=== PATIENT | female | born 1935 | race Caucasian/White ===

== ENCOUNTER → 2017-06-02 11:15 | Outpatient (CLI) | payer MEDICARE, OTHER, SELFPAY ==
[2016-08-18 10:52] VITALS: BMI 33.5
[2017-06-02 14:07] LABS: Absolute Lymphocyte Count 1.61 X10^3/ul (0.83-4.51); Absolute Neutrophil Count 5.2 X10^3/uL (2.0-7.7); Basophil# 0.05 X10^3/uL; Basophil% 0.6 % (0-1); Eosinophil# 0.45 X10^3/uL; Eosinophils% 5.5 % (0-5); Hematocrit 35.5 % (37-47); Hemoglobin 11.5 g/dl (12.0-15.0); Lymphocyte # 1.61 X10^3/ul (4.0); Lymphocyte % 19.6 % (19-41); Mean Corp Hgb Conc 32.4 g/gl (32-36); Mean Corpuscular Hgb 29.6 pg (27.0-32.0); Mean Corpuscular Volume 91.5 fL (81-99); Monocyte# 0.94 X10^3/uL; Monocyte% 11.4 % (0-10); Neutrophil # 5.15 X10^3/uL (2.7-7.7); Neutrophil % 62.7 % (47-70); Platelet Count 399 K/mm3 (150-450); RBC Distribution Width CV 13.2 % (11.6-14.6); RBC Distribution Width SD 43.9 fl (35.1-43.9); Red Blood Count 3.88 M/mm3 (4.2-5.4); White Blood Count 8.2 K/mm3 (4.4-11.0)
[2017-06-02 14:28] LABS: POSITIVE COUNT NO; POSITIVE DIFFERENTIAL NO; POSITIVE MORPHOLOGY NO
== END ==
PROVIDERS: Family Provider Family Medicine; PCP Family Medicine; Visit Provider Internal Medicine Cardiovascular Disease
DX: R07.9 Chest pain, unspecified (principal)
CPT/HCPCS: 36415; 85025

== ENCOUNTER → 2017-06-08 13:06 | Outpatient (CLI) | payer MEDICARE, OTHER, SELFPAY ==
[2016-08-18 10:52] VITALS: BMI 33.5
[2017-06-02 10:05] VITALS: BP 100/50
--- NOTE | 2017-06-08 13:09 | RAD_ITS ---
STUDY: X-RAY CHEST REASON FOR EXAM: Female, 82 years old. Chest pain/pressure. TECHNIQUE: PA and lateral COMPARISON: August 16, 2016 FINDINGS: There are stable prominent interstitial markings. No new focal consolidation is seen. Sternal cerclage wires and vascular clips are present from a prior sternotomy and coronary artery bypass graft procedure (CABG). The cardiomediastinal silhouette is stable. There are diffuse degenerative changes of the visualized thoracic spine. Normal visualized ribs, clavicles, and shoulders. There is no demonstrated abnormality of the visualized soft tissue structures of the upper abdomen. RAD/Chest PA and Lateral IMPRESSION: Stable examination demonstrating no acute cardiopulmonary process. Electronically Signed: Toshia Viveros MD at 22:46 EST Tel , Service support ,
[2017-06-08 15:05] LABS: Hematocrit 34.7 % (37-47); Hemoglobin 11.4 g/dl (12.0-15.0); Mean Corp Hgb Conc 32.9 g/gl (32-36); Mean Corpuscular Hgb 29.7 pg (27.0-32.0); Mean Corpuscular Volume 90.4 fL (81-99); Mean Platelet Vol. 10.1 fl (6.2-12.0); Platelet Count 363 K/mm3 (150-450); RBC Distribution Width CV 13.3 % (11.6-14.6); RBC Distribution Width SD 43.4 fl (35.1-43.9); Red Blood Count 3.84 M/mm3 (4.2-5.4); White Blood Count 7.9 K/mm3 (4.4-11.0)
[2017-06-08 15:10] LABS: Scan Indicated on CBC? Y/N NO
[2017-06-08 15:14] LABS: International Normalized Ratio 1.1; Prothrombin Time (Protime)PT. 13.4 SECONDS (11.7-14.9)
[2017-06-08 15:27] LABS: Anion Gap 10 (5-15); BUN 24 mg/dL (7-18); BUN/Creat Ratio 24.5 RATIO (10-20); Calcium,Total 8.9 mg/dL (8.5-10.1); Chloride 94 mmol/L (98-107); Creatinine, Serum 0.98 mg/dL (0.55-1.02); EST Glomerular Filtration Rate 58 mL/min (>60); Est Glom Filt Rate - Afr Amer 70 mL/min (>60); Glucose 81 mg/dL (74-106); Potassium 4.1 mmol/L (3.5-5.1); Sodium Level 132 mmol/L (136-145)
== END ==
PROVIDERS: Family Provider Family Medicine; PCP Family Medicine; Visit Provider Internal Medicine Cardiovascular Disease
DX: I25.810 Atherosclerosis of coronary artery bypass graft(s) without angina pectoris (principal); I25.118 Atherosclerotic heart disease of native coronary artery with other forms of angina pectoris; R07.9 Chest pain, unspecified; Z95.5 Presence of coronary angioplasty implant and graft; Z95.1 Presence of aortocoronary bypass graft
CPT/HCPCS: 36415; 71046; 80048; 85027; 85610

== ENCOUNTER 2017-06-16 12:42 | Inpatient (IN) | payer MEDICARE, OTHER, SELFPAY ==
[2016-08-18 10:52] VITALS: BMI 33.5
[2017-06-12 15:44] VITALS: BMI 34.9
[2017-06-15] VITALS (18 sets, daily range): BP systolic 104–147; BP diastolic 33–65; PULSE 68–86; RESP 13–25; TEMP 36.5–37.2; O2SAT 94–100; BMI 35.5
--- NOTE | 2017-06-15 10:29 | CL.D_ITS ---
Patient Name: SCARLET DELACRUZ Study Date: 06/15/2017 Performing: Freddie Hudson MD Ht: 61.81 inches 157 cm : 1935 Wt: 191.8 lbs 87 kg Age: 82 Gender: female BSA: 1.87 PROCEDURE(S) PERFORMED WI33-KEU/COR/LV/CABG CLINICAL PROFILE AND INDICATIONS INDICATIONS: 82-year-old lady with a history of unstable angina. Stress/Imaging Stress/Image Study Performed: No Angina Classification Anginal Classification w/in 2 Weeks: CCS III CAD Presentations: Unstable angina. CONCLUSIONS Severe disease involving the [place] coronary arteries as well as both saphenous vein grafts to the ri ght coronary artery as well as the circumflex artery and diagonal. Small left internal mammary arter y to the left anterior descending artery RECOMMENDATIONS PCI versus redo bypass surgery DESCRIPTION OF PROCEDURE The patient arrived to the procedure lab. The risks and benefits of the procedure as well as a full d escription of our services here and current unavailability of surgical backup were fully explained to the patient and/or their significant other prior to the catheterization. The Timeout was completed, verifying the correct patient and procedure. The patient's procedural site was prepped and draped in the usual fashion. Local anesthetic was given subcutaneously to left radial region with Lidocaine 2%. Using a modified Seldinger technique, arterial access was obtained via the left radial artery, a 6Fr sheath was inserted. Left internal mammary artery graft to the LAD selective angiography was perfor med in multiple views using a 5 Fr. IM catheter. Left Coronary Artery selective angiography was perfo rmed in multiple views using a 5 Fr. JL3.5 catheter. Saphenous Vein graft to the RCA selective angiog charley was performed in multiple views using a 5 Fr. AR MOD catheter. Saphenous Vein graft to the OM 1 selective angiography was performed in multiple views using a 5 Fr. LCB catheter. Right Coronary Art patsy selective angiography was then performed in multiple views using a 5 Fr. 3DRC (Vargas) catheter . Left Ventriculography was performed in FORBES projection using a 5 Fr. Pigtail catheter. LV to AO pull back pressures were then recorded. Left internal mammary artery graft to the LAD selective angiograph y was performed in multiple views using a 4 Fr. IM catheter. CORONARY ANGIOGRAPHY DOMINANCE: Right Dominant LEFT HEART ASSESSMENT Left Ventricular Ejection Fraction: by LV Gram 53 % LEFT MAIN: 30 % Stenosis LEFT ANTERIOR DECENDING ARTERY: PROX LAD: Mild luminal irregularities less than 30% MID LAD: occluded with competetive flow CIRCUMFLEX ARTERY: PROX CIRC: Mild luminal irregularities, 80 % Stenosis MID CIRC: is occluded RIGHT CORONARY ARTERY: Severe prox disease the occluded GRAFTS: REID graft to the Mid LAD is patent REID graft to the LAD is a very small vessel Saphenous Vein graft to the RCA has a proximal lesion of 95 % Saphenous Vein graft to the RCA previously placed stent has an instent restenosis of 30 % Sequential graft to the diagonal and OM is occluded Saphenous Vein graft to the 1st Diagonal previously placed stent has an instent restenosis of 95 in s tent % COMPLICATIONS PROCEDURE MEDICATIONS Versed 1 mg IV Fentanyl 50 mcg IV Oxygen: 2 L/min via nasal cannula Heparin diluted in 23cc Heparinized saline. Patient given 10cc IA of this solution. 06/15/2017 09:18: 26 Heparin 7000 unit(s) IV 06/15/2017 10:15:20 Nitro Tab 0.4 mg PO 06/15/2017 09:57:05 Nitro Tab 0.4 mg PO 06/15/2017 09:57:05 Verapamil 2.5mg, Ntg 100mcgs, 2000 units of Heparin diluted in 23cc Heparinized saline. Patient give n 10cc IA of this solution. 06/15/2017 09:18:26 SUMMARY OF HEMODYNAMIC DATA Time AIR REST ECG 08:10:25 AO 111/53 (76) SA 09:23:48 LV 141/10, 25 09:59:14 LV 141/9, 26 09:59:21 LV 128/7, 25 10:00:41 LVp 134/8, 29 10:00:49 AOp 135/63 (94) 10:00:54 Signed By Freddie Hudson MD On 06/15/2017 10:28:25 Freddie Hudson MD
--- NOTE | 2017-06-15 11:07 | CL.I_ITS ---
Patient Name: SCARLET DELACRUZ Study Date: 06/15/2017 Performing: Anisha Wahl MD Ht: 61.81 inches 157 cm : 1935 Wt: 191.8 lbs 87 kg Age: 82 Gender: female BSA: 1.87 PROCEDURE(S) PERFORMED [id number] AND/OR PTCA, SINGLE GRAFT CLINICAL PROFILE AND CO-MORBIDITIES INDICATIONS: 82-year-old lady with a history of unstable angina. Stress/Imaging Stress/Image Study Performed: No Angina Classification Anginal Classification w/in 2 Weeks: CCS III CAD Presentations: Unstable angina. CONCLUSIONS Succesful Aspiration Thrombectomy and PTCA stent thrombosis/ISR Prox SVG to OM using 3.5 mm NC balloo n RECOMMENDATIONS ASA Indefinitley Brilinta for at least 12 months INTERVENTION INFORMATION LESION SITE: Vein > to Circumflex (Proximal) Segment Number: 18-Proximal circumflex artery segment - pCIRC , Lesion Location: Body Lesion Complexity: High/C, chronic total occlusion: No, thrombus present: Yes, In-stent restenosis: Y es Pre Stenosis: 100 % Pre intervention FRANCIE flow: 0 PROCEDURE: Thrombectomy, Balloon Angioplasty Post Stenosis: 0 % Post intervention FRANCIE flow: 3 Lesion Devices: Medtronic 6 Fr AL1.0 100cm Guide Catheter Medtronic 6 Fr. [place] AP Aspiration Catheter Terumo .014 Runthrough Extra Floppy 180cm straight Fish Sci Large Vessel 3.5-5.5 Filter Wire 190cm Fish Sci NC EMERGE MR 3.50x15 BALLOON COMPLICATIONS No Complications PROCEDURE MEDICATIONS Versed 1 mg IV Fentanyl 50 mcg IV Fentanyl 25 mcg IV Oxygen: 2 L/min via nasal cannula Brilinta 180 mg PO @ 06/15/2017 10:38:00 Heparin diluted in 23cc Heparinized saline. Patient given 10cc IA of this solution. 06/15/2017 09:18: 26 Heparin 7000 unit(s) IV 06/15/2017 10:15:20 Heparin 1000 unit(s) IV 06/15/2017 10:37:55 Nitro Tab 0.4 mg PO 06/15/2017 09:57:05 Nitro Tab 0.4 mg PO 06/15/2017 09:57:05 Verapamil 2.5mg, Ntg 100mcgs, 2000 units of Heparin diluted in 23cc Heparinized saline. Patient give n 10cc IA of this solution. 06/15/2017 09:18:26 SUMMARY OF HEMODYNAMIC DATA Time AIR REST ECG 08:10:25 AO 111/53 (76) SA 09:23:48 LV 141/10, 25 09:59:14 LV 141/9, 09:59:21 LV 128/7, 25 10:00:41 LVp 134/8, 29 10:00:49 AOp 135/63 (94) 10:00:54 Signed By Anisha Wahl MD On 06/15/2017 11:06:12 Anisha Wahl MD
--- NOTE | 2017-06-15 11:15 | EKG12_ITS ---
Test Reason : Blood Pressure : / mmHG Vent. Rate : 069 BPM Atrial Rate : 069 BPM P-R Int : 196 ms QRS Dur : 088 ms QT Int : 418 ms P-R-T Axes : 054 -01 035 degrees QTc Int : 447 ms Normal sinus rhythm with sinus arrhythmia Normal ECG When compared with ECG of 19-AUG-2016 03:59, No significant change was found Confirmed by CRISTO EPPS, CRYSTAL ([id number]), senior editor MASHA CARO ([id number]) on 06/16/2017 2:00:01 PM Referred By: Crystal Hudson Confirmed By:CRYSTAL HUDSON MD
[2017-06-15 11:21] LABS: ACT Activated Clotting Time 241 sec (74-137)
[2017-06-15] MEDS: 0.9% Normal Saline 1,000 ML 100 ML IV (11:49)
[2017-06-15 15:46] LABS: M R Staph aureus DNA By PCR Negative (Negative); Probe Check PASS; Specimen Processing Control PASS
[2017-06-15] MEDS: DiphenhydrAMINE 12.5 MG/5 ML UDC PO (22:07)
[2017-06-15] MEDS: TICAGRELOR 90 MG TABLET PO (22:07)
[2017-06-16] VITALS (27 sets, daily range): BP systolic 82–131; BP diastolic 33–58; PULSE 65–91; RESP 14–23; TEMP 36.6–37.2; O2SAT 95–99
[2017-06-16 05:06] LABS: Hematocrit 31.9 % (37-47); Mean Corp Hgb Conc 34.5 g/gl (32-36); Mean Corpuscular Hgb 30.9 pg (27.0-32.0); Mean Corpuscular Volume 89.6 fL (81-99); Mean Platelet Vol. 9.5 fl (6.2-12.0); Platelet Count 318 K/mm3 (150-450); RBC Distribution Width CV 13.1 % (11.6-14.6); RBC Distribution Width SD 41.7 fl (35.1-43.9); Red Blood Count 3.56 M/mm3 (4.2-5.4); White Blood Count 7.3 K/mm3 (4.4-11.0)
[2017-06-16 05:07] LABS: Scan Indicated on CBC? Y/N NO
[2017-06-16 05:15] LABS: Anion Gap 8 (5-15); BUN 17 mg/dL (7-18); BUN/Creat Ratio 18.7 RATIO (10-20); Calcium,Total 8.6 mg/dL (8.5-10.1); Chloride 101 mmol/L (98-107); Creatinine, Serum 0.91 mg/dL (0.55-1.02); EST Glomerular Filtration Rate 63 mL/min (>60); Est Glom Filt Rate - Afr Amer 76 mL/min (>60); Estimated Creatinine Clearance 38.35 ml/min; Glucose 86 mg/dL (74-106); Potassium 3.6 mmol/L (3.5-5.1); Sodium Level 136 mmol/L (136-145)
--- NOTE | 2017-06-16 05:55 | EKG12_ITS ---
Test Reason : AM Blood Pressure : / mmHG Vent. Rate : 068 BPM Atrial Rate : 068 BPM P-R Int : 186 ms QRS Dur : 090 ms QT Int : 414 ms P-R-T Axes : 051 014 051 degrees QTc Int : 440 ms Normal sinus rhythm Normal ECG Confirmed by JZAMYN EPPS, ROCHELLE ([id number]), legal editor MASHA CARO ([id number]) on 06/17/2017 1:34:55 PM Referred By: Freddie Hudson Confirmed By:ROCHELLE ELDRIDGE MD
--- NOTE | 2017-06-16 07:47 | PCM.PN.CARD ---
Subjectve: Patient seen and evaluated Objective: Vital Signs Temp Pulse Resp BP Pulse Ox 98.1 F 66 23 H 130/45 H 97 06/16/17 04:00 06/16/17 07:05 06/16/17 07:00 06/16/17 07:00 06/16/17 07:00 Oxygen Delivery Method Room Air Weight: 192 lb 14.472 oz Body Mass Index (BMI) 35.5 Intake and Output for Last 24 Hours 06/14/17 06/15/17 06/16/17 23:59 23:59 23:59 Intake Total 1001 / 1001 565 / 565 Balance 1001 / 1001 565 / 565 General: Awake, Alert, Oriented x 3 HEENT: PERRL, EOMI, Sclera Non Icteric Neck: Supple, Good ROM, No Lymph Node Enlargement Lungs: Clear to auscultation Cardiovascular: Regular Rhythm, Normal S1, Normal S2, No Murmurs, No Rubs, No Gallops Vascular: No Carotid Bruits, Normal Femoral Pulses, Normal Radial Pulses, Normal Dorsalis Pedal Pulse, Normal Posterior Tibial Pulses Abdomen: Bowel Sounds Present, Soft, Non Tender, No HSM, No Organomegaly Extremities: No Cyanosis, No Clubbing, No edema Neurological: No Focal Motor or Sensory Deficit 06/16/17 04:55: WBC 7.3, RBC 3.56 L, Hgb 11.0 L, Hct 31.9 L, MCV 89.6, MCH 30.9, MCHC 34.5, RDW 13.1, RDW Differential 41.7, Plt Count 318, MPV 9.5 06/16/17 04:55: Sodium 136, Potassium 3.6, Chloride 101, Carbon Dioxide 27.0, Anion Gap 8, BUN 17, Creatinine 0.91, Est GFR (MDRD) Af Amer 76, Est GFR (MDRD) Non-Af 63, BUN/Creatinine Ratio 18.7, Glucose 86, Calcium 8.6 Rhythm: EKG: Sinus rhythm with no acute changes. Assessment/Plan 1. Coronary artery disease with unstable angina. Patient presented with chest discomfort and underwent a cardiac catheterization which demonstrated a subtotally occluded saphenous vein graft to the diagonal vessel and obtuse marginal branch, a high-grade stenosis noted in the saphenous vein graft to the right coronary artery, severe [place] vessel coronary artery disease and a nearly atretic left internal mammary artery to the left anterior descending artery. She underwent angioplasty and stenting of the saphenous vein graft to the diagonal vessel and obtuse marginal vessel with excellent results. She was treated with Integrilin overnight which she tolerated quite well. No evidence of bleeding is noted. Hemoglobin is noted to be stable with no significant drop and creatinine is also noted to be stable. EKG changes unremarkable. The plan will be to ambulate the patient and if she is chest pain-free then will discharge patient to have an interval intervention of the saphenous vein graft to the right coronary artery. In the meantime the patient will remain on the beta-darryl SHILOH inhibitor aspirin as well as Brilinta. The above has been discussed with the patient.
--- NOTE | 2017-06-16 07:51 | PN.CARD_ITS ---
Subjectve: Patient seen and evaluated Objective: Vital Signs Temp Pulse Resp BP Pulse Ox 98.1 F 66 23 H 130/45 H 97 06/16/17 04:00 06/16/17 07:05 06/16/17 07:00 06/16/17 07:00 06/16/17 07:00 Oxygen Delivery Method Room Air Weight: 192 lb 14.472 oz Body Mass Index (BMI) 35.5 Intake and Output for Last 24 Hours 06/14/17 06/15/17 06/16/17 23:59 23:59 23:59 Intake Total 1001 / 1001 565 / 565 Balance 1001 / 1001 565 / 565 General: Awake, Alert, Oriented x 3 HEENT: PERRL, EOMI, Sclera Non Icteric Neck: Supple, Good ROM, No Lymph Node Enlargement Lungs: Clear to auscultation Cardiovascular: Regular Rhythm, Normal S1, Normal S2, No Murmurs, No Rubs, No Gallops Vascular: No Carotid Bruits, Normal Femoral Pulses, Normal Radial Pulses, Normal Dorsalis Pedal Pulse, Normal Posterior Tibial Pulses Abdomen: Bowel Sounds Present, Soft, Non Tender, No HSM, No Organomegaly Extremities: No Cyanosis, No Clubbing, No edema Neurological: No Focal Motor or Sensory Deficit 06/16/17 04:55: WBC 7.3, RBC 3.56 L, Hgb 11.0 L, Hct 31.9 L, MCV 89.6, MCH 30.9 , MCHC 34.5, RDW 13.1, RDW Differential 41.7, Plt Count 318, MPV 9.5 06/16/17 04:55: Sodium 136, Potassium 3.6, Chloride 101, Carbon Dioxide 27.0, Anion Gap 8, BUN 17, Creatinine 0.91, Est GFR (MDRD) Af Amer 76, Est GFR (MDRD) Non-Af 63, BUN/Creatinine Ratio 18.7, Glucose 86, Calcium 8.6 Rhythm: EKG: Sinus rhythm with no acute changes. Assessment/Plan 1. Coronary artery disease with unstable angina. Patient presented with chest discomfort and underwent a cardiac catheterization which demonstrated a subtotally occluded saphenous vein graft to the diagonal vessel and obtuse marginal branch, a high-grade stenosis noted in the saphenous vein graft to the right coronary artery, severe [place] vessel coronary artery disease and a nearly atretic left internal mammary artery to the left anterior descending artery. She underwent angioplasty and stenting of the saphenous vein graft to the diagonal vessel and obtuse marginal vessel with excellent results. She was treated with Integrilin overnight which she tolerated quite well. No evidence of bleeding is noted. Hemoglobin is noted to be stable with no significant drop and creatinine is also noted to be stable. EKG changes unremarkable. The plan will be to ambulate the patient and if she is chest pain-free then will discharge patient to have an interval intervention of the saphenous vein graft to the right coronary artery. In the meantime the patient will remain on the beta-darryl SHILOH inhibitor aspirin as well as Brilinta. The above has been discussed with the patient.
[2017-06-16] MEDS: Aspirin 81 MG TAB.CHEW PO (08:35)
[2017-06-16] MEDS: Lisinopril 10 MG Tablet PO (08:36)
[2017-06-16] MEDS: Levothyroxine 75 MCG Tablet PO (08:36)
[2017-06-16] MEDS: Metoprolol Tartrate 25 MG Tablet PO ×2 (08:36→22:20)
[2017-06-16] MEDS: TICAGRELOR 90 MG TABLET PO ×2 (08:37→22:20)
[2017-06-16] MEDS: Isosorbide Mononitrate 60 MG Tablet PO (08:37)
--- NOTE | 2017-06-16 10:30 | CASEMGMT ---
Addendum entered by David June 06/16/17 12:45: Pt will not dc today. Status changed to Inpt. Discussed with pt. Kylee VENTURA Original Note: Intro role of CM to patient in room. she is independent, no ambulatory needs. Lives alone, daughter is available if needed. Pt had been on Brillinta. Cost was ~$140/month and she changed to Plavix last year. Cardiology recommendation is that she returns to taking Brillinta. [facility], call to pharmacist to request copay amount and if card can be used. -RN CLARK called to [employer] assistance program. Income cut off is $35,000 and pt states her income is less. Application for [employer] completed by pt, signed and faxed (pt will be evaluated for assistance). Dr. Hudson's office # and fax given on cover sheet for f/u. Copy of form given to pt with instructions that they will send application for her to fill out. this could have been done via phone, but pt declined. -If Brillinta assistance cannot be use twice in one year, pt will be paying copay amount for this 30 day supply. Kylee VENTURA
--- NOTE | 2017-06-16 10:31 | CRPHASE1 ---
Patient Data/Charges Phase II Referral:: [facility] - FOLLOWING OFFICE VISIT WITH RISK CONSULTING TREASURY DIRECTOR Risk Factors/Lifestyle Smoking Status: Never smoker Hx Hypertension: Yes Hx Metabolic Disorders: Yes Hx Dyslipidemia: Yes Hx Obesity: Yes Height: 5 ft 2 in - WT #191 Post-Menopausal: Yes Stress: Home/Family Risk Factor for Sedentary Lifestyle: Highest Risk Family History: Family History (Last Updated 06/02/17 @ 11:40 by Susie Zeng) Father Myocardial infarction CAD (coronary artery disease) Mother CAD (coronary artery disease) Brother CAD (coronary artery disease) S/P CABG x 4 Hypertension Myocardial infarction Hx of heart valve replacement with mechanical valve Brother Hypertension Diabetes CAD (coronary artery disease) Hyperlipidemia History of coronary artery bypass graft Past Cardiac Illness: Coronary Artery Disease, Myocardial Infarction, Previous PCI w/Stent, Coronary Artery Bypass Graft Phase I Education Given On:: [place], Nutrition, Antiplatelet medication Issues Affecting Care:: None Knowledge of Condition:: Yes Learning Preferences: Verbal, Written - ALETHA IS A PAST CR PATIENT. SHE DOESN'T THINK SHE WANTS TO DO CR AGAIN. Hospital Course Presenting Symptoms:: UNSTABLE ANGINA Medical/Surgical History [place]:: Yes - IN PAST Angina:: Yes - UNSTABLE ANGINA CAD:: Yes Cardiomyopathy:: No Hypertension:: Yes Dyslipidemia:: Yes Thyroid:: Yes - HYPOTHYROIDISM CABG: Yes PTCA:: Yes Discharge/Home/Social Eval Discharge Disposition: Home Marital Status:
--- NOTE | 2017-06-16 10:37 | CRPHASE1_ITS ---
Patient Data/Charges Phase II Referral:: [facility] - FOLLOWING OFFICE VISIT WITH RANCH HAND Risk Factors/Lifestyle Smoking Status: Never smoker Hx Hypertension: Yes Hx Metabolic Disorders: Yes Hx Dyslipidemia: Yes Hx Obesity: Yes Height: 5 ft 2 in - WT #191 Post-Menopausal: Yes Stress: Home/Family Risk Factor for Sedentary Lifestyle: Highest Risk Family History: Family History (Last Updated 06/02/17 @ 11:40 by Susie Zeng) Father Myocardial infarction CAD (coronary artery disease) Mother CAD (coronary artery disease) Brother CAD (coronary artery disease) S/P CABG x 4 Hypertension Myocardial infarction Hx of heart valve replacement with mechanical valve Brother Hypertension Diabetes CAD (coronary artery disease) Hyperlipidemia History of coronary artery bypass graft Past Cardiac Illness: Coronary Artery Disease, Myocardial Infarction, Previous PCI w/Stent, Coronary Artery Bypass Graft Phase I Education Given On:: [place], Nutrition, Antiplatelet medication Issues Affecting Care:: None Knowledge of Condition:: Yes Learning Preferences: Verbal, Written - ALETHA IS A PAST CR PATIENT. SHE DOESN'T THINK SHE WANTS TO DO CR AGAIN. Hospital Course Presenting Symptoms:: UNSTABLE ANGINA Medical/Surgical History CT:: Yes - IN PAST Angina:: Yes - UNSTABLE ANGINA CAD:: Yes Cardiomyopathy:: No Hypertension:: Yes Dyslipidemia:: Yes Thyroid:: Yes - HYPOTHYROIDISM CABG: Yes PTCA:: Yes Discharge/Home/Social Eval Discharge Disposition: Home Marital Status:
--- NOTE | 2017-06-16 10:39 | CRPH1.INST_ITS ---
General Education CAD and cardiac anatomy and function:: Patient communicates acknowledgment Explanation of diagnoses and procedures:: Patient communicates acknowledgment Sign/Symptoms of VT:: Patient communicates acknowledgment Antiplatelet therapy: Patient communicates acknowledgment Proper use of NTG-SL: Patient communicates acknowledgment Emergency procedures and activation of EMS: Patient communicates acknowledgment Compliance of all prescribed medications: Patient communicates acknowledgment Smoking Patient Nicotine/Smoking Risk Factors Are:: Never smoked Dyslipidemia Patient Dyslipidemia Risk Factors Are:: Total Cholesterol, Triglycerides, HDL, LDL Recommendations Include:: Lipid profile provided Dyslipidemia Response Code:: Patient communicates acknowledgment Overweight/Obesity Patient Overweight/Obesity Risk Factors Are:: Obesity - > or = 30 Recommendations Include:: Weight loss of 5-10%, Reduced calorie diet, Exercise 5 -7 times/week Overweight/Obesity:: Patient communicates acknowledgment Hypertension Recommendations Include:: Maintain BP <130/85, DASH dietary guidelines, Decrease /maintain normal body weight, Moderation of ETOH Hypertension:: Patient communicates acknowledgment Heart Disease Patient Heart Disease Risk Factors Are:: Family history of heart disease < 65 years old, Previous cardiac event Heart Disease Response Code:: Patient communicates acknowledgment Diabetes Patient Diabetes Risk Factors Are:: No documented hx of diabetes Metabolic Syndrome Patient Metabolic Syndrome Risk Factors Are [3 of 5]:: Waist circumference > 35 [female] or 40 [male], Hypertension Recommendations Include:: Reinforce compliance to risk factor modifications, Encouraged follow-up with Primary Care Physician Metabolic Syndrome Response Code:: Patient communicates acknowledgment Sedentary Patient Sedentary Risk Factors Are:: Lack of regular exercise Recommendations Include:: Aerobic exercise 5-7 times/week for 20-30 minutes continuously, Benefits of regular exercise, Discussed home walking program, Monitored Outpatient Cardiac Rehab Sedentary Response Code:: Patient communicates acknowledgment Stress Recommendations Include:: Identification of stressors, and assessment of coping skills, Stress management techniques Stress Response Code:: Patient communicates acknowledgment
--- NOTE | 2017-06-16 11:15 | EKG12_ITS ---
Test Reason : POST CATH Blood Pressure : / mmHG Vent. Rate : 084 BPM Atrial Rate : 084 BPM P-R Int : 178 ms QRS Dur : 080 ms QT Int : 388 ms P-R-T Axes : 063 008 076 degrees QTc Int : 458 ms Normal sinus rhythm Low voltage QRS (precordial leads) Confirmed by JAZMYN EPPS, ROCHELLE ([id number]), science editor MASHA CARO ([id number]) on 06/17/2017 1:33:31 PM Referred By: Freddie Hudson Confirmed By:ROCHELLE ELDRIDGE MD
--- NOTE | 2017-06-16 17:02 | PCM.PN.BLA ---
Progress Note Patient did develop mild chest discomfort on ambulating. We will therefore keep patient overnight and perform an angioplasty in a.m. She will remain on the aspirin Brilinta and beta-darryl. The above has been discussed with the patient and her family and they understand and agree to proceed.
[2017-06-17] VITALS (34 sets, daily range): BP systolic 95–164; BP diastolic 45–98; PULSE 64–94; RESP 12–20; TEMP 36.4–37.5; O2SAT 93–100
[2017-06-17 05:02] LABS: Hematocrit 32.7 % (37-47); Hemoglobin 11.3 g/dl (12.0-15.0); Mean Corp Hgb Conc 34.6 g/gl (32-36); Mean Corpuscular Volume 89.8 fL (81-99); Mean Platelet Vol. 9.4 fl (6.2-12.0); Platelet Count 334 K/mm3 (150-450); RBC Distribution Width CV 13.4 % (11.6-14.6); Red Blood Count 3.64 M/mm3 (4.2-5.4); Scan Indicated on CBC? Y/N NO; White Blood Count 6.7 K/mm3 (4.4-11.0)
[2017-06-17 05:10] LABS: Prothrombin Time (Protime)PT. 13.2 SECONDS (11.7-14.9)
[2017-06-17 05:11] LABS: Partial Thromboplast Time 31.5 Seconds (24.1-36.2)
[2017-06-17 05:14] LABS: Anion Gap 8 (5-15); BUN 18 mg/dL (7-18); BUN/Creat Ratio 19.6 RATIO (10-20); Calcium,Total 8.8 mg/dL (8.5-10.1); Chloride 102 mmol/L (98-107); Creatinine, Serum 0.92 mg/dL (0.55-1.02); EST Glomerular Filtration Rate 63 mL/min (>60); Est Glom Filt Rate - Afr Amer 76 mL/min (>60); Estimated Creatinine Clearance 37.93 ml/min; Glucose 87 mg/dL (74-106); Potassium 3.9 mmol/L (3.5-5.1); Sodium Level 136 mmol/L (136-145)
[2017-06-17] MEDS: 0.9% Normal Saline 1,000 ML 15 ML IV (05:44)
[2017-06-17] MEDS: CHLORHEXIDINE GLUC 2% CLOTH 1 EACH TOWELETTE TOPICAL (05:47)
[2017-06-17] MEDS: Levothyroxine 75 MCG Tablet PO (05:47)
[2017-06-17] MEDS: TICAGRELOR 90 MG TABLET PO ×2 (05:51→21:54)
[2017-06-17] MEDS: Aspirin 81 MG TAB.CHEW PO (05:51)
[2017-06-17] MEDS: Metoprolol Tartrate 25 MG Tablet PO ×2 (05:51→21:54)
[2017-06-17] MEDS: Lisinopril 10 MG Tablet PO (05:52)
[2017-06-17] MEDS: Isosorbide Mononitrate 60 MG Tablet PO (05:52)
--- NOTE | 2017-06-17 05:55 | EKG12_ITS ---
Test Reason : AM EKG Blood Pressure : / mmHG Vent. Rate : 067 BPM Atrial Rate : 067 BPM P-R Int : 174 ms QRS Dur : 092 ms QT Int : 406 ms P-R-T Axes : 056 -04 074 degrees QTc Int : 429 ms Normal sinus rhythm Normal ECG When compared with ECG of 16-JUN-2017 13:47, MANUAL COMPARISON REQUIRED, DATA IS UNCONFIRMED Confirmed by CRISTO EPPS, CRYSTAL ([id number]), newspaper photo editor MASHA CARO ([id number]) on 06/18/2017 1:09:36 PM Referred By: Crystal Hudson Confirmed By:CRYSTAL HUDSON MD
--- NOTE | 2017-06-17 07:38 | PN.CARD_ITS ---
Subjectve: The patient was seen and evaluated and appears to be doing well has not had any further chest pain. Objective: Vital Signs Temp Pulse Resp BP Pulse Ox 98.4 F 67 16 164/66 H 96 06/17/17 06:00 06/17/17 06:00 06/17/17 06:00 06/17/17 06:00 06/17/17 06:00 Oxygen Delivery Method Room Air Weight: 192 lb 0.362 oz Body Mass Index (BMI) 35.5 Intake and Output for Last 24 Hours 06/15/17 06/16/17 06/17/17 23:59 23:59 23:59 Intake Total 1001 / 1001 1285 / 1285 340 / 340 Balance 1001 / 1001 1285 / 1285 340 / 340 General: Awake, Alert, Oriented x 3 HEENT: PERRL, EOMI, Sclera Non Icteric Neck: Supple, Good ROM, No Lymph Node Enlargement Lungs: Clear to auscultation Cardiovascular: Regular Rhythm, Normal S1, Normal S2, No Murmurs, No Rubs, No Gallops Vascular: No Carotid Bruits, Normal Femoral Pulses, Normal Radial Pulses, Normal Dorsalis Pedal Pulse, Normal Posterior Tibial Pulses Abdomen: Bowel Sounds Present, Soft, Non Tender, No HSM, No Organomegaly Extremities: No Cyanosis, No Clubbing, No edema Neurological: No Focal Motor or Sensory Deficit 06/17/17 04:45: WBC 6.7, RBC 3.64 L, Hgb 11.3 L, Hct 32.7 L, MCV 89.8, MCH 31.0 , MCHC 34.6, RDW 13.4, RDW Differential 43.0, Plt Count 334, MPV 9.4 06/17/17 04:45: Sodium 136, Potassium 3.9, Chloride 102, Carbon Dioxide 26.0, Anion Gap 8, BUN 18, Creatinine 0.92, Est GFR (MDRD) Af Amer 76, Est GFR (MDRD) Non-Af 63, BUN/Creatinine Ratio 19.6, Glucose 87, Calcium 8.8 06/17/17 04:45: PT 13.2, INR 1.0, APTT 31.5 Assessment/Plan 1. Coronary artery disease with unstable angina. Patient presented with chest discomfort and underwent a cardiac catheterization which demonstrated a subtotally occluded saphenous vein graft to the diagonal vessel and obtuse marginal branch, a high-grade stenosis noted in the saphenous vein graft to the right coronary artery, severe [place] vessel coronary artery disease and a nearly atretic left internal mammary artery to the left anterior descending artery. She underwent angioplasty and stenting of the saphenous vein graft to the diagonal vessel and obtuse marginal vessel with excellent results. She was treated with Integrilin overnight which she tolerated quite well. No evidence of bleeding is noted. Hemoglobin is noted to be stable with no significant drop and creatinine is also noted to be stable. EKG changes unremarkable. Due to the residual chest discomfort as well as the coronary artery disease the plan will be for her to undergo repeat catheterization and angioplasty of the saphenous vein graft to the right coronary artery today. Patient will remain on her current medical therapy. 2. Hypertension Blood pressure appears to be under decent control. We will continue her current medical therapy. 3.. Hyper Lipidemia She will continue with her high intensity statin. Risk factor modification.
--- NOTE | 2017-06-17 08:40 | NURSING ---
cork slabs sawyer RN at bedside to transport patient to cath lb for procedure.
--- NOTE | 2017-06-17 10:30 | EKG12_ITS ---
Test Reason : POST PCI Blood Pressure : / mmHG Vent. Rate : 082 BPM Atrial Rate : 082 BPM P-R Int : 204 ms QRS Dur : 086 ms QT Int : 400 ms P-R-T Axes : 053 -12 090 degrees QTc Int : 467 ms Normal sinus rhythm Normal ECG When compared with ECG of 17-JUN-2017 04:57, MANUAL COMPARISON REQUIRED, DATA IS UNCONFIRMED Confirmed by JAZMYN EPPS, ROCHELLE ([id number]), editor managing newspaper MASHA CARO ([id number]) on 06/19/2017 10:38:39 AM Referred By: Freddie Hudson Confirmed By:ROCHELLE ELDRIDGE MD
--- NOTE | 2017-06-17 10:44 | CL.I_ITS ---
Patient Name: SCARLET DELACRUZ Study Date: 06/17/2017 Performing: Anisha Wahl MD Ht: 62 inches 157 cm : 1935 Wt: 192.1 lbs 87 kg Age: 82 Gender: female BSA: 1.87 PROCEDURE(S) PERFORMED [id number] AND/OR PTCA, SINGLE GRAFT CLINICAL PROFILE AND CO-MORBIDITIES CAD Presentations: Unstable angina. CONCLUSIONS Successful PTCA/SHERRY of the Prox SVG to RPLV using Synergy 3.5x28 mm Successful SHERRY Mid SVG to RPLV using Synergy 3.5x32 mm No reflow treated with aspiration catheter, intra-coronary Adenosine and Nipride RECOMMENDATIONS ASA Carlaefyury Rico for at least 12 months Follow up with Dr. Hudson DESCRIPTION OF PROCEDURE The patient arrived to the procedure lab. The risks and benefits of the procedure as well as a full d escription of our services here and current unavailability of surgical backup were fully explained to the patient and/or their significant other prior to the catheterization. The Timeout was completed, verifying the correct patient and procedure. The patient's procedural site was prepped and draped in the usual fashion. Local anesthetic was given subcutaneously to right radial region with Lidocaine 2% . Using a modified Seldinger technique, arterial access was obtained via the right radial artery, a 6 Fr sheath was inserted.. MP1 Guide catheter was inserted and engaged into the SVG to the RCA. Angiogram performed pre balloon dilatation. Filter wire Guide wire was advanced to the SVG RCA. Guide catheter was exchanged for a AL 0.75 Filterwire Guide wire was advanced to the SVG RCA. 2.75x12 Emerge Balloon catheter was advance d across lesion in the SVG right coronary, proximal. PTCA balloon inflated at 8 atms for 15 secs 3.5x 32 Synergy Drug Eluting stent was advanced across the lesion in the graft to the RCA. Angiogram perfo rmed post balloon dilatation. 3.5x28 Synergy Drug Eluting stent was advanced across the lesion in the graft to the RCA. Drug Eluting stent was advanced across the lesion in the graft to the RCA. Runthru wire Guide wire was advanced to the SVG RCA. [place] AP inserted Pass # 1 [place] AP Removed Angiogram performed post stent deployment. [place] AP inserted Pass # 2 [place] AP Removed Angiogram performed p ost. 4.0x8 NC Emerge Balloon catheter was inserted post stent. Angiogram performed.. . The arterial sheath was pulled and a TR Band was applied for hemostasis. 18cc air. INTERVENTION INFORMATION LESION SITE: Saphaenous Vein Graft to the RPLV lesion location in the proximal graft segment Lesion Complexity: High/C, culprit lesion: Yes Pre Stenosis: 95 % Pre intervention FRANCIE flow: 3 PROCEDURE: Drug Eluting Stent with pre dilatation. Post Stenosis: 0 % Post intervention FRANCIE flow: 3 Lesion Devices: Fish Sci Large Vessel 3.5-5.5 Filter Wire 190cm Fish Sci EMERGE MR 2.75x12 BALLOON Medtronic 6 Fr AL.75 100cm Guide Catheter Fish Sci Synergy MR SHERRY 3.50x28 Medtronic 6 Fr. [place] AP Aspiration Catheter Terumo .014 Runthrough Extra Floppy 180cm straight Fish Sci NC EMERGE MR 4.00x08 BALLOON LESION SITE: Saphaenous Vein Graft to the RPLV lesion location in the mid graft segment Lesion Complexity: High/C, Lesion Complexity: High/C, In-stent restenosis: Yes, culprit lesion: No Pre Stenosis: 80 % Pre intervention FRANCIE flow: 3 PROCEDURE: Drug Eluting Stent Post Stenosis: 0 % Post intervention FRANCIE flow: 3 Lesion Devices: Fish Sci Synergy MR SHERRY 3.50x32 Fish Sci NC EMERGE MR 4.00x08 BALLOON COMPLICATIONS No Complications PROCEDURE MEDICATIONS Fentanyl 25 mcg IV Versed 1 mg IV Fentanyl 25 mcg IV Fentanyl 75 mcg IV Fentanyl 25 mcg IV Fentanyl 25 mcg IV Oxygen: 2 L/min via nasal cannula Adenosine 24 mcg IC 06/17/2017 09:34:55 Adenosine 36 mg IV 06/17/2017 09:41:38 Atropine 1mg/10ml 0.5 amp 06/17/2017 09:46:02 Atropine 1mg/10ml 0.5 amp 06/17/2017 09:46:20 Adenosine 24 mg IV 06/17/2017 09:52:42 Adenosine 48 mg IV 06/17/2017 09:55:47 Adenosine 48 mg IV 06/17/2017 09:58:53 Adenosine 25 mg IV @ 06/17/2017 10:05:25 Heparin 4000 unit(s) IV 06/17/2017 09:10:06 Heparin given IA 06/17/2017 09:10:33 Heparin 1000 unit(s) IV 06/17/2017 09:25:04 Heparin 1000 unit(s) IV 06/17/2017 09:37:50 Nipride 50 mcg IV 06/17/2017 09:57:49 Verapamil 2.5mg, Ntg 100mcgs, 2000 units of Heparin given IA 06/17/2017 09:10:33 Zofran 4 mg IV 06/17/2017 09:52:42 IV Bolus: .9 NaCl 200 ml total 06/17/2017 09:26:49 IV Fluids: .9 NaCl increased to open ml/hr 06/17/2017 09:19:40 IV Fluids: .9 NaCl decreased to 70 ml/hr 06/17/2017 09:27:09 IV Fluids: .9 NaCl decreased to KVO ml/hr 06/17/2017 10:05:48 SUMMARY OF HEMODYNAMIC DATA Time AIR REST ECG 09:13:08 AO 108/47 (73) SA 09:19:13 Signed By Anisha Wahl MD On 06/17/2017 10:43:47 AM Anisha Wahl MD
[2017-06-17 10:45] LABS: ACT Activated Clotting Time 202 sec (74-137)
[2017-06-17 10:45] LABS: ACT Activated Clotting Time 263 sec (74-137)
[2017-06-17] MEDS: 0.9% Normal Saline 1,000 ML 100 ML IV (10:59)
[2017-06-17] MEDS: fentaNYL 100 MCG/2 ML Ampul IV (11:40)
--- NOTE | 2017-06-17 15:43 | CASEMGMT ---
Call received from [employer] prescription assistance program. They are not able to assist patient. Recommendation was for pt to complete Application for free [employer] [facility] Medicines. This program only covers medications once 3% of income has been spent (it is not immediate benefit). Application will be given to pt to complete on discharge. Brillinta savings card in [facility]. When it is prescribed, pharmacist will see if savings card can be used for first month free. Kylee HERNANDEZN RN ACM
[2017-06-18] VITALS (18 sets, daily range): BP systolic 92–167; BP diastolic 31–79; PULSE 67–92; RESP 15–25; TEMP 36.8–37.1; O2SAT 93–98
[2017-06-18 03:56] LABS: Hematocrit 28.5 % (37-47); Hemoglobin 9.6 g/dl (12.0-15.0); Mean Corp Hgb Conc 33.7 g/gl (32-36); Mean Corpuscular Hgb 30.8 pg (27.0-32.0); Mean Corpuscular Volume 91.3 fL (81-99); Mean Platelet Vol. 9.5 fl (6.2-12.0); Platelet Count 308 K/mm3 (150-450); RBC Distribution Width CV 13.5 % (11.6-14.6); Red Blood Count 3.12 M/mm3 (4.2-5.4); Scan Indicated on CBC? Y/N NO; White Blood Count 8.1 K/mm3 (4.4-11.0)
[2017-06-18 04:14] LABS: Anion Gap 6 (5-15); BUN 16 mg/dL (7-18); BUN/Creat Ratio 18.8 RATIO (10-20); Calcium,Total 8.2 mg/dL (8.5-10.1); Chloride 104 mmol/L (98-107); Creatinine, Serum 0.85 mg/dL (0.55-1.02); EST Glomerular Filtration Rate 68 mL/min (>60); Est Glom Filt Rate - Afr Amer 83 mL/min (>60); Estimated Creatinine Clearance 41.05 ml/min; Glucose 87 mg/dL (74-106); Potassium 3.7 mmol/L (3.5-5.1); Sodium Level 136 mmol/L (136-145)
[2017-06-18] MEDS: Levothyroxine 75 MCG Tablet PO (05:09)
[2017-06-18] MEDS: 0.9% NaCl Peripheral Flush Adult/Peds IV ×2 (05:09→14:06)
--- NOTE | 2017-06-18 05:55 | EKG12_ITS ---
Test Reason : AM EKG Blood Pressure : / mmHG Vent. Rate : 067 BPM Atrial Rate : 067 BPM P-R Int : 184 ms QRS Dur : 082 ms QT Int : 386 ms P-R-T Axes : 047 -14 092 degrees QTc Int : 407 ms Normal sinus rhythm Normal ECG When compared with ECG of 17-JUN-2017 10:45, MANUAL COMPARISON REQUIRED, DATA IS UNCONFIRMED Confirmed by SCOTTIE LORA ([id number]), image editor MASHA CARO ([id number]) on 06/25/2017 3:03:13 PM Referred By: Freddie Hudson Confirmed By:SCOTTIE LORA
--- NOTE | 2017-06-18 07:26 | PCM.PN.CARD ---
Subjectve: Patient seen and evaluated and doing better this morning with no cardiac complaints Objective: Vital Signs Temp Pulse Resp BP Pulse Ox 98.7 F 68 16 125/79 H 97 06/18/17 04:00 06/18/17 06:00 06/18/17 06:00 06/18/17 06:00 06/18/17 06:00 Oxygen Delivery Method Room Air Weight: 193 lb 9.054 oz Body Mass Index (BMI) 35.5 Intake and Output for Last 24 Hours 06/16/17 06/17/17 06/18/17 23:59 23:59 23:59 Intake Total 1285 / 1285 782 / 782 724.5 / 724.5 Balance 1285 / 1285 782 / 782 724.5 / 724.5 General: Awake, Alert, Oriented x 3 HEENT: PERRL, EOMI, Sclera Non Icteric Neck: Supple, Good ROM, No Lymph Node Enlargement Lungs: Clear to auscultation Cardiovascular: Regular Rhythm, Normal S1, Normal S2, No Murmurs, No Rubs, No Gallops Vascular: No Carotid Bruits, Normal Femoral Pulses, Normal Radial Pulses, Normal Dorsalis Pedal Pulse, Normal Posterior Tibial Pulses Abdomen: Bowel Sounds Present, Soft, Non Tender, No HSM, No Organomegaly Extremities: No Cyanosis, No Clubbing, No edema Neurological: No Focal Motor or Sensory Deficit 06/18/17 03:45: Sodium 136, Potassium 3.7, Chloride 104, Carbon Dioxide 26.0, Anion Gap 6, BUN 16, Creatinine 0.85, Est GFR (MDRD) Af Amer 83, Est GFR (MDRD) Non-Af 68, BUN/Creatinine Ratio 18.8, Glucose 87, Calcium 8.2 L 06/18/17 03:45: WBC 8.1, RBC 3.12 L, Hgb 9.6 L, Hct 28.5 L, MCV 91.3, MCH 30.8, MCHC 33.7, RDW 13.5, RDW Differential 44.0 H, Plt Count 308, MPV 9.5 06/18/17 03:45: Troponin I 4.84 H* Rhythm: EKG: Sinus rhythm with no acute changes. Assessment/Plan 1. Coronary artery disease with unstable angina. Patient presented with chest discomfort and underwent a cardiac catheterization which demonstrated a subtotally occluded saphenous vein graft to the diagonal vessel and obtuse marginal branch, a high-grade stenosis noted in the saphenous vein graft to the right coronary artery, severe [place] vessel coronary artery disease and a nearly atretic left internal mammary artery to the left anterior descending artery. She underwent angioplasty and stenting of the saphenous vein graft to the diagonal vessel and obtuse marginal vessel with excellent results. She was treated with Integrilin overnight which she tolerated quite well. No evidence of bleeding is noted. Yesterday she underwent repeat catheterization and angioplasty of the saphenous vein graft to the right coronary artery . Patient will remain on her current medical therapy. Likely had a type IV small myocardial infarction. Hemoglobin has remained stable with no drop more than 3 g and her creatinine has also remained stable with no increase which was significant. Her EKG remains unremarkable. The plan will be to discharge her with her current outpatient medications and see her as an outpatient. 2. Hypertension Blood pressure appears to be under decent control. We will continue her current medical therapy. 3.. Hyper Lipidemia She will continue with her high intensity statin. Risk factor modification.
--- NOTE | 2017-06-18 07:32 | PCM.DC.CCA ---
Discharge Diet: Low fat/ Low Cholesterol Discharge Activity: Return to Normal Activity Call your doctor if your incision/area has: Increased Pain/ Swelling, Increased Redness, Foul Smelling Discharge, Swelling at the incision site Call your doctor if you observe: Fever of 101 or Higher Change Dressing in (Days):: 1 Remove Dressing in (days):: 1 Additional Dressing/Incision Instructions:: Keep the dressing (bandage) on until the next morning. You may then shower, but do not take a tub bath for 5 days after your test. It is normal to have some tenderness and discomfort at the puncture site. Sometimes bruising also occurs. However, if pain, numbness, or coldness occurs below the puncture site (in your leg, toes, arms or fingers) call your doctor at once. You may have a small, marble sized knot at the puncture site. This is normal. Do not rub it. It will go away in 4-6 weeks. Bleeding can occur from the area where the puncture was done. Blood may spurt or drip from the site. If blood spurts, apply pressure right away to stop bleeding and call 911. Although rare, bleeding into the tissue (hematoma) can also occur. If this happens, a large, firm area goose egg under the skin will appear. If any of these occur, lie down as flat as you can and have someone apply firm pressure to the cath site with a gauze pad or a clean washcloth for 10-15 minutes. Call 911 or go to the Emergency Department. Allergies/Adverse Reactions: Allergies codeine Allergy (Mild, Verified 06/15/17 07:56) Rash ibuprofen Allergy (Mild, Verified 06/15/17 07:56) Rash rosuvastatin calcium [From Crestor] Allergy (Verified 06/15/17 07:56) Unknown meperidine HCl [From Demerol] Adverse Reaction (Mild, Verified 06/15/17 07:56) Other propoxyphene HCl [From Darvon] Adverse Reaction (Mild, Verified 06/15/17 07:56) Other Medications to take at Discharge Aspirin [Aspirin, Baby] 81 mg PO DAILY@0800 12/30/13 Docusate Sodium [Colace] 100 mg PO TID 12/30/13 Flaxseed Oil/[place] 3,6,9 [Sv Flaxseed Oil 1,300 mg Sftgl] 1 ea PO TIDCM 12/30/13 Levothyroxine [Synthroid] 75 mcg PO DAILY 12/30/13 Lisinopril 10 mg PO DAILY 12/30/13 Nitroglycerin [Nitrostat] 0.4 mg SUBLINGUAL Q5M PRN 12/30/13 [place]-3 Fatty Acids/Fish Oil [[place] 3 Fish Oil Softgel] 100 mg PO TIDCM 12/30/13 Triamterene 37.5MG/Hctz 25MG [Dyazide (G)] 25 mg PO DAILY 12/30/13 Cholecalciferol (Vitamin D3) [Vitamin D] 1,000 unit PO DAILY 01/11/14 Cyanocobalamin [Vitamin B12] 250 mcg PO DAILY@0800 01/11/14 Magnesium 500 mg PO DAILY 01/11/14 Calcium Carbonate [Tums] 1,000 mg PO QHS PRN 09/11/15 Lecithin 1,200 mg PO DAILY 09/11/15 Cinnamon Bark [Cinnamon] 500 mg PO DAILY 08/16/16 coenzyme Q10 100 mg capsule 100 mg PO QDAY 06/02/17 metoprolol tartrate 25 mg tablet 25 mg PO BID 06/02/17 red yeast rice 600 mg capsule 600 mg PO TID cap 06/02/17 isosorbide mononitrate ER 60 mg tablet,extended release 24 hr 60 mg PO QAM #90 tab 06/04/17 Ticagrelor [Brilinta] 90 mg PO BID #60 tablet 06/18/17 The following prescriptions were given: Ticagrelor [Brilinta] 90 mg PO BID #60 tablet Primary Care Physician: Mumtaz Butler MD [Primary Care Provider] - When: my office will call Cardiac Rehabilitation Info Cardiac Rehabilitation Program Information: Cardiac Rehabilitation is important for patients like you who are recovering from a heart problem. Cardiac rehabilitation programs are recognized as integral to the continued care of the patient with coronary heart disease. The cardiac rehabilitation program is designed to optimize a patient's physical, psychological, and social functioning. Health associate director career services work in cardiac rehabilitation programs and assist you with getting the treatments you need to get stronger and healthier - like exercise, healthy eating habits, and medications. Cardiac rehabilitation has been show to help people with heart problems live longer and have better life enjoyment than people who do not go to cardiac rehabilitation. Please contact the Cardiac Rehabilitation Program at [facility] at in two weeks if you have not heard from them.
--- NOTE | 2017-06-18 07:36 | DCINST_ITS ---
Discharge Diet: Low fat/ Low Cholesterol Discharge Activity: Return to Normal Activity Call your doctor if your incision/area has: Increased Pain/ Swelling, Increased Redness, Foul Smelling Discharge, Swelling at the incision site Call your doctor if you observe: Fever of 101 or Higher Change Dressing in (Days):: 1 Remove Dressing in (days):: 1 Additional Dressing/Incision Instructions:: Keep the dressing (bandage) on until the next morning. You may then shower, but do not take a tub bath for 5 days after your test. It is normal to have some tenderness and discomfort at the puncture site. Sometimes bruising also occurs. However, if pain, numbness, or coldness occurs below the puncture site (in your leg, toes, arms or fingers) call your doctor at once. You may have a small, marble sized knot at the puncture site. This is normal. Do not rub it. It will go away in 4-6 weeks. Bleeding can occur from the area where the puncture was done. Blood may spurt or drip from the site. If blood spurts, apply pressure right away to stop bleeding and call 911. Although rare, bleeding into the tissue (hematoma) can also occur. If this happens, a large, firm area goose egg under the skin will appear. If any of these occur, lie down as flat as you can and have someone apply firm pressure to the cath site with a gauze pad or a clean washcloth for 10-15 minutes. Call 911 or go to the Emergency Department. Allergies/Adverse Reactions: Allergies codeine Allergy (Mild, Verified 06/15/17 07:56) Rash ibuprofen Allergy (Mild, Verified 06/15/17 07:56) Rash rosuvastatin calcium [From Crestor] Allergy (Verified 06/15/17 07:56) Unknown meperidine HCl [From Demerol] Adverse Reaction (Mild, Verified 06/15/17 07:56) Other propoxyphene HCl [From Darvon] Adverse Reaction (Mild, Verified 06/15/17 07:56) Other Medications to take at Discharge Aspirin [Aspirin, Baby] 81 mg PO DAILY@0800 12/30/13 Docusate Sodium [Colace] 100 mg PO TID 12/30/13 Flaxseed Oil/[place] 3,6,9 [Sv Flaxseed Oil 1,300 mg Sftgl] 1 ea PO TIDCM Levothyroxine [Synthroid] 75 mcg PO DAILY 12/30/13 Lisinopril 10 mg PO DAILY 12/30/13 Nitroglycerin [Nitrostat] 0.4 mg SUBLINGUAL Q5M PRN 12/30/13 [place]-3 Fatty Acids/Fish Oil [[place] 3 Fish Oil Softgel] 100 mg PO TIDCM Triamterene 37.5MG/Hctz 25MG [Dyazide (G)] 25 mg PO DAILY 12/30/13 Cholecalciferol (Vitamin D3) [Vitamin D] 1,000 unit PO DAILY 01/11/14 Cyanocobalamin [Vitamin B12] 250 mcg PO DAILY@0800 01/11/14 Magnesium 500 mg PO DAILY 01/11/14 Calcium Carbonate [Tums] 1,000 mg PO QHS PRN 09/11/15 Lecithin 1,200 mg PO DAILY 09/11/15 Cinnamon Bark [Cinnamon] 500 mg PO DAILY 08/16/16 coenzyme Q10 100 mg capsule 100 mg PO QDAY 06/02/17 metoprolol tartrate 25 mg tablet 25 mg PO BID 06/02/17 red yeast rice 600 mg capsule 600 mg PO TID cap 06/02/17 isosorbide mononitrate ER 60 mg tablet,extended release 24 hr 60 mg PO QAM #90 tab 06/04/17 Ticagrelor [Brilinta] 90 mg PO BID #60 tablet 06/18/17 The following prescriptions were given: Ticagrelor [Brilinta] 90 mg PO BID #60 tablet Primary Care Physician: Mumtaz Butler MD [Primary Care Provider] - When: my office will call Cardiac Rehabilitation Info Cardiac Rehabilitation Program Information: Cardiac Rehabilitation is important for patients like you who are recovering from a heart problem. Cardiac rehabilitation programs are recognized as integral to the continued care of the patient with coronary heart disease. The cardiac rehabilitation program is designed to optimize a patient's physical, psychological, and social functioning. Health critical care nurse practitioner work in cardiac rehabilitation programs and assist you with getting the treatments you need to get stronger and healthier - like exercise, healthy eating habits, and medications. Cardiac rehabilitation has been show to help people with heart problems live longer and have better life enjoyment than people who do not go to cardiac rehabilitation. Please contact the Cardiac Rehabilitation Program at [facility] at in two weeks if you have not heard from them.
--- NOTE | 2017-06-18 09:15 | NURSING ---
Pt up and walked in hallways w/DIAZO TECHNICIAN.
--- NOTE | 2017-06-18 09:37 | CASEMGMT ---
Discussed prescriptions especially Brillinta with pt. Explained financial assistance form for [employer], which will pay for medication once pt has paid 3% of income for prescriptions. Encouraged to keep receipts. Pt will take form to Dr. Hudson's office (pt part filled out with pt, physician script will be completed @ office). Pt states her copay now will be $107.00 for 3 month supply and she can afford this. -F/U transportation will be by family. No further concerns re: dc. Kylee HERNANDEZN RN ACM
[2017-06-18] MEDS: TICAGRELOR 90 MG TABLET PO (10:37)
[2017-06-18] MEDS: Aspirin 81 MG TAB.CHEW PO (10:37)
[2017-06-18] MEDS: Isosorbide Mononitrate 60 MG Tablet PO (10:37)
[2017-06-18] MEDS: Metoprolol Tartrate 25 MG Tablet PO (10:37)
[2017-06-18] MEDS: Lisinopril 10 MG Tablet PO (10:40)
[2017-06-18] MEDS: Furosemide 20 MG/2 ML VIAL IV (14:06)
== END 2017-06-18 14:30 | disposition home or self-care (01) | DRG 246 ==
LOC: ICU 14:02 → CLSP 14:02
PROVIDERS: Internal Medicine Cardiovascular Disease; Admitting Provider Internal Medicine Cardiovascular Disease; Family Provider Family Medicine; PCP Family Medicine; Visit Provider Internal Medicine Cardiovascular Disease
DX: I25.110 Atherosclerotic heart disease of native coronary artery with unstable angina pectoris (principal); I21.A9 Other myocardial infarction type; T82.855A Stenosis of coronary artery stent, initial encounter; I97.190 Other postprocedural cardiac functional disturbances following cardiac surgery; E78.5 Hyperlipidemia, unspecified; I10 Essential (primary) hypertension; I25.710 Atherosclerosis of autologous vein coronary artery bypass graft(s) with unstable angina pectoris
CPT/HCPCS: 80048; 84484; 85027; 85347; 85610; 85730; 87641; 92937; 93005; 93459; 99152; 99153; J7030; J7040; J7050; Q9967; A4216; C1725; C1757; C1769; C1874; C1884; C1887; C1894; C9604; J0153; J1327; J1940; J2405

== ENCOUNTER → 2017-06-29 10:16 | Outpatient (CLI) | payer MEDICARE, OTHER, SELFPAY ==
[2016-08-18 10:52] VITALS: BMI 33.5
[2017-06-29 12:41] LABS: Absolute Lymphocyte Count 1.11 X10^3/ul (0.83-4.51); Absolute Neutrophil Count 6.4 X10^3/uL (2.0-7.7); Basophil# 0.06 X10^3/uL; Basophil% 0.7 % (0-1); Eosinophil# 0.24 X10^3/uL; Eosinophils% 2.7 % (0-5); Hematocrit 34.8 % (37-47); Hemoglobin 11.6 g/dl (12.0-15.0); Lymphocyte # 1.11 X10^3/ul (4.0); Lymphocyte % 12.4 % (19-41); Mean Corp Hgb Conc 33.3 g/gl (32-36); Mean Corpuscular Hgb 29.7 pg (27.0-32.0); Mean Corpuscular Volume 89.2 fL (81-99); Mean Platelet Vol. 9.5 fl (6.2-12.0); Monocyte# 1.06 X10^3/uL; Monocyte% 11.9 % (0-10); Neutrophil # 6.43 X10^3/uL (2.7-7.7); Neutrophil % 72.1 % (47-70); Platelet Count 494 K/mm3 (150-450); RBC Distribution Width SD 41.9 fl (35.1-43.9); White Blood Count 8.9 K/mm3 (4.4-11.0)
[2017-06-29 12:42] LABS: POSITIVE COUNT NO; POSITIVE DIFFERENTIAL NO; POSITIVE MORPHOLOGY NO
[2017-06-29 12:58] LABS: Anion Gap 7 (5-15); BUN 36 mg/dL (7-18); BUN/Creat Ratio 28.8 RATIO (10-20); Calcium,Total 9.1 mg/dL (8.5-10.1); Chloride 91 mmol/L (98-107); Creatinine, Serum 1.25 mg/dL (0.55-1.02); EST Glomerular Filtration Rate 44 mL/min (>60); Est Glom Filt Rate - Afr Amer 53 mL/min (>60); Glucose 85 mg/dL (74-106); Potassium 3.8 mmol/L (3.5-5.1); Sodium Level 129 mmol/L (136-145)
== END ==
PROVIDERS: Family Provider Family Medicine; PCP Family Medicine; Visit Provider Internal Medicine Cardiovascular Disease
DX: I25.810 Atherosclerosis of coronary artery bypass graft(s) without angina pectoris (principal); I25.118 Atherosclerotic heart disease of native coronary artery with other forms of angina pectoris; R07.9 Chest pain, unspecified; Z95.1 Presence of aortocoronary bypass graft; Z95.5 Presence of coronary angioplasty implant and graft
CPT/HCPCS: 36415; 80048; 85025

== ENCOUNTER → 2017-07-06 10:07 | Outpatient (CLI) | payer MEDICARE, OTHER, SELFPAY ==
[2016-08-18 10:52] VITALS: BMI 33.5
[2017-07-06 12:17] LABS: Anion Gap 7 (5-15); BUN 36 mg/dL (7-18); BUN/Creat Ratio 30.8 RATIO (10-20); Calcium,Total 9.2 mg/dL (8.5-10.1); Chloride 92 mmol/L (98-107); Creatinine, Serum 1.17 mg/dL (0.55-1.02); EST Glomerular Filtration Rate 47 mL/min (>60); Est Glom Filt Rate - Afr Amer 57 mL/min (>60); Glucose 90 mg/dL (74-106); Potassium 3.6 mmol/L (3.5-5.1); Sodium Level 129 mmol/L (136-145); T4 Total, Thyroxin 12.2 ug/dL (4.8-13.9); Thyroid Stim Hormone (TSH) 0.14 uIU/mL (0.358-3.74)
== END ==
PROVIDERS: Family Provider Family Medicine; PCP Family Medicine; Visit Provider Physician Assistant Medical
DX: I25.10 Atherosclerotic heart disease of native coronary artery without angina pectoris (principal); I10 Essential (primary) hypertension; R53.83 Other fatigue
CPT/HCPCS: 36415; 80048; 84436; 84443

== ENCOUNTER → 2017-08-18 13:31 | Outpatient (CLI) | payer MEDICARE, OTHER, SELFPAY ==
[2016-08-18 10:52] VITALS: BMI 33.5
[2017-08-18 14:59] LABS: Anion Gap 10 (5-15); BUN 23 mg/dL (7-18); BUN/Creat Ratio 22.3 RATIO (10-20); Calcium,Total 8.9 mg/dL (8.5-10.1); Chloride 99 mmol/L (98-107); Creatinine, Serum 1.03 mg/dL (0.55-1.02); EST Glomerular Filtration Rate 55 mL/min (>60); Est Glom Filt Rate - Afr Amer 66 mL/min (>60); Glucose 82 mg/dL (74-106); Sodium Level 137 mmol/L (136-145)
== END ==
PROVIDERS: Family Provider Family Medicine; PCP Family Medicine; Visit Provider Physician Assistant Medical
DX: E03.9 Hypothyroidism, unspecified (principal)
CPT/HCPCS: 36415; 80048

== ENCOUNTER → 2017-08-27 11:39 | Outpatient (CLI) | payer MEDICARE, OTHER, SELFPAY ==
[2016-08-18 10:52] VITALS: BMI 33.5
[2017-08-27 14:44] LABS: Thyroid Stim Hormone (TSH) 0.41 uIU/mL (0.358-3.74)
== END ==
PROVIDERS: Family Provider Family Medicine; PCP Family Medicine; Visit Provider Family Medicine
DX: E03.9 Hypothyroidism, unspecified (principal)
CPT/HCPCS: 36415; 84443

== ENCOUNTER → 2017-12-03 09:49 | Outpatient (CLI) | payer MEDICARE, OTHER, SELFPAY ==
[2016-08-18 10:52] VITALS: BMI 33.5
[2017-12-03 12:57] LABS: Anion Gap 11 (5-15); BUN 18 mg/dL (7-18); BUN/Creat Ratio 18.1 RATIO (10-20); Calcium,Total 9.1 mg/dL (8.5-10.1); Chloride 97 mmol/L (98-107); Cholesterol 213 mg/dL (200); Creatinine, Serum 0.99 mg/dL (0.55-1.02); EST Glomerular Filtration Rate 57 mL/min (>60); Est Glom Filt Rate - Afr Amer 69 mL/min (>60); Glucose 92 mg/dL (74-106); High Density Lipoprotein 61 mg/dL; Sodium Level 135 mmol/L (136-145); Thyroid Stim Hormone (TSH) 0.84 uIU/mL (0.358-3.74); Triglycerides 148 mg/dL; Very Low Density Lipoprotein 30 mg/dL (5-40)
== END ==
PROVIDERS: Family Provider Family Medicine; PCP Family Medicine; Visit Provider Family Medicine
DX: I10 Essential (primary) hypertension (principal); E03.9 Hypothyroidism, unspecified; E78.00 Pure hypercholesterolemia, unspecified
CPT/HCPCS: 36415; 80048; 80061; 84443

== ENCOUNTER → 2018-04-19 09:03 | Outpatient (CLI) | payer MEDICARE, OTHER, SELFPAY ==
[2016-08-18 10:52] VITALS: BMI 33.5
--- NOTE | 2018-04-19 09:08 | RAD_ITS ---
STUDY: X-RAY CHEST REASON FOR EXAM: Female, 83 years old. 4 month history of cough. TECHNIQUE: PA and lateral views of the chest. COMPARISON: Comparison is made with prior study dated June 08, 2017. 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 This is worse on the left side and is unchanged. There is no demonstrated pleural abnormality. Sternal cerclage wires and vascular clips are present from a prior sternotomy and coronary artery bypass graft procedure (CABG). Coronary artery calcification. Normal mediastinum and nataliya. Normal visualized pulmonary arteries. There is atherosclerotic calcification of the aortic arch with tortuosity. There is demineralization of the osseous structures. Increased kyphosis. Normal visualized ribs, clavicles, and shoulders. There is no demonstrated abnormality of the visualized soft tissue structures of the upper abdomen. RAD/Chest PA and Lateral IMPRESSION: Stable increased interstitial markings at the lung bases suggestive of scarring. Electronically Signed: Amari Medina MD at 14:28 EST Tel [phone], Service support ,
--- OUTSIDE RECORDS SUMMARY | 2018-07-21 20:33 | XMS RPT_ITS ---
:1935 Author Organization OHIP Support Name Relationship Address Phone KATERINEAKUA LEIJAIP Unavailable UNKNOWN + [place] [address] R Unavailable Unavailable Unavailable SHEDRON, BEBA Unavailable UNKNOWN + [place] [address] KATERINE, ELIZABETH Unavailable UNKNOWN + [place] [address] R Unavailable Unavailable Unavailable SHEDRON, BEBA Unavailable UNKNOWN + [place] [address] KATERINE, ELIZABETH Unavailable Unavailable + [place] [address] R Unavailable Unavailable Unavailable SHEDRON, BEBA Unavailable Unavailable + [place] [address] KATERINE, ELIZABETH Unavailable Unavailable + [place] [address] R Unavailable Unavailable Unavailable SHEDRON, BEBA Unavailable Unavailable + [place] [address] KATERINE, ELIZABETH Unavailable . + [place] [address] R Unavailable Unavailable Unavailable SHEDRON, BEBA Unavailable . + [place] [address] KATERINE, ELIZABETH Unavailable . + [place] [address] R Unavailable Unavailable Unavailable SHEDRON, BEBA Unavailable . + [place] [address] KATERINE, ELIZABETH Unavailable . + [place] [address] R Unavailable Unavailable Unavailable SHEDRON, BEBA Unavailable . + [place] [address] KATERINE, ELIZABETH Unavailable Unavailable + [place] [address] R Unavailable Unavailable Unavailable SHEDRON, BEBA Unavailable Unavailable + [place] [address] KATERINE, ELIZABETH Unavailable Unavailable + [place] [address] R Unavailable Unavailable Unavailable SHEDRON, BEBA Unavailable Unavailable + [place] [address] KATERINE, ELIZABETH Unavailable . + [place] [address] R Unavailable Unavailable Unavailable SHEDRON, BEBA Unavailable . + [place] [address] KATERINE, ELIZABETH Unavailable . + [place] [address] R Unavailable Unavailable Unavailable SHEDRON, BEBA Unavailable . + [place] [address] KATERINE, ELIZABETH Unavailable . + [place] [address] R Unavailable Unavailable Unavailable SHEDRON, BEBA Unavailable . + [place] [address] KATERINE, ELIZABETH Unavailable . + [place] [address] R Unavailable Unavailable Unavailable SHEDRON, BEBA Unavailable . + [place] [address] KATERINE, ELIZABETH Unavailable Unavailable + [place] [address] R Unavailable Unavailable Unavailable SHEDRON, BEBA Unavailable Unavailable + [place] [address] KATERINE, ELIZABETH Unavailable Unavailable + [place] [address] R Unavailable Unavailable Unavailable SHEDRON, BEBA Unavailable Unavailable + [place] [address] KATERINE, ELIZABETH Unavailable Unavailable + [place] [address] R Unavailable Unavailable Unavailable SHEDRON, BEBA Unavailable Unavailable + [place] [address] KATERINE, ELIZABETH Unavailable Unavailable + [place] [address] R Unavailable Unavailable Unavailable SHEDRON, BEBA Unavailable Unavailable + [place] [address] KATERINE, ELIZABETH Unavailable . + [place] [address] R Unavailable Unavailable Unavailable SHEDRON, BEBA Unavailable . + [place] [address] KATERINE, ELIZABETH Unavailable . + [place] [address] R Unavailable Unavailable Unavailable SHEDRON, BEBA Unavailable . + [place] [address] KATERINE, ELIZABETH Unavailable NA + [place], [place] R Unavailable Unavailable Unavailable SHEDRON, BEBA Unavailable NA + [place], [place] KATERINE, ELIZABETH Unavailable NA + [place], [place] R Unavailable Unavailable Unavailable SHEDRON, BEBA Unavailable NA + [place], [place] KATERINE, ELIZABETH Unavailable NA + [place], [place] R Unavailable Unavailable Unavailable SHEDRON, BEBA Unavailable NA + [place], [place] KATERINE, ELIZABETH Unavailable NA + [place], [place] R Unavailable Unavailable Unavailable SHEDRON, BEBA Unavailable NA + [place], [place] Care Team Providers Name Role Phone Mumtaz Caro Attending Unavailable Caro, Mumtaz Referring Unavailable Caro, Mumtaz Primary Care Unavailable Caro, Mumtaz Attending Unavailable Caro, Mumtaz Primary Care Unavailable Becca, Freddie Attending Unavailable Caro, Mumtaz Referring Unavailable Caro, Mumtaz Primary Care Unavailable Becca, Nellis Attending Unavailable Caro, Mumtaz Primary Care Unavailable Stephani Varma Attending Unavailable Caro, Mumtaz Referring Unavailable Stephani Varma Attending Unavailable Caro, Mumtaz Primary Care Unavailable Becca, Freddie Attending Unavailable Caro, Mumtaz Primary Care Unavailable Nurse, Standard Attending Unavailable Caro, Mumtaz Referring Unavailable Caro, Mumtaz Primary Care Unavailable Becca, Freddie Attending Unavailable Becca, Nellis Referring Unavailable Caro, Mumtaz Primary Care Unavailable Becca, Nellis Admitting Unavailable Becca, Nellis Admitting Unavailable Becca, Freddie Attending Unavailable Becca, Nellis Referring Unavailable Caro, Mumtaz Primary Care Unavailable Becca, Nellis Consulting Unavailable Becca, Nellis Admitting Unavailable Becca, Nellis Attending Unavailable Becca, Freddie Referring Unavailable Caro, Mumtaz Primary Care Unavailable Becca, Freddie Consulting Unavailable Becca, Nellis Attending Unavailable Caro, Mumtaz Primary Care Unavailable Stephani Varma Attending Unavailable Caro, Mumtaz Referring Unavailable Caro, Mumtaz Primary Care Unavailable Stephani Varma Attending Unavailable Stephani Varma Referring Unavailable Caro, Mumtaz Primary Care Unavailable Becca, Nellis Attending Unavailable Becca, Freddie Referring Unavailable Becca, Freddie Attending Unavailable Becca, Nellis Attending Unavailable Caro, Mumtaz Referring Unavailable Stephani Varma M Attending Unavailable Caro, Mumtaz Referring Unavailable Caro, Mumtaz Primary Care Unavailable DeFinis, Harumi Attending Unavailable Varma, Stephani M Attending Unavailable Varma, Stephani M Referring Unavailable Caro, Mumtaz Primary Care Unavailable Caro, Mumtaz Attending Unavailable Caro, Mumtaz Primary Care Unavailable Becca, Freddie Attending Unavailable Caro, Mumtaz Referring Unavailable Caro, Mumtaz Primary Care Unavailable Caro, Mumtaz Attending Unavailable Caro, Mumtaz Primary Care Unavailable PROBLEMS PROBLEMS DATE TYPE CONDITION / CODE ATTENDING STATUS SOURCE 05/18/2018 Unknown R06.09 - Other forms Kojo Active [place] of dyspnea / Stephani [facility] R06.09(ICD-10) Hospital Repository 05/03/2018 Unknown R63.4 - Abnormal Mumtaz Caro Active [facility] weight loss / Community R63.4(ICD-10) Hospital Repository 05/03/2018 Unknown R73.09 - Other Mumtaz Caro Active [facility] abnormal glucose / Community R73.09(ICD-10) Hospital Repository 05/03/2018 Unknown E03.9 - Mumtaz Caro Active [facility] Hypothyroidism, Community unspecified / Hospital E03.9(ICD-10) Repository 11/12/2017 Unknown Z95.1 - Presence of Becca, Nellis Active [place] aortocoronary bypass Community graft / Z95.1(ICD-10) Hospital Repository 11/12/2017 Unknown I10 - Essential Becca, Nellis Active [facility] (primary) Community hypertension / Hospital I10(ICD-10) Repository 11/12/2017 Unknown E78.00 - Pure Becca, Nellis Active [place] hypercholesterolemia, Community unspecified / Hospital E78.00(ICD-10) Repository 07/06/2017 Unknown I25.10 - Varma, Active [place] Atherosclerotic heart Stephani [facility] disease [facility] coronary artery Repository without angina pectoris / I25.10(ICD-10) 07/06/2017 Unknown R53.83 - Other Varma, Active [facility] fatigue / Stephani [facility] R53.83(ICD-10) Hospital Repository 07/06/2017 Unknown R07.9 - Chest pain, Varma, Active [place] unspecified / Stephani [facility] R07.9(ICD-10) Hospital Repository 07/06/2017 Unknown I25.810 - Kojo Active [place] Atherosclerosis of [facility] coronary artery Hospital bypass graft(s) Repository without angina pectoris / I25.810(ICD-10) 07/06/2017 Unknown I25.118 - Kojo Active [place] Atherosclerotic heart Stephani [facility] disease of [place] [facility] coronary artery with Repository other forms of angina pectoris / I25.118(ICD-10) 07/06/2017 Unknown Z95.5 - Presence of Horacio Varma coronary angioplasty [facility] implant and graft / Hospital Z95.5(ICD-10) Repository PROCEDURES PROCEDURES No Procedure Records FoundRESULTS RESULTS CARDIOLOGY VISIT Observed: 05/20/2018 Status: F Source: [facility] REPORT 9:50 AM [facility] REPOSITORY [facility] [address] [place] [address] OFFICE VISIT Date of Service: 05/18/18 MR#: [id number] Acct: [id number] Name: SCARLET DELACRUZ Rep #: [id number] : 1935 Provider: Stephani Varma Age/Sex: 83/F Location: [facility] Status: Signed HPI [facility] Chief Complaint: Follow up visit Details: SCARLET DELACRUZ, is a 83 F who presents to the office today for a cardiovascular follow up. She has a history of coronary artery disease with bypass surgery with an REID to the LAD, SVG to the RCA, sequential SVG to the obtuse marginal. She had angioplasty and stenting to her sequential SVG to the diagonal and circumflex and SVG to the RCA in 2013. In June 2017 she continued to complain of chest discomfort. She underwent a heart catheterization where she was noted to have a subtotally occluded SVG to the diagonal and obtuse marginal, high-grade stenosis of the SVG to the RCA, severe [place] vessel coronary artery disease nearly icteric REID to the LAD. There is discussion at that time whether or not to pursue redo bypass surgery versus PCI. The following day with her continued chest discomfort she underwent stenting to her SVG to the diagonal and obtuse marginal. At the time of that heart catheterization she was noted to have a myocardial infarction with a troponin release 4. She also has a history of hypertension and hyperlipidemia. Pt has been having increase in SOB for continued congestion. She notes that this is worse with exertion. She also notes that her HR is faster with exertion. She has been working with her PCP for this. She has been on antibiotics and prednisone. She has not needed to use any NTG. She has not had any lightheadedness or dizziness. She has not had any lower extremity edema. Intake Vital Signs05/18/18 Height 5 ft 2 in 05/18/18 Weight: 185 lb 2 oz 05/18/18 Body Mass Index (BMI) 33.8 05/18/18 Blood Pressure 122/64 H Intake Visit Reasons: 6 M FU Accompanied by: Self Is patient in pain?: No Allergies codeine Allergy (Mild, Verified 05/18/18 13:05) Rash ibuprofen Allergy (Mild, Verified 05/18/18 13:05) Rash rosuvastatin calcium [From Crestor] Allergy (Verified 05/18/18 13:05) Unknown acetaminophen [From Darvocet-N] Adverse Reaction (Severe, Verified 05/18/18 13:05) Unknown propoxyphene [From Darvocet-N] Adverse Reaction (Severe, Verified 05/18/18 13:05) Unknown meperidine HCl [From Demerol] Adverse Reaction (Mild, Verified 05/18/18 13:05) Other propoxyphene HCl [From Darvon] Adverse Reaction (Mild, Verified 05/18/18 13:05) Other Medications Aspirin [Aspirin, Baby] 81 mg PO DAILY@0800 12/30/13 [History Confirmed 05/18/18] Docusate Sodium [Colace] 100 mg PO TID 12/30/13 [History Confirmed 05/18/18] Nitroglycerin [Nitrostat] 0.4 mg SUBLINGUAL Q5M PRN 12/30/13 [History Confirmed 05/18/18] Drummond-3 Fatty Acids/Fish Oil [D[place]mond 3 Fish Oil Softgel] 100 mg PO TIDCM 12/30/13 [History Confirmed 05/18/18] Cholecalciferol (Vitamin D3) [Vitamin D] 1,000 unit PO DAILY 01/11/14 [History Confirmed 05/18/18] Cyanocobalamin [Vitamin B12] 250 mcg PO DAILY@0800 01/11/14 [History Confirmed 05/18/18] Magnesium 500 mg PO DAILY 01/11/14 [History Confirmed 05/18/18] Lecithin 1,200 mg PO DAILY 09/11/15 [History Confirmed 05/18/18] Cinnamon Bark [Cinnamon] 500 mg PO DAILY 08/16/16 [History Confirmed 05/18/18] coenzyme Q10 100 mg capsule 100 mg PO QDAY 06/02/17 [History Confirmed 05/18/18] red yeast rice 600 mg capsule 600 mg PO TID cap 06/02/17 [History Confirmed 05/18/18] metoprolol tartrate 25 mg tablet 25 mg PO BID #180 tab 11/10/17 [Rx Confirmed 05/18/18] lisinopril 5 mg tablet 5 mg PO QDAY #30 tab 11/12/17 [Rx Confirmed 05/18/18] triamterene 37.5 mg-hydrochlorothiazide 25 mg capsule 1 cap PO QDAY 11/12/17 [History Confirmed 05/18/18] isosorbide mononitrate ER 30 mg tablet,extended release 24 hr 30 mg PO QAM #90 tab 02/15/18 [Rx Confirmed 05/18/18] ticagrelor 90 mg tablet 90 mg PO BID #180 tab 03/18/18 [Rx Confirmed 05/18/18] levothyroxine 50 mcg tablet PO .Daily 90 Days #90 tab 05/18/18 [History Confirmed 05/18/18] Ejection fraction %: 65 to 70 PFSH Medical History Hyperlipidemia (Chronic) Essential hypertension (Chronic) Atherosclerotic heart disease of [place] coronary artery without angina pectoris (Chronic) Carotid bruit (Chronic) Bilateral carotid artery stenosis (Chronic) Atherosclerotic heart disease of artery bypass graft (Chronic) Atherosclerotic heart disease of [place] coronary artery with other forms of angina pectoris (Chronic) Chest pain (Resolved) Encounter for long-term current use of high risk medication (Acute) Surgical History Stented coronary artery (Chronic) S/P CABG x 5 (Chronic) History of percutaneous transluminal coronary angioplasty (Chronic) Postsurgical aortocoronary bypass status (Chronic) Family History Father , age 72 of IN Myocardial infarction total of 3 IN's CAD (coronary artery disease) Mother , age 69 of embolus CAD (coronary artery disease) Brother CAD (coronary artery disease) S/P CABG x 4 Hypertension Myocardial infarction Hx of heart valve replacement with mechanical valve Brother Hypertension Diabetes CAD (coronary artery disease) Hyperlipidemia History of coronary artery bypass graft Cancer Other Family history of coronary artery disease Family history of hyperlipidemia Family history of hypertension Social History Smoking Status: Never smoker alcohol intake: never substance use type: does not use caffeine: Yes Type: carbonated beverages Number of servings: 1 eating out: 1-3 times/week what type of physical activity do you participate in: none seatbelt use: always do you feel safe at home: Yes ROS Const Const: Positive for weakness and fatigue; negative for fever(s) or headache(s) Eyes Eyes: Negative for blind spots, loss of peripheral vision or transient loss of vision ENT ENT: Positive for balance problems; negative for headache(s), dizziness, tinnitus or Nosebleed/epistaxis Cardio Chest Pain: No Palpitations: No Edema: None Muscle aches with walking: None Resp Respiratory: Positive for SOB with activity, Cough and chest congestion; negative for SOB at rest or SOB orthopnea\SOB lying down GI GI: Negative nausea, vomiting, heartburn or vomiting blood/hematemesis : Negative for hematuria Musc Musc: Positive for muscle weakness and balance problems; negative for muscle aches/ myalgia Neuro Neuro: Positive for weakness; negative for headache(s), dizziness, near syncope, syncope, lightheadedness or orthostatic symptoms Dilip Hematologic/Lymphatic: Negative for easy bleeding Endo Endo: Positive for fatigue Cardiology Exam Const Appearance: cooperative, no acute distress, well developed, other (ambulates with walker) and frail appearing Orientation: alert, awake and oriented x3 Head Head: normocephalic and atraumatic Mouth: moist mucous membranes Eyes General: appearance normal, both eyes and all related structures Conjunctivae: conjunctivae normal Pupils: PERRL EOM: EOM intact bilaterally Neck Neck: normal visual inspection, no lymphadenopathy and no JVD Carotids: Negative bruit Neck Mass: Negative Neck mass Chest Chest inspection: normal inspection of the chest and symmetric chest movement Auscultation: Bilateral: Diminished Lung Sounds (with crackles t/o) Cardio Palpation: normal PMI Rate: regular rate Rhythm: regular rhythm Heart sounds: S1 normal and S2 normal; negative rub, gallop or murmur GI GI: normal to inspection, soft, no hepatosplenomegaly and bowel sounds present; negative tender Neuro General: alert, awake, oriented x3, CN's II-XI intact bilaterally and moves all extremities Extremities Pulses: Normal: Right Posterior Tibial Pulse, Left Posterior Tibial Pulse, Right Radial Pulse, Left Radial Pulse Lower Extremity Edema: None: Bilateral Psych Psychological: normal affect Assessment AND Plan 1. Atherosclerosis of [place] coronary artery of [place] heart without angina pectoris I25.10 06/03/2004 [facility] per Dr. Bauer: Sequential substrate grafts to the RCA x 2 and sequential grafting to the diagonal and cx. REID to LAD. 01/26/14 PTCA and SHERRY to SVG of RCA per Dr. oLra, [facility], PTCA AND SHERRY 08/18/16 @ [facility], SVG to Diag and Obtuse 06/2017 Plan - GIO Romano Patient has not had any angina. Patient does have significant residual coronary artery disease. She will continue with current aggressive medical management. We will continue with aspirin, beta-darryl, SHILOH inhibitor, long-acting nitrate, Brilinta and lipid-lowering medication 2. Essential hypertension I10 Plan - GIO Romano Blood pressure is well controlled on current medications, we do not recommend any changes at this time. 3. Pure hypercholesterolemia E78.00 Plan - GIO Romano Recent lipid profile demonstrates total cholesterol 213, HDL 61, LDL 122. Patient will continue with moderate intensity statin 4. Dyspnea on exertion R06.09 Plan - GIO Romano Patient has had ongoing shortness of breath since January or February. She is working with her primary care doctor. She is not anemic. BMP is within acceptable limits. She is noted to have crackles upon exam today. Chest x-ray that was recently done did not demonstrate any significant process. Will obtain a BNP to further evaluate. Orders Orders: Plan Detail Additional Comments - GIO Romano Follow-up will be based upon labs. The above patient was discussed with Dr. Hudson, he agrees with plan of care. Thank you for allowing us to participate in patient's plan of care, if you have any questions please do not hesitate to call. This note was generated using a voice recognition system and there may be incorrect words, spelling or punctuation errors that were not noted when reviewing the office note prior to saving. Follow Up 05/18/18 (based on labs) Coding Level of Care Code Off vis,est,level 4 Diagnoses Atherosclerosis of [place] coronary artery of [place] heart without angina pectoris I25.10 [place] vs. transplanted heart: [place] heart Essential hypertension I10 Pure hypercholesterolemia E78.00 Hyperlipidemia type: pure hypercholesterolemia Dyspnea on exertion R06.09 Coding Level of Care Code Off vis,est,level 4 Diagnoses Atherosclerosis of [place] coronary artery of [place] heart without angina pectoris I25.10 [place] vs. transplanted heart: [place] heart Essential hypertension I10 Pure hypercholesterolemia E78.00 Hyperlipidemia type: pure hypercholesterolemia Dyspnea on exertion R06.09 Supplemental Info Supplemental Information Labs LDL Cholesterol 122 mg/dL (0-130) 12/03/17 HDL Cholesterol 61 mg/dL (40-) 12/03/17 Triglycerides 148 mg/dL (-199) 12/03/17 VLDL Cholesterol 30 mg/dL (5-40) 12/03/17 Diagnostics Electrocardiogram 07/06/17 Cardiac Catheterization 06/15/17 Chest X-Ray 04/19/18 Stress Test Nuclear Medicine 08/20/15 Abdomen Ultrasound 01/05/14 05/18/18 1346 <Electronically signed by Stephani POWERS> Date Stephani POWERS 05/20/18 0950<Electronically signed by Freddie Hudson MD> Cosigner Signature: Date (if applicable) Freddie Hudson MD CC: Mumtaz Caro MD; Stephani Varma BNP,B-TYPE NATRIURETIC Collected: 05/18/2018 Status: F Source: [place] PEPTIDE 2:[address] [facility] REPOSITORY TYPE CODE TESTS RESULT OUT OF RANGE REFERENCE UNITS LAB L503.6620 0-100 pg/mL High B-TYPE 146.2 JYOTSNA PEP Performed By: #### L503.6620 #### [facility] [address] [place], [address] CBC W/DIFF, AUTOMATED Collected: 05/03/2018 Status: F Source: [place] 9:[address] [facility] REPOSITORY TYPE CODE TESTS RESULT OUT OF RANGE REFERENCE UNITS LAB L100.1000 4.4-11.0 K/mm3 Normal WBC 10.2 LAB L100.1200 4.2-5.4 M/mm3 Normal RBC 4.30 LAB L100.1300 12.0-15.0 g/dl Normal HGB 12.5 LAB L100.1400 37-47 % Normal HCT 38.0 LAB L100.1500 81-99 fL Normal MCV 88.4 LAB L100.1600 27.0-32.0 pg Normal MCH 29.1 LAB L100.1700 32-36 g/gl Normal MCHC 32.9 LAB L100.1810 11.6-14.6 % Normal RDW CV 14.2 LAB L100.1820 35.1-43.9 fl High RDW SD 45.5 LAB L100.1900 150-450 K/mm3 Normal PLT 443 LAB L100.2000 6.2-12.0 fl Normal MPV 9.1 LAB L100.2100 47-70 % Normal NEUT% 64.6 LAB L100.2200 19-41 % Low LY% 12.3 LAB L100.2300 0-10 % Normal MONO% 9.2 LAB L100.2400 0-5 % High EO% 13.0 LAB L100.2500 0-1 % Normal BASO% 0.6 LAB L100.2550 0.0-0.9 % Normal IM GRAN % 0.300 Result Comment: IG% - Immature Granulocytes (promyelocytes, myelocytes and metamyelocytes) > 1% indicates that a LEFT SHIFT is Present. LAB L100.2620 2.0-7.7 X10 3/uL Normal Absolute Neut 6.6 LAB L100.2720 0.83-4.51 X10 3/ul Normal Absolute Lymph 1.26 Performed By: #### L100.0100 #### [facility] [address] [place], [place], [address] HEMOGLOBIN A1C Collected: 05/03/2018 Status: F Source: [place] 9:[address] [facility] REPOSITORY TYPE CODE TESTS RESULT OUT OF RANGE REFERENCE UNITS LAB L501.9985 4.2-6.3 % Normal HGB A1C 6.1 Performed By: #### L501.9985, L500.4050, L501.9520 #### [facility] [address] [place], [place], [address] COMPREHENSIVE METABOLIC Collected: 05/03/2018 Status: F Source: [place] 9:[address] [facility] REPOSITORY TYPE CODE TESTS RESULT OUT OF RANGE REFERENCE UNITS LAB L501.0100 74-106 mg/dL Normal GLU 83 Result Comment: Please note revised GLUCOSE reference range effective 2017. LAB L501.1000 7-18 mg/dL High BUN 21 LAB L501.1100 0.55-1.02 mg/dL Normal CREAT,SERUM 0.94 Result Comment: The validity of the calculated GFR AND GFRAA in patients over 70 years has not been determined. Clinical correlation is essential. LAB L501.1110 >60 mL/min Normal EST GFR 61 Result Comment: Non- GFR Calc LAB L501.1115 >60 mL/min Normal EST GFR - AA 74 Result Comment: GFR Calc LAB L501.1300 10-20 RATIO High BUN/CRE 22.5 LAB L501.1500 6.4-8.2 g/dL T Normal PROT 6.6 LAB L501.1800 3.2-5.0 g/dL Normal ALB 3.2 LAB L501.1950 2.2-4.2 g/dL Normal GLOB 3.4 LAB L501.2000 0.9-2.4 RATIO Normal A/G 0.9 LAB L501.2200 8.5-10.1 mg/dL CA Normal 8.8 LAB L501.4100 15-37 U/L Normal AST 21 LAB L501.4305 45-117 U/L Normal ALK P 95 LAB L501.4405 13-56 U/L Normal ALT 20 LAB L501.4600 0.20-1.00 mg/dL T Normal BILI 0.70 LAB L501.5300 136-145 mmol/L NA Normal 136 LAB L501.5600 3.5-5.1 mmol/L K Normal 3.6 LAB L501.5900 98-107 mmol/L CL Normal 99 LAB L501.6100 21.0-32.0 mmol/L Normal CO2 26.0 LAB L501.6200 5-15 Normal GAP 11 Performed By: #### L501.9985, L500.4050, L501.9520 #### [facility] [address] [place], [address] THYROID STIM HORMONE Collected: 05/03/2018 Status: F Source: [place] (TSH) 9:[address] [facility] REPOSITORY TYPE CODE TESTS RESULT OUT OF RANGE REFERENCE UNITS LAB L501.9520 0.358-3.74 uIU/mL Low TSH 0.24 Performed By: #### L501.9985, L500.4050, L501.9520 #### [facility] [address] [place], [address] CHEST PA AND LATERAL Observed: 04/19/2018 Status: F Source: [place] 9:[address] [facility] REPOSITORY [facility] Imaging Services [address] [place] [address] Chest PA and Lateral MR#: [id number] Acct: [id number] Name: SCARLET DELACRUZ Rep #: [id number] : 1935 F 83 From: Amari Medina MD PCP: Mumtaz Caro MD Status: REG CLI Study: Chest PA and Lateral Date of Exam: 04/19/18 Exam# [id number] Ordering Dr: Mumtaz Caro MD STUDY: X-RAY CHEST REASON FOR EXAM: Female, 83 years old. 4 month history of cough. TECHNIQUE: PA and lateral views of the chest. COMPARISON: Comparison is made with prior study dated June 08, 2017. 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 This is worse on the left side and is unchanged. There is no demonstrated pleural abnormality. Sternal cerclage wires and vascular clips are present from a prior sternotomy and coronary artery bypass graft procedure (CABG). Coronary artery calcification. Normal mediastinum and nataliya. Normal visualized pulmonary arteries. There is atherosclerotic calcification of the aortic arch with tortuosity. There is demineralization of the osseous structures. Increased kyphosis. Normal visualized ribs, clavicles, and shoulders. There is no demonstrated abnormality of the visualized soft tissue structures of the upper abdomen. RAD/Chest PA and Lateral IMPRESSION: Stable increased interstitial markings at the lung bases suggestive of scarring. Electronically Signed: Amari Medina MD at 14:28 EST Tel [phone], Service support , CC: Mumtaz Caro MD Parking Technician: Signed BASIC METABOLIC Collected: 12/03/2017 Status: F Source: [place] PROFILE (BMP) 9:[address] [facility] REPOSITORY Order Comment: Order Date: 12/03/17 Order Info: [id number] - BMP Order Info: [id number] - LIPID Order Date: 09/01/17 Order Info: 3016-3 - TSH TYPE CODE TESTS RESULT OUT OF RANGE REFERENCE UNITS LAB L501.0100 74-106 mg/dL Normal GLU 92 Result Comment: Please note revised GLUCOSE reference range effective 2017. LAB L501.1000 7-18 mg/dL Normal BUN 18 LAB L501.1100 0.55-1.02 mg/dL Normal CREAT,SERUM 0.99 Result Comment: The validity of the calculated GFR AND GFRAA in patients over 70 years has not been determined. Clinical correlation is essential. LAB L501.1110 >60 mL/min Low EST GFR 57 Result Comment: Non- GFR Calc LAB L501.1115 >60 mL/min Normal EST GFR - AA 69 Result Comment: GFR Calc LAB L501.1300 10-20 RATIO Normal BUN/CRE 18.1 LAB L501.2200 8.5-10.1 mg/dL CA Normal 9.1 LAB L501.5300 136-145 mmol/L Low NA 135 LAB L501.5600 3.5-5.1 mmol/L K Normal 4.0 LAB L501.5900 98-107 mmol/L Low CL 97 LAB L501.6100 21.0-32.0 mmol/L Normal CO2 27.0 LAB L501.6200 5-15 Normal GAP 11 Performed By: #### L500.2500, L500.4100 #### [facility] [address] [place], [address] LIPID PROFILE Collected: 12/03/2017 Status: F Source: [place] 9:[address] [facility] REPOSITORY Order Comment: Order Date: 12/03/17 Order Info: [id number] - BMP Order Info: [id number] - LIPID Order Date: 09/01/17 Order Info: 3016-3 - TSH TYPE CODE TESTS RESULT OUT OF RANGE REFERENCE UNITS LAB L501.4900 200 mg/dL High CHOL 213 Result Comment: <200 mg/dL Desirable 200-240 mg/dL Borderline >240 mg/dL High Risk LAB L501.5000 mg/dL Normal TRIG 148 Result Comment: The drugs N-Acetylcysteine and Metamizole may falsely depress this assay. Serum Triglycerides Reference Interval Normal <150 mg/dL Borderline high 150 - 199 mg/dL High 200 - 499 mg/dL Very High > or = 500 mg/dL LAB L501.6400 mg/dL Normal HDL 61 Result Comment: The drugs N-Acetylcysteine and Metamizole may falsely depress this assay. Reference Range HDL <40 mg/dL Low HDL Cholesterol HDL >or= 60 mg/dL High HDL Cholesterol LAB L501.6500 0-130 mg/dL Normal LDL 122 LAB L501.6600 5-40 mg/dL Normal VLDL 30 Performed By: #### L500.2500, L500.4100 #### [facility] [address] [place], [address] THYROID STIM HORMONE Collected: 12/03/2017 Status: F Source: [place] (TSH) 9:[address] [facility] REPOSITORY Order Comment: Order Date: 12/03/17 Order Info: [id number] - BMP Order Info: [id number] - LIPID Order Date: 09/01/17 Order Info: 3016-3 - TSH TYPE CODE TESTS RESULT OUT OF RANGE REFERENCE UNITS LAB L501.9520 0.358-3.74 uIU/mL Normal TSH 0.84 Performed By: #### L501.9520 #### [facility] [address] [place], [address] CARDIOLOGY VISIT Observed: 11/12/2017 Status: F Source: [place] REPORT 11:[address] [facility] REPOSITORY [facility] [address] [place] [address] OFFICE VISIT Date of Service: 11/12/17 MR#: [id number] Acct: [id number] Name: SCARLET DELACRUZ Rep #: [id number] : 1935 Provider: Freddie Hudson MD Age/Sex: 82/F Location: [facility] Status: Signed HPI HPI Chief Complaint: Follow up visit Details: SCARLET DELACRUZ, is a 82 F who presents to the office today for a follow-up visit.She has a history of coronary artery disease with bypass surgery with an REID to the LAD, SVG to the RCA, sequential SVG to the obtuse marginal. She had angioplasty and stenting to her sequential SVG to the diagonal and circumflex and SVG to the RCA in 2013. In June 2017 she continued to complain of chest discomfort. She underwent a heart catheterization where she was noted to have a subtotally occluded SVG to the diagonal and obtuse marginal, high-grade stenosis of the SVG to the RCA, severe [place] vessel coronary artery disease nearly icteric REID to the LAD. There is discussion at that time whether or not to pursue redo bypass surgery versus PCI. The following day with her continued chest discomfort she underwent stenting to her SVG to the diagonal and obtuse marginal. At the time of that heart catheterization she was noted to have a myocardial infarction with a troponin release 4. She also has a history of hypertension and hyperlipidemia. I had seen her 3 month ago, she continued to complain of severe fatigue and not being able to do anything. We did adjust some of her medications. She states that she is doing much better. She has not had any chest discomfort or heaviness. She was able to walk from the car to our office without any difficulty. Prior to that she would not have been able to do this. She does not have any palpitations. She does not have any lightheadedness or dizziness. She does not have any lower extremity edema. Her physical exam demonstrates clear lung ordoñez regular rate and rhythm and no pedal edema. Intake Vital Signs11/12/17 Height 5 ft 2 in 11/12/17 Weight: 189 lb 11/12/17 Body Mass Index (BMI) 34.5 11/12/17 Blood Pressure 132/78 11/12/17 Blood Pressure Location Lt brachial Intake Visit Reasons: 3 M FU Sizing Sponger Required: No Accompanied by: none Is patient in pain?: No Allergies codeine Allergy (Mild, Verified 11/12/17 11:09) Rash ibuprofen Allergy (Mild, Verified 11/12/17 11:09) Rash rosuvastatin calcium [From Crestor] Allergy (Verified 11/12/17 11:09) Unknown acetaminophen [From Darvocet-N] Adverse Reaction (Severe, Verified 11/12/17 11:09) Unknown propoxyphene [From Darvocet-N] Adverse Reaction (Severe, Verified 11/12/17 11:09) Unknown meperidine HCl [From Demerol] Adverse Reaction (Mild, Verified 11/12/17 11:09) Other propoxyphene HCl [From Darvon] Adverse Reaction (Mild, Verified 11/12/17 11:09) Other Medications Aspirin [Aspirin, Baby] 81 mg PO DAILY@0800 12/30/13 [History Confirmed 11/12/17] Docusate Sodium [Colace] 100 mg PO TID 12/30/13 [History Confirmed 11/12/17] Levothyroxine [Synthroid] 75 mcg PO DAILY 12/30/13 [History Confirmed 11/12/17] Nitroglycerin [Nitrostat] 0.4 mg SUBLINGUAL Q5M PRN 12/30/13 [History Confirmed 11/12/17] Drummond-3 Fatty Acids/Fish Oil [Drummond 3 Fish Oil Softgel] 100 mg PO TIDCM 12/30/13 [History Confirmed 11/12/17] Cholecalciferol (Vitamin D3) [Vitamin D] 1,000 unit PO DAILY 01/11/14 [History Confirmed 11/12/17] Cyanocobalamin [Vitamin B12] 250 mcg PO DAILY@0800 01/11/14 [History Confirmed 11/12/17] Magnesium 500 mg PO DAILY 01/11/14 [History Confirmed 11/12/17] Lecithin 1,200 mg PO DAILY 09/11/15 [History Confirmed 11/12/17] Cinnamon Bark [Cinnamon] 500 mg PO DAILY 08/16/16 [History Confirmed 11/12/17] coenzyme Q10 100 mg capsule 100 mg PO QDAY 06/02/17 [History Confirmed 08/05/17] red yeast rice 600 mg capsule 600 mg PO TID cap 06/02/17 [History Confirmed 11/12/17] isosorbide mononitrate ER 30 mg tablet,extended release 24 hr 30 mg PO QAM #90 tab 07/06/17 [Rx Confirmed 11/12/17] ticagrelor 90 mg tablet 90 mg PO BID #90 tab 07/09/17 [Rx Confirmed 11/12/17] metoprolol tartrate 25 mg tablet 25 mg PO BID #180 tab 11/10/17 [Rx Confirmed 11/12/17] lisinopril 5 mg tablet 5 mg PO QDAY #30 tab 11/12/17 [Rx Confirmed 11/12/17] triamterene 37.5 mg-hydrochlorothiazide 25 mg capsule 1 cap PO QDAY 11/12/17 [History Confirmed 11/12/17] Ejection fraction %: 65 to 70 PFSH Medical History Hyperlipidemia (Chronic) Essential hypertension (Chronic) Atherosclerotic heart disease of [place] coronary artery without angina pectoris (Chronic) Carotid bruit (Chronic) Bilateral carotid artery stenosis (Chronic) Atherosclerotic heart disease of artery bypass graft (Chronic) Atherosclerotic heart disease of [place] coronary artery with other forms of angina pectoris (Chronic) Chest pain (Resolved) Encounter for long-term current use of high risk medication (Acute) Surgical History Stented coronary artery (Chronic) S/P CABG x 5 (Chronic) History of percutaneous transluminal coronary angioplasty (Chronic) Postsurgical aortocoronary bypass status (Chronic) Family History Father , age 72 of [place] Myocardial infarction total of 3 IN's CAD (coronary artery disease) Mother , age 69 of embolus CAD (coronary artery disease) Brother CAD (coronary artery disease) S/P CABG x 4 Hypertension Myocardial infarction Hx of heart valve replacement with mechanical valve Brother Hypertension Diabetes CAD (coronary artery disease) Hyperlipidemia History of coronary artery bypass graft Other Family history of coronary artery disease Family history of hyperlipidemia Family history of hypertension Social History Smoking Status: Never smoker alcohol intake: never substance use type: does not use caffeine: Yes Type: carbonated beverages Number of servings: 1 eating out: 1-3 times/week what type of physical activity do you participate in: none seatbelt use: always do you feel safe at home: Yes ROS Const Const: Negative for fatigue, weakness, night sweats, excessive sweating, frequent falls, headache(s) or daytime sleepiness Eyes Eyes: Negative for loss of peripheral vision, transient loss of vision, blind spots, double vision or blurry vision ENT ENT: Negative for headache(s), dizziness, balance problems, Nosebleed/epistaxis, tongue swelling or lip swelling Cardio Chest Pain: No Palpitations: No Edema: None Muscle aches with walking: None Resp Respiratory: Positive for SOB with activity; negative for SOB at rest, SOB orthopnea\SOB lying down, Cough or paroxysmal nocturnal dyspnea GI GI: Negative nausea, vomiting, heartburn, black,tarry stools or bright, red blood in stools : Negative for hematuria Musc Musc: Negative for balance problems, muscle aches/ myalgia, muscle weakness or joint pain Skin Skin: Negative non-healing lesions, unusual bruising or rash Neuro Neuro: Negative for weakness, frequent falls, headache(s), double vision, dizziness, lightheadedness, orthostatic symptoms, blurry vision or lack of coordination Dilip Hematologic/Lymphatic: Negative for easy bruising or easy bleeding Endo Endo: Negative for fatigue, excessive sweating, cold intolerance, heat intolerance, increased thirst/drinking or hair loss Psych Psych: Negative for anxiety or depression Allergy Allergy/Immunology: Negative for throat swelling, Negative for tongue swelling, Negative for hives, Negative for rash, Negative for lip swelling Cardiology Exam Const Appearance: cooperative, healthy appearing, well developed, well groomed and no acute distress Nutritional Appearance: well nourished and average body habitus Orientation: alert, awake and oriented x3 Head Head: normal to inspection, normocephalic and atraumatic Ears: hearing grossly normal bilaterally and external ears normal Nose: external nose normal, nasal mucous membranes and turbinates normal, nares normal, septum normal, no nasal discharge Face and Sinus: face symmetric Mouth: oral mucosae normal, tongue normal, oropharynx normal and moist mucous membranes Teeth and gingiva: dentition normal Throat: posterior oropharynx normal, tonsils normal and uvula midline Eyes General: appearance normal, both eyes and all related structures Eyelids: eyelids normal Conjunctivae: conjunctivae normal Pupils: PERRL, normal by confrontation and accommodation normal EOM: EOM intact bilaterally Neck Neck: normal visual inspection, trachea midline and no JVD JVD: +5 Carotids: normal carotid upstroke and bounding pulses Chest Chest inspection: normal inspection of the chest, symmetric chest movement and normal respiratory effort Auscultation: Bilateral: Clear to Auscultation Cardio Palpation: normal PMI Rate: regular rate Rhythm: regular rhythm Heart sounds: S1 normal, S2 normal and normal, physiologic split S2; negative rub, gallop or murmur GI GI: normal to inspection, soft, no hepatosplenomegaly and bowel sounds present Neuro General: alert, awake, oriented x3, no focal sensory deficit, gait normal and moves all extremities Skin Skin: no rashes or lesions noted Extremities Pulses: Normal: Right Femoral Pulse, Left Femoral Pulse, Right Dorsalis Pedis Pulse, Left Dorsalis Pedis Pulse, Right Posterior Tibial Pulse, Left Posterior Tibial Pulse, Right Radial Pulse, Left Radial Pulse Lower Extremity Edema: None: Bilateral Musculoskel Musculoskeletal: No joint tenderness Psych Psychological: normal affect Assessment AND Plan 1. S/P CABG x 5 Z95.1 06/03/2004 [facility] per Dr. Bauer: Sequential substrate grafts to the RCA x 2 and sequential grafting to the diagonal and cx. REID to LAD Plan She appears to be doing well and is fairly stable she is able to participate in most activities of daily living without having any chest pain. My recommendation is for her to continue with her activities including his swimming. We will continue with risk factor modification. 2. Essential hypertension I10 Plan Her blood pressure appears to be under good control on her current medical therapy. She tells me that her son has been worried that some of her diastolic blood pressures have been low but I did suggest to her that we do not need to be terribly concerned about this. Overall she appears to be doing well. 3. Pure hypercholesterolemia E78.00 Plan She does have a history of hyperlipidemia and as you know has been intolerant of statins. She will continue with risk factor modification. Thank you for allowing me to participate in the care of your patient. Please don't hesitate to call if any issues arise Plan Detail Other Medications New: Discontinued: Follow Up 6 Months (mmm) Coding Level of Care Code Off vis,est,level 3 Diagnoses S/P CABG x 5 Z95.1 Essential hypertension I10 Pure hypercholesterolemia E78.00 Hyperlipidemia type: pure hypercholesterolemia Coding Level of Care Code Off vis,est,level 3 Diagnoses S/P CABG x 5 Z95.1 Essential hypertension I10 Pure hypercholesterolemia E78.00 Hyperlipidemia type: pure hypercholesterolemia 11/12/17 1130 <Electronically signed by Freddie Hudson MD> Date Freddie Hudson MD Cosigner Signature: Date (if applicable) CC: Mumtaz Caro MD THYROID STIM HORMONE Collected: 08/27/2017 Status: F Source: [place] (TSH) 11:[address] [facility] REPOSITORY Order Comment: Order Date: 07/13/17 Order Info: 3016-3 - TSH TYPE CODE TESTS RESULT OUT OF RANGE REFERENCE UNITS LAB L501.9520 0.358-3.74 uIU/mL Normal TSH 0.41 Performed By: #### L501.9520 #### [facility] [address] [place], [address] BASIC METABOLIC Collected: 08/18/2017 Status: F Source: [place] PROFILE (BMP) 1:[address] [facility] REPOSITORY TYPE CODE TESTS RESULT OUT OF RANGE REFERENCE UNITS LAB L501.0100 74-106 mg/dL Normal GLU 82 Result Comment: Please note revised GLUCOSE reference range effective 2017. LAB L501.1000 7-18 mg/dL High BUN 23 LAB L501.1100 0.55-1.02 mg/dL High CREAT,SERUM 1.03 Result Comment: The validity of the calculated GFR AND GFRAA in patients over 70 years has not been determined. Clinical correlation is essential. LAB L501.1110 >60 mL/min Low EST GFR 55 Result Comment: Non- GFR Calc LAB L501.1115 >60 mL/min Normal EST GFR - AA 66 Result Comment: GFR Calc LAB L501.1300 10-20 RATIO High BUN/CRE 22.3 LAB L501.2200 8.5-10.1 mg/dL CA Normal 8.9 LAB L501.5300 136-145 mmol/L NA Normal 137 LAB L501.5600 3.5-5.1 mmol/L K Normal 4.0 LAB L501.5900 98-107 mmol/L CL Normal 99 LAB L501.6100 21.0-32.0 mmol/L Normal CO2 28.0 LAB L501.6200 5-15 Normal GAP 10 Performed By: #### L500.2500 #### [facility] [address] [place], [address] CARDIOLOGY VISIT Observed: 08/05/2017 Status: F Source: [place] REPORT 5:[address] [facility] REPOSITORY [facility] [address] [place] [address] OFFICE VISIT Date of Service: 08/05/17 MR#: [id number] Acct: [id number] Name: SCARLET DELACRUZ Rep #: [id number] : 1935 Provider: Stephani Varma Age/Sex: 82/F Location: [facility] Status: Signed HPI HPI Details: SCARLET DELACRUZ, is a 82 F who presents to the office today for a cardiovascular follow-up. She has a history of coronary artery disease with bypass surgery with an REID to the LAD, SVG to the RCA, sequential SVG to the obtuse marginal. She had angioplasty and stenting to her sequential SVG to the diagonal and circumflex and SVG to the RCA in 2013. In June 2017 she continued to complain of chest discomfort. She underwent a heart catheterization where she was noted to have a subtotally occluded SVG to the diagonal and obtuse marginal, high-grade stenosis of the SVG to the RCA, severe [place] vessel coronary artery disease nearly icteric REID to the LAD. There is discussion at that time whether or not to pursue redo bypass surgery versus PCI. The following day with her continued chest discomfort she underwent stenting to her SVG to the diagonal and obtuse marginal. At the time of that heart catheterization she was noted to have a myocardial infarction with a troponin release 4. She also has a history of hypertension and hyperlipidemia. I had seen her a month ago, she continued to complain of severe fatigue and not being able to do anything. We did adjust some of her medications. She states that she is doing much better. She has much more energy than when she did a month ago and is asking if she can returned to swimming. She has not had any chest discomfort or heaviness. She was able to walk from the car to our office without any difficulty. Prior to that she would not have been able to do this. She does not have any palpitations. She does not have any lightheadedness or dizziness. She does not have any lower extremity edema. Patient has noted that she has had some low blood pressure readings at home the last several days she has not taken her evening dose of metoprolol. Intake Vital Signs08/05/17 Height 5 ft 2 in 08/05/17 Weight: 187 lb 08/05/17 Body Mass Index (BMI) 34.2 08/05/17 Blood Pressure 128/78 08/05/17 Blood Pressure Location Lt brachial Intake Visit Reasons: 1 M Sizing Sponger Required: No Accompanied by: none Is patient in pain?: No Allergies codeine Allergy (Mild, Verified 08/05/17 12:06) Rash ibuprofen Allergy (Mild, Verified 08/05/17 12:06) Rash rosuvastatin calcium [From Crestor] Allergy (Verified 08/05/17 12:06) Unknown acetaminophen [From Darvocet-N] Adverse Reaction (Severe, Verified 08/05/17 12:06) Unknown propoxyphene [From Darvocet-N] Adverse Reaction (Severe, Verified 08/05/17 12:06) Unknown meperidine HCl [From Demerol] Adverse Reaction (Mild, Verified 08/05/17 12:06) Other propoxyphene HCl [From Darvon] Adverse Reaction (Mild, Verified 08/05/17 12:06) Other Medications Aspirin [Aspirin, Baby] 81 mg PO DAILY@0800 12/30/13 [History Confirmed 08/05/17] Docusate Sodium [Colace] 100 mg PO TID 12/30/13 [History Confirmed 08/05/17] Levothyroxine [Synthroid] 75 mcg PO DAILY 12/30/13 [History Confirmed 08/05/17] Lisinopril 10 mg PO DAILY 12/30/13 [History Confirmed 08/05/17] Nitroglycerin [Nitrostat] 0.4 mg SUBLINGUAL Q5M PRN 12/30/13 [History Confirmed 08/05/17] Drummond-3 Fatty Acids/Fish Oil [Drummond 3 Fish Oil Softgel] 100 mg PO TIDCM 12/30/13 [History Confirmed 08/05/17] Cholecalciferol (Vitamin D3) [Vitamin D] 1,000 unit PO DAILY 01/11/14 [History Confirmed 08/05/17] Cyanocobalamin [Vitamin B12] 250 mcg PO DAILY@0800 01/11/14 [History Confirmed 08/05/17] Magnesium 500 mg PO DAILY 01/11/14 [History Confirmed 08/05/17] Lecithin 1,200 mg PO DAILY 09/11/15 [History Confirmed 08/05/17] Cinnamon Bark [Cinnamon] 500 mg PO DAILY 08/16/16 [History Confirmed 08/05/17] coenzyme Q10 100 mg capsule 100 mg PO QDAY 06/02/17 [History Confirmed 08/05/17] metoprolol tartrate 25 mg tablet 25 mg PO BID 06/02/17 [History Confirmed 08/05/17] red yeast rice 600 mg capsule 600 mg PO TID cap 06/02/17 [History Confirmed 08/05/17] furosemide 40 mg tablet 40 mg PO QDAY #30 tab 06/19/17 [Rx Confirmed 08/05/17] isosorbide mononitrate ER 30 mg tablet,extended release 24 hr 30 mg PO QAM #90 tab 07/06/17 [Rx Confirmed 08/05/17] ticagrelor 90 mg tablet 90 mg PO BID #90 tab 07/09/17 [Rx Confirmed 08/05/17] Ejection fraction %: 65 to 70 PFSH Medical History Hyperlipidemia (Chronic) Essential hypertension (Chronic) Atherosclerotic heart disease of [place] coronary artery without angina pectoris (Chronic) Carotid bruit (Chronic) Bilateral carotid artery stenosis (Chronic) Atherosclerotic heart disease of artery bypass graft (Chronic) Atherosclerotic heart disease of [place] coronary artery with other forms of angina pectoris (Chronic) Chest pain (Resolved) Encounter for long-term current use of high risk medication (Acute) Surgical History Stented coronary artery (Chronic) S/P CABG x 5 (Chronic) History of percutaneous transluminal coronary angioplasty (Chronic) Postsurgical aortocoronary bypass status (Chronic) Family History Father , age 72 of [place] Myocardial infarction total of 3 IN's CAD (coronary artery disease) Mother , age 69 of embolus CAD (coronary artery disease) Brother CAD (coronary artery disease) S/P CABG x 4 Hypertension Myocardial infarction Hx of heart valve replacement with mechanical valve Brother Hypertension Diabetes CAD (coronary artery disease) Hyperlipidemia History of coronary artery bypass graft Other Family history of coronary artery disease Family history of hyperlipidemia Family history of hypertension Social History Smoking Status: Never smoker alcohol intake: never substance use type: does not use caffeine: Yes Type: carbonated beverages Number of servings: 1 eating out: 1-3 times/week what type of physical activity do you participate in: none seatbelt use: always do you feel safe at home: Yes ROS Const Const: Negative for weakness, fever(s), headache(s) or fatigue Eyes Eyes: Negative for blind spots, loss of peripheral vision or transient loss of vision ENT ENT: Negative for headache(s) Cardio Chest Pain: No Palpitations: No Edema: None Muscle aches with walking: None Resp Respiratory: Positive for SOB with activity; negative for SOB at rest, SOB orthopnea\SOB lying down or Cough GI GI: Negative nausea, vomiting, heartburn or vomiting blood/hematemesis : Negative for hematuria Musc Musc: Negative for muscle aches/ myalgia Neuro Neuro: Negative for weakness or headache(s) Dilip Hematologic/Lymphatic: Negative for easy bleeding Endo Endo: Negative for fatigue Cardiology Exam Const Appearance: cooperative, no acute distress and well developed Orientation: alert, awake and oriented x3 Head Head: normocephalic and atraumatic Mouth: moist mucous membranes Eyes General: appearance normal, both eyes and all related structures Conjunctivae: conjunctivae normal Pupils: PERRL EOM: EOM intact bilaterally Neck Neck: normal visual inspection, no lymphadenopathy and no JVD Carotids: Negative bruit Neck Mass: Negative Neck mass Chest Chest inspection: normal inspection of the chest and symmetric chest movement Auscultation: Bilateral: Clear to Auscultation Cardio Palpation: normal PMI Rate: regular rate Rhythm: regular rhythm Heart sounds: S1 normal and S2 normal; negative rub, gallop or murmur GI GI: normal to inspection, soft, no hepatosplenomegaly and bowel sounds present; negative tender Neuro General: alert, awake, oriented x3, CN's II-XI intact bilaterally and moves all extremities Extremities Pulses: Normal: Right Posterior Tibial Pulse, Left Posterior Tibial Pulse, Right Radial Pulse, Left Radial Pulse Lower Extremity Edema: None: Bilateral Psych Psychological: normal affect Assessment AND Plan 1. Atherosclerosis of [place] coronary artery of [place] heart without angina pectoris I25.10 06/03/2004 [facility] per Dr. Bauer: Sequential substrate grafts to the RCA x 2 and sequential grafting to the diagonal and cx. REID to LAD. 01/26/14 PTCA and SHERRY to SVG of RCA per Dr. Lora, [facility], PTCA AND SHERRY 08/18/16 @ [facility], SVG to Diag and Obtuse 06/2017 Plan - GIO Romano Patient has not had any angina. However with the severity of her coronary disease will not discontinue her isosorbide with her concerns over low blood pressure readings. Encouraged her to participate in cardiac rehab prior to returning to [facility]. She will continue with risk factor modification per 2. Essential hypertension I10 Plan - GIO Romano Will have patient decrease her lisinopril to 5 mg daily. She will call us if she is having low blood pressure or high blood pressure readings. Patient Instructions - GIO Romano Decrease your lisinopril to 5 mg daily, call us if you are having low readings or high readings with your blood pressure 3. Pure hypercholesterolemia E78.00; E78.0 Plan - GIO Romano Patient has been intolerant to statins. She will continue to be monitored through dietary modifications. Plan Detail Additional Comments - GIO Romano The above patient was discussed with Dr. Hudson, he agrees with plan of care. Thank you for allowing us to participate in patient's plan of care, if you have any questions please do not hesitate to call. This note was generated using a voice recognition system and there may be incorrect words, spelling or punctuation errors that were not noted when reviewing the office note prior to saving. 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 transplanted heart: [place] heart Essential hypertension I10 Pure hypercholesterolemia E78.00; E78.0 Hyperlipidemia type: pure hypercholesterolemia Coding Level of Care Code Off vis,est,level 4 Diagnoses Atherosclerosis of [place] coronary artery of [place] heart without angina pectoris I25.10 [place] vs. transplanted heart: [place] heart Essential hypertension I10 Pure hypercholesterolemia E78.00; E78.0 Hyperlipidemia type: pure hypercholesterolemia 08/05/17 1710 <Electronically signed by Stephani Varma PA> Date Stephani POWERS 08/05/17 1732<Electronically signed by Freddie Hudson MD> Cosigner Signature: Date (if applicable) Freddie Hudson MD CC: Mumtaz Caro MD CARDIOLOGY VISIT Observed: 07/07/2017 Status: F Source: [place] REPORT 11:[address] [facility] REPOSITORY [facility] [address] [place] [address]. [address] [place] [address] OFFICE VISIT Date of Service: 07/06/17 MR#: [id number] Acct: [id number] Name: SCARLET DELACRUZ Rep #: [id number] : 1935 Provider: Stephani Varma Age/Sex: 82/F Location: [facility] Status: Signed [facility] Details: SCARLET DELACRUZ, is a 82 F who presents to the office today for a hospital follow-up. She presented to her office at the end of May with concerns over chest discomfort. She does have a history of coronary artery disease with bypass surgery with an REID to the LAD, SVG to the RCA, sequential SVG to the obtuse marginal. In January 2014 she had angioplasty and stenting to her sequential SVG sequential to the diagonal and circumflex and SVG to the RCA. Because of her continued chest discomfort she underwent a heart catheterization in June 15 2017 and was noted to have a subtotally occluded SVG to the diagonal and obtuse marginal, high-grade stenosis of the SVG to the RCA, severe [place] vessel coronary artery disease nearly icteric REID to the LAD. At time of diagnostic heart catheterization there is a discussion whether or not to pursue redo bypass surgery versus PCI. In June 16 at time of discharge she was noted to have continued chest discomfort with exertion, she underwent stenting to the SVG to the diagonal and obtuse marginal. At time of heart catheterization she was noted to have a myocardial infarction with a troponin release of 4. She also has a history of hypertension and hyperlipidemia. Since pt has been home she has been fatigued. She feels that she does not have any energy to do anything. She feels that her SOB is better than what it was when she went home. She does get SOb with exertion but it goes away when she sits down, this takes a few minutes to subside then it goes away. She sts now she stops her activity more d/t fatigue. She has not had any chest pain/heaviness/tightness. She does not have any orthopnea. She does not have any palpitations. She does not have any edema. Intake Vital Signs07/06/17 Height 5 ft 2 in 07/06/17 Weight: 186 lb 07/06/17 Body Mass Index (BMI) 34.0 07/06/17 Blood Pressure 110/60 07/06/17 Blood Pressure Location Lt brachial Intake Visit Reasons: s/p PCI Sizing Sponger Required: No Accompanied by: None Is patient in pain?: No Allergies codeine Allergy (Mild, Verified 07/06/17 09:07) Rash ibuprofen Allergy (Mild, Verified 07/06/17 09:07) Rash rosuvastatin calcium [From Crestor] Allergy (Verified 07/06/17 09:07) Unknown meperidine HCl [From Demerol] Adverse Reaction (Mild, Verified 07/06/17 09:07) Other propoxyphene HCl [From Darvon] Adverse Reaction (Mild, Verified 07/06/17 09:07) Other Medications Aspirin [Aspirin, Baby] 81 mg PO DAILY@0800 12/30/13 [History Confirmed 07/01/17] Docusate Sodium [Colace] 100 mg PO TID 12/30/13 [History Confirmed 07/01/17] Levothyroxine [Synthroid] 75 mcg PO DAILY 12/30/13 [History Confirmed 07/01/17] Lisinopril 10 mg PO DAILY 12/30/13 [History Confirmed 07/01/17] Nitroglycerin [Nitrostat] 0.4 mg SUBLINGUAL Q5M PRN 12/30/13 [History Confirmed 07/01/17] Drummond-3 Fatty Acids/Fish Oil [Drummond 3 Fish Oil Softgel] 100 mg PO TIDCM 12/30/13 [History Confirmed 07/01/17] Cholecalciferol (Vitamin D3) [Vitamin D] 1,000 unit PO DAILY 01/11/14 [History Confirmed 07/01/17] Cyanocobalamin [Vitamin B12] 250 mcg PO DAILY@0800 01/11/14 [History Confirmed 07/01/17] Magnesium 500 mg PO DAILY 01/11/14 [History Confirmed 07/01/17] Lecithin 1,200 mg PO DAILY 09/11/15 [History Confirmed 07/01/17] Cinnamon Bark [Cinnamon] 500 mg PO DAILY 08/16/16 [History Confirmed 07/01/17] coenzyme Q10 100 mg capsule 100 mg PO QDAY 06/02/17 [History Confirmed 07/01/17] metoprolol tartrate 25 mg tablet 25 mg PO BID 06/02/17 [History Confirmed 07/01/17] red yeast rice 600 mg capsule 600 mg PO TID cap 06/02/17 [History Confirmed 07/01/17] Ticagrelor [Brilinta] 90 mg PO BID #60 tab 06/18/17 [Rx Confirmed 07/06/17] furosemide 40 mg tablet 40 mg PO QDAY #30 tab 06/19/17 [Rx Confirmed 07/06/17] isosorbide mononitrate ER 30 mg tablet,extended release 24 hr 30 mg PO QAM #90 tab 07/06/17 [Rx Confirmed 07/06/17] PFSH Medical History Hyperlipidemia (Chronic) Essential hypertension (Chronic) Atherosclerotic heart disease of [place] coronary artery without angina pectoris (Chronic) Carotid bruit (Chronic) Bilateral carotid artery stenosis (Chronic) Atherosclerotic heart disease of artery bypass graft (Chronic) Atherosclerotic heart disease of [place] coronary artery with other forms of angina pectoris (Chronic) Chest pain (Resolved) Encounter for long-term current use of high risk medication (Acute) Surgical History Stented coronary artery (Chronic) S/P CABG x 5 (Chronic) History of percutaneous transluminal coronary angioplasty (Chronic) Postsurgical aortocoronary bypass status (Chronic) Family History Father , age 72 of IN Myocardial infarction total of 3 IN's CAD (coronary artery disease) Mother , age 69 of embolus CAD (coronary artery disease) Brother CAD (coronary artery disease) S/P CABG x 4 Hypertension Myocardial infarction Hx of heart valve replacement with mechanical valve Brother Hypertension Diabetes CAD (coronary artery disease) Hyperlipidemia History of coronary artery bypass graft Other Family history of coronary artery disease Family history of hyperlipidemia Family history of hypertension Social History Smoking Status: Never smoker alcohol intake: never substance use type: does not use caffeine: Yes Type: carbonated beverages what type of physical activity do you participate in: none seatbelt use: always do you feel safe at home: Yes ROS Const Const: Positive for weakness and fatigue; negative for fever(s) or headache(s) Eyes Eyes: Negative for blind spots, loss of peripheral vision or transient loss of vision ENT ENT: Negative for headache(s), dizziness, tinnitus or Nosebleed/epistaxis Cardio Chest Pain: No Palpitations: No Edema: None Muscle aches with walking: None Resp Respiratory: Positive for SOB with activity; negative for SOB at rest, SOB orthopnea\SOB lying down or Cough GI GI: Negative nausea, vomiting, heartburn or vomiting blood/hematemesis : Negative for hematuria Musc Musc: Negative for muscle aches/ myalgia Neuro Neuro: Positive for weakness; negative for headache(s), dizziness, near syncope, syncope, lightheadedness or orthostatic symptoms Dilip Hematologic/Lymphatic: Negative for easy bleeding Endo Endo: Positive for fatigue Cardiology Exam Const Appearance: cooperative, no acute distress and well developed Orientation: alert, awake and oriented x3 Head Head: normocephalic and atraumatic Mouth: moist mucous membranes Eyes General: appearance normal, both eyes and all related structures Conjunctivae: conjunctivae normal Pupils: PERRL EOM: EOM intact bilaterally Neck Neck: normal visual inspection, no lymphadenopathy and no JVD Carotids: Negative bruit Neck Mass: Negative Neck mass Chest Chest inspection: normal inspection of the chest and symmetric chest movement Auscultation: Bilateral: Clear to Auscultation Cardio Palpation: normal PMI Rate: regular rate Rhythm: regular rhythm Heart sounds: S1 normal and S2 normal; negative rub, gallop or murmur GI GI: normal to inspection, soft, no hepatosplenomegaly and bowel sounds present; negative tender Neuro General: alert, awake, oriented x3, CN's II-XI intact bilaterally and moves all extremities Extremities Pulses: Normal: Right Posterior Tibial Pulse, Left Posterior Tibial Pulse, Right Radial Pulse, Left Radial Pulse Lower Extremity Edema: None: Bilateral Psych Psychological: normal affect Supplemental Info Heart cath 2017 demonstrated: LEFT MAIN: 30 % Stenosis LEFT ANTERIOR DECENDING ARTERY: PROX LAD: Mild luminal irregularities less than 30% MID LAD: occluded with competetive flow CIRCUMFLEX ARTERY: PROX CIRC: Mild luminal irregularities, 80 % Stenosis MID CIRC: is occluded RIGHT CORONARY ARTERY: Severe prox disease the occluded GRAFTS: REID graft to the Mid LAD is patent REID graft to the LAD is a very small vessel Saphenous Vein graft to the RCA has a proximal lesion of 95 % Saphenous Vein graft to the RCA previously placed stent has an instent restenosis of 30 % Sequential graft to the diagonal and OM is occluded Saphenous Vein graft to the 1st Diagonal previously placed stent has an instent restenosis of 95 in stent % Assessment AND Plan 1. Atherosclerosis of [place] coronary artery of [place] heart without angina pectoris I25.10 06/03/2004 [facility] per Dr. Bauer: Sequential substrate grafts to the RCA x 2 and sequential grafting to the diagonal and cx. REID to LAD. 01/26/14 PTCA and SHERRY to SVG of RCA per Dr. Lora, [facility], PTCA AND SHERRY 08/18/16 @ [facility], SVG to Diag and Obtuse 06/2017 Plan - GIO Romano Patient has not had any angina however she does note significant fatigue. Will obtain a BMP, he has H and T4. Hemoglobin has improved since her time of discharge. She is tolerating her Brilinta. With her fatigue patient would not like to start cardiac rehab at this time. Will rediscuss in 1 month. Orders Orders: 2. Essential hypertension I10 Plan - GIO Romano Blood pressure is well controlled on current medications, we do not recommend any changes at this time. Orders Orders: 3. Pure hypercholesterolemia E78.00; E78.0 Plan - GIO Romano Unfortunately patient has been intolerant to many statins. She does try to use dietary modifications to monitor her cholesterol. 4. Fatigue, unspecified type R53.83 Plan - GIO Romano Will adjust medications and obtain labs. Patient advised that if symptoms do not improve that she should call our office prior to her next appointment. Patient Instructions - GIO Romano decrease your Isosorbide to 30 mg daily Orders Orders: Plan Detail Other Orders Orders: Other Medications Changed: From: isosorbide mononitrate ER swallow whole with glass of water; do no60 mg PO QAM t crush/chew /dissolve /cut/break Additional Comments - GIO Romano The above patient was discussed with Dr. Hudson, he agrees with plan of care. Thank you for allowing us to participate in patient's plan of care, if you have any questions please do not hesitate to call. This note was generated using a voice recognition system and there may be incorrect words, spelling or punctuation errors that were not noted when reviewing the office note prior to saving. Follow Up 1 Month (MMM) Coding Level of Care Code Off vis,est,level 4 Diagnoses Atherosclerosis of [place] coronary artery of [place] heart without angina pectoris I25.10 [place] vs. transplanted heart: [place] heart Essential hypertension I10 Hypertension type: essential hypertension Pure hypercholesterolemia E78.00; E78.0 Hyperlipidemia type: pure hypercholesterolemia Fatigue, unspecified type R53.83 Fatigue type: unspecified Coding Level of Care Code Off vis,est,level 4 Diagnoses Atherosclerosis of [place] coronary artery of [place] heart without angina pectoris I25.10 [place] vs. transplanted heart: [place] heart Essential hypertension I10 Hypertension type: essential hypertension Pure hypercholesterolemia E78.00; E78.0 Hyperlipidemia type: pure hypercholesterolemia Fatigue, unspecified type R53.83 Fatigue type: unspecified 07/06/17 1017 <Electronically signed by Stephani POWERS> Date Stephani POWERS 07/07/17 1105<Electronically signed by Freddie Hudson MD> Cosigner Signature: Date (if applicable) Freddie Hudson MD CC: Mumtaz Caro MD BASIC METABOLIC Collected: 07/06/2017 Status: F Source: [place] PROFILE (BMP) 10:[address] [facility] REPOSITORY TYPE CODE TESTS RESULT OUT OF RANGE REFERENCE UNITS LAB L501.0100 74-106 mg/dL Normal GLU 90 Result Comment: Please note revised GLUCOSE reference range effective 2017. LAB L501.1000 7-18 mg/dL High BUN 36 LAB L501.1100 0.55-1.02 mg/dL High CREAT,SERUM 1.17 Result Comment: The validity of the calculated GFR AND GFRAA in patients over 70 years has not been determined. Clinical correlation is essential. LAB L501.1110 >60 mL/min Low EST GFR 47 Result Comment: Non- GFR Calc LAB L501.1115 >60 mL/min Low EST GFR - AA 57 Result Comment: GFR Calc LAB L501.1300 10-20 RATIO High BUN/CRE 30.8 LAB L501.2200 8.5-10.1 mg/dL CA Normal 9.2 LAB L501.5300 136-145 mmol/L Low NA 129 LAB L501.5600 3.5-5.1 mmol/L K Normal 3.6 LAB L501.5900 98-107 mmol/L Low CL 92 LAB L501.6100 21.0-32.0 mmol/L Normal CO2 30.0 LAB L501.6200 5-15 Normal GAP 7 Performed By: #### L500.2500, L501.9310, L501.9520 #### [facility] [address] [place], [address] T4 TOTAL, THYROXIN Collected: 07/06/2017 Status: F Source: [place] 10:[address] [facility] REPOSITORY TYPE CODE TESTS RESULT OUT OF RANGE REFERENCE UNITS LAB L501.9310 4.8-13.9 ug/dL T4 Normal THYROXIN 12.2 Performed By: #### L500.2500, L501.9310, L501.9520 #### [facility] [address] [place], [place], [address] THYROID STIM HORMONE Collected: 07/06/2017 Status: F Source: [place] (TSH) 10:[address] [facility] REPOSITORY TYPE CODE TESTS RESULT OUT OF RANGE REFERENCE UNITS LAB L501.9520 0.358-3.74 uIU/mL Low TSH 0.14 Performed By: #### L500.2500, L501.9310, L501.9520 #### [facility] [address] [place], [address] 12 LEAD EKG PERFORMED Observed: 07/06/2017 Status: F Source: [place] BY [facility] 9:[address] [facility] REPOSITORY [facility] [address] [place] [address] 12 Lead EKG performed by [facility] 07/06/17916 MR#: [id number] Acct: [id number] Name: SCARLET DELACRUZ Rep #: [id number] : 1935 82 From: Stephani POWERS Attending Dr: Stephani Varma Status: DEP AMB Ordering Dr: Stephani Varma Date: 07/06/17 Location: [facility] Sex: F C Admitted: BMS/12 Lead EKG performed by [facility] ECG Report Interpretation 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 ABNORMAL Electronically signed on 07/23/2017 at 13:42 by Freddie Hudson 07/23/17 1345 Date Stephani POWERS CC: Mumtaz Caro MD Date Dictated: 07/06/17916 Date Transcribed: 07/06/17916 Parking Technician: BHARAT Signed CBC W/DIFF, AUTOMATED Collected: 06/29/2017 Status: F Source: [place] 11:[address] [facility] REPOSITORY Order Comment: Comments: PATIENT IS HOMEBOUND TYPE CODE TESTS RESULT OUT OF RANGE REFERENCE UNITS LAB L100.1000 4.4-11.0 K/mm3 Normal WBC 8.9 LAB L100.1200 4.2-5.4 M/mm3 Low RBC 3.90 LAB L100.1300 12.0-15.0 g/dl Low HGB 11.6 LAB L100.1400 37-47 % Low HCT 34.8 LAB L100.1500 81-99 fL Normal MCV 89.2 LAB L100.1600 27.0-32.0 pg Normal MCH 29.7 LAB L100.1700 32-36 g/gl Normal MCHC 33.3 LAB L100.1810 11.6-14.6 % Normal RDW CV 13.0 LAB L100.1820 35.1-43.9 fl Normal RDW SD 41.9 LAB L100.1900 150-450 K/mm3 High PLT 494 LAB L100.2000 6.2-12.0 fl Normal MPV 9.5 LAB L100.2100 47-70 % High NEUT% 72.1 LAB L100.2200 19-41 % Low LY% 12.4 LAB L100.2300 0-10 % High MONO% 11.9 LAB L100.2400 0-5 % Normal EO% 2.7 LAB L100.2500 0-1 % Normal BASO% 0.7 LAB L100.2550 0.0-0.9 % Normal IM GRAN % 0.200 Result Comment: IG% - Immature Granulocytes (promyelocytes, myelocytes and metamyelocytes) > 1% indicates that a LEFT SHIFT is Present. LAB L100.2620 2.0-7.7 X10 3/uL Normal Absolute Neut 6.4 LAB L100.2720 0.83-4.51 X10 3/ul Normal Absolute Lymph 1.11 Performed By: #### L100.0100, L500.2500 #### [facility] [address] [place], [place], [id number] BASIC METABOLIC Collected: 06/29/2017 Status: F Source: [place] PROFILE (BMP) 11:[address] [facility] REPOSITORY Order Comment: Comments: PATIENT IS HOMEBOUND TYPE CODE TESTS RESULT OUT OF RANGE REFERENCE UNITS LAB L501.0100 74-106 mg/dL Normal GLU 85 Result Comment: Please note revised GLUCOSE reference range effective 2017. LAB L501.1000 7-18 mg/dL High BUN 36 LAB L501.1100 0.55-1.02 mg/dL High CREAT,SERUM 1.25 Result Comment: The validity of the calculated GFR AND GFRAA in patients over 70 years has not been determined. Clinical correlation is essential. LAB L501.1110 >60 mL/min Low EST GFR 44 Result Comment: Non- GFR Calc LAB L501.1115 >60 mL/min Low EST GFR - AA 53 Result Comment: GFR Calc LAB L501.1300 10-20 RATIO High BUN/CRE 28.8 LAB L501.2200 8.5-10.1 mg/dL CA Normal 9.1 LAB L501.5300 136-145 mmol/L Low NA 129 LAB L501.5600 3.5-5.1 mmol/L K Normal 3.8 LAB L501.5900 98-107 mmol/L Low CL 91 LAB L501.6100 21.0-32.0 mmol/L Normal CO2 31.0 LAB L501.6200 5-15 Normal GAP 7 Performed By: #### L100.0100, L500.2500 #### [facility] [address] [place], [address] 12 LEAD ELECTROCARDIOGRAM Observed: 06/25/2017 Status: F Source: [place] 3:[address] [facility] REPOSITORY [facility] Cardiovascular Services [address] [place] [address] 12 Lead EKG 06/18/17 0406 MR#: [id number] Acct: [id number] Name: SCARLET DELACRUZ Rep #: [id number] : 1935 82 From: Librado Lora MD Attending Dr: Becca EPPS,Nellis Status: DIS IN Ordering Dr: Anisha Wahl MD Date: 06/18/17 Location: ICU Sex: F C Admitted: 06/16/17 Test Reason : AM EKG Blood Pressure : / mmHG Vent. Rate : 067 BPM Atrial Rate : 067 BPM P-R Int : 184 ms QRS Dur : 082 ms QT Int : 386 ms P-R-T Axes : 047 -14 092 degrees QTc Int : 407 ms Normal sinus rhythm Normal ECG When compared with ECG of 17-JUN-2017 10:45, MANUAL COMPARISON REQUIRED, DATA IS UNCONFIRMED Confirmed by LIBRADO LORA ([id number]), photograph editor MASHA CARO ([id number]) on 06/25/2017 3:03:13 PM Referred By: Freddie Hudson Confirmed By:LIBRADO LORA 06/25/17 1503 Date Librado Lora MD CC: Anisha Wahl MD; Mumtaz Caro MD Signed 12 LEAD ELECTROCARDIOGRAM Observed: 06/19/2017 Status: F Source: [place] 10:[address] [facility] REPOSITORY [facility] Cardiovascular Services [address] [place] [id number] 12 Lead EKG 06/17/17 1045 MR#: [id number] Acct: [id number] Name: SCARLET DELACRUZ Rep #: [id number] : 1935 82 From: Deuce Eldridge MD Attending Dr: Freddie Hudson MD Status: DIS IN Ordering Dr: Anisha Wahl MD Date: 06/17/17 Location: ICU Sex: F C Admitted: 06/16/17 Test Reason : POST PCI Blood Pressure : / mmHG Vent. Rate : 082 BPM Atrial Rate : 082 BPM P-R Int : 204 ms QRS Dur : 086 ms QT Int : 400 ms P-R-T Axes : 053 -12 090 degrees QTc Int : 467 ms Normal sinus rhythm Normal ECG When compared with ECG of 17-JUN-2017 04:57, MANUAL COMPARISON REQUIRED, DATA IS UNCONFIRMED Confirmed by JAZMYN EPPS, DEUCE ([id number]), photograph editor MASHA CARO ([id number]) on 06/19/2017 10:38:39 AM Referred By: Freddie Hudson Confirmed By:DEUCE ELDRIDGE MD 06/19/17 1038 Date Deuce Eldridge MD CC: Anisha Wahl MD; Mumtaz Caro MD Signed 12 LEAD ELECTROCARDIOGRAM Observed: 06/18/2017 Status: F Source: [place] 1:10 PM [facility] REPOSITORY [facility] Cardiovascular Services [address] [place] [address] 12 Lead EKG 06/17/17 0457 MR#: [id number] Acct: [id number] Name: SCARLET DELACRUZ Rep #: [id number] : 1935 82 From: Freddie Hudson MD Attending Dr: Freddie Hudson MD Status: ADM IN Ordering Dr: Freddie Hudson MD Date: 06/17/17 Location: ICU Sex: F C Admitted: 06/16/17 Test Reason : AM EKG Blood Pressure : / mmHG Vent. Rate : 067 BPM Atrial Rate : 067 BPM P-R Int : 174 ms QRS Dur : 092 ms QT Int : 406 ms P-R-T Axes : 056 -04 074 degrees QTc Int : 429 ms Normal sinus rhythm Normal ECG When compared with ECG of 16-JUN-2017 13:47, MANUAL COMPARISON REQUIRED, DATA IS UNCONFIRMED Confirmed by BECCA EPPS, FREDDIE ([id number]), photograph editor MASHA CARO ([id number]) on 06/18/2017 1:09:36 PM Referred By: Freddie Hudson Confirmed By:FREDDIE HUDSON MD 06/18/17 1309 Date Freddie Hudson MD CC: Freddie Hudson MD; Mumtaz Caro MD Signed DISCHARGE INSTRUCTION Observed: 06/18/2017 Status: F Source: [place] 7:[address] [facility] REPOSITORY [facility] Medical Records Department [address] [place] [address] Instructions for Home/Discharge Instructions 06/18/17 0732 MR#: [id number] Acct: [id number] Name: SCARLET DELACRUZ Rep #: [id number] : 1935 82 From: Freddie Hudson MD PCP: Mumtaz Caro MD Status: ADM IN Discharge Diet: Low fat/ Low Cholesterol Discharge Activity: Return to Normal Activity Call your doctor if your incision/area has: Increased Pain/ Swelling, Increased Redness, Foul Smelling Discharge, Swelling at the incision site Call your doctor if you observe: Fever of 101 or Higher Change Dressing in (Days):: 1 Remove Dressing in (days):: 1 Additional Dressing/Incision Instructions:: Keep the dressing (bandage) on until the next morning. You may then shower, but do not take a tub bath for 5 days after your test. It is normal to have some tenderness and discomfort at the puncture site. Sometimes bruising also occurs. However, if pain, numbness, or coldness occurs below the puncture site (in your leg, toes, arms or fingers) call your doctor at once. You may have a small, marble sized knot at the puncture site. This is normal. Do not rub it. It will go away in 4-6 weeks. Bleeding can occur from the area where the puncture was done. Blood may spurt or drip from the site. If blood spurts, apply pressure right away to stop bleeding and call 911. Although rare, bleeding into the tissue (hematoma) can also occur. If this happens, a large, firm area goose egg under the skin will appear. If any of these occur, lie down as flat as you can and have someone apply firm pressure to the cath site with a gauze pad or a clean washcloth for 10-15 minutes. Call 911 or go to the Emergency Department. Allergies/Adverse Reactions: Allergies codeine Allergy (Mild, Verified 06/15/17 07:56) Rash ibuprofen Allergy (Mild, Verified 06/15/17 07:56) Rash rosuvastatin calcium [From Crestor] Allergy (Verified 06/15/17 07:56) Unknown meperidine HCl [From Demerol] Adverse Reaction (Mild, Verified 06/15/17 07:56) Other propoxyphene HCl [From Darvon] Adverse Reaction (Mild, Verified 06/15/17 07:56) Other Medications to take at Discharge Aspirin [Aspirin, Baby] 81 mg PO DAILY@0800 12/30/13 Docusate Sodium [Colace] 100 mg PO TID 12/30/13 Flaxseed Oil/Drummond 3,6,9 [Sv Flaxseed Oil 1,300 mg Sftgl] 1 ea PO TIDCM 12/30/13 Levothyroxine [Synthroid] 75 mcg PO DAILY 12/30/13 Lisinopril 10 mg PO DAILY 12/30/13 Nitroglycerin [Nitrostat] 0.4 mg SUBLINGUAL Q5M PRN 12/30/13 Drummond-3 Fatty Acids/Fish Oil [Drummond 3 Fish Oil Softgel] 100 mg PO TIDCM 12/30/13 Triamterene 37.5MG/Hctz 25MG [Dyazide (G)] 25 mg PO DAILY 12/30/13 Cholecalciferol (Vitamin D3) [Vitamin D] 1,000 unit PO DAILY 01/11/14 Cyanocobalamin [Vitamin B12] 250 mcg PO DAILY@0801/11/14 Magnesium 500 mg PO DAILY 01/11/14 Calcium Carbonate [Tums] 1,000 mg PO QHS PRN 09/11/15 Lecithin 1,200 mg PO DAILY 09/11/15 Cinnamon Bark [Cinnamon] 500 mg PO DAILY 08/16/16 coenzyme Q10 100 mg capsule 100 mg PO QDAY 06/02/17 metoprolol tartrate 25 mg tablet 25 mg PO BID 06/02/17 red yeast rice 600 mg capsule 600 mg PO TID cap 06/02/17 isosorbide mononitrate ER 60 mg tablet,extended release 24 hr 60 mg PO QAM #90 tab 06/04/17 Ticagrelor [Brilinta] 90 mg PO BID #60 tablet 06/18/17 The following prescriptions were given: Ticagrelor [Brilinta] 90 mg PO BID #60 tablet Primary Care Physician: Mumtaz Caro MD [Primary Care Provider] - When: my office will call Cardiac Rehabilitation Info Cardiac Rehabilitation Program Information: Cardiac Rehabilitation is important for patients like you who are recovering from a heart problem. Cardiac rehabilitation programs are recognized as integral to the continued care of the patient with coronary heart disease. The cardiac rehabilitation program is designed to optimize a patient's physical, psychological, and social functioning. Health manager progressive care work in cardiac rehabilitation programs and assist you with getting the treatments you need to get stronger and healthier - like exercise, healthy eating habits, and medications. Cardiac rehabilitation has been show to help people with heart problems live longer and have better life enjoyment than people who do not go to cardiac rehabilitation. Please contact the Cardiac Rehabilitation Program at [facility] at in two weeks if you have not heard from them. 06/18/17 0736 <Electronically signed by Freddie Hudson MD> Date Freddie Hudson MD CC: Mumtaz Caro MD CBC-COMPLETE BLOOD CNT Collected: 06/18/2017 Status: F Source: [place] NO DIFF 3:[address] [facility] REPOSITORY TYPE CODE TESTS RESULT OUT OF RANGE REFERENCE UNITS LAB L100.1000 4.4-11.0 K/mm3 Normal WBC 8.1 LAB L100.1200 4.2-5.4 M/mm3 Low RBC 3.12 LAB L100.1300 12.0-15.0 g/dl Low HGB 9.6 LAB L100.1400 37-47 % Low HCT 28.5 LAB L100.1500 81-99 fL Normal MCV 91.3 LAB L100.1600 27.0-32.0 pg Normal MCH 30.8 LAB L100.1700 32-36 g/gl Normal MCHC 33.7 LAB L100.1810 11.6-14.6 % Normal RDW CV 13.5 LAB L100.1820 35.1-43.9 fl High RDW SD 44.0 LAB L100.1900 150-450 K/mm3 Normal PLT 308 LAB L100.2000 6.2-12.0 fl Normal MPV 9.5 Performed By: #### L100.0500 #### [facility] [address] [place], [address] BASIC METABOLIC Collected: 06/18/2017 Status: F Source: [place] PROFILE (BMP) 3:[address] [facility] REPOSITORY TYPE CODE TESTS RESULT OUT OF RANGE REFERENCE UNITS LAB L501.0100 74-106 mg/dL Normal GLU 87 Result Comment: Please note revised GLUCOSE reference range effective 2017. LAB L501.1000 7-18 mg/dL Normal BUN 16 LAB L501.1100 0.55-1.02 mg/dL Normal CREAT,SERUM 0.85 Result Comment: The validity of the calculated GFR AND GFRAA in patients over 70 years has not been determined. Clinical correlation is essential. LAB L501.1110 >60 mL/min Normal EST GFR 68 Result Comment: Non- GFR Calc LAB L501.1115 >60 mL/min Normal EST GFR - AA 83 Result Comment: GFR Calc LAB L501.1255 ml/min Normal Estimated CRCL 41.05 LAB L501.1300 10-20 RATIO Normal BUN/CRE 18.8 LAB L501.2200 8.5-10 mg/dL Low .1 CA 8.2 LAB L501.5300 136-14 mmol/L Normal 5 NA 136 LAB L501.5600 3.5-5. mmol/L Normal 1 K 3.7 LAB L501.5900 98-107 mmol/L Normal CL 104 LAB L501.6100 21.0-3 mmol/L Normal 2.0 CO2 26.0 LAB L501.6200 5-15 Normal GAP 6 Performed By: #### L500.2500 #### [facility] [address] [place], [place], [address] TROPONIN-I Collected: 06/18/2017 Status: F Source: [place] 3:[address] [facility] REPOSITORY Order Comment: PER SHAYY FOR 06/18/17 AM 'TROP' Serial specimen #1, #2, #3, or #4: 1 TYPE CODE TESTS RESULT OUT OF RANGE REFERENCE UNITS LAB L501.4010 <0.06 ng/mL High alert 4.84 TROPONIN-I Result Comment: Critical Result(s) Called at: 04:41:16 06/18/2017 by: LUIS ROGERS RN ICU TROPONIN-I EXPECTED VALUES <0.05 NEGATIVE 0.06 - 0.59 AT RISK OF IN > OR = 0.60 SUGGEST IN Performed By: #### L501.4010 #### [facility] [address] [place], [address] 12 LEAD ELECTROCARDIOGRAM Observed: 06/17/2017 Status: F Source: [place] 1:35 PM [facility] REPOSITORY [facility] Cardiovascular Services [address] [place] [address] 12 Lead EKG 06/16/17 0526 MR#: [id number] Acct: [id number] Name: SCARLET DELACRUZ Rep #: [id number] : 1935 82 From: Deuce Eldridge MD Attending Dr: Freddie Hudson MD Status: ADM IN Ordering Dr: Freddie Hudson MD Date: 06/16/17 Location: ICU Sex: F C Admitted: 06/16/17 Test Reason : AM Blood Pressure : / mmHG Vent. Rate : 068 BPM Atrial Rate : 068 BPM P-R Int : 186 ms QRS Dur : 090 ms QT Int : 414 ms P-R-T Axes : 051 014 051 degrees QTc Int : 440 ms Normal sinus rhythm Normal ECG Confirmed by JAZMYN EPPS, DEUCE ([id number]), photograph editor MASHA CARO ([id number]) on 06/17/2017 1:34:55 PM Referred By: Freddie Hudson Confirmed By:DEUCE ELDRIDGE MD 06/17/17 1335 Date Deuce Eldridge MD CC: Freddie Hudson MD; Mumtaz Caro MD Signed 12 LEAD ELECTROCARDIOGRAM Observed: 06/17/2017 Status: F Source: [place] 1:33 PM [facility] Cardiovascular Services [address] [place] [address] 12 Lead EKG 06/16/17 1347 MR#: [id number] Acct: [id number] Name: SCARLET DELACRUZ Rep #: [id number] : 1935 82 From: Deuce Eldridge MD Attending Dr: Freddie Hudson MD Status: ADM IN Ordering Dr: Freddie Hudson MD Date: 06/16/17 Location: ICU Sex: F C Admitted: 06/16/17 Test Reason : POST CATH Blood Pressure : / mmHG Vent. Rate : 084 BPM Atrial Rate : 084 BPM P-R Int : 178 ms QRS Dur : 080 ms QT Int : 388 ms P-R-T Axes : 063 008 076 degrees QTc Int : 458 ms Normal sinus rhythm Low voltage QRS (precordial leads) Confirmed by JAZMYN EPPS, DEUCE ([id number]), photograph editor MASHA CARO ([id number]) on 06/17/2017 1:33:31 PM Referred By: Freddie Hudson Confirmed By:DEUCE ELDRIDGE MD 06/17/17 1333 Date Deuce Eldridge MD CC: Freddie Hudson MD; Mumtaz Caro MD Signed ACT ACTIVATED CLOTTING Collected: 06/17/2017 Status: F Source: [place] TIME 10:[address] [facility] REPOSITORY TYPE CODE TESTS RESULT OUT OF RANGE REFERENCE UNITS LAB L9100.0100 74-137 sec High ACTk CLOT 202 TIME Performed By: #### L9100.0100 #### [facility] Point of Care [address] [place] [address] ACT ACTIVATED CLOTTING Collected: 06/17/2017 Status: F Source: [place] TIME 9:[address] [facility] REPOSITORY TYPE CODE TESTS RESULT OUT OF RANGE REFERENCE UNITS LAB L9100.0100 74-137 sec High ACTk CLOT 263 TIME Performed By: #### L9100.0100 #### [facility] Point of Care [address] [place] [address] CBC-COMPLETE BLOOD CNT Collected: 06/17/2017 Status: F Source: [place] NO DIFF 4:[address] [facility] REPOSITORY TYPE CODE TESTS RESULT OUT OF RANGE REFERENCE UNITS LAB L100.1000 4.4-11.0 K/mm3 Normal WBC 6.7 LAB L100.1200 4.2-5.4 M/mm3 Low RBC 3.64 LAB L100.1300 12.0-15.0 g/dl Low HGB 11.3 LAB L100.1400 37-47 % Low HCT 32.7 LAB L100.1500 81-99 fL Normal MCV 89.8 LAB L100.1600 27.0-32.0 pg Normal MCH 31.0 LAB L100.1700 32-36 g/gl Normal MCHC 34.6 LAB L100.1810 11.6-14.6 % Normal RDW CV 13.4 LAB L100.1820 35.1-43.9 fl Normal RDW SD 43.0 LAB L100.1900 150-450 K/mm3 Normal PLT 334 LAB L100.2000 6.2-12.0 fl Normal MPV 9.4 Performed By: #### L100.0500 #### [facility] [address] [place], [place], [address] BASIC METABOLIC Collected: 06/17/2017 Status: F Source: [place] PROFILE (BMP) 4:[address] [facility] REPOSITORY TYPE CODE TESTS RESULT OUT OF RANGE REFERENCE UNITS LAB L501.0100 74-106 mg/dL Normal GLU 87 Result Comment: Please note revised GLUCOSE reference range effective 2017. LAB L501.1000 7-18 mg/dL Normal BUN 18 LAB L501.1100 0.55-1.02 mg/dL Normal CREAT,SERUM 0.92 Result Comment: The validity of the calculated GFR AND GFRAA in patients over 70 years has not been determined. Clinical correlation is essential. LAB L501.1110 >60 mL/min Normal EST GFR 63 Result Comment: Non- GFR Calc LAB L501.1115 >60 mL/min Normal EST GFR - AA 76 Result Comment: GFR Calc LAB L501.1255 ml/min Normal Estimated CRCL 37.93 LAB L501.1300 10-20 RATIO Normal BUN/CRE 19.6 LAB L501.2200 8.5-10 mg/dL Normal .1 CA 8.8 LAB L501.5300 136-14 mmol/L Normal 5 NA 136 LAB L501.5600 3.5-5. mmol/L Normal 1 K 3.9 LAB L501.5900 98-107 mmol/L Normal CL 102 LAB L501.6100 21.0-3 mmol/L Normal 2.0 CO2 26.0 LAB L501.6200 5-15 Normal GAP 8 Performed By: #### L500.2500 #### [facility] [address] [place], [address] PROTHROMBIN TIME W/INR Collected: 06/17/2017 Status: F Source: [place] 4:[address] [facility] REPOSITORY TYPE CODE TESTS RESULT OUT OF RANGE REFERENCE UNITS LAB L300.4150 11.7-14.9 SECONDS Normal PROTIME 13.2 LAB L300.4200 Normal INR 1.0 Performed By: #### L300.3900, L300.4310 #### [facility] [address] [place], [address] PARTIAL THROMBOPLAST Collected: 06/17/2017 Status: F Source: [place] TIME 4:[address] [facility] REPOSITORY TYPE CODE TESTS RESULT OUT OF RANGE REFERENCE UNITS LAB L300.4310 24.1-36.2 Seconds Normal PTT 31.5 Performed By: #### L300.3900, L300.4310 #### [facility] [address] [place], [address] 12 LEAD ELECTROCARDIOGRAM Observed: 06/16/2017 Status: F Source: [place] 2:[address] [facility] REPOSITORY [facility] Cardiovascular Services [address] [place] [address] 12 Lead EKG 06/15/17 1138 MR#: [id number] Acct: [id number] Name: SCARLET DELACRUZ Rep #: [id number] : 1935 82 From: Freddie Hudson MD Attending Dr: Freddie Hudson MD Status: [facility] Ordering Dr: Freddie Hudson MD Date: 06/15/17 Location: ICU Sex: F C Admitted: Test Reason : Blood Pressure : / mmHG Vent. Rate : 069 BPM Atrial Rate : 069 BPM P-R Int : 196 ms QRS Dur : 088 ms QT Int : 418 ms P-R-T Axes : 054 -01 035 degrees QTc Int : 447 ms Normal sinus rhythm with sinus arrhythmia Normal ECG When compared with ECG of 19-AUG-2016 03:59, No significant change was found Confirmed by FREDDIE HUDSON MD ([id number]), photograph editor MASHA CARO ([id number]) on 06/16/2017 2:00:01 PM Referred By: Freddei Hudson Confirmed By:FREDDIE HUDSON MD 06/16/17 1400 Date Freddie Hudson MD CC: Freddie Hudson MD; Mumtaz Caro MD Signed CBC-COMPLETE BLOOD CNT Collected: 06/16/2017 Status: F Source: [place] NO DIFF 4:[address] [facility] REPOSITORY TYPE CODE TESTS RESULT OUT OF RANGE REFERENCE UNITS LAB L100.1000 4.4-11.0 K/mm3 Normal WBC 7.3 LAB L100.1200 4.2-5.4 M/mm3 Low RBC 3.56 LAB L100.1300 12.0-15.0 g/dl Low HGB 11.0 LAB L100.1400 37-47 % Low HCT 31.9 LAB L100.1500 81-99 fL Normal MCV 89.6 LAB L100.1600 27.0-32.0 pg Normal MCH 30.9 LAB L100.1700 32-36 g/gl Normal MCHC 34.5 LAB L100.1810 11.6-14.6 % Normal RDW CV 13.1 LAB L100.1820 35.1-43.9 fl Normal RDW SD 41.7 LAB L100.1900 150-450 K/mm3 Normal PLT 318 LAB L100.2000 6.2-12.0 fl Normal MPV 9.5 Performed By: #### L100.0500 #### [facility] [address] [address] [place], [address] BASIC METABOLIC Collected: 06/16/2017 Status: F Source: [place] PROFILE (BMP) 4:[address] [facility] REPOSITORY TYPE CODE TESTS RESULT OUT OF RANGE REFERENCE UNITS LAB L501.0100 74-106 mg/dL Normal GLU 86 Result Comment: Please note revised GLUCOSE reference range effective 2017. LAB L501.1000 7-18 mg/dL Normal BUN 17 LAB L501.1100 0.55-1.02 mg/dL Normal CREAT,SERUM 0.91 Result Comment: The validity of the calculated GFR AND GFRAA in patients over 70 years has not been determined. Clinical correlation is essential. LAB L501.1110 >60 mL/min Normal EST GFR 63 Result Comment: Non- GFR Calc LAB L501.1115 >60 mL/min Normal EST GFR - AA 76 Result Comment: GFR Calc LAB L501.1255 ml/min Normal Estimated CRCL 38.35 LAB L501.1300 10-20 RATIO Normal BUN/CRE 18.7 LAB L501.2200 8.5-10 mg/dL Normal .1 CA 8.6 LAB L501.5300 136-14 mmol/L Normal 5 NA 136 LAB L501.5600 3.5-5. mmol/L Normal 1 K 3.6 LAB L501.5900 98-107 mmol/L Normal CL 101 LAB L501.6100 21.0-3 mmol/L Normal 2.0 CO2 27.0 LAB L501.6200 5-15 Normal GAP 8 Performed By: #### L500.2500 #### [facility] [address] [place], [address] M R STAPH AUREUS Collected: 06/15/2017 Status: F Source: [place] DNA BY PCR 11:40 AM [facility] TYPE CODE TESTS RESULT OUT OF RANGE REFERENCE UNITS LAB L8200.1100 Negative Normal MRSA Negative RESULT Performed By: #### L8200.1000 #### [facility] [address] [place], [address] ACT ACTIVATED CLOTTING Collected: 06/15/2017 Status: F Source: [place] TIME 10:[address] [facility] REPOSITORY TYPE CODE TESTS RESULT OUT OF RANGE REFERENCE UNITS LAB L9100.0100 74-137 sec High ACTk CLOT 241 TIME Performed By: #### L9100.0100 #### [facility] Point of Care [address] [place] [address] OFFICE VISIT REPORT Observed: 06/09/2017 Status: F Source: [place] 10:[address] [facility] REPOSITORY [place] [address] [place] [address] OFFICE VISIT Date of Service: 06/08/17 MR#: [id number] Acct: [id number] Patient: SCARLET DELACRUZ Rep #: [id number] : 1935 Provider: Madeleine Kruger RN Age/Sex: 82/F Location: [facility] [place] Status: Signed Intake Intake Visit Reasons: Cath teaching Allergies codeine Allergy (Mild, Verified 06/02/17 10:08) Rash ibuprofen Allergy (Mild, Verified 06/02/17 10:08) Rash rosuvastatin calcium [From Crestor] Allergy (Verified 06/02/17 10:08) Unknown meperidine HCl [From Demerol] Adverse Reaction (Mild, Verified 06/02/17 10:08) Other propoxyphene HCl [From Darvon] Adverse Reaction (Mild, Verified 06/02/17 10:08) Other Medications Aspirin [Aspirin, Baby] 81 mg PO DAILY@0800 12/30/13 [History Confirmed 06/02/17] Docusate Sodium [Colace] 100 mg PO TID 12/30/13 [History Confirmed 06/02/17] Flaxseed Oil/Drummond 3,6,9 [Sv Flaxseed Oil 1,300 mg Sftgl] 1 ea PO TIDCM 12/30/13 [History Confirmed 06/02/17] Levothyroxine [Synthroid] 75 mcg PO DAILY 12/30/13 [History Confirmed 06/02/17] Lisinopril 10 mg PO DAILY 12/30/13 [History Confirmed 06/02/17] Nitroglycerin [Nitrostat] 0.4 mg SUBLINGUAL Q5M PRN 12/30/13 [History Confirmed 06/02/17] Drummond-3 Fatty Acids/Fish Oil [Drummond 3 Fish Oil Softgel] 100 mg PO TIDCM 12/30/13 [History Confirmed 06/02/17] Triamterene 37.5MG/Hctz 25MG [Dyazide (G)] 25 mg PO DAILY 12/30/13 [History Confirmed 06/02/17] Cholecalciferol (Vitamin D3) [Vitamin D] 1,000 unit PO DAILY 01/11/14 [History Confirmed 06/02/17] Cyanocobalamin [Vitamin B12] 250 mcg PO DAILY@0800 01/11/14 [History Confirmed 06/02/17] Magnesium 500 mg PO DAILY 01/11/14 [History Confirmed 06/02/17] Calcium Carbonate [Tums] 1,000 mg PO QHS PRN 09/11/15 [History Confirmed 06/02/17] Lecithin 1,200 mg PO DAILY 09/11/15 [History Confirmed 06/02/17] Cinnamon Bark [Cinnamon] 500 mg PO DAILY 08/16/16 [History Confirmed 06/02/17] clopidogrel 75 mg tablet 75 mg PO DAILY #90 tab 04/20/17 [Rx Confirmed 06/02/17] coenzyme Q10 100 mg capsule 100 mg PO QDAY 06/02/17 [History Confirmed 06/02/17] metoprolol tartrate 25 mg tablet 25 mg PO BID 06/02/17 [History Confirmed 06/02/17] red yeast rice 600 mg capsule 600 mg PO TID cap 06/02/17 [History Confirmed 06/02/17] isosorbide mononitrate ER 60 mg tablet,extended release 24 hr 60 mg PO QAM #90 tab 06/04/17 [Rx] Nurse's Note: Patient here for cath teaching. Had CXR and labs before coming up to office. Cath scheduled for [facility] 06/15/17 @ 9:30 am, pt to arrive at 8am. 06/09/17 1011 <Electronically signed by Freddie Hudson MD> Date Freddie Hudson MD Cosigner Signature: Date (if applicable) CC: Susie Zeng CBC-COMPLETE BLOOD CNT Collected: 06/08/2017 Status: F Source: [place] NO DIFF 1:[address] [facility] REPOSITORY TYPE CODE TESTS RESULT OUT OF RANGE REFERENCE UNITS LAB L100.1000 4.4-11.0 K/mm3 Normal WBC 7.9 LAB L100.1200 4.2-5.4 M/mm3 Low RBC 3.84 LAB L100.1300 12.0-15.0 g/dl Low HGB 11.4 LAB L100.1400 37-47 % Low HCT 34.7 LAB L100.1500 81-99 fL Normal MCV 90.4 LAB L100.1600 27.0-32.0 pg Normal MCH 29.7 LAB L100.1700 32-36 g/gl Normal MCHC 32.9 LAB L100.1810 11.6-14.6 % Normal RDW CV 13.3 LAB L100.1820 35.1-43.9 fl Normal RDW SD 43.4 LAB L100.1900 150-450 K/mm3 Normal PLT 363 LAB L100.2000 6.2-12.0 fl Normal MPV 10.1 Performed By: #### L100.0500, L300.3900, L500.2500 #### [facility] [address] [place], [place], [address] PROTHROMBIN TIME W/INR Collected: 06/08/2017 Status: F Source: [place] 1:[address] [facility] REPOSITORY TYPE CODE TESTS RESULT OUT OF RANGE REFERENCE UNITS LAB L300.4150 11.7-14.9 SECONDS Normal PROTIME 13.4 LAB L300.4200 Normal INR 1.1 Performed By: #### L100.0500, L300.3900, L500.2500 #### [facility] [address] [place], [place], [address] BASIC METABOLIC Collected: 06/08/2017 Status: F Source: [place] PROFILE ([facility]) 1:[address] [facility] REPOSITORY TYPE CODE TESTS RESULT OUT OF RANGE REFERENCE UNITS LAB L501.0100 74-106 mg/dL Normal GLU 81 LAB L501.1000 7-18 mg/dL High BUN 24 LAB L501.1100 0.55-1.02 mg/dL Normal 0.98 CREAT,SERUM Result Comment: The validity of the calculated GFR AND GFRAA in patients over 70 years has not been determined. Clinical correlation is essential. LAB L501.1110 >60 mL/min Low EST GFR 58 Result Comment: Non- GFR Calc LAB L501.1115 >60 mL/min Normal EST GFR - AA 70 Result Comment: GFR Calc LAB L501.1300 10-20 RATIO High BUN/CRE 24.5 LAB L501.2200 8.5-10.1 mg/dL CA Normal 8.9 LAB L501.5300 136-145 mmol/L Low NA 132 LAB L501.5600 3.5-5.1 mmol/L K Normal 4.1 LAB L501.5900 98-107 mmol/L Low CL 94 LAB L501.6100 21.0-32.0 mmol/L Normal CO2 28.0 LAB L501.6200 5-15 Normal GAP 10 Performed By: #### L100.0500, L300.3900, L500.2500 #### [facility] [address] [place], [address] CHEST PA AND LATERAL Observed: 06/08/2017 Status: F Source: [place] 1:[address] [facility] REPOSITORY [facility] Imaging Services [address] [place] [address] Chest PA and Lateral MR#: [id number] Acct: [id number] Name: OFELIASTACIJAMALSCARLET J Rep #: [id number] : 1935 F 82 From: Toshia Viveros MD PCP: Mumtaz Caro MD Status: REG CLI Study: Chest PA and Lateral Date of Exam: 06/08/17 Exam# [id number] Ordering Dr: Freddie Hudson MD STUDY: X-RAY CHEST REASON FOR EXAM: Female, 82 years old. Chest pain/pressure. TECHNIQUE: PA and lateral COMPARISON: August 16, 2016 FINDINGS: There are stable prominent interstitial markings. No new focal consolidation is seen. Sternal cerclage wires and vascular clips are present from a prior sternotomy and coronary artery bypass graft procedure (CABG). The cardiomediastinal silhouette is stable. There are diffuse degenerative changes of the visualized thoracic spine. Normal visualized ribs, clavicles, and shoulders. There is no demonstrated abnormality of the visualized soft tissue structures of the upper abdomen. RAD/Chest PA and Lateral IMPRESSION: Stable examination demonstrating no acute cardiopulmonary process. Electronically Signed: Toshia Viveros MD at 22:46 EST Tel , Service support , CC: Freddie Hudson MD; Mumtaz Caro MD Parking Technician: Signed CARDIOLOGY VISIT Observed: 06/05/2017 Status: F Source: [place] REPORT 3:[address] [facility] REPOSITORY [facility] [address] [place], [place] [address]. [address] [place] [address] OFFICE VISIT Date of Service: 06/02/17 MR#: [id number] Acct: [id number] Name: SCARLET DELACRUZ Rep #: [id number] : 1935 Provider: Freddie Hudson MD Age/Sex: 82/F Location: [facility] [place] Status: Signed HPI chest pain: Chief Complaint: Chest discomfort. Details: SCARLET DELACRUZ, is a 82 F who presents to the office today for a follow-up visit. She is a lady with a history of coronary artery disease status post previous coronary bypass surgery with a left internal mammary artery to the left anterior descending artery saphenous vein graft to right coronary artery and sequential some saphenous vein graft to the obtuse marginal vessels. And diagonal. She returns for routine for the physical exam today and she has complained of recent chest discomfort for which she has had to take a sublingual nitroglycerin especially when she has been hurrying up. You do remember then in January 2014 she underwent a cardiac catheterization and underwent angioplasty and stenting of the saphenous vein graft sequential to the diagonal vessel and circumflex artery and also the saphenous vein graft to the right coronary artery. In August 2015 she underwent stress testing which did not demonstrate any evidence of ischemia and her last echocardiogram performed last year also demonstrated preserved ejection fraction of 60% with mild mitral tricuspid and pulmonic regurgitation. She has been compliant with all her medications. She has had no dizziness or diaphoresis no near syncope or syncope. Her physical exam today demonstrates clear lung ordoñez regular rate and rhythm no pedal edema and her blood pressure is normal. Intake Vital Signs06/02/17 Height 5 ft 2 in 06/02/17 Weight: 86.636 kg 06/02/17 Body Mass Index (BMI) 34.9 06/02/17 Blood Pressure 100/50 Intake Visit Reasons: chest pain Is patient in pain?: No Allergies codeine Allergy (Mild, Verified 06/02/17 10:08) Rash ibuprofen Allergy (Mild, Verified 06/02/17 10:08) Rash rosuvastatin calcium [From Crestor] Allergy (Verified 06/02/17 10:08) Unknown meperidine HCl [From Demerol] Adverse Reaction (Mild, Verified 06/02/17 10:08) Other propoxyphene HCl [From Darvon] Adverse Reaction (Mild, Verified 06/02/17 10:08) Other Medications Aspirin [Aspirin, Baby] 81 mg PO DAILY@0800 12/30/13 [History Confirmed 06/02/17] Docusate Sodium [Colace] 100 mg PO TID 12/30/13 [History Confirmed 06/02/17] Flaxseed Oil/Drummond 3,6,9 [Sv Flaxseed Oil 1,300 mg Sftgl] 1 ea PO TIDCM 12/30/13 [History Confirmed 06/02/17] Levothyroxine [Synthroid] 75 mcg PO DAILY 12/30/13 [History Confirmed 06/02/17] Lisinopril 10 mg PO DAILY 12/30/13 [History Confirmed 06/02/17] Nitroglycerin [Nitrostat] 0.4 mg SUBLINGUAL Q5M PRN 12/30/13 [History Confirmed 06/02/17] Drummond-3 Fatty Acids/Fish Oil [Drummond 3 Fish Oil Softgel] 100 mg PO TIDCM 12/30/13 [History Confirmed 06/02/17] Triamterene 37.5MG/Hctz 25MG [Dyazide (G)] 25 mg PO DAILY 12/30/13 [History Confirmed 06/02/17] Cholecalciferol (Vitamin D3) [Vitamin D] 1,000 unit PO DAILY 01/11/14 [History Confirmed 06/02/17] Cyanocobalamin [Vitamin B12] 250 mcg PO DAILY@0800 01/11/14 [History Confirmed 06/02/17] Magnesium 500 mg PO DAILY 01/11/14 [History Confirmed 06/02/17] Calcium Carbonate [Tums] 1,000 mg PO QHS PRN 09/11/15 [History Confirmed 06/02/17] Lecithin 1,200 mg PO DAILY 09/11/15 [History Confirmed 06/02/17] Cinnamon Bark [Cinnamon] 500 mg PO DAILY 08/16/16 [History Confirmed 06/02/17] clopidogrel 75 mg tablet 75 mg PO DAILY #90 tab 04/20/17 [Rx Confirmed 06/02/17] coenzyme Q10 100 mg capsule 100 mg PO QDAY 06/02/17 [History Confirmed 06/02/17] isosorbide mononitrate ER 60 mg tablet,extended release 24 hr 60 mg PO QAM #90 tab 06/02/17 [Rx Confirmed 06/02/17] metoprolol tartrate 25 mg tablet 25 mg PO BID 06/02/17 [History Confirmed 06/02/17] red yeast rice 600 mg capsule 600 mg PO TID cap 06/02/17 [History Confirmed 06/02/17] Ejection fraction %: 65 to 70 (67 % per echo 11/19/12) PFSH Family History Father , age 72 of IN Myocardial infarction total of 3 IN's CAD (coronary artery disease) Mother , age 69 of embolus CAD (coronary artery disease) Brother CAD (coronary artery disease) S/P CABG x 4 Hypertension Myocardial infarction Hx of heart valve replacement with mechanical valve Brother Hypertension Diabetes CAD (coronary artery disease) Hyperlipidemia History of coronary artery bypass graft Social History Smoking Status: Never smoker ROS Const Const: Positive for fatigue; negative for body ache, fever(s), chills, night sweats, daytime sleepiness, difficulty sleeping, weight gain, weight loss, increased appetite, poor appetite, anorexia or other ENT ENT: Negative for balance problems Cardio Chest Pain: Yes (with activity, has been taking Imdur and nitro with relief) Palpitations: Negative for Yes or No Edema: None Muscle aches with walking: None Resp Respiratory: Positive for SOB with activity; negative for SOB at rest, SOB orthopnea\SOB lying down, Coughing up blood/hemoptysis, chest congestion, pain on inspiration, snoring, stridor, wheezing, crackles, paroxysmal nocturnal dyspnea or other GI GI: Negative nausea, vomiting, heartburn, constipation, belching, bloating, cramping, vomiting blood/hematemesis, bright, red blood in stools, black,tarry stools, loose stools, Difficulty Swallowing or other Musc Musc: Negative for muscle aches/ myalgia, muscle weakness, joint pain or balance problems Endo Endo: Positive for fatigue Cardiology Exam Const Appearance: cooperative, healthy appearing, well developed, well groomed and no acute distress Nutritional Appearance: well nourished and average body habitus Orientation: alert, awake and oriented x3 Head Head: normal to inspection, normocephalic and atraumatic Ears: hearing grossly normal bilaterally and external ears normal Nose: external nose normal, nasal mucous membranes and turbinates normal, nares normal, septum normal, no nasal discharge Face and Sinus: face symmetric Mouth: oral mucosae normal, tongue normal, oropharynx normal and moist mucous membranes Teeth and gingiva: dentition normal Throat: posterior oropharynx normal, tonsils normal and uvula midline Eyes General: appearance normal, both eyes and all related structures Eyelids: eyelids normal Conjunctivae: conjunctivae normal Pupils: PERRL, normal by confrontation and accommodation normal EOM: EOM intact bilaterally Neck Neck: normal visual inspection, trachea midline and no JVD JVD: +5 Carotids: normal carotid upstroke and bounding pulses Chest Chest inspection: normal inspection of the chest, symmetric chest movement and normal respiratory effort Auscultation: Bilateral: Clear to Auscultation Cardio Palpation: normal PMI Rate: regular rate Rhythm: regular rhythm Heart sounds: S1 normal, S2 normal and normal, physiologic split S2; negative rub, gallop or murmur GI GI: normal to inspection, soft, no hepatosplenomegaly and bowel sounds present Neuro General: alert, awake, oriented x3, no focal sensory deficit, gait normal and moves all extremities Skin Skin: no rashes or lesions noted Extremities Pulses: Normal: Right Femoral Pulse, Left Femoral Pulse, Right Dorsalis Pedis Pulse, Left Dorsalis Pedis Pulse, Right Posterior Tibial Pulse, Left Posterior Tibial Pulse, Right Radial Pulse, Left Radial Pulse Lower Extremity Edema: None: Bilateral Musculoskel Musculoskeletal: No joint tenderness Psych Psychological: normal affect Assessment AND Plan 1. CORONARY ARTERY DISEASE status post CABG in [address] Hudson Plan She does have a history of coronary artery disease status post carotid bypass surgery and also angioplasty of the saphenous vein grafts. She has developed some angina but at this time I would like us to manage this with aggressive medical therapy by increasing her isosorbide to 60 mg once a day. She will continue with her beta-darryl as well as her lisinopril. She will get back to us in a few months to let us know how she is doing. At that time further recommendations can be made. Her Katty plasty and stenting was to the 95% stenosis of the saphenous vein graft to the right coronary artery and medical therapy was suggested for the proximal portion of the saphenous vein graft to right coronary artery 2. hypertension Plan Her blood pressure is under good control on the current medical therapy and I would not suggest that we make any major adjustments 3. hyperlipidemia Plan She remains on her current dose of natural statins. Her most recent lipid profile demonstrated total cholesterol 238 LDL of 148 and HDL of 66. No changes will be made. Plan Detail Other Orders Orders: Other Medications New: isosorbide mononitrate ER swallow whole with glass of wate60 mg PO RAFFAELE Hudson MD r; do not crush/chew /dissolve /cut/break Discontinued: isosorbide mononitrate ER Discontinued Reason: Order Chan30 mg PO RAFFAELE Hudson MD ged Follow Up 3 Months ([facility]) Coding Level of Care Code Off vis,est,level 4 Diagnoses CORONARY ARTERY DISEASE hypertension hyperlipidemia 06/05/17 1531 <Electronically signed by Freddie Hudson MD> Date Freddie Hudson MD Cosigner Signature: Date (if applicable) CC: CBC W/DIFF, AUTOMATED Collected: 06/02/2017 Status: F Source: [place] 11:[address] [facility] REPOSITORY TYPE CODE TESTS RESULT OUT OF RANGE REFERENCE UNITS LAB L100.1000 4.4-11.0 K/mm3 Normal WBC 8.2 LAB L100.1200 4.2-5.4 M/mm3 Low RBC 3.88 LAB L100.1300 12.0-15.0 g/dl Low HGB 11.5 LAB L100.1400 37-47 % Low HCT 35.5 LAB L100.1500 81-99 fL Normal MCV 91.5 LAB L100.1600 27.0-32.0 pg Normal MCH 29.6 LAB L100.1700 32-36 g/gl Normal MCHC 32.4 LAB L100.1810 11.6-14.6 % Normal RDW CV 13.2 LAB L100.1820 35.1-43.9 fl Normal RDW SD 43.9 LAB L100.1900 150-450 K/mm3 Normal PLT 399 LAB L100.2000 6.2-12.0 fl Normal MPV 10.0 LAB L100.2100 47-70 % Normal NEUT% 62.7 LAB L100.2200 19-41 % Normal LY% 19.6 LAB L100.2300 0-10 % High MONO% 11.4 LAB L100.2400 0-5 % High EO% 5.5 LAB L100.2500 0-1 % Normal BASO% 0.6 LAB L100.2550 0.0-0.9 % Normal IM GRAN % 0.200 Result Comment: IG% - Immature Granulocytes (promyelocytes, myelocytes and metamyelocytes) > 1% indicates that a LEFT SHIFT is Present. LAB L100.2620 2.0-7.7 X10 3/uL Normal Absolute Neut 5.2 LAB L100.2720 0.83-4.51 X10 3/ul Normal Absolute Lymph 1.61 Performed By: #### L100.0100 #### [facility] [address] [place], [address] 12 LEAD EKG PERFORMED Observed: 06/02/2017 Status: F Source: [place] BY [facility] 9:[address] [facility] REPOSITORY [facility] [address] [place] [address] 12 Lead EKG performed by [facility] 06/02/17 0846 MR#: [id number] Acct: [id number] Name: SCARLET DELACRUZ Rep #: [id number] : 1935 82 From: Freddie Hudson MD Attending Dr: Freddie Hudson MD Status: DEP AMB Ordering Dr: Freddie Hudson MD Date: 06/02/17 [facility] Sex: F C Admitted: BMS/12 Lead EKG performed by [facility] ECG Report Interpretation Sinus Rhythm -RSR(V1) -nondiagnostic. PROBABLY NORMALElectronically signed on 06/09/2017 at 16:59 by Freddie Hudson 06/09/17 1702 Date Freddie Hudson MD CC: Mumtaz Caro MD Date Dictated: 06/02/17845 Date Transcribed: 06/02/17845 Parking Technician: CO Signed ALLERGIES ALLERGIES DATE TYPE / CODE NAME / CODE REACTION SEVERITY SOURCE 05/18/2018 Drug meperidine Other [place] Allergy/416 HCl/[id number](RXNO [facility] [id number] [place] [address]) Repository 05/18/2018 Drug propoxyphene Other IN [place] Allergy/416 HCl/[id number](RXNO [address]) Repository 05/18/2018 Drug rosuvastatin Unknown Unknown [place] Allergy/416 calcium/[id number]( [address]) Repository 05/18/2018 Drug codeine/[id number]( Rash IN [place] Allergy/416 RXNORM) [facility] 360385([facility] ED CT) Repository 05/18/2018 Drug propoxyphene/D78498 Unknown [place] Allergy/416 1574(RXNORM) [facility] 330321([facility] ED CT) Repository 05/18/2018 Drug acetaminophen/F0060 Unknown [place] Allergy/416 [address](RXNORM) [place] 840762([facility] ED CT) Repository 05/18/2018 Drug ibuprofen/[id number] Rash IN [place] Allergy/416 7(RXNORM) [place] 840762([facility] ED CT) Repository ENCOUNTERS ENCOUNTERS ADMIT/DISCHARGE ACCOUNT ADMITTING ENCOUNTER LOCATION SOURCE NUMBER CLASS 05/18/2018 [id number] Ambulatory [place] 7 [place] ing:MFPLAB Repository 05/18/2018/ [id number] Ambulatory BMSBuilding:B [place] 9 5 [facility] Repository 05/03/2018 [id number] Amb[place] 2 [facility] ing:MFPLAB Repository 04/19/2018 [id number] Ambulatory [place] 3 [place] ing:MTRAD Repository 12/03/2017 [id number] Ambulatory [place] 5 [place] ing:MFPLAB Repository 11/12/2017/ [id number] Ambulatory BMSBuilding:B [place] 8 3 [facility] Repository 08/27/2017 [id number] Ambulatory BMSBuilding:B [place] 1 [facility] Repository 08/27/2017 [id number] Ambulatory [place] 2 [place] ing:MFPLAB Repository 08/18/2017 [id number] Ambulatory [place] 5 [place] ing:LAB Repository 08/05/2017/ [id number] Ambulatory BMSBuilding:B [place] 8 0 [facility] Repository 08/05/2017 [id number] Ambulatory BMSBuilding:B [place] 2 [facility] Repository 07/06/2017 [id number] Ambulatory [place] 2 [place] ing:LAB Repository 07/06/2017/ [id number] Ambulatory BMSBuilding:B [place] 8 4 [facility] Repository 06/29/2017 [id number] Ambulatory [place] 5 [facility] ing:LABSPEC Repository 06/16/2017/ [id number] Becca, Freddie Inpatient [place] 8 5 [facility] ing:ICURoom: Repository [id number]: 1 06/16/2017 [id number] Becca, Nellis Ambulatory BMSBuilding:B [place] 5 MS.[facility] Repository 06/16/2017 [id number] Becca, Nellis Ambulatory BMSBuilding:B [place] 6 [facility] Repository 06/16/2017/ [id number] Ambulatory BMSBuilding:W [place] 8 6 [facility] Repository 06/15/2017/ [id number] Ambulatory BMSBuilding:W [place] 8 5 [facility] Repository 06/08/2017/ [id number] Ambulatory BMSBuilding:B [place] 8 9 [facility] Repository 06/08/2017 [id number] Ambulatory [place] 6 [place] ing:LAB Repository 06/02/2017 [id number] Ambulatory [place] 0 [place] ing:MTLAB Repository 06/02/2017/ [id number] Ambulatory BMSBuilding:B [place] 8 9 [facility] Repository PAYERS PAYERS ENCOUNTER GUARANTOR PAYER SUBSCRIBER SOURCE 05/18/2018 SCARLET Bourgeois Primary SCARLET J [place] [id number] Insurance:MEDICARE GINDLESBERGERDOB Community 6 [place] PART A BPolicy Number: : [id number] [facility] [id number] Repository [place] [address]Rwm: Date:2018-05-18 () 05/18/2018 Secondary SCARLET J [place] Insurance:[facility]MRussell [facility] Hospitaly : [id number] Hospital Number: Repository [id number] Date:[id number] [address]MK: 05/18/2018 Tertiary NOT GIVENUNK [place] Insurance:SELF PAY [facility] Number: Effective Repository Date:2018-05-18 05/18/2018 SCARLET J Primary SCARLET J [place] [id number] Insurance:MEDICARE GINDLESBERGERDOB Community 6 [place] PART A BPolicy Number: : [id number] [facility]ide [facility] [id number] [place]ository [place] [address]Nsn: Date:2017-11-12 () 05/18/2018 Secondary SCARLET J [place] [facility] COMMERCIALPolicy : [id number] Hospital Number: Repository [id number] Date:6152-31-17QE [address] [address]TG: 05/18/2018 Tertiary NOT GIVENUNK [place] Insurance:SELF PAY [facility] Number: Effective Repository Date:2018-05-17 05/03/2018 SCARLET J Primary SCARLET J [place] [id number] Insurance:MEDICARE [place] [address] HER[place] PART A BPolicy Number: : [id number] Medical [facility] LNDALTEUGENIO, [id number] [place]ository [place] [address]Qdu: Date:2018-05-03 () 05/03/2018 Secondary SCARLET J [place] Insurance:[facility] COMMERCIALSummit Healthcare Regional Medical Centericy : [id number] Hospital Number: Repository [id number] Date:7446-79-73PQ [address] [address]HW: 05/03/2018 Tertiary NOT GIVENUNK [place] Insurance:SELF PAY [facility] Number: Effective Repository Date:2018-05-03 04/19/2018 SCARLET J Primary SCARLET J [place] [id number] Insurance:MEDICARE [place] [address] HER[place] PART A BPolicy Number: : [id number] Medical Center-[facility] Rancho LNDALTEUGENIO, [id number] [place]ository [place] [address]Tnd: Date:2018-04-19 () 04/19/2018 Secondary SCARLET J [place] Insurance:[facility] COMMERCIALSummit Healthcare Regional Medical Centericy : [id number] Hospital Number: Repository [id number] Date:[id number] [address]DM: 04/19/2018 Tertiary NOT GIVENUNK [place] Insurance:SELF PAY [facility] Number: Effective Repository Date:2018-04-19 12/03/2017 SCARLET J Primary SCARLET J [place] [id number] Insurance:MEDICARE GINDLESBERGERDOB Community 6 [place] PART A BPolicy Number: : [id number]. [facility], [id number] Repository [place] [address]Eta: Date:2017-12-03 () 12/03/2017 Secondary SCARLET J [place] Insurance:[facility] COMMERCIALSummit Healthcare Regional Medical Centericy : [id number] Hospital Number: Repository [id number] Date:9013-53-38MK [address] [place] [address]TO: 12/03/2017 Tertiary NOT GIVENUNK [place] Insurance:SELF PAY [facility] Number: Effective Repository Date:2017-12-03 11/12/2017 SCARLET J Primary SCARLET J [place] [id number] Insurance:MEDICARE GINDLESBERGERDOB Community 6 [place] PART A BPolicy Number: : [id number]. Anthony Hospital, [id number] Repository [place] [address]Hsg: Date:2017-08-05 () 11/12/2017 Secondary SCARLET J [place] [facility] : [id number] Hospital Number: Repository [id number] Date:0629-55-26MR [address] [place] [address]ZD: 11/12/2017 Tertiary NOT GIVENUNK [place] Insurance:SELF PAY [facility] Number: Effective Repository Date:2017-11-12 08/27/2017 SCARLET J Primary Insurance:SELF NOT GIVENUNK [place] [id number] [place] [address] HERITAGE Number: Effective [facility], Date:2017-06-02 [place]ository [place] [address]Oja: () 08/27/2017 SCARLET J Primary SCARLET J [place] [id number] Insurance:MEDICARE GINDLESBERGERDOB Community 6 [place] PART A BPolicy Number: : [id number] Hospital and Health ServicesJESSEEUGENIO, [id number] Repository [place] [address]Imb: Date:2017-08-27 () 08/27/2017 Secondary SCARLET J [place] Insurance:HUMANA OFELIANDLESBERGERB [facility] COMMERCIALPolicy : [id number] Hospital Number: Repository [id number] Date:8561-61-96XB [address] [address]XP: 08/27/2017 Tertiary NOT GIVENUNK [place] Insurance:SELF PAY [facility] INSURANCEPoly Hospital Number: Effective Repository Date:2017-08-27 08/18/2017 SCARLET J Primary SCARLET J [place] [id number] Insurance[place] [address] [place] PART A BPolicy Number: : [id number]. Anthony Hospital, [id number] Repository [place] [address]Hrw: Date:2017-08-18 () 08/18/2017 Secondary SCARLET J [place] Insurance:HUMANA OFELIANDHOAThree [facility] COMMERCIALPolicy : [id number] Hospital Number: Repository [id number] Date:5920-21-56NL[address] [address]IN: 08/18/2017 Tertiary NOT GIVENUNK [place] Insurance:SELF PAY [facility]EN[facility] Number: Effective Repository Date:2017-08-18 08/05/2017 SCARLET J Primary SCARLET J [place] [id number] Insurance:MEDICARE [place] [address] [place] PART A BPolicy Number: : [id number]. Anthony Hospital, [id number] [place]ository [place] [address]Rhy: Date:2017-07-06 () 08/05/2017 Secondary SCARLET J [place] Insurance:HUMANA NDLESThree [facility] Medical Center COMMERCIALPolicy : [id number] Hospital Number: Repository [id number] Date:6740-41-46SU [address] [place] [address]JE: 08/05/2017 Tertiary NOT GIVENUNK [place] Insurance:SELF PAY [facility] Number: Effective Repository Date:2017-08-05 08/05/2017 SCARLET J Primary SCARLET J [place] [id number] Insurance:MEDICARE GINDLESBERGERCaroMont [facility] Medical Center 6 [place]IT[place] PART A BPolicy Number: : [id number]. Anthony Hospital, [id number] Repository [place] [address]Frg: Date:2017-08-05 () 08/05/2017 Secondary SCARLET J [place] Insurance:HUMANA OFELIANDHOABERGERB [facility] COMMERCIALSummit Healthcare Regional Medical Centericy : [id number] Hospital Number: Repository [id number] Date:3403-30-63UQ [address] [address]VA: 08/05/2017 Tertiary NOT GIVENUNK [place] Insurance:SELF PAY [facility] Number: Effective Repository Date:2017-08-05 07/06/2017 SCARLET J Primary SCARLET J [place] [id number] Insurance:MEDICARE GINDLESBERGERCaroMont Regional Medical Center 6 HERIT[place] PART A BPolicy Number: : [id number]. Anthony Hospital, [id number] Repository [place] [address]Evy: Date:2017-07-06 () 07/06/2017 Secondary SCARLET J [place] Insurance:HUMANA OFELIANDLESBERGERB [facility] COMMERCIALSummit Healthcare Regional Medical Centericy : [id number] Hospital Number: Repository [id number] Date:3672-08-09RA [address] [address]EH: 07/06/2017 Tertiary NOT GIVENUNK [place] Insurance:SELF PAY [facility]EN[facility] Number: Effective Repository Date:2017-07-06 07/06/2017 SCARLET J Primary SCARLET J [place] [id number] Insurance:MEDICARE NDLESThree Rivers Medical Center 6 [place] PART A BPolicy Number: : [id number]. Anthony Hospital, [id number] Repository [place] [address]Rrm: Date:2017-06-23 () 07/06/2017 Secondary SCARLET J [place] Insurance:[facility]CHSTACIN[facility] COMMERCIALSummit Healthcare Regional Medical Centericy : [id number] Hospital Number: Repository [id number] Date:7812-86-68NV[address] [address]RR: 07/06/2017 Tertiary NOT GIVENUNK [place] Insurance:SELF PAY [facility]EN[facility] Number: Effective Repository Date:2017-06-23 06/29/2017 SCARLET J Primary SCARLET J [place] [id number] Insurance:MEDICARE [place] [address] [place] PART A BPolicy Number: : [id number]. Anthony Hospital, [id number] Repository [place] [address]Qve: Date:2017-06-29 () 06/29/2017 Secondary SCARLET J [place] Insurance:[facility] BRANCHJENNAMurray-Calloway County Hospitalicy : [id number] Hospital Number: Repository [id number] Date:[id number] [address]UX: 06/29/2017 Tertiary NOT GIVENUNK [place] Insurance:SELF PAY [facility] Number: Effective Repository Date:2017-06-29 06/16/2017 SCARLET J Primary SCARLET J [place] [id number] Insurance:MEDICARE [place] [address] [place] PART A BPolicy Number: : [id number]. Anthony Hospital, [id number] [place]ository [place] [address]Taw: Date:2017-06-08 () 06/16/2017 Secondary SCARLET J [place] Insurance:[facility] BRANCHJENNAThree [facility] COMMERCIALSummit Healthcare Regional Medical Centericy : [id number] Hospital Number: Repository [id number] Date:[id number] [address]FP: 06/16/2017 Tertiary NOT GIVENUNK [place] Insurance:SELF PAY [facility]EN[facility] Number: Effective Repository Date:2017-06-08 06/16/2017 SCARLET J Primary SCARLET J [place] [id number] Insurance:MEDICARE GINDLESBERGERDOCarolinas Continuecare Hospital [facility] 6 [place] PART A BPolicy Number: : [id number] Hospital and Health ServicesHEMANT, [id number] Repository [place] [address]Wlv: Date:2017-06-08 () 06/16/2017 Secondary SCARLET J [place] Insurance:HUMANA NDNorton [facility] COMMERCIALPolicy : [id number] Hospital Number: Repository [id number] Date:7263-56-39MP[address] [address]NZ: 06/16/2017 Tertiary NOT GIVENUNK [place] Insurance:SELF PAY [facility]EN[facility] Hospital Number: Effective Repository Date:2017-06-16 06/16/2017 SCARLET J Primary SCARLET J [place] [id number] Insurance:MEDICARE NDLESBERGERCaroMont Regional Medical Center 6 HERIT[place] PART A BPolicy Number: : [id number] Hospital and Health ServicesJESSEINSPIR[facility], [id number] Repository [place] [address]Vls: Date:2017-06-08 () 06/16/2017 Secondary SCARLET J [place] Insurance:HUMANA NUBIACaroMont Regional Medical Center COMMERCIALPolicy : [id number] Hospital Number: Repository [id number] Date:9262-18-48FY[address] [address]RT: 06/16/2017 Tertiary NOT GIVENUNK [place] Insurance:SELF PAY [facility]EN[facility] Number: Effective Repository Date:2017-06-16 06/16/2017 SCARLET J Primary SCARLET J [place] [id number] Insurance:MEDICARE NDLESThree [facility] Medical Center 6 HERIT[place] PART A BPolicy Number: : [id number] Hospital and Health ServicesJESSEEUGENIO, [id number] Repository [place] [address]Uab: Date:2017-06-08 () 06/16/2017 Secondary SCARLET J [place] Insurance:HUMANA MARGIE [facility] COMMERCIALSummit Healthcare Regional Medical Centericy : [id number] Hospital Number: Repository [id number] Date:8729-06-57QG[address] [address]FC: 06/16/2017 Tertiary NOT GIVENUNK [place] Insurance:SELF PAY [facility]EN[facility] Hospital Number: Effective Repository Date:2017-06-16 06/15/2017 SCARLET J Primary SCARLET J [place] [id number] Insurance:[place] [address] [place] PART A BPolicy Number: : [id number] [facility] [id number] Repository [place] [address]Lsp: Date:2017-06-08 () 06/15/2017 Secondary SCARLET J [place] Insurance:HUMANA MARGIE [facility] COMMERCIALSummit Healthcare Regional Medical Centericy : [id number] Hospital Number: Repository [id number] Date:8563-65-60YJ[address] [address]GH: 06/15/2017 Tertiary NOT GIVENUNK [place] Insurance:SELF PAY [facility] INSURANCENew [facility] Number: Effective Repository Date:2017-06-15 06/08/2017 SCARLET J Primary SCARLET J [place] [id number] [place] [address] [place] PART A BPolicy Number: : [id number] [facility] [id number] Repository [place] [address]Kfq: Date:2017-06-08 () 06/08/2017 Secondary SCARLET J [place] Insurance:HUMANA [facility] COMMERCIALOss Healthy : [id number] Hospital Number: Repository [id number] Date:[id number] [address]QN: 06/08/2017 Tertiary NOT GIVENUNK [place] Insurance:SELF PAY [facility] INSURANCENew [facility] Number: Effective Repository Date:2017-06-08 06/08/2017 SCARLET J Primary SCARLET J [place] [id number] Insurance:MEDICARE [place] [address] [address] PART A BPolicy Number: : [id number] Hospital and Health ServicesHEMANT [id number] Repository [place] [address]Pvd: Date:2017-06-08 () 06/08/2017 Secondary SCARLET J [place] Insurance:[facility] COMMERCIALPolicy : [id number] Hospital Number: Repository [id number] Date:[id number] [address]OA: 06/08/2017 Tertiary NOT GIVENUNK [place] Insurance:SELF PAY [facility] INSURANCENew [facility] Number: Effective Repository Date:2017-06-08 06/02/2017 SCARLET J Primary SCARLET J [place] [id number] Insurance:MEDICARE [place] [address] [place] PART A BPolicy Number: : [id number] [id number] Repository [place] Date:2017-06-02 [id number]: () 06/02/2017 Secondary SCARLET J [place] Insurance:[facility]MALATHINovant Health/NHRMCPolicy : [id number] Hospital Number: Repository [id number] Date:[id number] [address]JM: 06/02/2017 Tertiary NOT GIVENUNK [place] Insurance:SELF PAY [facility] INSURANCENew [facility] Number: Effective Repository Date:2017-06-02 06/02/2017 SCARLET J Primary SCARLET J [place] [id number] Insurance:MEDICARE [place] [address] [place] PART A BPolicy Number: : [id number] [facility] [id number] Repository [place] Date:2017-06-01 [id number]: () 06/02/2017 Secondary SCARLET [place] Insurance:AMOS HANSON [facility] COMMERCIALPolicy : [id number] Hospital Number: Repository [id number] Date:[id number] [place] [id number]: 06/02/2017 Tertiary NOT GIVENUNK [place] Insurance:SELF PAY [facility] INSURANCENew [facility] Number: Effective Repository Date:2017-06-02
== END ==
PROVIDERS: Family Provider Family Medicine; PCP Family Medicine; Referring Provider Family Medicine; Visit Provider Family Medicine
DX: J20.9 Acute bronchitis, unspecified (principal)
CPT/HCPCS: 71046

== ENCOUNTER → 2018-05-03 09:16 | Outpatient (CLI) | payer MEDICARE, OTHER, SELFPAY ==
[2016-08-18 10:52] VITALS: BMI 33.5
[2018-05-03 10:28] LABS: Absolute Lymphocyte Count 1.26 X10^3/ul (0.83-4.51); Absolute Neutrophil Count 6.6 X10^3/uL (2.0-7.7); Basophil# 0.06 X10^3/uL; Basophil% 0.6 % (0-1); Eosinophil# 1.33 X10^3/uL; Hemoglobin 12.5 g/dl (12.0-15.0); Lymphocyte # 1.26 X10^3/ul (4.0); Lymphocyte % 12.3 % (19-41); Mean Corp Hgb Conc 32.9 g/gl (32-36); Mean Corpuscular Hgb 29.1 pg (27.0-32.0); Mean Corpuscular Volume 88.4 fL (81-99); Mean Platelet Vol. 9.1 fl (6.2-12.0); Monocyte# 0.94 X10^3/uL; Monocyte% 9.2 % (0-10); Neutrophil # 6.61 X10^3/uL (2.7-7.7); Neutrophil % 64.6 % (47-70); Platelet Count 443 K/mm3 (150-450); RBC Distribution Width CV 14.2 % (11.6-14.6); RBC Distribution Width SD 45.5 fl (35.1-43.9); White Blood Count 10.2 K/mm3 (4.4-11.0)
[2018-05-03 10:31] LABS: POSITIVE COUNT NO; POSITIVE DIFFERENTIAL NO; POSITIVE MORPHOLOGY NO
[2018-05-03 10:51] LABS: Hemoglobin A1c 6.1 % (4.2-6.3)
[2018-05-03 11:18] LABS: ALB/GLOB Ratio 0.9 RATIO (0.9-2.4); AST(SGOT) 21 U/L (15-37); Alanine Aminotransfer ALT/SGPT 20 U/L (13-56); Albumin, Serum 3.2 g/dL (3.2-5.0); Alkaline Phosphatase 95 U/L (45-117); Anion Gap 11 (5-15); BUN 21 mg/dL (7-18); BUN/Creat Ratio 22.5 RATIO (10-20); Calcium,Total 8.8 mg/dL (8.5-10.1); Chloride 99 mmol/L (98-107); Creatinine, Serum 0.94 mg/dL (0.55-1.02); EST Glomerular Filtration Rate 61 mL/min (>60); Est Glom Filt Rate - Afr Amer 74 mL/min (>60); Globulin 3.4 g/dL (2.2-4.2); Glucose 83 mg/dL (74-106); Potassium 3.6 mmol/L (3.5-5.1); Protein, Total 6.6 g/dL (6.4-8.2); Sodium Level 136 mmol/L (136-145); Thyroid Stim Hormone (TSH) 0.24 uIU/mL (0.358-3.74)
== END ==
PROVIDERS: Family Provider Family Medicine; PCP Family Medicine; Visit Provider Family Medicine
DX: E03.9 Hypothyroidism, unspecified (principal); R63.4 Abnormal weight loss; R73.09 Other abnormal glucose
CPT/HCPCS: 36415; 80053; 83036; 84443; 85025

== ENCOUNTER → 2018-05-18 14:16 | Outpatient (CLI) | payer MEDICARE, OTHER, SELFPAY ==
[2016-08-18 10:52] VITALS: BMI 33.5
[2018-05-18 12:53] VITALS: BMI 33.8
[2018-05-18 16:55] LABS: BNP,B-Type NATRIURETIC PEPTIDE 146.2 pg/mL (0-100)
== END ==
PROVIDERS: Family Provider Family Medicine; PCP Family Medicine; Visit Provider Physician Assistant Medical
DX: R06.09 Other forms of dyspnea (principal)
CPT/HCPCS: 36415; 83880

== ENCOUNTER → 2018-06-17 13:18 | Outpatient (CLI) | payer MEDICARE, OTHER, SELFPAY ==
[2016-08-18 10:52] VITALS: BMI 33.5
[2018-06-15 13:39] VITALS: BMI 33.3
--- NOTE | 2018-06-18 14:06 | PFT ---
INTRODUCTION: The patient is an 83-year-old female that presents for pulmonary function studies secondary to a diagnosis of dyspnea. Respiratory therapy reports good patient effort. Bronchodilators were used during testing. INTERPRETATION: Forced expiration spirometry demonstrates no evidence of a large airways obstructive ventilatory defect. There was no significant response to aerosolized bronchodilators. Spirograms are of good quality and plateau normally. Body plethysmography was performed and reveals lung volumes to be within normal limits. Diffusing capacity by single breath CO is severely reduced at 25% of predicted. IMPRESSION: These pulmonary function studies demonstrate the presence of an isolated severe reduction in diffusing capacity, which could be related to an underlying pulmonary vascular disorder such as pulmonary hypertension. Clinical correlation is recommended.
== END ==
PROVIDERS: Family Provider Family Medicine; PCP Family Medicine; Referring Provider Internal Medicine Critical Care Medicine; Visit Provider Internal Medicine Critical Care Medicine
DX: R05 Cough (principal); R06.09 Other forms of dyspnea
CPT/HCPCS: 94060; 94726; 94729

== ENCOUNTER → 2018-07-20 13:38 | Outpatient (CLI) | payer MEDICARE, OTHER, SELFPAY ==
[2016-08-18 10:52] VITALS: BMI 33.5
[2018-06-15 13:39] VITALS: BMI 33.3
[2018-07-20 15:38] LABS: Absolute Neutrophil Count 9.1 X10^3/uL (2.0-7.7); Basophil# 0.05 X10^3/uL; Basophil% 0.4 % (0-1); Eosinophil# 0.65 X10^3/uL; Eosinophils% 5.5 % (0-5); Hematocrit 35.3 % (37-47); Hemoglobin 11.6 g/dl (12.0-15.0); Lymphocyte % 11.8 % (19-41); Mean Corp Hgb Conc 32.9 g/gl (32-36); Mean Corpuscular Hgb 29.2 pg (27.0-32.0); Mean Corpuscular Volume 88.9 fL (81-99); Mean Platelet Vol. 9.7 fl (6.2-12.0); Monocyte# 0.61 X10^3/uL; Monocyte% 5.2 % (0-10); Neutrophil % 76.9 % (47-70); Platelet Count 446 K/mm3 (150-450); RBC Distribution Width CV 14.7 % (11.6-14.6); RBC Distribution Width SD 47.8 fl (35.1-43.9); Red Blood Count 3.97 M/mm3 (4.2-5.4); White Blood Count 11.8 K/mm3 (4.4-11.0)
[2018-07-20 15:46] LABS: POSITIVE COUNT NO; POSITIVE DIFFERENTIAL NO; POSITIVE MORPHOLOGY NO
== END ==
PROVIDERS: Family Provider Family Medicine; PCP Family Medicine; Referring Provider Family Medicine; Visit Provider Family Medicine
DX: J30.9 Allergic rhinitis, unspecified (principal)
CPT/HCPCS: 36415; 85025

== ENCOUNTER → 2018-07-23 11:05 | Outpatient (CLI) | payer MEDICARE, OTHER, SELFPAY ==
[2016-08-18 10:52] VITALS: BMI 33.5
[2018-06-15 13:39] VITALS: BMI 33.3
--- NOTE | 2018-07-23 11:08 | RAD_ITS ---
STUDY: X-RAY CHEST REASON FOR EXAM: Female, 83 years old. Cough TECHNIQUE: 2 views COMPARISON: None. FINDINGS: Median sternotomy wires are in place. Chronic interstitial changes in the central portions of the lungs. No acute pneumonia. No pleural effusions. Degenerative changes of the thoracic spine. Normal visualized ribs, clavicles, and shoulders. There is no demonstrated abnormality of the visualized soft tissue structures of the upper abdomen. RAD/Chest PA and Lateral IMPRESSION: Chronic bronchitis. No acute pneumonia. Electronically Signed: Johnathon Archuleta MD at 5:28 EDT Tel , Service support ,
== END ==
PROVIDERS: Family Provider Family Medicine; PCP Family Medicine; Referring Provider Family Medicine; Visit Provider Family Medicine
DX: R05 Cough (principal)
CPT/HCPCS: 71046

== ENCOUNTER → 2019-03-11 | Outpatient (CLI) | payer MEDICARE, OTHER, SELFPAY ==
[2016-08-18 10:52] VITALS: BMI 33.5
[2018-10-12 09:23] VITALS: BMI 33.3
[2019-03-11 10:53] LABS: Anion Gap 9 (5-15); BUN 16 mg/dL (7-18); BUN/Creat Ratio 15.5 RATIO (10-20); Calcium,Total 9.2 mg/dL (8.5-10.1); Chloride 100 mmol/L (98-107); Cholesterol 255 mg/dL (200); Creatinine, Serum 1.03 mg/dL (0.55-1.02); EST Glomerular Filtration Rate 54 mL/min (>60); Est Glom Filt Rate - Afr Amer 66 mL/min (>60); Glucose 87 mg/dL (74-106); High Density Lipoprotein 62 mg/dL; Potassium 3.4 mmol/L (3.5-5.1); Sodium Level 139 mmol/L (136-145); Thyroid Stim Hormone (TSH) 1.16 uIU/mL (0.358-3.74); Triglycerides 159 mg/dL; Very Low Density Lipoprotein 32 mg/dL (5-40)
[2019-03-11 12:17] LABS: Hemoglobin A1c 5.4 % (4.2-6.3)
== END | disposition home or self-care (01) ==
LOC: MFPLAB 08:27
PROVIDERS: Family Medicine; Family Provider Family Medicine; PCP Family Medicine; Referring Provider Family Medicine; Visit Provider Family Medicine
DX: E03.9 Hypothyroidism, unspecified (principal); E78.00 Pure hypercholesterolemia, unspecified; R73.09 Other abnormal glucose; I10 Essential (primary) hypertension
CPT/HCPCS: 36415; 80048; 80061; 83036; 84443

== ENCOUNTER → 2019-04-15 11:54 | Outpatient (CLI) | payer MEDICARE, OTHER, SELFPAY ==
[2016-08-18 10:52] VITALS: BMI 33.5
[2019-04-13 13:13] VITALS: BMI 33.8
--- NOTE | 2019-04-15 11:58 | RAD_ITS ---
STUDY: X-RAY CHEST REASON FOR EXAM: Female, 84 years old. Chronic cough and hoarseness. TECHNIQUE: PA and lateral views of the chest. COMPARISON: 07/23/2018. FINDINGS: The lungs are slightly underexpanded with the diffuse subtle interstitial prominence, stable. Otherwise lung ordoñez are clear. There is no demonstrated pleural abnormality. Sternal cerclage wires are present from a prior sternotomy. There is a coronary stent in place. Normal mediastinum and nataliya. Normal visualized pulmonary arteries. Normal visualized aortic arch and descending thoracic aorta. There are diffuse degenerative changes of the visualized thoracic spine. There is degenerative osteoarthritis of the bilateral shoulders. There is no demonstrated abnormality of the visualized soft tissue structures of the upper abdomen. RAD/Chest PA and Lateral IMPRESSION: Underlying interstitial changes, otherwise no acute cardiac pulmonary process seen. Electronically Signed: Jazmín Hernandez MD at 2:14 EST , Service support ,
[2019-04-15 14:37] LABS: Absolute Lymphocyte Count 1.65 X10^3/uL (0.83-4.51); Absolute Neutrophil Count 4.4 X10^3/uL (2.0-7.7); Basophil# 0.05 X10^3/uL; Basophil% 0.7 % (0-1); Eosinophil# 0.59 X10^3/uL; Eosinophils% 7.9 % (0-5); Hematocrit 36.5 % (37-47); Hemoglobin 11.7 g/dL (12.0-15.0); Lymphocyte # 1.65 X10^3/ul (4.0); Lymphocyte % 22.2 % (19-41); Mean Corp Hgb Conc 32.1 g/dL (32-36); Mean Corpuscular Hgb 29.3 pg (27.0-32.0); Mean Corpuscular Volume 91.5 fL (81-99); Mean Platelet Vol. 10.3 fl (6.2-12.0); Monocyte% 9.4 % (0-10); NRBC Flagged by Analyzer 0 % (0-5); Neutrophil # 4.42 X10^3/uL (2.7-7.7); Neutrophil % 59.5 % (47-70); Platelet Count 373 K/mm3 (150-450); RBC Distribution Width CV 13.5 % (11.6-14.6); RBC Distribution Width SD 45.6 fl (35.1-43.9); Red Blood Count 3.99 M/mm3 (4.2-5.4); White Blood Count 7.4 K/mm3 (4.4-11.0)
[2019-04-15 14:42] LABS: BNP,B-Type NATRIURETIC PEPTIDE 176.6 pg/mL (0-100)
== END ==
PROVIDERS: Family Provider Family Medicine; PCP Family Medicine; Referring Provider Physician Assistant Medical; Visit Provider Physician Assistant Medical
DX: R06.09 Other forms of dyspnea (principal); I10 Essential (primary) hypertension; E78.5 Hyperlipidemia, unspecified; I25.10 Atherosclerotic heart disease of native coronary artery without angina pectoris
CPT/HCPCS: 71046; 83880; 85025

== ENCOUNTER → 2019-05-25 06:07 | Outpatient (CLI) | payer MEDICARE, OTHER, SELFPAY ==
[2016-08-18 10:52] VITALS: BMI 33.5
[2019-05-10 13:52] VITALS: BMI 33.8
--- NOTE | 2019-05-25 17:58 | STRESSREP_ITS ---
Stress Test Report Pharmacologic myocardial perfusion stress test. 84-year-old lady with a history of coronary artery disease status post previous angioplasty and stenting for preoperative evaluation. Medications: Aspirin, ticagrelor, metoprolol, isosorbide. Stress protocol: Resting EKG demonstrates normal sinus rhythm with a rate of 65 bpm normal interv als are noted resting blood pressures 120/82 mmHg. 0.4 mg of regadenoson was infused per usual protocol followed by Intravenous saline flush injection continuous EKG monitoring was performed. The patient maintained sinus rhythm throughout the recording. At rest there were no ST or T wave changes noted suggest abnormal flow reserve at peak infusion nonspecific ST-T wave changes were noted with no meet the criteria for ischemia. The resting blood pressures 120/82 with a final blood pressure 120/62 mmHg. Myocardial perfusion protocol. 11.6 mCi of technetium 99m sestamibi was injected at rest. 0.4 mg of regadenoson was infused per usual protocol peak infusion 31.7 mCi of technetium 99m sestamibi was injected stress images were obtained stress and rest images were reconstructed in comparing the short axis vertical long horizontal long axis. Gated images were also obtained. Perfusion SPECT analysis: Review of the stress images demonstrate normal uptake of tracer noted in all areas of the myocardium the resting images similar demonstrate normal uptake of tracer noted in all areas of myocardium. No areas of reversibility are noted suggest ischemia no previous infarct is noted. Gated SPECT analysis: The gated ejection fraction is 79%. Conclusion: Normal pharmacologic myocardial perfusion stress test. Preserved ejection fraction.
== END ==
PROVIDERS: Family Provider Family Medicine; PCP Family Medicine; Referring Provider Physician Assistant Medical; Visit Provider Physician Assistant Medical
DX: I25.810 Atherosclerosis of coronary artery bypass graft(s) without angina pectoris (principal); E78.5 Hyperlipidemia, unspecified; R06.09 Other forms of dyspnea; I11.0 Hypertensive heart disease with heart failure; I50.32 Chronic diastolic (congestive) heart failure
CPT/HCPCS: 78452; 93017; A9500; A4216; J2785

== ENCOUNTER → 2019-06-14 | Outpatient (CLI) | payer MEDICARE, OTHER, SELFPAY ==
[2016-08-18 10:52] VITALS: BMI 33.5
--- NOTE | 2019-06-14 14:40 | LES_PTH ---
PATIENT: SCARLET DELACRUZ LOC: JULIEN U#:[id number] AGE/SX: 84/F ROOM: RE06/14/[address]: Dr. Norm Root MD : 1935 BED: DIS: 06/14/2019 SPEC #: [id number] RECD: 06/14/19 15:21 STATUS: MI REElba #: [id number] ERNA: 06/14/19 14:[address]: Norm Root DEPT: SURGICAL PATHOLOGY RECD BY: Vignesh Red ENTERED: 06/15/19 09:40 SP TYPE: Lesion OTHR DR: Dr. Mumtaz Balbuena MD Tissues: Skin of face, NOS Procedures: Surgery Specimen Level IV HEADER OPERATION: Left cheek punch biopsy PRE-OP DIAGNOSIS: Neoplasm of face TISSUE SUBMITTED: Left cheek MICROSCOPIC DIAGNOSIS Skin lesion of left cheek, punch biopsy: Actinic keratosis, hyperkeratotic type, inflamed. Solar elastosis. AM:horacio 06/16/19 MICROSCOPIC DESCRIPTION Slides are reviewed. GROSS DESCRIPTION Received in fixative is one container labeled with the patient's name and designated left cheek. The specimen consists of a punch biopsy of silva-white skin measuring 0.2 cm in diameter and 0.2 cm in length. The entire specimen is submitted in one cassette. / SJ:horacio 06/15/19 TC:5 CPT: 39341
[2019-06-14 15:00] VITALS: BMI 33.8
== END | disposition home or self-care (01) ==
LOC: LABSPEC 15:33
PROVIDERS: PCP Family Medicine; Referring Provider Surgery; Visit Provider Surgery
DX: D48.7 Neoplasm of uncertain behavior of other specified sites (principal)
CPT/HCPCS: 88305

== ENCOUNTER 2019-06-17 06:47 | Day surgery (SDC) | payer MEDICARE, OTHER, SELFPAY ==
[2016-08-18 10:52] VITALS: BMI 33.5
--- NOTE | 2019-05-10 02:26 | HP_ITS ---
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 Required: No Is patient in pain?: No Allergies codeine Allergy (Mild, Verified 05/10/19 13:51) Rash ibuprofen Allergy (Mild, Verified 05/10/19 13:51) Rash rosuvastatin calcium [From Crestor] Allergy (Verified 05/10/19 13:51) Unknown acetaminophen [From Darvocet-N] Adverse Reaction (Severe, Verified 05/10/19 13:51) Unknown propoxyphene [From Darvocet-N] Adverse Reaction (Severe, Verified 05/10/19 13:51) Unknown meperidine HCl [From Demerol] Adverse Reaction (Mild, Verified 05/10/19 13:51) Other propoxyphene HCl [From Darvon] Adverse Reaction (Mild, Verified 05/10/19 13:51) Other lisinopril Adverse Reaction (Verified 05/10/19 13:51) cough Medications Aspirin [Aspirin, Baby] 81 mg PO DAILY@0800 12/30/13 [History Confirmed 04/13/19] Docusate Sodium [Colace] 100 mg PO TID 12/30/13 [History Confirmed 04/13/19] Nitroglycerin (INPATIENT USE) [Nitrostat] 0.4 mg SUBLINGUAL Q5M PRN 12/30/13 [History Confirmed 04/13/19] Hunker-3 Fatty Acids/Fish Oil [Hunker 3 Fish Oil Softgel] 100 mg PO TIDCM 12/30/13 [History Confirmed 04/13/19] Cholecalciferol (Vitamin D3) [Vitamin D] 1,000 unit PO DAILY 01/11/14 [History Confirmed 04/13/19] Cyanocobalamin [Vitamin B12] 250 mcg PO DAILY@0800 01/11/14 [History Confirmed 04/13/19] Magnesium 500 mg PO DAILY 01/11/14 [History Confirmed 04/13/19] Lecithin 1,200 mg PO DAILY 09/11/15 [History Confirmed 04/13/19] Cinnamon Bark [Cinnamon] 500 mg PO DAILY 08/16/16 [History Confirmed 04/13/19] coenzyme Q10 100 mg capsule 100 mg PO QDAY 06/02/17 [History Confirmed 04/13/19] red yeast rice 600 mg capsule 600 mg PO TID cap 06/02/17 [History Confirmed 04/13/19] flaxseed oil 1,000 mg capsule 1,000 mg PO TID 06/15/18 [History Confirmed 04/13/19] fluticasone propionate 50 mcg/actuation nasal spray,suspension 2 spray INTRANASAL DAILY #16 g 06/15/18 [Rx Confirmed 04/13/19] furosemide 40 mg tablet 40 mg PO DAILY #90 tab 10/12/18 [Rx Confirmed 04/13/19] metoprolol tartrate 25 mg tablet See Rx Instructions .ROUTE .COMPLEX #180 tablet 10/28/18 [Rx Confirmed 04/13/19] isosorbide mononitrate 30 mg tablet,extended release 24 hr 30 mg PO QAM #90 tab 02/08/19 [Rx Confirmed 04/13/19] levothyroxine 50 mcg tablet 50 mcg PO .Daily 90 Days tab 04/13/19 [History Confirmed 04/13/19] pantoprazole 40 mg tablet,delayed release 40 mg PO DAILY 04/13/19 [History Confirmed 04/13/19] ticagrelor 90 mg tablet 90 mg PO BID #60 tab 04/13/19 [Rx Confirmed 04/13/19] PFS Medical History Chronic diastolic (congestive) heart failure (Chronic) 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 carotid artery (Chronic) Hyperlipidemia (Chronic) Essential hypertension (Chronic) 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) Cancer (Chronic) Carotid bruit (Chronic) Hypothyroid (Chronic) Chest pain (Resolved) Surgical History History of coronary artery stent placement (Resolved 06/17/17) H/O coronary artery bypass surgery (Resolved 06/03/04) Postsurgical aortocoronary bypass status (Chronic) H/O arthroscopy of knee (Resolved) H/O cataract extraction (Resolved) H/O rectocele repair (Resolved) H/O tubal ligation (Resolved) H/O: hysterectomy (Resolved) History of appendectomy (Resolved) History of carpal tunnel release of both wrists (Resolved) Hx of cholecystectomy (Resolved) Scalp surgery (Resolved) 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) Family History Father , age 72 of [place] Myocardial infarction total of 3 [place]'s CAD (coronary artery disease) Mother , age 69 of embolus CAD (coronary artery disease) Brother CAD (coronary artery disease) S/P CABG x 4 Hypertension Myocardial infarction Hx of heart valve replacement with mechanical valve Brother Hypertension Diabetes CAD (coronary artery disease) Hyperlipidemia History of coronary artery bypass graft Cancer Other Family history of coronary artery disease Family history of hyperlipidemia Family history of hypertension Social History (Updated 05/10/19 @ 14:36 by Norm Root MD) household members: none housing: [facility] current occupational status: retired pets and animals: Yes pets and animals: dog(s) Smoking Status: Never smoker second hand exposure: Yes (most of her life, not for the past 20+ years) alcohol intake: never substance use type: does not use caffeine: Yes Type: carbonated beverages Number of servings: 1 eating out: 1-3 times/week what type of physical activity do you participate in: none seatbelt use: always do you feel safe at home: Yes HPI HPI HPI: SCARLET NUBIA, is a 84 F who presents to the office today for HPI HPI Surgical H&P: Yes HPI: SCARLET DELACRUZ, is a 84 F who presents to the office today for surgical consultation regarding esophageal dysphasia and intermittent food bolus obstruction. The patient is referred by her primary care physician Dr. Mumtaz Balbuena and a written copy of my surgical consult and recommendations will be returned to him. 84-year-old female. For at least 3 years she has been having problems with food intermittently getting stuck when she swallows. Also to when she starts eating she has a cough. She states total mckeon the symptoms of been occurring for 3 years but particularly over the past several months the frequency and severity has heightened. She states that about a year ago she underwent investigation by Dr. Lucas Tran pulmonology for her cough but apparently nothing was particularly determined. She has never had an upper endoscopy or barium swallow. She does have a family history with a brother who succumbed to esophageal cancer. The patient has had reflux symptoms in the past. She is on chronic pantoprazole therapy. It is of most pertinence that she has had coronary bypass grafting in 2004 and since that time 9 additional stents placed. She was on clopidogrel therapy but that is been now changed to Brilinta.. 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 Her marketing programs manager Dr. Freddie Hudson has given her permission to come off the Brilinta for 3 days prior to oral surgery which is scheduled for May 18. ROS General General: Yes weight change; no appetite, fatigue, colon cancer, breast cancer or weakness HEENT HEENT: Yes difficulty swallowing; no eye injury, eye surgery, swollen glands or hoarseness Endo Endocrine: Yes thyroid disease; no diabetes mellitus, thyroid cancer, Hair loss, heat intolerance or cold intolerance Skin Skin: No rash or changing moles Breast Breast: No left breast lump, right breast lump, nipple discharge, breast pain, abnormal mammogram, abnormal US or breast enlargement Musc Musculoskeletal: Yes arthritis; no back problems, rheumatoid arthritis, gout or joint pain Cardio Cardiovascular: Yes heart disease, heart attack and heart stent; no murmur, pacemaker, atrial fibrillation, high blood pressure, palpitations, shortness of breat with exertion or chest pain Psych Psychiatric: No depression, anxiety or hearing voices Resp Respiratory: Yes shortness of breath, No sleep apnea, Yes cough, No COPD, No asthma, No emphysema, No wheezing Gastro Gastrointestinal: No abdominal pain, No nausea or vomiting, No diarrhea, Yes constipation, No blood in stool, No acid reflux, Yes hemorrhoids, No ulcers, No gallbladder problem, No black,tarry stools Dilip Hematologic: Yes blood thinners, No blood disorders, No bleeding, No anemia, No blood clots Neuro Neurologic: No system reviewed and no additional complaints, except as docu, No as per HPI, No abnormal walking, No abnormal hearing, No abnormal movements, No abnormal speech, No behavioral changes, No burning sensations, No confusion, No seizure-like activity, No unsteadiness, No dizziness, No localized weakness, No frequent falls, No headache(s), No lack of coordination, No loss of vision, No memory loss, No numbness, No other visual disturbances, No radiating pain, No restless legs, No sensory deficit, No fainting, No tingling, No tremor(s), No weakness, No other Exam Const General: cooperative, comfortable, no acute distress Nutritional Appearance: obese Orientation: alert, awake [facility] Head: normal to inspection Chest Breast Palpation: No nipple discharge Resp Effort & Inspection: normal respiratory effort Auscultation: clear to auscultation bilaterally Cardio Rate: regular rate Rhythm: regular rhythm Heart Sounds: no murmurs GI Palpation: soft, no hepatosplenomegaly Auscultation: normal bowel sounds Neuro Cognition: normal cognition Extrem General: no calf tenderness bilaterally Psych Affect: normal affect Assessment & Plan Problems 1. Gastroesophageal reflux disease, esophagitis presence not specified K21.9 2. Dysphasia R47.02 Plan Esophageal dysphasia. Suspected long-term gastroesophageal reflux disease. Already scheduled time off from Brilinta to allow for oral surgery. I am suspicious that she will have a Schatzki ring. I have proposed for a esophagogastroduodenoscopy with possible biopsy or dilatation if indicated. We will need to utilize conservative efforts because of her cardiac issues and ongoing anticoagulation. She plans to stop her anticoagulant for 3 days to allow for her oral surgery on May 18. We will be scheduling her for May 17 to make use of that stoppage. She has had an opportunity to ask and have questions answered. I appreciate the ongoing opportunity of assisting with her surgical care She also inquired about a multicolored irregular medium brown light brown skin lesion left cheek that has a slightly exophytic component. I recommended to her that we perform a punch biopsy for diagnosis within the suture repair. The patient states that she previously had a shave biopsy of a scalp lesion per dermatology and she bled significantly. She is not interested in having a shave technique. We will schedule the punch biopsy as well for definitive diagnosis. CC: Dr. Mumtaz Balbuena and Dr. Nicoleori Norm Root M.D., F.A.C.S. Coding Level of Care Code 12814 Diagnoses Gastroesophageal reflux disease, esophagitis presence not specified K21.9 ??Esophagitis presence: esophagitis presence not specified Dysphasia R47.02 I have re-examined the patient. There are no clinical changes since date of exam.
[2019-05-10 13:52] VITALS: BMI 33.8
[2019-06-14 15:00] VITALS: BMI 33.8
[2019-06-17] VITALS (9 sets, daily range): BP systolic 97–157; BP diastolic 56–76; PULSE 56–76; RESP 16–22; TEMP 36.1–36.2; O2SAT 95–100; BMI 34.0
[2019-06-17] MEDS: Lactated Ringers 1,000 ML 100 ML IV (07:25)
--- NOTE | 2019-06-17 08:00 | IMM_PTH ---
PATIENT: SCARLET DELACRUZ LOC: EN U#:[id number] AGE/SX: 84/F ROOM: RE06/17/[address]: Dr. Norm Root MD : 1935 BED: DIS: 06/17/2019 SPEC #: [id number] RECD: 06/17/19 13:34 STATUS: MI REElba #: [id number] ERNA: 06/17/19 08:[address]: Norm Root DEPT: IMMUNOHISTOCHEMISTRY RECD BY: Zarina Bales ENTERED: 06/17/19 13:34 SP TYPE: IMMUNO OTHR DR: Dr. Mumtaz Balbuena MD Tissues: B - Stomach, NOS Procedures: H Pylori (initial) PHYSICIAN & INSTITUTION [place] [address] SPECIMEN INFORMATION: Tissue Source: B - Antrum biopsy Clinical Info: GERD Specimen Number: [id number] CPT code: 84474 METHODOLOGY: Deparaffinized sections of prefer/formalin-fixed tissue or PAP/DQ stained slides are incubated with monoclonal/polyclonal antibodies/oligonucleotide probes. Localization is made via biotin free immunoperoxidase method. Appropriate controls are performed and reacted as expected. Results on target cell population are indicated in the following table: RESULTS: ANTIBODY / CLONE RESULT Block B H Pylori (polyclonal) negative These tests were developed and their performance characteristics determined by [facility]. They may not have been cleared or approved by the U.S. Food and Drug Administration. The FDA has determined that such clearance or approval is not necessary. INTERPRETATION: B. Antrum biopsy: Negative for Helicobacter pylori organisms. SJ:horacio 06/20/19
--- NOTE | 2019-06-17 08:00 | EGD_PTH ---
PATIENT: SCARLET DELACRUZ LOC: EN U#:[id number] AGE/SX: 84/F ROOM: RE06/17/[address]: Dr. Norm Root MD : 1935 BED: DIS: 06/17/2019 SPEC #: [id number] RECD: 06/17/19 11:21 STATUS: MI CECI #: [id number] ERNA: 06/17/19 08:[address]: Norm Root DEPT: SURGICAL PATHOLOGY RECD BY: Vignesh Red ENTERED: 06/17/19 13:16 SP TYPE: EGD BIOPSY OT DR: Dr. Mumtaz Balbuena MD Tissues: A - Duodenum, NOS B - Gastric mucous membrane C - Stomach, NOS D - Gastric mucous membrane Procedures: Special Stain Group II Surgery Specimen Level IV Alcian Blue/PAS (control) HEADER OPERATION: [place] [place] PRE-OP DIAGNOSIS: GERD TISSUE SUBMITTED: A - Duodenum biopsy, B - Antrum biopsy and H. pylori, C - Fundic polyps, D - EG junction biopsy MICROSCOPIC DIAGNOSIS A. Duodenum, biopsy: A fragment of duodenal mucosa, no pathologic diagnosis. B. Gastric antrum, biopsy: Mild gastritis. See microscopic description and comment. C. Fundic polyp, biopsy: Fundic gland polyp. D. EG junction, biopsy: A fragment of gastroesophageal mucosa with moderate chronic inflammation and minimal acute inflammation. Intestinal metaplasia (goblet cell metaplasia) is not identified. See comment. SJ:horacio 06/20/19 COMMENT B. The results of immunohistochemistry for Helicobacter pylori will be reported separately ([id number]). D. Alcian blue/PAS stain with matched control is used in the evaluation of the specimen. MICROSCOPIC DESCRIPTION Slides are reviewed. B. The specimen shows fragments of gastric mucosa with chronic inflammatory cell infiltrates in the lamina propria consisting of lymphocytes and plasma cells, consistent with mild chronic gastritis. GROSS DESCRIPTION A - Received in fixative is one container labeled with the patient's name and designated duodenum biopsy. The specimen consists of one irregular fragment of light silva soft tissue that measures 0.5 x 0.3 x 0.1 cm. The specimen is totally submitted in one cassette. B - Received in fixative is one container labeled with the patient's name and designated gastric antrum. The specimen consists of one irregular fragment of light silva soft tissue that measures 2 x 2 x 0.1 cm. The specimen is totally submitted in one cassette. C - Received in fixative is one container labeled with the patient's name and designated fundic polyps. The specimen consists of one irregular fragment of light silva soft tissue that measures 0.3 x 0.2 x 0.1 cm. The specimen is totally submitted in one cassette. D - Received in fixative is one container labeled with the patient's name and designated EG junction. The specimen consists of one irregular fragment of light silva soft tissue that measures 0.3 x 0.3 x 0.1 cm. The specimen is totally submitted in one cassette. / AM:horacio 06/17/19 TC: CPT: 69205 x4, [id number]
--- NOTE | 2019-06-17 08:41 | OP.EGD_ITS ---
Patient Name: Kristine Perla Procedure Date: 06/17/2019 8:11 AM Date of : 1935 Age: 84 Procedure: Upper GI endoscopy Indications: Dysphagia Providers: Norm Root MD Referring MD: Mumtaz Balbuena Md Medicines: See the Anesthesia note for documentation of the administered medications Complications: No immediate complications. Procedure: Pre-Anesthesia Assessment: - Prior to the procedure, a History and Physical was performed, and patient medications and allergies were reviewed. The patient's tolerance of previous anesthesia was also reviewed. The risks and benefits of the procedure and the sedation options and risks were discussed with the patient. All questions were answered, and informed consent was obtained. Prior Anticoagulants: The patient has taken anticoagulant medication, last dose was 1 day prior to procedure. ASA Grade Assessment: III - A patient with severe systemic disease. After reviewing the risks and benefits, the patient was deemed in satisfactory condition to undergo the procedure. After obtaining informed consent, the endoscope was passed under direct vision. Throughout the procedure, the patient's blood pressure, pulse, and oxygen saturations were monitored continuously. The gastroscope was introduced through the mouth, and advanced to the second part of duodenum. The upper GI endoscopy was accomplished without difficulty. The patient tolerated the procedure well. Scope In: 8:20:26 AM Scope Out: 8:33:07 AM Total Procedure Duration Time 0 hours 12 minutes 41 seconds Findings: LA Grade A (one or more mucosal breaks less than 5 mm, not extending between tops of 2 mucosal folds) esophagitis with no bleeding was found 36 cm from the incisors. Biopsies were taken with a cold forceps for histology. A medium-sized hiatal hernia was present. Diffuse mildly erythematous mucosa without bleeding was found in the gastric antrum. Biopsies were taken with a cold forceps for histology. Multiple sessile polyps with no stigmata of recent bleeding were found in the gastric fundus. The polyp was removed with a cold biopsy forceps. Resection and retrieval were complete. Diffuse mildly erythematous mucosa without active bleeding and with no stigmata of bleeding was found in the duodenal bulb. Biopsies were taken with a cold forceps for histology. A moderate Schatzki ring was found at the gastroesophageal junction. A TTS dilator was passed through the scope. Dilation with an 18-19-20 mm balloon dilator was performed to 20 mm. The dilation site was examined and showed mild improvement in luminal narrowing. Estimated blood loss was minimal. Impression: - LA Grade A reflux esophagitis. Biopsied. Schatzki ring dialated to 20mm - Medium-sized hiatal hernia. - Erythematous mucosa in the antrum. Biopsied. - Multiple gastric polyps. Resected and retrieved. - Erythematous duodenopathy. Biopsied. Recommendation: - Discharge patient to home. - Resume previous diet. - Continue present medications. - Telephone my office for pathology results in 1 week. Procedure Code(s): --- Professional --- 88986, Esophagogastroduodenoscopy, flexible, transoral; with transendoscopic balloon dilation of esophagus (less than 30 mm diameter) 03881, 59, Esophagogastroduodenoscopy, flexible, transoral; with biopsy, single or multiple Diagnosis Code(s): --- Professional --- K21.0, Gastro-esophageal reflux disease with esophagitis K44.9, Diaphragmatic hernia without obstruction or gangrene K31.89, Other diseases of stomach and duodenum K31.7, Polyp of stomach and duodenum R13.10, Dysphagia, unspecified CPT copyright 2017 [employer] [place] [employer]. All rights reserved. The codes documented in this report are preliminary and upon computer systems security administrator review may be revised to meet current compliance requirements. Norm Root MD 06/17/2019 8:41:02 AM This report has been signed electronically. Number of Addenda: 0 Note Initiated On: 06/17/2019 8:11 AM
--- NOTE | 2019-06-17 08:41 | OP.CCLET_ITS ---
06/17/2019 Mumtaz Balbuena Md Re : Upper GI endoscopy procedure for Kristine Perla Dear Sree This procedure was performed on Monday, June 17, 2019. My impressions and recommendations are as follows: Impressions : - LA Grade A reflux esophagitis. Biopsied. Schatzki ring dialated to 20mm - Medium-sized hiatal hernia. - Erythematous mucosa in the antrum. Biopsied. - Multiple gastric polyps. Resected and retrieved. - Erythematous duodenopathy. Biopsied. Recommendations : - Discharge patient to home. - Resume previous diet. - Continue present medications. - Telephone my office for pathology results in 1 week. My findings are described in the full procedure note, which is enclosed. If I can be of further assistance, please feel free to contact me at Doctor phone number(s): Work: . Sincerely, Norm Root MD 06/17/2019 8:41:02 AM This report has been signed electronically.
== END 2019-06-17 09:51 | disposition home or self-care (01) ==
LOC: EN 06:47 → AC 06:48
PROVIDERS: Family Provider Family Medicine; PCP Family Medicine; Referring Provider Family Medicine; Visit Provider Surgery
PROC: 0DJ08ZZ Inspection of Upper Intestinal Tract, Via Natural or Artificial Opening Endoscopic (ICD-10-PCS; CPT 43235; principal; 2019-06-17 07:55)
DX: K29.70 Gastritis, unspecified, without bleeding (principal); K21.0 Gastro-esophageal reflux disease with esophagitis; K22.2 Esophageal obstruction; K44.9 Diaphragmatic hernia without obstruction or gangrene; K31.7 Polyp of stomach and duodenum; E03.9 Hypothyroidism, unspecified; I25.10 Atherosclerotic heart disease of native coronary artery without angina pectoris; I11.0 Hypertensive heart disease with heart failure; I50.32 Chronic diastolic (congestive) heart failure; E78.5 Hyperlipidemia, unspecified; I25.2 Old myocardial infarction; E66.9 Obesity, unspecified; Z68.34 Body mass index [BMI] 34.0-34.9, adult; Z95.1 Presence of aortocoronary bypass graft; Z95.5 Presence of coronary angioplasty implant and graft; Z79.02 Long term (current) use of antithrombotics/antiplatelets; Z79.82 Long term (current) use of aspirin; Z79.899 Other long term (current) drug therapy
CPT/HCPCS: 43239; 43249; 88305; 88313; 88342; J7120; J2405

== ENCOUNTER → 2019-09-06 | Outpatient (CLI) | payer MEDICARE, OTHER, SELFPAY ==
[2016-08-18 10:52] VITALS: BMI 33.5
[2019-06-17 07:15] VITALS: BMI 34.0
[2019-09-06 13:13] LABS: ALB/GLOB Ratio 0.8 RATIO (0.9-2.4); AST(SGOT) 19 U/L (15-37); Alanine Aminotransfer ALT/SGPT 15 U/L (13-56); Albumin, Serum 3.3 g/dL (3.2-5.0); Alkaline Phosphatase 78 U/L (45-117); Anion Gap 6 (5-15); BUN 19 mg/dL (7-18); BUN/Creat Ratio 18.8 RATIO (10-20); Calcium,Total 9.1 mg/dL (8.5-10.1); Chloride 103 mmol/L (98-107); Creatinine, Serum 1.01 mg/dL (0.55-1.02); EST Glomerular Filtration Rate 56 mL/min (>60); Est Glom Filt Rate - Afr Amer 67 mL/min (>60); Globulin 4.3 g/dL (2.2-4.2); Glucose 87 mg/dL (74-106); Protein, Total 7.6 g/dL (6.4-8.2); Sodium Level 137 mmol/L (136-145); Thyroid Stim Hormone (TSH) 0.74 uIU/mL (0.358-3.74)
== END | disposition home or self-care (01) ==
LOC: MFPLAB 09:35
PROVIDERS: PCP Family Medicine; Visit Provider Family Medicine
DX: E03.9 Hypothyroidism, unspecified (principal); I10 Essential (primary) hypertension
CPT/HCPCS: 36415; 80053; 84443

== ENCOUNTER → 2019-10-18 | Outpatient (CLI) | payer MEDICARE, OTHER, SELFPAY ==
[2016-08-18 10:52] VITALS: BMI 33.5
[2019-10-10 09:51] VITALS: BMI 33.5
--- NOTE | 2019-10-18 12:43 | CDU_ITS ---
Reason For Study: vertigo Rt. Velocities/BP Lt. Velocities/BP Prox CCA 68.2/13.4 cm/sec. Prox CCA 58.1/13.9 cm/sec. Mid CCA 60.4/13.4 cm/sec. Mid CCA 60.5/15.1 cm/sec. Dist CCA 48.6/13.4 cm/sec. Dist CCA 48.2/12.6 cm/sec. Prox ICA 61.7/18.6 cm/sec. Prox ICA 106.0/28.6 cm/sec. Mid ICA 172.2/46.2 cm/sec. Mid ICA 91.2/23.7 cm/sec. Dist ICA 130.2/31.6 cm/sec. Dist ICA 106.0/29.8 cm/sec. Rt. ICA/CCA = 2.9. Lt. ICA/CCA = 1.8. Prox ECA 63.0/5.6 cm/sec. Prox ECA 92.4/5.3 cm/sec. Rt. Vert. 59.3/18.8 cm/sec. Lt. Vert. 42.1/13.9 cm/sec. Right Extracranial There is intimal thickening but no significant atherosclerotic plaque noted in the right common carotid artery. There is heterogeneous, irregular atherosclerotic plaque noted in the right internal carotid artery. There is intimal thickening but no significant atherosclerotic plaque noted in the right external carotid artery. Antegrade flow is noted in the right vertebral artery. Left Extracranial There is intimal thickening but no significant atherosclerotic plaque noted in the left common carotid artery. There is heterogeneous, irregular atherosclerotic plaque noted in the left internal carotid artery. There is heterogeneous, irregular atherosclerotic plaque noted in the left external carotid artery. Antegrade flow is noted in the left vertebral artery. Procedure Carotid Duplex 04096. The exam was diagnostic. Exam performed in department. Interpretation Summary Irregular calcific plaque with shadowing proximal right internal carotid with 50 to 69% stenosis. <50% stenosis right external carotid Irregular heterogenous plaque in the proximal left internal carotid artery with less than 50% stenosis. <50% stenosis left external carotid Patent and antegrade vertebrals bilaterally Findings do not appear to be different from previous examination of 02/28/2016 Ordering Physician: Stephani Varma Performed By: Ernst Dodd RVT
== END | disposition home or self-care (01) ==
PROVIDERS: PCP Family Medicine; Referring Provider Physician Assistant Medical; Visit Provider Physician Assistant Medical
DX: R42 Dizziness and giddiness (principal); I25.10 Atherosclerotic heart disease of native coronary artery without angina pectoris; I65.29 Occlusion and stenosis of unspecified carotid artery; I10 Essential (primary) hypertension
CPT/HCPCS: 93880

== ENCOUNTER → 2020-01-13 | Outpatient (CLI) | payer MEDICARE, OTHER, SELFPAY ==
[2016-08-18 10:52] VITALS: BMI 33.5
[2019-10-10 09:51] VITALS: BMI 33.5
[2020-01-13 13:19] LABS: Anion Gap 7 (5-15); BUN 14 mg/dL (7-18); BUN/Creat Ratio 14.4 RATIO (10-20); Calcium,Total 9.2 mg/dL (8.5-10.1); Chloride 104 mmol/L (98-107); Cholesterol 224 mg/dL (200); Creatinine, Serum 0.97 mg/dL (0.55-1.02); EST Glomerular Filtration Rate 58 mL/min (>60); Est Glom Filt Rate - Afr Amer 70 mL/min (>60); Glucose 87 mg/dL (74-106); High Density Lipoprotein 65 mg/dL; Potassium 3.9 mmol/L (3.5-5.1); Sodium Level 139 mmol/L (136-145); Thyroid Stim Hormone (TSH) 0.83 uIU/mL (0.358-3.74); Triglycerides 114 mg/dL; Very Low Density Lipoprotein 23 mg/dL (5-40)
== END | disposition home or self-care (01) ==
LOC: MFPLAB 10:16
PROVIDERS: PCP Family Medicine; Referring Provider Family Medicine; Visit Provider Family Medicine
DX: E03.9 Hypothyroidism, unspecified (principal); I10 Essential (primary) hypertension
CPT/HCPCS: 36415; 80048; 80061; 84443

== ENCOUNTER 2020-05-31 10:00 | Outpatient (RCR) | payer MEDICARE, OTHER, SELFPAY ==
[2016-08-18 10:52] VITALS: BMI 33.5
[2019-10-10 09:51] VITALS: BMI 33.5
== END 2020-05-31 23:59 ==
LOC: IMMUN 10:00
PROVIDERS: PCP Family Medicine; Visit Provider Family Medicine
DX: Z23 Encounter for immunization (principal)
CPT/HCPCS: 0011A; 0012A; 91301

== ENCOUNTER → 2020-11-13 09:45 | Outpatient (CLI) | payer MEDICARE, OTHER, SELFPAY ==
[2016-08-18 10:52] VITALS: BMI 33.5
[2020-07-04 11:03] VITALS: BMI 33.6
--- NOTE | 2020-11-13 10:01 | CDU_ITS ---
Reason For Study: BLURRED VISION Rt. Velocities/BP Lt. Velocities/BP Prox CCA 80.7/12.9 cm/sec. Prox CCA 82.1/18.3 cm/sec. Mid CCA 72.9/15.5 cm/sec. Mid CCA 78.5/18.3 cm/sec. Dist CCA 65.1/14.2 cm/sec. Dist CCA 71.1/18.3 cm/sec. Prox ICA 113.1/32.7 cm/sec. Prox ICA 179.1/43.0 cm/sec. Mid ICA 239.1/68.1 cm/sec. Mid ICA 119.8/28.5 cm/sec. Dist ICA 94.0/20.4 cm/sec. Dist ICA 110.8/28.5 cm/sec. Rt. ICA/CCA = 221.7/80.7=2.7. Lt. ICA/CCA = 179.1/82.1=2.2. Prox ECA 96.4/0.0 cm/sec. Prox ECA 133.0/29.8 cm/sec. Rt. Vert. 39.2/12.1 cm/sec. Lt. Vert. 50.5/14.7 cm/sec. Right Extracranial There is homogeneous, smooth atherosclerotic plaque noted in the right common carotid artery. There is heterogeneous, irregular atherosclerotic plaque noted in the right internal carotid artery. There is heterogeneous, irregular atherosclerotic plaque noted in the right external carotid artery. Antegrade flow is noted in the right vertebral artery. There is heterogeneous, irregular atherosclerotic plaque noted in the right bulb. Left Extracranial There is intimal thickening but no significant atherosclerotic plaque noted in the left common carotid artery. There is heterogeneous, irregular atherosclerotic plaque noted in the left internal carotid artery. There is heterogeneous, smooth atherosclerotic plaque noted in the left external carotid artery. Antegrade flow is noted in the left vertebral artery. There is heterogeneous, irregular atherosclerotic plaque noted in the left bulb. Procedure Carotid Duplex 93287. This is a Carotid Duplex examination using B-mode, color flow and specral Doppler. The exam was diagnostic. This is a venous duplex using B-mode, color flow and spectral Doppler. Exam performed in department. VL/Carotid Duplex Ultrasound Interpretation Summary Irregular calcific plaque of the proximal right internal carotid artery with gr eater than 70% stenosis of the right internal carotid artery Less than 50% stenosis right external carotid artery Irregular calcific plaque at the proximal left internal carotid artery with 50 to 69% stenosis of the left internal carotid artery Less than 50% stenosis left external carotid artery Patent and antegrade vertebral arteries bilaterally Findings would suggest slight progression of stenosis bilateral internal caroti d arteries from the previous examination of October 18, 2019 Ordering Physician: Vignesh Martell Referring Physician: Mumtaz Balbuena Performed By: Daysi Paredes, YONNY, RVT
[2020-11-13 10:06] LABS: Absolute Lymphocyte Count 1.59 X10^3/uL (0.83-4.51); Absolute Neutrophil Count 4.8 X10^3/uL (2.0-7.7); Basophil# 0.07 X10^3/uL; Basophil% 0.9 % (0-1); Eosinophil# 0.43 X10^3/uL; Eosinophils% 5.6 % (0-5); Hemoglobin 12.4 g/dL (12.0-15.0); Lymphocyte # 1.59 X10^3/ul (0.83-4.51); Lymphocyte % 20.7 % (19-41); Mean Corp Hgb Conc 32.6 g/dL (32-36); Mean Corpuscular Hgb 29.7 pg (27.0-32.0); Mean Corpuscular Volume 91.1 fL (81-99); Mean Platelet Vol. 9.5 fl (6.2-12.0); Monocyte# 0.81 X10^3/uL; Monocyte% 10.6 % (0-10); NRBC Flagged by Analyzer 0 % (0-5); Neutrophil # 4.75 X10^3/uL (2.7-7.7); Neutrophil % 61.9 % (47-70); Platelet Count 372 K/mm3 (150-450); RBC Distribution Width CV 13.3 % (11.6-14.6); RBC Distribution Width SD 44.9 fl (35.1-43.9); Red Blood Count 4.17 M/mm3 (4.2-5.4); White Blood Count 7.7 K/mm3 (4.4-11.0)
== END ==
PROVIDERS: PCP Family Medicine; Referring Provider Ophthalmology; Visit Provider Ophthalmology
DX: I65.23 Occlusion and stenosis of bilateral carotid arteries (principal); H53.9 Unspecified visual disturbance
CPT/HCPCS: 36415; 85025; 93880

== ENCOUNTER → 2021-01-23 | Outpatient (CLI) | payer MEDICARE, OTHER, SELFPAY ==
[2016-08-18 10:52] VITALS: BMI 33.5
--- NOTE | 2021-01-23 | IMM_PTH ---
PATIENT: SCARLET DELACRUZ LOC: [facility] U#:[id number] AGE/SX: 85/F ROOM: RE01/23/[address]: Dr. Norm Root MD : 1935 BED: DIS: 01/23/2021 SPEC #: [id number] RECD: 01/25/21 13:41 STATUS: MI REQ #: [id number] ERNA: 01/23/21 00:[address]: Norm Root DEPT: IMMUNOHISTOCHEMISTRY RECD BY: Zarina Bales ENTERED: 01/25/21 13:43 SP TYPE: IMMUNO OTHR DR: Dr. Mumtaz Balbuena MD Tissues: Skin of lip, NOS Procedures: p16 (initial) KI-67 (add) PHYSICIAN & INSTITUTION [address] [address] SPECIMEN INFORMATION: Tissue Source: B ? Left upper lip Clinical Info: Neoplasm of face Specimen Number: [id number] CPT code: 49923, 89131 METHODOLOGY: Deparaffinized sections of prefer/formalin-fixed tissue or PAP/DQ stained slides are incubated with monoclonal/polyclonal antibodies/oligonucleotide probes. Localization is made via biotin free immunoperoxidase method. Appropriate controls are performed and reacted as expected. Results on target cell population are indicated in the following table: RESULTS: ANTIBODY / CLONE RESULT Block B P16 (E6H4) negative Ki-67 (30-9) negative These tests were developed and their performance characteristics determined by [facility]. They may not have been cleared or approved by the U.S. Food and Drug Administration. The FDA has determined that such clearance or approval is not necessary. The above immunohistochemical/dualISH markers are ordered and reviewed by the Pathologist. INTERPRETATION: B. Skin lesion of left upper lip, punch biopsy: No evidence of HPV cytopathic change. AM:horacio 01/28/2021
--- NOTE | 2021-01-23 12:50 | TISS_PTH ---
PATIENT: SCARLET DELACRUZ LOC: [facility] U#:[id number] AGE/SX: 85/F ROOM: RE01/23/[address]: Dr. Norm Root MD : 1935 BED: DIS: 01/23/2021 SPEC #: [id number] RECD: 01/23/21 16:17 STATUS: MI ORNELAS #: [id number] ERNA: 01/23/21 12:[address]: Norm Root DEPT: SURGICAL PATHOLOGY RECD BY: Sheri Stallworth ENTERED: 01/24/21 07:17 SP TYPE: Tissue Bx KEELY DR: Dr. Mumtaz Balbuena MD Tissues: A - Skin of ankle and foot B - Skin of lip, NOS Procedures: Surgery Specimen Level IV HEADER OPERATION: Punch biopsy right ankle and left upper lip PRE-OP DIAGNOSIS: Neoplasm of face and lower extremity TISSUE SUBMITTED: A ? Right ankle, B ? Left upper lip MICROSCOPIC DIAGNOSIS A. 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 B. Left upper lip, punch biopsy: Invasive squamous cell carcinoma. See comment. AM:horacio 01/25/2021 COMMENT B. Results from immunohistochemistry ([id number]) for surrogate HPV marker (p16) will be reported separately. Case has been reviewed in consultation with Dr. Branch who concurs with the above diagnosis. IDC:VERNA MICROSCOPIC DESCRIPTION Slides are reviewed. GROSS DESCRIPTION A - Received in fixative is one container labeled with the patient's name and designated right ankle. The specimen consists of two pieces of silva-white to silva-pink skin measuring 0.2 x 0.1 x 0.1 cm and 0.4 x 0.1 x 0.1 cm. The entire specimen is submitted in one cassette. B - Received in fixative is one container labeled with the patient's name and designated left upper lip. The specimen consists of a punch biopsy of silva-white skin measuring 0.2 cm in diameter and 0.2 cm in length. The entire specimen is submitted in one cassette. / VERNA:horacio 01/24/21 TC:0 CPT: 41439 x2
== END | disposition home or self-care (01) ==
LOC: LABSPEC 16:32
PROVIDERS: PCP Family Medicine; Referring Provider Surgery; Visit Provider Surgery
DX: D48.7 Neoplasm of uncertain behavior of other specified sites (principal)
CPT/HCPCS: 88305; 88341; 88342

== ENCOUNTER → 2021-02-13 | Outpatient (CLI) | payer MEDICARE, OTHER, SELFPAY ==
[2016-08-18 10:52] VITALS: BMI 33.5
--- NOTE | 2021-02-12 14:30 | LES_PTH ---
PATIENT: SCARLET DELACRUZ LOC: [facility] U#:[id number] AGE/SX: 85/F ROOM: RE02/13/[address]: Dr. Norm Root MD : 1935 BED: DIS: 02/13/2021 SPEC #: [id number] RECD: 02/13/21 10:31 STATUS: MI CECI #: [id number] ERNA: 02/12/21 14:[address]: Norm Root DEPT: SURGICAL PATHOLOGY RECD BY: Sheri Stallworth ENTERED: 02/13/21 10:51 SP TYPE: Lesion OTHR DR: Dr. Mumtaz Balbuena MD Tissues: Skin of ankle and foot Procedures: Surgery Specimen Level IV HEADER OPERATION: Excision of right ankle lesion PRE-OP DIAGNOSIS: Right ankle skin lesion TISSUE SUBMITTED: Right ankle skin lesion MICROSCOPIC DIAGNOSIS Right ankle skin lesion, excisional biopsy: Squamous cell carcinoma in situ with focal minimal area suspicious for invasive squamous cell carcinoma, completely excised. VERNA:horacio 02/14/2021 COMMENT Please make reference to previous specimen ([id number]) right ankle, punch biopsy with diagnosis of ?squamous cell carcinoma in situ? and left upper lip, punch biopsy with diagnosis of ?invasive squamous cell carcinoma.? MICROSCOPIC DESCRIPTION Slides are reviewed. GROSS DESCRIPTION Received in fixative is one container labeled with the patient's name and designated right ankle lesion. The specimen consists of a silva-white skin ellipse measuring 2.5 x 1.2 cm and up to 0.3 cm in thickness. The specimen is inked, serially sectioned and submitted entirely in two cassettes. Cassette 1 also contains the tip of skin ellipse. / VERNA:horacio 02/13/21 TC:0 CPT: 33096
== END | disposition home or self-care (01) ==
LOC: LABSPEC 10:42
PROVIDERS: PCP Family Medicine; Referring Provider Surgery; Visit Provider Surgery
DX: D04.71 Carcinoma in situ of skin of right lower limb, including hip (principal)
CPT/HCPCS: 88305

== ENCOUNTER → 2021-02-27 | Outpatient (CLI) | payer MEDICARE, OTHER, SELFPAY ==
[2016-08-18 10:52] VITALS: BMI 33.5
--- NOTE | 2021-02-27 14:00 | LES_PTH ---
PATIENT: SCARLET DELACRUZ LOC: [facility] U#:[id number] AGE/SX: 86/F ROOM: RE02/27/[address]: Dr. Norm Root MD : 1935 BED: DIS: 02/27/2021 SPEC #: [id number] RECD: 02/27/21 16:07 STATUS: MI ORNELAS #: [id number] ERNA: 02/27/21 14:[address]: Norm Root DEPT: SURGICAL PATHOLOGY RECD BY: Luciano Astorga ENTERED: 02/28/21 08:06 SP TYPE: Lesion OTHR DR: Dr. Mumtaz Balbuena MD Tissues: Skin of face, NOS Procedures: Surgery Specimen Level IV HEADER OPERATION: Excision lip lesion PRE-OP DIAGNOSIS: Skin lesion of face TISSUE SUBMITTED: Lip tissue MICROSCOPIC DIAGNOSIS Lesion of lip, biopsy: Invasive well differentiated squamous cell carcinoma, completely excised. Solar elastosis. AM:horacio 03/01/2021 COMMENT Reference is made to the patient's left upper lip, punch biopsy ([id number]) in which invasive squamous cell was identified. Case has been reviewed in consultation with Dr. Branch who concurs with the above diagnosis. IDC:VERNA MICROSCOPIC DESCRIPTION Slides are reviewed. GROSS DESCRIPTION Received in fixative is one container labeled with the patient's name and designated lip lesion. The specimen consists of a piece of silva-white skin measuring 2 x 1 cm and up to 0.5 cm in thickness. The specimen is inked, serially sectioned and submitted entirely in one cassette. / VERNA:horacio 02/28/21 TC:0 CPT: 46216
== END | disposition home or self-care (01) ==
LOC: LABSPEC 16:16
PROVIDERS: PCP Family Medicine; Referring Provider Surgery; Visit Provider Surgery
DX: C44.02 Squamous cell carcinoma of skin of lip (principal); L57.8 Other skin changes due to chronic exposure to nonionizing radiation
CPT/HCPCS: 88305

== ENCOUNTER 2021-03-11 01:56 | Inpatient (IN) | payer MEDICARE, OTHER, SELFPAY ==
[2016-08-18 10:52] VITALS: BMI 33.5
[2021-03-11] VITALS (26 sets, daily range): BP systolic 111–185; BP diastolic 53–88; PULSE 67–85; RESP 12–20; TEMP 36.4–37.2; O2SAT 94–100; BMI 33.5; BMI 33.0
--- NOTE | 2021-03-11 02:02 | EKG12_ITS ---
Test Reason : CP Blood Pressure : / mmHG Vent. Rate : 088 BPM Atrial Rate : 088 BPM P-R Int : 176 ms QRS Dur : 086 ms QT Int : 372 ms P-R-T Axes : 061 -08 064 degrees QTc Int : 450 ms Sinus rhythm with Premature atrial complexes Otherwise normal ECG Confirmed by JAZMYN EPPS, ROCHELLE ([id number]), technical writer and editor JONATHAN PARSONS ([id number]) on 03/12/2021 8:14:29 AM Referred By: TRACY Confirmed By:ROCHELLE ELDRIDGE MD
--- NOTE | 2021-03-11 02:14 | EDS_ITS ---
HPI History of Present Illness Chief Complaint: Chest Pain Informant: patient Narrative Narrative: Patient is an 86-year-old female with history of coronary artery disease, CABG and stents presenting with chest pain. Patient states yesterday she had some intermittent chest pain that resolved with nitroglycerin. Patient notes that she woke up around midnight with chest discomfort and arm discomfort. She describes it as an ache in her arms, right worse than left and a pressure radiated to her back. She took nitroglycerin around midnight which did relieve some of the pain. She then took another on the way to the ER and notes that eased up with the pain is returning. She is been having dyspnea on exertion which is new over the past few days. She has chronic orthopnea which is unchanged. She denies any recent swelling of her legs. She denies any cough, fever or chills. Patient states her last cardiac catheterization was in 2019 and this less time she had stents placed. She took aspirin yesterday morning but not had any since. She is not on any anticoagulation. [facility] Medical History Arthritis Atherosclerosis of coronary artery bypass graft without angina pectoris Atherosclerotic heart disease of [place] coronary artery without angina pectoris Cancer Carotid bruit Change in vision Chest pain Chronic diastolic (congestive) heart failure Dysphasia Essential hypertension Fatigue Hyperlipidemia Hypothyroid Squamous cell skin cancer Stenosis of right carotid artery Home Medications aspirin 81 mg PO DAILY@0800 12/30/13 [History Last Taken 06/15/17] docusate sodium 100 mg PO DAILY 12/30/13 [History Last Taken 12/29/13] nitroglycerin 0.4 mg SUBLINGUAL Q5M PRN 12/30/13 [History Last Taken 12/29/13] omega-3 fatty acids-fish oil 100 mg PO BID 12/30/13 [History Last Taken 12/29/13] cholecalciferol (vitamin D3) 1,000 unit PO DAILY 01/11/14 [History Last Taken Unknown] cyanocobalamin (vitamin B-12) 250 mcg PO DAILY@0800 01/11/14 [History Last Taken Unknown] magnesium 500 mg PO DAILY 01/11/14 [History Last Taken Unknown] lecithin 1,200 mg PO DAILY 09/11/15 [History Last Taken Unknown] cinnamon bark 500 mg PO DAILY 08/16/16 [History Last Taken Unknown] coenzyme Q10 100 mg capsule 100 mg PO QDAY 06/02/17 [History Last Taken Unknown] red yeast rice 600 mg capsule 600 mg PO BID cap 06/02/17 [History Last Taken Unknown] flaxseed oil 1,000 mg capsule 1,000 mg PO DAILY 06/15/18 [History Last Taken Unknown] famotidine 20 mg tablet 20 mg PO BID #60 tab 07/25/19 [Rx Last Taken Unknown] furosemide 20 mg tablet 20 mg PO DAILY #90 tab 08/13/20 [Rx Last Taken Unknown] isosorbide mononitrate 60 mg tablet,extended release 24 hr 60 mg PO DAILY #90 tablet 08/27/20 [Rx Last Taken Unknown] metoprolol tartrate 25 mg tablet 12.5 mg PO BID #90 tab 10/02/20 [Rx Last Taken Unknown] levothyroxine [Synthroid] 50 mcg PO DAILY 03/11/21 [History Last Taken Unknown] Allergy/AdvReac Type Severity Reaction Status Date / Time codeine Allergy Mild Rash Verified 03/11/21 02:32 ibuprofen Allergy Mild Rash Verified 03/11/21 02:32 rosuvastatin calcium Allergy Unknown Verified 03/11/21 02:32 [From Crestor] acetaminophen AdvReac Severe Unknown Verified 03/11/21 02:32 [From Darvocet-N] propoxyphene AdvReac Severe Unknown Verified 03/11/21 02:32 [From Darvocet-N] meperidine HCl [From Demerol] AdvReac Mild Other Verified 03/11/21 02:32 propoxyphene HCl AdvReac Mild Other Verified 03/11/21 02:32 [From Darvon] lisinopril AdvReac cough Verified 03/11/21 02:32 Family History Father , age 72 of [place] Myocardial infarction total of 3 [place]'s CAD (coronary artery disease) Mother , age 69 of embolus CAD (coronary artery disease) Brother CAD (coronary artery disease) S/P CABG x 4 Hypertension Myocardial infarction Hx of heart valve replacement with mechanical valve Brother Hypertension Diabetes CAD (coronary artery disease) Hyperlipidemia History of coronary artery bypass graft Cancer Other Family history of coronary artery disease Family history of hyperlipidemia Family history of hypertension Surgical History H/O arthroscopy of knee H/O cataract extraction H/O coronary artery bypass surgery (06/03/04) H/O rectocele repair H/O tubal ligation H/O: hysterectomy History of appendectomy History of carpal tunnel release of both wrists History of coronary artery stent placement (06/17/17) History of excision of lesion Hx of cholecystectomy Postsurgical aortocoronary bypass status Scalp surgery 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 Social History household members: none housing: condominium current occupational status: retired pets and animals: Yes pets and animals: dog(s) Smoking Status: Never smoker second hand exposure: Yes (most of her life, not for the past 20+ years) alcohol intake: never substance use type: does not use caffeine: Yes Type: carbonated beverages Number of servings: 1 eating out: 1-3 times/week what type of physical activity do you participate in: none seatbelt use: always do you feel safe at home: Yes ROS ROS ED Constitutional Constitutional ED: Denies chills, fever(s) or sweats ENT ENT ED: Denies ear pain or rhinorrhea Cardiovascular Cardiovascular: Reports chest pain; Denies palpitations Respiratory/Chest Respiratory/Chest: Reports dyspnea and dyspnea on exertion; Denies cough Gastrointestinal Gastrointestinal: Denies abdominal pain, diarrhea, nausea or vomiting Genitourinary Genitourinary ED: Denies dysuria Musculoskeletal Musculoskeletal: Reports myalgias; Denies arthralgias Integumentary Denies rash Neurologic Neurologic: Denies headache(s) or weakness Psychiatric Psychiatric: Denies depression EXAM Physical Exam Const Vital Signs: 03/11/21 01:58 03/11/21 02:07 03/11/21 02:27 Temperature 98.1 F Temperature Source Oral Pulse Rate 83 74 Respiratory Rate 20 H Respiratory Effort Short of Breath Blood Pressure 185/74 H 178/75 H Blood Pressure Mean 111 Pulse Ox 98 Oxygen Delivery Method Room Air 03/11/21 02:33 03/11/21 02:53 03/11/21 03:05 Temperature Temperature Source Pulse Rate 82 73 67 Respiratory Rate 14 16 Respiratory Effort Blood Pressure 166/85 H 185/85 H 185/78 H Blood Pressure Mean 112 113 Pulse Ox 96 95 Oxygen Delivery Method Room Air Room Air Positive well nourished and well developed General Appearance ED: well developed HEENT Reports moist mucous membranes normocephalic Eyes PERRL Neck supple and no JVD Chest Wall inspection of chest normal Resp normal respiratory effort and clear to auscultation bilaterally Cardio regular rate and regular rhythm Peripheral Pulses: radial pulses present GI normal to inspection, nondistended, normoactive bowel sounds Extremity normal to inspection General Extremety ED: Negative for edema or tenderness General Extremity: Negative for edema Neuro oriented x3 Sensorium / Orientation: awake and alert Psych mental status grossly normal Skin no rashes or lesions noted Heart Score History: Highly Suspicious ECG: Nonspecific Repolarization Age: >/= 65 years Risk Factors: >/= 3 Risk Factors or History of CAD Troponin: >/=3 x Normal Limit Score: 9 MDM MDM MDM Narrative Medical decision making narrative: Patient evaluated for intermittent chest pain. Patient has significant history of coronary artery disease. Chest pain is relieved with nitroglycerin. Patient is given nitroglycerin in the ER and has relief of her pain. Nitropaste is applied. She is hemodynamically stable however she is hypertensive in the emergency room. EKG shows subtle changes of V1 V2 but does not meet STEMI criteria. Patient has an elevated high since he troponin. I suspect patient is having an NSTEMI. Case is discussed with cardiology on-call, Dr. Hector, who recommends a one-time loading dose of Brilinta as well as starting a heparin drip. Patient will be admitted to the PCU for further cardiac evaluation and treatment. Patient and daughter are agreeable with this plan of care. Patient is given full-strength aspirin in the emergency room. Lab Data Attestation: I reviewed the patient's lab results. Labs: Laboratory Results - last 24 hr 03/11/21 03/11/21 03/11/21 02:15 02:15 02:15 WBC 7.8 RBC 4.50 Hgb 13.4 Hct 40.2 MCV 89.3 MCH 29.8 MCHC 33.3 RDW Std Deviation 42.9 RDW Coeff of Maddie 13.1 Plt Count 360 MPV 9.4 Immature Gran % (Auto) 0.300 Neut % (Auto) 60.2 Lymph % (Auto) 22.5 [place] % (Auto) 9.9 Eos % (Auto) 6.2 H Baso % (Auto) 0.9 Absolute Neuts (auto) 4.7 Absolute Lymphs (auto) 1.74 Nucleated RBC % 0 Sodium 135 L Potassium 4.2 Chloride 102 Carbon Dioxide 27.0 Anion Gap 6 BUN 13 Creatinine 0.85 Estim Creat Clear Calc 38.27 Est GFR (MDRD) Af Amer 82 Est GFR (MDRD) Non-Af 68 BUN/Creatinine Ratio 15.3 Glucose 113 H Calcium 9.7 Magnesium 2.4 Troponin I High Sens 1781 H* B-Natriuretic Peptide 243.3 H Radiography Chest X-Ray - ED: 1 View, Read by ED Physician, Read by Radiologist, No Acute Disease and Chronic Changes Diagnostic Testing: Clinical Impression(s) from Imaging Studies Chest X-Ray 03/11/21 02:27 IMPRESSION: Mild chronic interstitial lung disease. Electronically Signed: Peter Oh MD at 3:25 EST Tel , Service support , Rhythm Strip Rhythm Strip: Sinus Rhythm Rate: 88 Ectopy: PAC(s) EKG Initial EKG: Attestation: I personally reviewed and interpreted this EKG as follows: Interpretation: Sinus Rhythm Comments: Sinus rhythm with PACs Normal intervals Normal axis T wave inversion in 1 and aVL Subtle T wave depressions in V1 and V2 This is new compared to prior EKG on 06/18/2017 Discharge Plan Dx/Rx/DC Orders Clinical Impression: Acute non-ST elevation myocardial infarction (NSTEMI), Essential hypertension, Chest pain Disposition Disposition: Acute Care Hospital [facility]
[2021-03-11] MEDS: Aspirin 81 MG TAB.CHEW 324 MG PO (02:20)
[2021-03-11 02:23] LABS: Absolute Lymphocyte Count 1.74 X10^3/uL (0.83-4.51); Absolute Neutrophil Count 4.7 X10^3/uL (2.0-7.7); Basophil# 0.07 X10^3/uL; Basophil% 0.9 % (0-1); Eosinophil# 0.48 X10^3/uL; Eosinophils% 6.2 % (0-5); Hematocrit 40.2 % (37-47); Hemoglobin 13.4 g/dL (12.0-15.0); Lymphocyte # 1.74 X10^3/ul (0.83-4.51); Lymphocyte % 22.5 % (19-41); Mean Corp Hgb Conc 33.3 g/dL (32-36); Mean Corpuscular Hgb 29.8 pg (27.0-32.0); Mean Corpuscular Volume 89.3 fL (81-99); Mean Platelet Vol. 9.4 fl (6.2-12.0); Monocyte# 0.77 X10^3/uL; Monocyte% 9.9 % (0-10); NRBC Flagged by Analyzer 0 % (0-5); Neutrophil # 4.67 X10^3/uL (2.7-7.7); Neutrophil % 60.2 % (47-70); Platelet Count 360 K/mm3 (150-450); RBC Distribution Width CV 13.1 % (11.6-14.6); RBC Distribution Width SD 42.9 fl (35.1-43.9); White Blood Count 7.8 K/mm3 (4.4-11.0)
[2021-03-11] MEDS: Nitroglycerin SL (ED/IMG/CATH) 0.4 MG TABLET SL (02:27)
--- NOTE | 2021-03-11 02:27 | RAD_ITS ---
STUDY: X-RAY CHEST REASON FOR EXAM: Female, 86 years old. chest pain TECHNIQUE: Single AP portable view of the chest. COMPARISON: None. FINDINGS: Increased subpleural interstitial markings in the lung bases may represent chronic interstitial lung disease. There is no demonstrated pleural abnormality. Sternal cerclage wires and vascular clips are present from a prior sternotomy and coronary artery bypass graft procedure (CABG). Normal mediastinum and nataliya. Normal visualized pulmonary arteries. Normal visualized aortic arch and descending thoracic aorta. Normal visualized thoracic spine. Normal visualized ribs, clavicles, and shoulders. There is no demonstrated abnormality of the visualized soft tissue structures of the upper abdomen. RAD/Chest 1 View (Portable) IMPRESSION: Mild chronic interstitial lung disease. Electronically Signed: Peter Oh MD at 3:25 EST Tel , Service support ,
[2021-03-11 02:48] LABS: BNP,B-Type NATRIURETIC PEPTIDE 243.3 pg/mL (0-100)
[2021-03-11] MEDS: Nitroglycerin Oint 1 INCH PACKET 0.5 INCH TD (02:53)
[2021-03-11 02:54] LABS: Anion Gap 6 (5-15); BUN 13 mg/dL (7-18); BUN/Creat Ratio 15.3 RATIO (10-20); Calcium,Total 9.7 mg/dL (8.5-10.1); Chloride 102 mmol/L (98-107); Creatinine, Serum 0.85 mg/dL (0.55-1.02); EST Glomerular Filtration Rate 68 mL/min (>60); Est Glom Filt Rate - Afr Amer 82 mL/min (>60); Estimated Creatinine Clearance 38.27 ml/min; Glucose 113 mg/dL (74-106); Magnesium 2.4 mg/dL (1.6-2.6); Potassium 4.2 mmol/L (3.5-5.1); Sodium Level 135 mmol/L (136-145); Troponin-I HS 1781 pg/mL (3.0-54.0)
[2021-03-11 03:43] LABS: Prothrombin Time (Protime)PT. 12.9 SECONDS (11.7-14.9)
--- NOTE | 2021-03-11 03:45 | HP.PCM.HOS_ITS ---
HPI - General General Date of Admission: 03/11/21 Date of Service: 03/11/21 Chief Complaint: chest pain HPI Narrative SCARLET DELACRUZ, is a 86 F who presents with chest pain. Chest pain began last night. It was midsternal, radiated to her back and down her arms. Different from prior MIs, where she had right shoulder pain. +SOB. +Diaphoresis. She received nitro and sx are resolved. ED spoke with Dr. Hector who advised anticoagulation w heparin and Ticagrelor. Couple weeks ago, patient did have to hold her aspirin to have removal of some skin cancers through her medical support specialist. Patient has 2 other lesions that she was supposed to get removed later this month. [facility] Medical History Arthritis Atherosclerosis of coronary artery bypass graft without angina pectoris Atherosclerotic heart disease of [place] coronary artery without angina pectoris Cancer Carotid bruit Change in vision Chest pain Chronic diastolic (congestive) heart failure Dysphasia Essential hypertension Fatigue Hyperlipidemia Hypothyroid Squamous cell skin cancer Stenosis of right carotid artery Home Medications aspirin 81 mg PO DAILY@0800 12/30/13 [History Last Taken 06/15/17] docusate sodium 100 mg PO DAILY 12/30/13 [History Last Taken 12/29/13] nitroglycerin 0.4 mg SUBLINGUAL Q5M PRN 12/30/13 [History Last Taken 12/29/13] omega-3 fatty acids-fish oil 100 mg PO BID 12/30/13 [History Last Taken 12/29/13] cholecalciferol (vitamin D3) 1,000 unit PO DAILY 01/11/14 [History Last Taken Unknown] cyanocobalamin (vitamin B-12) 250 mcg PO DAILY@0800 01/11/14 [History Last Taken Unknown] magnesium 500 mg PO DAILY 01/11/14 [History Last Taken Unknown] lecithin 1,200 mg PO DAILY 09/11/15 [History Last Taken Unknown] cinnamon bark 500 mg PO DAILY 08/16/16 [History Last Taken Unknown] coenzyme Q10 100 mg capsule 100 mg PO QDAY 06/02/17 [History Last Taken Unknown] red yeast rice 600 mg capsule 600 mg PO BID cap 06/02/17 [History Last Taken Unknown] flaxseed oil 1,000 mg capsule 1,000 mg PO DAILY 06/15/18 [History Last Taken Unknown] famotidine 20 mg tablet 20 mg PO BID #60 tab 07/25/19 [Rx Last Taken Unknown] furosemide 20 mg tablet 20 mg PO DAILY #90 tab 08/13/20 [Rx Last Taken Unknown] isosorbide mononitrate 60 mg tablet,extended release 24 hr 60 mg PO DAILY #90 tablet 08/27/20 [Rx Last Taken Unknown] metoprolol tartrate 25 mg tablet 12.5 mg PO BID #90 tab 10/02/20 [Rx Last Taken Unknown] levothyroxine [Synthroid] 50 mcg PO DAILY 03/11/21 [History Last Taken Unknown] Allergy/AdvReac Type Severity Reaction Status Date / Time codeine Allergy Mild Rash Verified 03/11/21 02:32 ibuprofen Allergy Mild Rash Verified 03/11/21 02:32 rosuvastatin calcium Allergy Unknown Verified 03/11/21 02:32 [From Crestor] acetaminophen AdvReac Severe Unknown Verified 03/11/21 02:32 [From Darvocet-N] propoxyphene AdvReac Severe Unknown Verified 03/11/21 02:32 [From Darvocet-N] meperidine HCl [From Demerol] AdvReac Mild Other Verified 03/11/21 02:32 propoxyphene HCl AdvReac Mild Other Verified 03/11/21 02:32 [From Darvon] lisinopril AdvReac cough Verified 03/11/21 02:32 Family History Father , age 72 of [place] Myocardial infarction total of 3 [place]'s CAD (coronary artery disease) Mother , age 69 of embolus CAD (coronary artery disease) Brother CAD (coronary artery disease) S/P CABG x 4 Hypertension Myocardial infarction Hx of heart valve replacement with mechanical valve Brother Hypertension Diabetes CAD (coronary artery disease) Hyperlipidemia History of coronary artery bypass graft Cancer Other Family history of coronary artery disease Family history of hyperlipidemia Family history of hypertension Surgical History H/O arthroscopy of knee H/O cataract extraction H/O coronary artery bypass surgery (06/03/04) H/O rectocele repair H/O tubal ligation H/O: hysterectomy History of appendectomy History of carpal tunnel release of both wrists History of coronary artery stent placement (06/17/17) History of excision of lesion Hx of cholecystectomy Postsurgical aortocoronary bypass status Scalp surgery 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 Social History household members: none housing: [facility] current occupational status: retired pets and animals: Yes pets and animals: dog(s) Smoking Status: Never smoker second hand exposure: Yes (most of her life, not for the past 20+ years) alcohol intake: never substance use type: does not use caffeine: Yes Type: carbonated beverages Number of servings: 1 eating out: 1-3 times/week what type of physical activity do you participate in: none seatbelt use: always do you feel safe at home: Yes ROS ROS Narrative All review of systems were negative except as mentioned above in the history of present illness and the other review of systems. Vital Signs Vital Signs Vital Signs: 03/11/21 01:58 03/11/21 02:07 03/11/21 02:27 Temperature 36.7 C Temperature Source Oral Pulse Rate 83 74 Respiratory Rate 20 H Respiratory Effort Short of Breath Blood Pressure 185/74 H 178/75 H Blood Pressure Mean 111 Pulse Ox 98 Oxygen Delivery Method Room Air 03/11/21 02:33 03/11/21 02:53 03/11/21 03:05 Temperature Temperature Source Pulse Rate 82 73 67 Respiratory Rate 14 16 Respiratory Effort Blood Pressure 166/85 H 185/85 H 185/78 H Blood Pressure Mean 112 113 Pulse Ox 96 95 Oxygen Delivery Method Room Air Room Air Weight Weight: 83.2 kg Body Mass Index (BMI) 33.5 Physical Exam Const alert General Appearance: cooperative HEENT normocephalic and head/scalp atraumatic Neck no lymphadenopathy Resp normal respiratory effort, no retractions, no use of accessory muscles and clear to auscultation bilaterally Cardio regular rate, regular rhythm, S1 normal heart sound and S2 normal heart sound GI normal to inspection, nondistended, normoactive bowel sounds, soft to palpation, non-tender and non-distended Extremity normal to inspection and no clubbing, cyanosis or edema Skin no rashes or lesions noted and no wounds Neuro moves all extremities and no focal motor deficits Sensorium / Orientation: awake and alert Psych affect normal Results Lab / Micro Data Attestation: I reviewed the patient's lab results. Result Diagrams: 03/11/21 02:15 03/11/21 02:15 Labs: Laboratory Results - last 24 hr 03/11/21 02:15: WBC 7.8, RBC 4.50, Hgb 13.4, Hct 40.2, MCV 89.3, MCH 29.8, MCHC 33.3, RDW Std Deviation 42.9, RDW Coeff of Maddie 13.1, Plt Count 360, MPV 9.4, Immature Gran % (Auto) 0.300, Neut % (Auto) 60.2, Lymph % (Auto) 22.5, [place] % (Auto) 9.9, Eos % (Auto) 6.2 H, Baso % (Auto) 0.9, Absolute Neuts (auto) 4.7, Absolute Lymphs (auto) 1.74, Nucleated RBC % 0 03/11/21 02:15: Sodium 135 L, Potassium 4.2, Chloride 102, Carbon Dioxide 27.0, Anion Gap 6, BUN 13, Creatinine 0.85, Estim Creat Clear Calc 38.27, Est GFR (MDRD) Af Amer 82, Est GFR (MDRD) Non-Af 68, BUN/Creatinine Ratio 15.3, Glucose 113 H, Calcium 9.7, Magnesium 2.4, Troponin I High Sens 1781 H* 03/11/21 02:15: B-Natriuretic Peptide 243.3 H Rhythm Strip Rhythm Strip: Sinus Rhythm Rate: 88 Ectopy: PAC(s) EKG Initial EKG: Attestation: I personally reviewed and interpreted this EKG as follows: Prior EKG tracings: available for review EKG Rhythm Intrepretation: Sinus Rhythm (w PACs) Radiology Impression Chest X-Ray 03/11/21 02:27 IMPRESSION: Mild chronic interstitial lung disease. Electronically Signed: Peter Oh MD at 3:25 EST Tel , Service support , Assessment & Plan Assessment/Plan (1) Acute non-ST elevation myocardial infarction (NSTEMI): PLAN: 1. Non-STEMI * Patient is currently chest pain-free * Cardiology is been contacted through the emergency room and will be on consultation * Patient will be n.p.o. pending cardiology evaluation * Patient has been ordered a heparin drip, she has received ticagrelor and aspirin. * Anticipate cardiac catheterization * Continue her metoprolol tartrate 2. Hypothyroid * Continue with Synthroid 3. Squamous cell skin cancer * She had a lesion removed from her right ankle as well as above her left lip * Those areas look clean and intact * Patient was found to have 2 other lesions on her scalp removed. Advised the patient that if she is on ticagrelor or clopidogrel, that she likely would not be able to have those removed for another year. * She would need follow-up with her medical support specialist to see if there would be other nonsurgical means, such as cryotherapy. 4. VTE prophylaxis: Not indicated as she is currently anticoagulated. 5. Patient has been vaccinated for COVID-19. She has not yet received her booster. I told her that she could potentially receive the booster while she is here in the hospital but will await cardiology's evaluation before doing so. Charges/Coding Visit Charges Inpatient E&M: 37747 Init Hosp L3
[2021-03-11] MEDS: TICAGRELOR 90 MG TABLET 180 MG PO (03:46)
[2021-03-11] MEDS: HEPARIN/D5w 25,000 UNITS 25,000 UNITS/250 ML IV.SOLN. 12 UNITS IV (03:47)
[2021-03-11] MEDS: Heparin Injection (Vial) 5,000 UNIT/ML VIAL 6000 UNIT IV (03:47)
--- NOTE | 2021-03-11 04:23 | EKG12_ITS ---
Test Reason : CP ADMISSION Blood Pressure : / mmHG Vent. Rate : 078 BPM Atrial Rate : 078 BPM P-R Int : 170 ms QRS Dur : 086 ms QT Int : 396 ms P-R-T Axes : 069 -11 021 degrees QTc Int : 451 ms Normal sinus rhythm Normal ECG Confirmed by JAZMYN EPPS, ROCHELLE ([id number]), social media editor JONATHAN PARSONS ([id number]) on 03/12/2021 8:40:30 AM Referred By: DAYLIN Confirmed By:ROCHELLE ELDRIDGE MD
[2021-03-11 06:09] LABS: Cholesterol 221 mg/dL (200); High Density Lipoprotein 69 mg/dL; Triglycerides 40 mg/dL; Troponin-I HS 1825 pg/mL (3.0-54.0); Very Low Density Lipoprotein 8 mg/dL (5-40)
[2021-03-11] MEDS: Levothyroxine 50 MCG Tablet PO (06:23)
--- NOTE | 2021-03-11 07:14 | PCM.PN.HOSP ---
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 She had cardiac cath and found to have high risk PCI therefore pending for transfer to [facility]. She has history of melanoma status post excision. She had other 2 lesions supposed to get removal later this month. Objective Data Objective Data Vital Signs: Vital Signs Temp Pulse Resp BP Pulse Ox 98.7 F 78 12 166/78 H 98 03/11/21 06:23 03/11/21 06:23 03/11/21 06:23 03/11/21 06:23 03/11/21 06:23 Oxygen Delivery Method Room Air Weight: 180 lb 8.937 oz Body Mass Index (BMI) 33.0 Intake & Output: Intake and Output for Last 24 Hours 03/10/21 03/10/21 03/11/21 00:59 23:59 23:59 Intake Total 100 / 100 Balance 100 / 100 Lab / Micro Data Result Diagrams: 03/11/21 02:15 03/11/21 02:15 Labs: Laboratory Results - last 24 hr 03/11/21 02:15: WBC 7.8, RBC 4.50, Hgb 13.4, Hct 40.2, MCV 89.3, MCH 29.8, MCHC 33.3, RDW Std Deviation 42.9, RDW Coeff of Maddie 13.1, Plt Count 360, MPV 9.4, Immature Gran % (Auto) 0.300, Neut % (Auto) 60.2, Lymph % (Auto) 22.5, Ritchie % (Auto) 9.9, Eos % (Auto) 6.2 H, Baso % (Auto) 0.9, Absolute Neuts (auto) 4.7, Absolute Lymphs (auto) 1.74, Nucleated RBC % 0 03/11/21 02:15: Sodium 135 L, Potassium 4.2, Chloride 102, Carbon Dioxide 27.0, Anion Gap 6, BUN 13, Creatinine 0.85, Estim Creat Clear Calc 38.27, Est GFR (MDRD) Af Amer 82, Est GFR (MDRD) Non-Af 68, BUN/Creatinine Ratio 15.3, Glucose 113 H, Calcium 9.7, Magnesium 2.4, Troponin I High Sens 1781 H* 03/11/21 02:15: B-Natriuretic Peptide 243.3 H 03/11/21 03:12: PT 12.9, INR 1.0, APTT 32.0 03/11/21 05:05: Troponin I High Sens 1825 H*, Triglycerides 40, Cholesterol 221 H, LDL Cholesterol 144 H, VLDL Cholesterol 8, HDL Cholesterol 69 Radiography Diagnostic Testing: Radiology Impression Chest X-Ray 03/11/21 02:27 IMPRESSION: Mild chronic interstitial lung disease. Electronically Signed: Peter Oh MD at 3:25 EST Tel , Service support , Rhythm Strip Rhythm Strip: Sinus Rhythm Rate: 88 Ectopy: PAC(s) Physical Exam Narrative General: Mild groggy and lethargic after light sedation during cardiac cath. HEENT: Atraumatic, PERRLA, EOMI, Normocephalic Oral: No Gingival or Mucosal Lesions/ Ulcerations Neck: Supple, No JVD, Negative Carotid Bruits Lungs: Air entry diminished in bilateral lung bases. No crepitation/rhonchi Cardiovascular: Regular rate, Regular Rhythm, Normal S1, Normal S2, No murmurs Abdomen: Bowel Sounds Present, Soft, Non Tender, Non-Distended : No renal angle tenderness. No suprapubic tenderness. Extremities: No edema, Capillary Refill Less than 3 Seconds Skin: No rashes, No breakdown Musculoskeletal: No Tenderness to Palpation of Joints or Extremities Neurological: Cranial nerves II-XII grossly intact, DTR 2+/4 and Symmetrical, Neuro grossly intact Psych/Mental Status: Normal Affect, Appropriate. Assessment & Plan Assessment/Plan (1) Acute non-ST elevation myocardial infarction (NSTEMI): PLAN: 1. Non-STEMI: Patient returned from cardiac cath. Patient has history of triple-vessel CABG and cardiac stents in the past. Currently chest pain-free. Patient found to have high risk PCI therefore advised transfer to [facility]. The cardiac cath images were sent by services delivery driver. Waiting for callback. In the meantime, continue aspirin isosorbide mononitrate, metoprolol And Brilinta. Patient is on magnesium. Troponin was high about 3000. LDL 144, HDL 69. BNP 243. 2. Hypothyroid Continue with Synthroid. TSH tomorrow a.m. 3. Squamous cell skin cancer: Patient had melanoma removed from right ankle as his left lip. Follow-up with commercial intern 4.. VTE prophylaxis: Not indicated as she is currently anticoagulated. 5. Patient has been vaccinated for COVID-19. Patient will need booster shot of Covid vaccine. Clinical Impression(s) from Imaging Studies Chest X-Ray 03/11/21 02:27 IMPRESSION: Mild chronic interstitial lung disease. Electronically Signed: Peter Oh MD at 3:25 EST Tel , Service support , Laboratory Results 03/11/21 02:15: WBC 7.8, RBC 4.50, Hgb 13.4, Hct 40.2, MCV 89.3, MCH 29.8, MCHC 33.3, RDW Std Deviation 42.9, RDW Coeff of Maddie 13.1, Plt Count 360, MPV 9.4, Immature Gran % (Auto) 0.300, Neut % (Auto) 60.2, Lymph % (Auto) 22.5, Ritchie % (Auto) 9.9, Eos % (Auto) 6.2 H, Baso % (Auto) 0.9, Absolute Neuts (auto) 4.7, Absolute Lymphs (auto) 1.74, Nucleated RBC % 0 03/11/21 02:15: Sodium 135 L, Potassium 4.2, Chloride 102, Carbon Dioxide 27.0, Anion Gap 6, BUN 13, Creatinine 0.85, Estim Creat Clear Calc 38.27, Est GFR (MDRD) Af Amer 82, Est GFR (MDRD) Non-Af 68, BUN/Creatinine Ratio 15.3, Glucose 113 H, Calcium 9.7, Magnesium 2.4, Troponin I High Sens 1781 H* 03/11/21 02:15: B-Natriuretic Peptide 243.3 H 03/11/21 03:12: PT 12.9, INR 1.0, APTT 32.0 03/11/21 05:05: Troponin I High Sens 1825 H*, Triglycerides 40, Cholesterol 221 H, LDL Cholesterol 144 H, VLDL Cholesterol 8, HDL Cholesterol 69 03/11/21 08:22: Troponin I High Sens 2971 H* Active Medications Aspirin (Aspirin 81 Mg Tab.Chew) 81 mg PO DAILY@0800 [facility] Last Admin: 03/11/21 08:36 Dose: 81 mg Documented by: Cholecalciferol (Cholecalciferol (Vit D3) 25 Mcg Tablet (1,000 Units)) 25 mcg PO DAILY [facility] Last Admin: 03/11/21 12:05 Dose: 25 mcg Documented by: Cyanocobalamin (Cyanocobalamin 500 Mcg Tablet) 250 mcg PO DAILY@0800 [facility] Last Admin: 03/11/21 12:06 Dose: 250 mcg Documented by: Docusate Sodium (Docusate Sodium 100 Mg Capsule) 100 mg PO DAILY [facility] Last Admin: 03/11/21 12:05 Dose: 100 mg Documented by: Ezetimibe (Ezetimibe 10 Mg Tablet) 10 mg PO DAILY [facility] Famotidine (Famotidine 20 Mg Tablet) 20 mg PO BID [facility] Last Admin: 03/11/21 12:06 Dose: 20 mg Documented by: Furosemide (Furosemide 20 Mg Tablet) 20 mg PO DAILY [facility] Last Admin: 03/11/21 12:05 Dose: 20 mg Documented by: Heparin Sodium (Porcine) (Heparin Injection (Vial) 5,000 Unit/Ml Vial) 0 unit IV UD PRN; Protocol PRN Reason: dose adjustment Sodium Chloride () 1,000 mls @ 0 mls/hr IV .Q0M [facility] Last Infusion: 03/11/21 11:54 Dose: 75 mls/hr Documented by: Sodium Chloride () 1,000 mls @ 75 mls/hr IV .[id number] [facility] Last Admin: 03/11/21 14:07 Dose: Not Given Documented by: Isosorbide Mononitrate (Isosorbide Mononitrate 60 Mg Tablet) 60 mg PO DAILY [facility] Last Admin: 03/11/21 08:37 Dose: 60 mg Documented by: Levothyroxine Sodium (Levothyroxine 50 Mcg Tablet) 50 mcg PO DAILY@0600 [facility] Last Admin: 03/11/21 06:23 Dose: 50 mcg Documented by: Magnesium Chloride (Magnesium Chloride 64 Mg Delay Rel.Tablet) 128 mg PO DAILY [facility] Last Admin: 03/11/21 12:06 Dose: 128 mg Documented by: Metoprolol Tartrate (Metoprolol Tartrate 25 Mg Tablet) 12.5 mg PO BID [facility] Last Admin: 03/11/21 08:37 Dose: 12.5 mg Documented by: Morphine Sulfate (Morphine 2 Mg/Ml Syringe) 2 mg IV Q3H PRN PRN PRN Reason: Pain Score 6-10 Nitroglycerin (Nitroglycerin Sl (Ed/Img/Cath) 0.4 Mg Tablet) 0.4 mg SL Q5M PRN PRN Reason: Chest pain Last Admin: 03/11/21 02:27 Dose: 0.4 mg Documented by: Ondansetron HCl (Ondansetron 4 Mg/2 Ml Vial) 4 mg IV Q8H PRN PRN PRN Reason: NAUSEA/VOMITING Sodium Chloride (0.9% Saline Lock 10 Ml Syringe) 10 - 40 ml IV UD PRN PRN Reason: SALINE FLUSH Ticagrelor (Ticagrelor 90 Mg Tablet) 90 mg PO BID [facility] Last Admin: 03/11/21 08:36 Dose: Not Given Documented by: .
[2021-03-11] MEDS: 0.9% Normal Saline 1,000 ML 15 ML IV (08:10)
[2021-03-11] MEDS: Aspirin 81 MG TAB.CHEW PO (08:36)
[2021-03-11] MEDS: Metoprolol Tartrate 25 MG Tablet 12.5 MG PO ×2 (08:37→20:30)
[2021-03-11] MEDS: Isosorbide Mononitrate 60 MG Tablet PO (08:37)
--- NOTE | 2021-03-11 08:51 | CON.PCM.CA_ITS ---
Assessment & Plan Assessment/Plan (1) Acute non-ST elevation myocardial infarction (NSTEMI): PLAN: The patient presents with signs and symptoms and objective findings compatible with an acute on non-ST segment elevation AZ. At the present time she appears to be symptomatically stable. She will continue to be monitored. She will continue medical therapy with adjustment as deemed appropriate. She has been recommended for reevaluation with diagnostic cardiac catheterization. The procedure and risk were discussed with her and she was agreeable to this approach. (2) Atherosclerosis of coronary artery bypass graft without angina pectoris: PLAN: The patient does have history of extensive port lions vessel CAD. She has undergone PCI and CABG as previously noted. She will continue evaluation care as noted above. (3) History of coronary artery stent placement: PLAN: The patient has had PCI procedures performed in the past including of her SVG grafts. Based upon her current clinical course there would be concern of possible in- stent restenosis. She will continue to be monitored, continue medical therapy, and continue eval uation care as noted. (4) H/O coronary artery bypass surgery: PLAN: The patient has had a history of previous CABG. Based upon her cardiac catheterization from 2018 her graft status was noted and included her REID graft to be small and atretic. She subsequently underwent further evaluation of her SVG grafts to the diagonal branch/LCx system-sequential and subsequently to the RCA system. She will continue evaluation care as noted above. (5) Hyperlipidemia: QUALIFIERS: Hyperlipidemia type: pure hypercholesterolemia Qualified Code(s): E78.00 - Pure hypercholesterolemia, unspecified; E78.0 - Pure hypercholesterolemia PLAN: The patient will continue risk factor modification medical therapy. (6) Essential hypertension: PLAN: The patient's blood pressure can be followed and she will continue medical management. (7) Stenosis of right carotid artery: PLAN: The patient has a history of peripheral arterial occlusive disease as noted. She should continue to follow with peripheral vascular surgery as deemed appropriate. Addt'l Comments The patient's case has been previously discussed with the patient, Dr. Ortiz of the [facility] emergency department staff and Dr. Gee of the [facility] staff. This note was generated using a voice recognition system and there may be incorrect words, spelling or punctuation that were not noted when reviewing the office note prior to saving. HPI Consult Data Date of Consult: 03/11/21 HPI Narrative HPI Narrative: SCARLET GINDLESBERGER, is a 86 year old white female who present for cardiovascular consultation based upon concerns of symptoms of an acute coronary syndrome/acute non-ST segment elevation AZ superimposed upon a history of underlying CAD, PCI, CABG, hyperlipidemia, and hypertension as well as peripheral arterial occlusive disease/carotid artery disease/stenosis. The patient states she was in her usual state of health until this past Thursday. On that day she noted, with any exertional activity, bilateral upper extremity aching sensation and shortness of breath/dyspnea. She states that it appeared to improve with nitroglycerin sublingual. She had recurrent symptoms including chest discomfort through Thursday night into Thursday. She again used nitroglycerin sublingual with improvement of her symptoms. She had recurrent symptoms late Thursday night/early Thursday morning. Based upon her recurrent symptoms she elected to have her self brought to the emergency department for further evaluation. There she was evaluated and again received additional nitrate therapy which she states improved her symptoms. During this time she did not complain of orthopnea or PND or the development of peripheral pitting edema. She had no evidence of ongoing nausea, emesis, or diaphoresis. She did states she had belching during this time. She was evaluated noninvasively and had abnormal troponin I levels and an ECG that demonstrated sinus rhythm with the appearance of subtle ST segment abnormality. She was placed in the PCU for further evaluation care with medical therapy including the addition of topical nitrates. Since that time she states she has been resting comfortably. Her repeat troponin I level has increased. Her repeat ECG demonstrated sinus rhythm with no obvious ST segment changes. She was recommended for cardiovascular consultation and cardiac catheterization. 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 Home Medications aspirin 81 mg PO DAILY@0800 12/30/13 [History Last Taken 06/15/17] docusate sodium 100 mg PO DAILY 12/30/13 [History Last Taken 12/29/13] nitroglycerin 0.4 mg SUBLINGUAL Q5M PRN 12/30/13 [History Last Taken 12/29/13] omega-3 fatty acids-fish oil 100 mg PO BID 12/30/13 [History Last Taken 12/29/13] cholecalciferol (vitamin D3) 1,000 unit PO DAILY 01/11/14 [History Last Taken Unknown] cyanocobalamin (vitamin B-12) 250 mcg PO DAILY@0800 01/11/14 [History Last Taken Unknown] magnesium 500 mg PO DAILY 01/11/14 [History Last Taken Unknown] lecithin 1,200 mg PO DAILY 09/11/15 [History Last Taken Unknown] cinnamon bark 500 mg PO DAILY 08/16/16 [History Last Taken Unknown] coenzyme Q10 100 mg capsule 100 mg PO QDAY 06/02/17 [History Last Taken Unknown] red yeast rice 600 mg capsule 600 mg PO BID cap 06/02/17 [History Last Taken Unknown] flaxseed oil 1,000 mg capsule 1,000 mg PO DAILY 06/15/18 [History Last Taken Unknown] famotidine 20 mg tablet 20 mg PO BID #60 tab 07/25/19 [Rx Last Taken Unknown] furosemide 20 mg tablet 20 mg PO DAILY #90 tab 08/13/20 [Rx Last Taken Unknown] isosorbide mononitrate 60 mg tablet,extended release 24 hr 60 mg PO DAILY #90 tablet 08/27/20 [Rx Last Taken Unknown] metoprolol tartrate 25 mg tablet 12.5 mg PO BID #90 tab 10/02/20 [Rx Last Taken Unknown] levothyroxine [Synthroid] 50 mcg PO DAILY 03/11/21 [History Last Taken Unknown] Allergy/AdvReac Type Severity Reaction Status Date / Time codeine Allergy Mild Rash Verified 03/11/21 02:32 ibuprofen Allergy Mild Rash Verified 03/11/21 02:32 rosuvastatin calcium Allergy Unknown Verified 03/11/21 02:32 [From Crestor] acetaminophen AdvReac Severe Unknown Verified 03/11/21 02:32 [From Darvocet-N] propoxyphene AdvReac Severe Unknown Verified 03/11/21 02:32 [From Darvocet-N] meperidine HCl [From Demerol] AdvReac Mild Other Verified 03/11/21 02:32 propoxyphene HCl AdvReac Mild Other Verified 03/11/21 02:32 [From Darvon] lisinopril AdvReac cough Verified 03/11/21 02:32 Family History Father , age 72 of AZ Myocardial infarction total of 3 AZ's CAD (coronary artery disease) Mother , age 69 of embolus CAD (coronary artery disease) Brother CAD (coronary artery disease) S/P CABG x 4 Hypertension Myocardial infarction Hx of heart valve replacement with mechanical valve Brother Hypertension Diabetes CAD (coronary artery disease) Hyperlipidemia History of coronary artery bypass graft Cancer Other Family history of coronary artery disease Family history of hyperlipidemia Family history of hypertension Surgical History H/O arthroscopy of knee H/O cataract extraction H/O coronary artery bypass surgery (06/03/04) H/O rectocele repair H/O tubal ligation H/O: hysterectomy History of appendectomy History of carpal tunnel release of both wrists History of coronary artery stent placement (06/17/17) History of excision of lesion Hx of cholecystectomy Postsurgical aortocoronary bypass status Scalp surgery 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 Social History household members: [facility] current occupational status: retired pets and animals: Yes pets and animals: dog(s) Smoking Status: Never smoker second hand exposure: Yes (most of her life, not for the past 20+ years) alcohol intake: never substance use type: does not use caffeine: Yes Type: carbonated beverages Number of servings: 1 eating out: 1-3 times/week what type of physical activity do you participate in: none seatbelt use: always do you feel safe at home: Yes ROS Constitutional Constitutional: Reports as per HPI Eyes Eyes: Reports as per HPI ENT HEENT: Reports as per HPI Cardiovascular Cardiovascular: Reports chest pain, chest pain at rest, chest pain with activity, dyspnea and dyspnea on exertion Respiratory/Chest Respiratory/Chest: Reports dyspnea and dyspnea on exertion Gastrointestinal Gastrointestinal: Reports other Details: Belching Genitourinary Genitourinary: Reports as per HPI Musculoskeletal Musculoskeletal: Reports as per HPI Integumentary Integumentary: Reports as per HPI Neurologic Neurologic: Reports as per HPI Psychiatric Psychiatric: Reports as per HPI Physical Exam Const alert, oriented x3 and healthy appearing Orientation / Consciousness: awake HEENT normocephalic, head/scalp atraumatic and hearing grossly normal bilaterally Eyes PERRL, EOMs intact bilaterally and conjunctivae normal Neck full ROM, supple and no JVD Resp clear to auscultation bilaterally Cardio regular rate, regular rhythm, S1 normal heart sound and S2 normal heart sound GI normal to inspection, nondistended, normoactive bowel sounds Extremity no pedal edema Skin no rashes or lesions noted Neuro oriented x3, moves all extremities, no focal motor deficits and no sensory deficits noted Psych mental status grossly normal Risk Stratification Risk Stratification Applicable: Yes Age >/= 65: Yes >/= 3 CAD Risk Factors (HTN, HLD, DM, family hx of CAD, or current smoker): Yes Aspirin Use in the Past 7 Days: Yes Severe Angina (>/= episodes in 24 hours): Yes EKG ST Changes >/= 0.5mm: No Positive Cardiac Marker: Yes FRANCIE Risk Stratification Score: 5 FRANCIE % Risk: 25% Risk Objective Data Vital Signs: Vital Signs Temp Pulse Resp BP Pulse Ox 98.4 F 81 14 156/78 H 96 03/11/21 08:41 03/11/21 08:41 03/11/21 08:41 03/11/21 08:41 03/11/21 08:41 Oxygen Delivery Method Room Air Weight: 180 lb 8.937 oz Body Mass Index (BMI) 33.0 Intake & Output: Intake and Output for Last 24 Hours 03/10/21 03/10/21 03/11/21 00:59 23:59 23:59 Intake Total 152.6 / 152.6 Balance 152.6 / 152.6 Lab / Micro Data Result Diagrams: 03/11/21 02:15 03/11/21 02:15 Labs: Laboratory Results - last 24 hr 03/11/21 02:15: WBC 7.8, RBC 4.50, Hgb 13.4, Hct 40.2, MCV 89.3, MCH 29.8, MCHC 33.3, RDW Std Deviation 42.9, RDW Coeff of Maddie 13.1, Plt Count 360, MPV 9.4, Immature Gran % (Auto) 0.300, Neut % (Auto) 60.2, Lymph % (Auto) 22.5, [place] % (Auto) 9.9, Eos % (Auto) 6.2 H, Baso % (Auto) 0.9, Absolute Neuts (auto) 4.7, Absolute Lymphs (auto) 1.74, Nucleated RBC % 0 03/11/21 02:15: Sodium 135 L, Potassium 4.2, Chloride 102, Carbon Dioxide 27.0, Anion Gap 6, BUN 13, Creatinine 0.85, Estim Creat Clear Calc 38.27, Est GFR (MDRD) Af Amer 82, Est GFR (MDRD) Non-Af 68, BUN/Creatinine Ratio 15.3, Glucose 113 H, Calcium 9.7, Magnesium 2.4, Troponin I High Sens 1781 H* 03/11/21 02:15: B-Natriuretic Peptide 243.3 H 03/11/21 03:12: PT 12.9, INR 1.0, APTT 32.0 03/11/21 05:05: Troponin I High Sens 1825 H*, Triglycerides 40, Cholesterol 221 H, LDL Cholesterol 144 H, VLDL Cholesterol 8, HDL Cholesterol 69 Rhythm Strip Rhythm Strip: Sinus Rhythm Rate: 88 Ectopy: PAC(s) Cardiology Labs/Tests 03/11/21 02:15: WBC 7.8, RBC 4.50, Hgb 13.4, Hct 40.2, MCV 89.3, MCH 29.8, MCHC 33.3, Plt Count 360, MPV 9.4, Immature Gran % (Auto) 0.300, Neut % (Auto) 60.2, Lymph % (Auto) 22.5, [place] % (Auto) 9.9, Eos % (Auto) 6.2 H, Baso % (Auto) 0.9, Absolute Neuts (auto) 4.7, Nucleated RBC % 0 03/11/21 02:15: Sodium 135 L, Potassium 4.2, Chloride 102, Carbon Dioxide 27.0, Anion Gap 6, BUN 13, Creatinine 0.85, Est GFR (MDRD) Af Amer 82, Est GFR (MDRD) Non-Af 68, BUN/Creatinine Ratio 15.3, Glucose 113 H, Calcium 9.7, Magnesium 2.4 03/11/21 02:15: B-Natriuretic Peptide 243.3 H 03/11/21 03:12: PT 12.9, INR 1.0, APTT 32.0 03/11/21 05:05: Triglycerides 40, Cholesterol 221 H, LDL Cholesterol 144 H, VLDL Cholesterol 8, HDL Cholesterol 69 Rhythm: Sinus rhythm EKG: As noted above ECHO: 08-18-2016 Normal LV size Left ventricular systolic function is normal The estimated ejection fraction is 60% Mild MR Mild TR Pulmonary artery systolic pressure is 28 mmHg Stress Test: 05-25-2019 Stress Test Report Pharmacologic myocardial perfusion stress test. 84-year-old lady with a history of coronary artery disease status post previous angioplasty and stenting for preoperative evaluation. Medications: Aspirin, ticagrelor, metoprolol, isosorbide. Stress protocol: Resting EKG demonstrates normal sinus rhythm with a rate of 65 bpm normal intervals are noted resting blood pressures 120/82 mmHg. 0.4 mg of regadenoson was infused per usual protocol followed by Intravenous saline flush injection continuous EKG monitoring was performed. The patient maintained sinus rhythm throughout the recording. At rest there were no ST or T wave changes noted suggest abnormal flow reserve at peak infusion nonspecific ST-T wave changes were noted with no meet the criteria for ischemia. The resting blood pressures 120/82 with a final blood pressure 120/62 mmHg. Myocardial perfusion protocol. 11.6 mCi of technetium 99m sestamibi was injected at rest. 0.4 mg of regadenoson was infused per usual protocol peak infusion 31.7 mCi of technetium 99m sestamibi was injected stress images were obtained stress and rest images were reconstructed in comparing the short axis vertical long horizontal long axis. Gated images were also obtained. Perfusion SPECT analysis: Review of the stress images demonstrate normal uptake of tracer noted in all areas of the myocardium the resting images similar demonstrate normal uptake of tracer noted in all areas of myocardium. No areas of reversibility are noted s uggest ischemia no previous infarct is noted. Gated SPECT analysis: The gated ejection fraction is 79%. Conclusion: Normal pharmacologic myocardial perfusion stress test. Preserved ejection fraction. Cardiac Cath: 06-15-2017 CONCLUSIONS Severe disease involving the port lions coronary arteries as well as both saphenous vein grafts to the right coronary artery as well as the circumflex artery and d iagonal. Small left internal mammary artery to the left anterior descending artery RECOMMENDATIONS PCI versus redo bypass surgery DESCRIPTION OF PROCEDURE The patient arrived to the procedure lab. The risks and benefits of the procedure as well as a full description of our services here and current unavailability of surgical backup were fully explained to the patient and/or their significant other prior to the catheterization. The Timeout was completed, verifying the correct patient and procedure. The patient's procedural site was prepped and draped in the usual fashion. Local anesthetic was given subcutaneously to left radial region with Lidocaine 2%. Using a modified Seldinger technique, arterial access was obtained via the left radial artery, a 6Fr sheath was inserted. Left internal mammary artery graft to the LAD selective angiography was performed in multiple views using a 5 Fr. IM catheter. Left Coronary Artery selective angiography was performed in multiple views using a 5 Fr. JL3.5 catheter. Saphenous Vein graft to the RCA selective angiography was performed in multiple views using a 5 Fr. AR MOD catheter. Saphenous Vein graft to the OM 1 selective angiography was performed in multiple views using a 5 Fr. LCB catheter. Right Coronary Artery selective angiography was then performed in multiple views using a 5 Fr. 3DRC (Vargas) catheter. Left Ventriculography was performed in FORBES projection using a 5 Fr. Pigtail catheter. LV to AO pullback pressures were then recorded. Left internal mammary artery graft to the LAD selective angiography was performed in multiple views using a 4 Fr. IM catheter. CORONARY ANGIOGRAPHY DOMINANCE: Right Dominant LEFT HEART ASSESSMENT Left Ventricular Ejection Fraction: by LV Gram 53 % LEFT MAIN: 30 % Stenosis LEFT ANTERIOR DECENDING ARTERY: PROX LAD: Mild luminal irregularities less than 30% MID LAD: occluded with competetive flow CIRCUMFLEX ARTERY: PROX CIRC: Mild luminal irregularities, 80 % Stenosis MID CIRC: is occluded RIGHT CORONARY ARTERY: Severe prox disease the occluded GRAFTS: REID graft to the Mid LAD is patent REID graft to the LAD is a very small vessel Saphenous Vein graft to the RCA has a proximal lesion of 95 % Saphenous Vein graft to the RCA previously placed stent has an instent restenosis of 30 % Sequential graft to the diagonal and OM is occluded Saphenous Vein graft to the 1st Diagonal previously placed stent has an instent restenosis of 95 in stent % PCI: 06-15-2017 Successful aspiration thrombectomy and PTCA stent thrombosis/in-stent restenosis proximal SVG to OM using a 3.5 mm NC balloon PCI: 06-17-2017 Successful PTCA/SHERRY to the proximal SVG to the right posterior left ventricular branch using synergy 3.5 x 28 mm Successful SHERRY mid SVG to the right posterior left ventricular branch using synergy 3.5 x 32 mm No reflow treated with aspiration catheter, intracoronary adenosine and night pride CT Surgery: Per previous cardiovascular records available for review: 2005: [facility] REID to the LAD SVG to the diagonal branch sequential to the LCx SVG to the RCA Radiography Diagnostic Testing: Radiology Impression Chest X-Ray 03/11/21 02:27 IMPRESSION: Mild chronic interstitial lung disease. Electronically Signed: Peter Oh MD at 3:25 EST Tel , Service support ,
[2021-03-11 09:18] LABS: Troponin-I HS 2971 pg/mL (3.0-54.0)
--- NOTE | 2021-03-11 11:28 | ECHOCS_ITS ---
Reason For Study: s/p ND Procedure This was a 2D Doppler, Color Flow transthoracic echocardiogram. The study was technically difficult. Contrast injection was performed. Patient scanned supine due to heart cath 03/11/2021. Exam performed portable in patient room. Left Ventricle Normal LV size. Moderate concentric left ventricular hypertrophy. Left ventricular systolic function is normal. The estimated ejection fraction is 65 %. Diastolic function is indeterminate. No regional wall motion abnormalities noted. Right Ventricle Normal RV size. Normal systolic function. Atria The left atrium is mildly enlarged. Normal right atrium. No doppler evidence for ASD. Mitral Valve There is mild mitral annular calcification. Extension of the mitral annular calcification onto the base of the posterior mitral valve leaflet. Mild (1+) mitral valve insufficiency. Tricuspid Valve Normal tricuspid valve. Trivial tricuspid valve insufficiency. Unable to estimate RV systolic pressure/pulmonary artery pressure due to technically difficult study. Aortic Valve Trisinus/trileaflet aortic valve. Mild diffuse aortic valve thickening. Mild focal aortic valve calcification. Pulmonic Valve The pulmonic valve is not well visualized. Trivial pulmonic valve insufficiency. Great Vessels The aortic root is not well visualized. Pericardium/Pleural No pericardial effusion. Medication Diluted definity 2ml given slow IV push to enhance endocardial definition. MMode/2D Measurements & Calculations LVIDd: 4.2 cm IVSd: 1.4 cm LAV(MOD-bp): 43.7 ml LVIDs: 2.5 cm LVPWd: 1.7 cm FS: 41.8 % LAV(MOD-bp) Indexed: 23.9 ml/m2 LAV(MOD-sp2): 35.5 ml LAV(MOD-sp4): 49.8 ml LA A4 area: 18.8 cm2 Time Measurements MV dec time: 0.33 sec Doppler Measurements & Calculations MV E max manny: 70.9 cm/sec Lat Peak E' Manny: 6.3 cm/sec Med Peak E' Manny: 4.6 cm/sec MV A max manny: 108.4 cm/sec E/E' lat: 11.2 E/E' med: 15.3 MV E/A: 0.65 MV V2 max: 123.3 cm/sec MV P1/2t max manny: 95.3 cm/sec Ao V2 max: 108.7 cm/sec MV max P.1 mmHg MV P1/2t: 94.5 msec Ao max P.7 mmHg MV V2 mean: 65.2 cm/sec MV mean P.0 mmHg MV dec slope: 295.6 cm/sec2 MV V2 VTI: 33.7 cm MVA(P1/2t): 2.3 cm2 LV V1 max: 103.3 cm/sec PA V2 max: 123.3 cm/sec LV V1 max P.3 mmHg ECHO/Echo Complete W/ Contrast Interpretation Summary The study was technically difficult. Contrast injection was performed. Left ventricular systolic function is normal. The estimated ejection fraction is 65 %. Moderate concentric left ventricular hypertrophy. The left atrium is mildly enlarged. There is mild mitral annular calcification. Extension of the mitral annular calcification onto the base of the posterior mi tral valve leaflet. Mild (1+) mitral valve insufficiency. Trivial tricuspid valve insufficiency. Mild diffuse aortic valve thickening. Mild focal aortic valve calcification. Trivial pulmonic valve insufficiency. Unable to estimate RV systolic pressure/pulmonary artery pressure due to techni alka difficult study. Diastolic function is indeterminate. Ordering Physician: Deuce Hector Referring Physician: Sandra Wolf M.D. Performed By: Jason Villatoro RCS
--- NOTE | 2021-03-11 11:49 | CASEMGMT ---
RONI RODAS assessment: Face to Face with patient for initial transition planning/care coordination assessment. RONI RODAS introduced self and role at [facility], pt voices understanding and consents to assessment. Pt is sitting up in bed in no distress on room air and just returned from heart cath. Pt is A/Ox4 and answers all questions appropriately. Care providers, pharmacy, and demographics verified. Presentation: Pt c/o chest pressure and bilat arm achiness Admitting dx: NSTEMI PCP: Maryann Specialists: Becca, cardio; Jasbir, opth; Ivett, surgeon Preferred Pharmacy: [facility] Insurance: MCR A/B, [employer] Prescription Benefit: MCR D Living Will/HPOA: Pt has LW/HPOA and is aware that it's not on file at [facility]. Pt states her children, Macario/Jyotsna, are HPOA. LNOK: Macario Merchant, son; Jyotsna Redding, daughter Living Arrangements: Pt lives with her dog in a condo with steps only to basement and states no concerns at home. Pt is independent with ADL's. Transportation: Pt drives self and states no transportation concerns. DME/HHC: Pt has the following DME: cane, walker, and rollator. Pt states no need for any further DME. Pt states no hx of SNF but has had HHC in the past. Pt states has also had cardiac rehab. Pt states no concerns with going home at time of discharge. Pt is retired. Pt states does not smoke cigarettes or drink ETOH. Pt voices no further concerns/needs. CM to follow for any further discharge planning/needs. Advised pt to ask for CM if any further questions/concerns/needs arise, voices understanding. Pt Goal: Home Plan: Home s/p eval at tertiary care facility. [place] RONI RODAS
[2021-03-11] MEDS: Cholecalciferol (VIT D3) 25 MCG TABLET (1,000 UNITS) PO (12:05)
[2021-03-11] MEDS: Furosemide 20 MG Tablet PO (12:05)
[2021-03-11] MEDS: Docusate Sodium 100 MG Capsule PO (12:05)
[2021-03-11] MEDS: Magnesium Chloride 64 MG Delay Rel.Tablet 128 MG PO (12:06)
[2021-03-11] MEDS: Cyanocobalamin 500 MCG Tablet 250 MCG PO (12:06)
[2021-03-11] MEDS: Famotidine 20 MG Tablet PO ×2 (12:06→20:29)
[2021-03-11] MEDS: 0.9% Normal Saline 1,000 ML 75 ML IV (18:35)
--- NOTE | 2021-03-11 19:04 | CL.D_ITS ---
Patient Name: SCARLET DELACRUZ Study Date: 03/11/2021 Performing: Deuce Hector MD Ht: 62 inches 157 cm : 1935 Wt: 181 lbs 82 kg Age: 86 Gender: female BSA: 1.83 PROCEDURE(S) PERFORMED TY96-SGO/COR/LV/CABG CLINICAL PROFILE AND INDICATIONS Indications: ACS <= 24 hrs, Suspected CAD Heart Failure: None Stress/Imaging Stress/Image Study Performed: No Angina Classification Anginal Classification w/in 2 Weeks: CCS IV CAD Presentations: Unstable angina. Non-STEMI. CONCLUSIONS Elevated Left Ventricular End Diastolic Pressure Normal LV size, wall motion,and systolic function LVEF: by LV gram 65 % [place] Multivessel CAD REID to LAD: previously documented as small / atretic and not reevaluated during this procedure SVG to DX1 patent with sequential portion to OM1 patent SVG to RPDA: patent: proximal eccentric 95 % stenosis RECOMMENDATIONS Risk factor modification Medical therapy Case discussed / reviewed with Dr. Ibrahim of Interventional Cardiology: Recommendation for transfer to a tertiary care center for high risk PCI procedure. Case discussed / reviewed with Dr. Buchanan of Interventional Cardiology at [facility]. He agreed to accept the patient in transfer for further evaluation / care. DESCRIPTION OF PROCEDURE The patient arrived to the procedure lab. The risks and benefits of the procedure as well as a full d escription of our services here and current unavailability of surgical backup were fully explained to the patient and/or their significant other prior to the catheterization. The Timeout was completed, verifying the correct patient and procedure. The patient's procedural site was prepped and draped in the usual fashion. Local anesthetic was given subcutaneously to right radial region with Lidocaine 2% . Using a modified Seldinger technique, arterial access was obtained via the right radial artery, a 6 Fr sheath was inserted. Saphenous Vein graft to the RCA selective angiography was performed in multi ple views using a 5 Fr. 4.0 Thompson catheter. Right Coronary Artery selective angiography was then perf ormed in multiple views using a 5 Fr. JR 4 catheter. Saphenous Vein graft to the Circumflex and seque ntially to Diagonal branch selective angiography was performed in multiple views using a 5 Fr. JR 4 catheter. Left Coronary Artery selective angiography was performed in multiple views using a 5 Fr. JL3.5 catheter. Left Ventriculography was performed in FORBES projection using a 5 Fr. Pigtail ca theter. LV to AO pullback pressures were then recorded.The arterial sheath was pulled and a TR Band w as applied for hemostasis CORONARY ANGIOGRAPHY DOMINANCE: Right Dominant LEFT HEART ASSESSMENT Left Ventricular Ejection Fraction: by LV Gram 65 % Normal LV wall motion Elevated Left Ventricular End Diastolic Pressure LVEDP: 15 mmHg LEFT MAIN: Mild calcification, proximal: hazy: 75 % Stenosis LEFT ANTERIOR DESCENDING ARTERY: MID LAD: s/p SP: hazy: 75 % Stenosis, s/p DX1: small caliber vessel: occluded CIRCUMFLEX ARTERY: PROX CIRC: Mild calcification, 75 % Stenosis OM 1: Mid - small caliber vessel: subtotally occluded with the remainder of the vessel filling from t he SVG sequential graft to DX1 to OM1 RAMUS: is occluded RIGHT CORONARY ARTERY: PROX RCA: is occluded RT PLV: proximal: lon % Stenosis, mid: eccentric: 85 % Stenosis GRAFTS: REID graft to the Mid LAD previously documented as small / atretic and not reevaluated during this p rocedure Saphenous Vein graft to the 1st Diagonal is patent with the sequential portion to OM1 being patent wi th a patent stent in the proximal portion of the SVG graft with instent restenosis with mild luminal irregularities Saphenous Vein graft to the RPDA previously placed stent has an instent restenosis of proximal: eccen tric: hazy: 95 % 1st Obtuse Marginal: Mid - small caliber vessel: subtotally occluded with the remainder of the vessel filling from the SVG sequential graft to DX1 to OM1 AORTIC ROOT: Angiographically normal COMPLICATIONS No Complications PROCEDURE MEDICATIONS Fentanyl 50 mcg IV Versed 1 mg IV Fentanyl 50 mcg IV Versed 1 mg IV Oxygen: 2 L/min via nasal cannula Heparin given IA 03/11/2021 10:30:28 Nitro 100 mcg IC 03/11/2021 10:48:20 Verapamil 2.5mg, Ntg 100mcgs, 3000 units of Heparin given IA 03/11/2021 10:30:28 SUMMARY OF HEMODYNAMIC DATA Time AIR REST ECG 10:31:32 AO 92/52 (69) SA 10:35:31 AO 121/59 (81) 10:45:19 LV 115/-3, 16 11:06:09 LV 115/-2, 15 11:06:16 LV 110/0, 15 11:07:13 LVp 112/0, 10 11:07:19 AO 114/46 (72) 11:07:24 AOp 116/46 (73) 11:07:24 Signed By Deuce Hector MD On 03/11/2021 19:03:12 Decue Hector MD
[2021-03-11] MEDS: TICAGRELOR 90 MG TABLET PO (20:30)
[2021-03-11] MEDS: DiphenhydrAMINE 25 MG Capsule PO (22:29)
[2021-03-12] VITALS (13 sets, daily range): BP systolic 125–181; BP diastolic 56–83; PULSE 63–83; RESP 12–18; TEMP 36.6–36.8; O2SAT 96–100
[2021-03-12 00:51] LABS: Partial Thromboplast Time 134.9 Seconds (24.1-36.2)
[2021-03-12] MEDS: Levothyroxine 50 MCG Tablet PO (05:19)
[2021-03-12 07:10] LABS: Absolute Lymphocyte Count 1.38 X10^3/uL (0.83-4.51); Absolute Neutrophil Count 4.5 X10^3/uL (2.0-7.7); Basophil# 0.06 X10^3/uL; Basophil% 0.8 % (0-1); Eosinophil# 0.53 X10^3/uL; Eosinophils% 7.4 % (0-5); Hematocrit 35.4 % (37-47); Hemoglobin 11.8 g/dL (12.0-15.0); Lymphocyte # 1.38 X10^3/ul (0.83-4.51); Lymphocyte % 19.2 % (19-41); Mean Corp Hgb Conc 33.3 g/dL (32-36); Mean Corpuscular Volume 90.1 fL (81-99); Monocyte# 0.74 X10^3/uL; Monocyte% 10.3 % (0-10); NRBC Flagged by Analyzer 0 % (0-5); Neutrophil # 4.45 X10^3/uL (2.7-7.7); Platelet Count 328 K/mm3 (150-450); RBC Distribution Width CV 13.3 % (11.6-14.6); RBC Distribution Width SD 43.8 fl (35.1-43.9); Red Blood Count 3.93 M/mm3 (4.2-5.4); White Blood Count 7.2 K/mm3 (4.4-11.0)
[2021-03-12 08:02] LABS: Anion Gap 7 (5-15); BUN 11 mg/dL (7-18); BUN/Creat Ratio 14.9 RATIO (10-20); Calcium,Total 8.6 mg/dL (8.5-10.1); Chloride 108 mmol/L (98-107); Creatinine, Serum 0.74 mg/dL (0.55-1.02); EST Glomerular Filtration Rate 79 mL/min (>60); Est Glom Filt Rate - Afr Amer 96 mL/min (>60); Estimated Creatinine Clearance 32.53 ml/min; Glucose 85 mg/dL (74-106); Potassium 3.7 mmol/L (3.5-5.1); Sodium Level 139 mmol/L (136-145); Thyroid Stim Hormone (TSH) 1.17 uIU/mL (0.358-3.74)
[2021-03-12 08:07] LABS: Partial Thromboplast Time 80.1 Seconds (24.1-36.2)
[2021-03-12] MEDS: Docusate Sodium 100 MG Capsule PO (08:35)
[2021-03-12] MEDS: TICAGRELOR 90 MG TABLET PO ×2 (08:36→20:25)
[2021-03-12] MEDS: Cholecalciferol (VIT D3) 25 MCG TABLET (1,000 UNITS) PO (08:36)
[2021-03-12] MEDS: Famotidine 20 MG Tablet PO ×2 (08:36→20:26)
[2021-03-12] MEDS: Magnesium Chloride 64 MG Delay Rel.Tablet 128 MG PO (08:36)
[2021-03-12] MEDS: Furosemide 20 MG Tablet PO (08:36)
[2021-03-12] MEDS: Aspirin 81 MG TAB.CHEW PO (08:36)
[2021-03-12] MEDS: Isosorbide Mononitrate 60 MG Tablet PO (08:37)
[2021-03-12] MEDS: Cyanocobalamin 500 MCG Tablet 250 MCG PO (08:37)
[2021-03-12] MEDS: Ezetimibe 10 MG Tablet PO (08:38)
[2021-03-12] MEDS: Metoprolol Tartrate 25 MG Tablet 12.5 MG PO ×2 (08:38→20:25)
--- NOTE | 2021-03-12 14:35 | PN.CARD_ITS ---
Subjective Subjective The patient states she has been resting comfortably. She is waiting for transfer to [facility] for high risk PCI procedure. Objective Data Vital Signs: Vital Signs Temp Pulse Resp BP Pulse Ox 98.2 F 83 16 125/70 H 100 03/12/21 14:00 03/12/21 14:00 03/12/21 14:00 03/12/21 14:00 03/12/21 14:00 Oxygen Flow Rate (L/min) 2 Oxygen Delivery Method Room Air Weight: 180 lb 8.937 oz Body Mass Index (BMI) 33.0 Intake & Output: Intake and Output for Last 24 Hours 03/10/21 03/11/21 03/12/21 23:59 23:59 23:59 Intake Total 1184.85 / 1184.85 1368.2 / 1368.2 Output Total 575 / 575 Balance 609.85 / 609.85 1368.2 / 1368.2 Lab / Micro Data Result Diagrams: 03/12/21 07:00 03/12/21 07:00 Labs: Laboratory Results - last 24 hr 03/12/21 00:10: APTT 134.9 H* 03/12/21 07:00: WBC 7.2, RBC 3.93 L, Hgb 11.8 L, Hct 35.4 L, MCV 90.1, MCH 30.0, MCHC 33.3, RDW Std Deviation 43.8, RDW Coeff of Maddie 13.3, Plt Count 328, MPV 10.0, Immature Gran % (Auto) 0.300, Neut % (Auto) 62.0, Lymph % (Auto) 19.2, [place] % (Auto) 10.3 H, Eos % (Auto) 7.4 H, Baso % (Auto) 0.8, Absolute Neuts (auto) 4.5, Absolute Lymphs (auto) 1.38, Nucleated RBC % 0 03/12/21 07:00: Sodium 139, Potassium 3.7, Chloride 108 H, Carbon Dioxide 24.0, Anion Gap 7, BUN 11, Creatinine 0.74, Estim Creat Clear Calc 32.53, Est GFR (MDRD) Af Amer 96, Est GFR (MDRD) Non-Af 79, BUN/Creatinine Ratio 14.9, Glucose 85, Calcium 8.6, TSH 1.17 03/12/21 07:00: APTT 80.1 H Micro: Microbiology 03/12/21 10:30 Nasal Secretion SARS-CoV-2 Antigen (Rapid) - Final Rhythm Strip Rhythm Strip: Sinus Rhythm Rate: 88 Ectopy: PAC(s) Cardiology Labs/Tests 03/12/21 00:10: APTT 134.9 H* 03/12/21 07:00: WBC 7.2, RBC 3.93 L, Hgb 11.8 L, Hct 35.4 L, MCV 90.1, MCH 30.0, MCHC 33.3, Plt Count 328, MPV 10.0, Immature Gran % (Auto) 0.300, Neut % (Auto) 62.0, Lymph % (Auto) 19.2, [place] % (Auto) 10.3 H, Eos % (Auto) 7.4 H, Baso % (Auto) 0.8, Absolute Neuts (auto) 4.5, Nucleated RBC % 0 03/12/21 07:00: Sodium 139, Potassium 3.7, Chloride 108 H, Carbon Dioxide 24.0, Anion Gap 7, BUN 11, Creatinine 0.74, Est GFR (MDRD) Af Amer 96, Est GFR (MDRD) Non-Af 79, BUN/Creatinine Ratio 14.9, Glucose 85, Calcium 8.6 03/12/21 07:00: APTT 80.1 H Rhythm: Sinus rhythm Radiography Diagnostic Testing: Radiology Impression Echocardiogram 03/11/21 11:28 Interpretation Summary The study was technically difficult. Contrast injection was performed. Left ventricular systolic function is normal. The estimated ejection fraction is 65 %. Moderate concentric left ventricular hypertrophy. The left atrium is mildly enlarged. There is mild mitral annular calcification. Extension of the mitral annular calcification onto the base of the posterior mitral valve leaflet. Mild (1+) mitral valve insufficiency. Trivial tricuspid valve insufficiency. Mild diffuse aortic valve thickening. Mild focal aortic valve calcification. Trivial pulmonic valve insufficiency. Unable to estimate RV systolic pressure/pulmonary artery pressure due to technically difficult study. Diastolic function is indeterminate. Ordering Physician: Deuce Hector Referring Physician: Sandra Wolf M.D. Performed By: Jason Villatoro RCS Physical Exam Const alert, oriented x3 and healthy appearing Orientation / Consciousness: awake HEENT normocephalic, head/scalp atraumatic and hearing grossly normal bilaterally Eyes PERRL, EOMs intact bilaterally and conjunctivae normal Neck full ROM, supple and no JVD Resp clear to auscultation bilaterally Cardio regular rate, regular rhythm, S1 normal heart sound and S2 normal heart sound Peripheral Pulses: radial pulses present right (No obvious bruit or hematoma) 2+ GI normal to inspection, nondistended, normoactive bowel sounds Extremity no pedal edema Skin no rashes or lesions noted Neuro oriented x3, moves all extremities, no focal motor deficits and no sensory deficits noted Psych mental status grossly normal Assessment & Plan Assessment/Plan (1) Acute non-ST elevation myocardial infarction (NSTEMI): PLAN: The patient presents with signs and symptoms and objective findings compatible with an acute on non-ST segment elevation GA. At the present time she appears to be symptomatically stable. She will continue to be monitored. She will continue medical therapy with adjustment as deemed appropriate. She has undergone diagnostic cardiac catheterization. At the present time she is pending transfer to [facility] for high risk PCI procedure. (2) Atherosclerosis of coronary artery bypass graft without angina pectoris: PLAN: The patient does have history of extensive [place] vessel CAD. She has undergone PCI and CABG as previously noted. She will continue evaluation care as noted above. (3) History of coronary artery stent placement: PLAN: The patient has had PCI procedures performed in the past including of her SVG grafts. Based upon her current clinical course there would be concern of possible in-s tent restenosis. She will continue to be monitored, continue medical therapy, and continue evaluation care as noted. (4) H/O coronary artery bypass surgery: PLAN: The patient has had a history of previous CABG. Based upon her cardiac catheterization from 2017 her graft status was noted and included her REID graft to be small and atretic. She subsequently underwent further evaluation of her SVG grafts to the diagonal branch/LCx system-sequential and subsequently to the RCA system. She will continue evaluation care as noted above. (5) Hyperlipidemia: QUALIFIERS: Hyperlipidemia type: pure hypercholesterolemia Qualified Code(s): E78.00 - Pure hypercholesterolemia, unspecified; E78.0 - Pure hypercholesterolemia PLAN: The patient will continue risk factor modification medical therapy. (6) Essential hypertension: PLAN: The patient's blood pressure can be followed and she will continue medical management. (7) Stenosis of right carotid artery: PLAN: The patient has a history of peripheral arterial occlusive disease as noted. She should continue to follow with peripheral vascular surgery as deemed appropriate. Addt'l Comments The patient's case had been previously discussed and reviewed with the patient, Dr. Gee, and Dr. Buchanan of [facility] interventional cardiology who agreed to accept the patient in transfer for high risk PCI procedure. This note was generated using a voice recognition system and there may be incorrect words, spelling or punctuation that were not noted when reviewing the office note prior to saving.
[2021-03-12 15:07] LABS: Partial Thromboplast Time 80.1 Seconds (24.1-36.2)
--- NOTE | 2021-03-12 16:29 | PCM.PN.HOSP ---
Subjective Subjective Patient is pending transfer to [facility]. They do not have beds and does not anticipate transfer today. Objective Data Objective Data Vital Signs: Vital Signs Temp Pulse Resp BP Pulse Ox 98.2 F 82 16 125/70 H 100 03/12/21 14:00 03/12/21 15:00 03/12/21 14:00 03/12/21 14:00 03/12/21 14:00 Oxygen Flow Rate (L/min) 2 Oxygen Delivery Method Room Air Weight: 180 lb 8.937 oz Body Mass Index (BMI) 33.0 Intake & Output: Intake and Output for Last 24 Hours 03/10/21 03/11/21 03/12/21 23:59 23:59 23:59 Intake Total 1184.85 / 1184.85 1425.53 / 1425.53 Output Total 575 / 575 Balance 609.85 / 609.85 1425.53 / 1425.53 Lab / Micro Data Result Diagrams: 03/12/21 07:00 03/12/21 07:00 Labs: Laboratory Results - last 24 hr 03/12/21 00:10: APTT 134.9 H* 03/12/21 07:00: WBC 7.2, RBC 3.93 L, Hgb 11.8 L, Hct 35.4 L, MCV 90.1, MCH 30.0, MCHC 33.3, RDW Std Deviation 43.8, RDW Coeff of Maddie 13.3, Plt Count 328, MPV 10.0, Immature Gran % (Auto) 0.300, Neut % (Auto) 62.0, Lymph % (Auto) 19.2, [place] % (Auto) 10.3 H, Eos % (Auto) 7.4 H, Baso % (Auto) 0.8, Absolute Neuts (auto) 4.5, Absolute Lymphs (auto) 1.38, Nucleated RBC % 0 03/12/21 07:00: Sodium 139, Potassium 3.7, Chloride 108 H, Carbon Dioxide 24.0, Anion Gap 7, BUN 11, Creatinine 0.74, Estim Creat Clear Calc 32.53, Est GFR (MDRD) Af Amer 96, Est GFR (MDRD) Non-Af 79, BUN/Creatinine Ratio 14.9, Glucose 85, Calcium 8.6, TSH 1.17 03/12/21 07:00: APTT 80.1 H 03/12/21 14:44: APTT 80.1 H Micro: Microbiology 03/12/21 10:30 Nasal Secretion SARS-CoV-2 Antigen (Rapid) - Final Rhythm Strip Rhythm Strip: Sinus Rhythm Rate: 88 Ectopy: PAC(s) Physical Exam Narrative No chest pain or shortness of breath. General: Alert, awake and oriented x3. HEENT: Atraumatic, PERRLA, EOMI, Normocephalic Oral: No Gingival or Mucosal Lesions/ Ulcerations Neck: Supple, No JVD, Negative Carotid Bruits Lungs: Air entry diminished in bilateral lung bases. No crepitation/rhonchi Cardiovascular: Regular rate, Regular Rhythm, Normal S1, Normal S2, No murmurs Abdomen: Bowel Sounds Present, Soft, Non Tender, Non-Distended : No renal angle tenderness. No suprapubic tenderness. Extremities: No edema, Capillary Refill Less than 3 Seconds Skin: No rashes, No breakdown Musculoskeletal: No Tenderness to Palpation of Joints or Extremities Neurological: Cranial nerves II-XII grossly intact, DTR 2+/4 and Symmetrical, Neuro grossly intact Psych/Mental Status: Normal Affect, Appropriate. Assessment & Plan Assessment/Plan (1) Acute non-ST elevation myocardial infarction (NSTEMI): PLAN: 1. Non-STEMI: Patient returned from cardiac cath. Patient has history of triple-vessel CABG and cardiac stents in the past. Currently chest pain-free. Patient found to have high risk PCI therefore advised transfer to [facility]. The cardiac cath images were sent by veneer measurer. Waiting for callback. In the meantime, continue aspirin isosorbide mononitrate, metoprolol And Brilinta. Patient is on magnesium. Troponin was high about 3000. LDL 144, HDL 69. BNP 243. 03/12: Waiting for bed to transfer to [facility]. Does not anticipate to transfer today. Continue medical treatment as mentioned above. She is allergic to rosuvastatin/statin therefore on Zetia. LDL is not at goal therefore might try for evolocumab. Patient on a heparin drip. I discussed with clerical administrative assistant Dr. Ibrahim and she has multiple areas of restenosis in distal RCA and proximal RCA occluded with calcified plaque. PLV proximal long 85%, mid eccentric 85% stenosis. Her circulation is mainly dependent on the as left side of circulation is small/atretic. 2. Hypothyroid Continue with Synthroid. 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 Follow-up with passenger train braker 4.. VTE prophylaxis: Not indicated as she is currently anticoagulated. 5. Patient has been vaccinated for COVID-19. Patient will need booster shot of Covid vaccine. Clinical Impression(s) from Imaging Studies Chest X-Ray 03/11/21 02:27 IMPRESSION: Mild chronic interstitial lung disease. Microbiology Past 72 Hours 03/12/21 10:30 Nasal Secretion SARS-CoV-2 Antigen (Rapid) - Final Laboratory Results 03/12/21 00:10: APTT 134.9 H* 03/12/21 07:00: WBC 7.2, RBC 3.93 L, Hgb 11.8 L, Hct 35.4 L, MCV 90.1, MCH 30.0, MCHC 33.3, RDW Std Deviation 43.8, RDW Coeff of Maddie 13.3, Plt Count 328, MPV 10.0, Immature Gran % (Auto) 0.300, Neut % (Auto) 62.0, Lymph % (Auto) 19.2, [place] % (Auto) 10.3 H, Eos % (Auto) 7.4 H, Baso % (Auto) 0.8, Absolute Neuts (auto) 4.5, Absolute Lymphs (auto) 1.38, Nucleated RBC % 0 03/12/21 07:00: Sodium 139, Potassium 3.7, Chloride 108 H, Carbon Dioxide 24.0, Anion Gap 7, BUN 11, Creatinine 0.74, Estim Creat Clear Calc 32.53, Est GFR (MDRD) Af Amer 96, Est GFR (MDRD) Non-Af 79, BUN/Creatinine Ratio 14.9, Glucose 85, Calcium 8.6, TSH 1.17 03/12/21 07:00: APTT 80.1 H 03/12/21 14:44: APTT 80.1 H Charges/Coding Visit Charges Inpatient E&M: 55076 Subs Hosp L2
[2021-03-12] MEDS: HEPARIN/D5w 25,000 UNITS 25,000 UNITS/250 ML IV.SOLN. 7 UNITS IV (17:26)
--- NOTE | 2021-03-12 18:59 | NURSING ---
report given to Chris at [facility], phone number [phone]
--- NOTE | 2021-03-12 19:13 | DS.PCM_ITS ---
Providers Date of Admission: 03/11/21 Primary Care Physician: Dr. Sandra Wolf MD Consultations 03/11/21 04:23 Consult: Cardiology Routine Consulting Provider: Deuce Hector Reason for Consult: NSTEMI EMERGENT Consult: No MD Notified: Yes Date Notified: 03/11/21 Time Notified: 03:43 Method of Notification: Verbal Reason For Visit: NSTEMI Diagnosis Discharge Diagnosis (1) Acute non-ST elevation myocardial infarction (NSTEMI): Status: Acute Code(s): I21.4 - Non-ST elevation (NSTEMI) myocardial infarction Medications at Discharge Home Medications aspirin 81 mg PO DAILY@0800 12/30/13 docusate sodium 100 mg PO DAILY 12/30/13 omega-3 fatty acids-fish oil 100 mg PO BID 12/30/13 cholecalciferol (vitamin D3) 1,000 unit PO DAILY 01/11/14 cyanocobalamin (vitamin B-12) 250 mcg PO DAILY@0800 01/11/14 magnesium 500 mg PO DAILY 01/11/14 lecithin 1,200 mg PO DAILY 09/11/15 cinnamon bark 500 mg PO DAILY 08/16/16 coenzyme Q10 100 mg capsule 100 mg PO QDAY 06/02/17 red yeast rice 600 mg capsule 600 mg PO BID cap 06/02/17 flaxseed oil 1,000 mg capsule 1,000 mg PO DAILY 06/15/18 famotidine 20 mg tablet 20 mg PO BID #60 tab 07/25/19 furosemide 20 mg tablet 20 mg PO DAILY #90 tab 08/13/20 isosorbide mononitrate 60 mg tablet,extended release 24 hr 60 mg PO DAILY #90 tablet 08/27/20 metoprolol tartrate 25 mg tablet 12.5 mg PO BID #90 tab 10/02/20 levothyroxine [Synthroid] 50 mcg PO MOWEFR 03/11/21 levothyroxine [Synthroid] 25 mcg PO TUTHSA 03/12/21 nitroglycerin 0.4 mg sublingual tablet 0.4 mg SUBLINGUAL Q5-15M PRN #25 tab 03/18/21 Hospital Course Summary of Care Provided Hospital Course: This is 86-year-old female was admitted with chest pain, midste rnal with radiation to back and arm. The patient was admitted in PCU. She was anticoagulated with heparin and ticagrelor, had nitro sublingual along with other cardiac medications as mentioned below. 1. Non-STEMI: Patient had cardiac cath. Patient has history of triple- vessel CABG and cardiac stents in the past. The patient was chest pain-free. Patient found to have high risk PCI therefore advised transfer to [facility]. Patient was treated with aspirin isosorbide mononitrate, metoprolol And Brilinta. Patient is on magnesium. Troponin was high about 3000. LDL 144, HDL 69. BNP 243. She is allergic to rosuvastatin/statin therefore on Zetia. LDL is not at goal therefore might try for evolocumab. Patient on a heparin drip. I discussed with front counter clerk Dr. Ibrahim and she has multiple areas of restenosis in distal RCA and proximal RCA occluded with calcified plaque. PLV proximal long 85%, mid eccentric 85% stenosis. Her circulation is mainly d ependent on the as left side of circulation is small/atretic. 2. Hypothyroid Continue with Synthroid. 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 Follow-up with sql ssrs ssis developer 4.. VTE prophylaxis: Not indicated as she is currently anticoagulated. 5. Patient has been vaccinated for COVID-19. Patient got the bed in [facility] and therefore Physical Exam Narrative Please see progress note of the same day for the physical exam findings. Patient was transferred to [facility], waiting for bed. Weight / BMI Weight Weight: 180 lb 8.937 oz Body Mass Index (BMI) 33.0 ABG / Lab / Microbiology Data Result Diagrams: 03/12/21 07:00 03/12/21 07:00 Microbiology: Microbiology 03/12/21 10:30 Nasal Secretion SARS-CoV-2 Antigen (Rapid) - Final Meaningful Use Info Meaningful Use Diagnoses (Choose all that apply): AMI AMI/Post PCI/Angioplasty Aspirin given w/in 24hrs of arrival?: Yes ASA at discharge?: Yes Statins at discharge?: No Reason statins not ordered:: Allergy Jasvir/ARB at discharge?: No Reason Jasvir/ARB not ordered:: Allergy Beta Al at discharge?: Yes Done w/ Acute MT measure.: Yes Discharge Plan Admission Admit Date/Time: 03/11/21 03:38 Attending Provider: Bennie Gee Primary Care Provider: Sandra Wolf Consulting Providers: Deuce Hector Discharge Orders/Prescriptions Prescriptions: No Action red yeast rice 600 mg capsule 600 mg PO BID RF: 0 coenzyme Q10 [CoQ-10] 100 mg capsule 100 mg PO QDAY RF: 0 flaxseed oil [[place]-3 Flaxseed Oil] 1,000 mg capsule 1,000 mg PO DAILY RF: 0 aspirin 81 MG tablet,chewable 81 mg PO DAILY@0800 RF: 0 docusate sodium 100 MG capsule 100 mg PO DAILY RF: 0 omega-3 fatty acids-fish oil 1 EACH capsule,delayed release(DR/EC) 100 mg PO BID RF: 0 magnesium 250 MG tablet 500 mg PO DAILY RF: 0 cyanocobalamin (vitamin B-12) 500 MCG tablet 250 mcg PO DAILY@0800 RF: 0 cholecalciferol (vitamin D3) 1,000 UNIT capsule 1,000 unit PO DAILY RF: 0 lecithin 1,200 MG capsule 1,200 mg PO DAILY RF: 0 cinnamon bark 500 MG capsule 500 mg PO DAILY RF: 0 levothyroxine [Synthroid] 50 mcg Tablet 50 mcg PO MOWEFR RF: 0 levothyroxine [Synthroid] 25 mcg Tablet 25 mcg PO TUTHSA RF: 0 famotidine [Pepcid AC] 20 mg tablet 20 mg PO BID Qty: 60 RF: 2 furosemide 20 mg tablet 20 mg PO DAILY Qty: 90 RF: 3 isosorbide mononitrate 60 mg tablet extended release 24 hr 60 mg PO DAILY Qty: 90 RF: 3 metoprolol tartrate 25 mg tablet 12.5 mg PO BID Qty: 90 RF: 3 nitroglycerin 0.4 mg tablet, sublingual 0.4 mg sublingual Q5-15M PRN (Reason: chest pain) Qty: 25 RF: 3 Referrals / Follow Up: Sandra Wolf MD [Primary Care Provider] - Disposition Disposition (needs filled in before D/C Order can be placed): Acute Care Hospital Charges/Coding Addendum Addendum: Please cancel the discharge of progress note of the same date Visit Charges Inpatient E&M: 83110 Disch Hosp
[2021-03-12 22:28] LABS: Partial Thromboplast Time 58.3 Seconds (24.1-36.2)
== END 2021-03-13 02:45 | disposition short-term general hospital (02) | DRG 281 ==
LOC: ED 03:39 → PCU 06:56
PROVIDERS: Internal Medicine Cardiovascular Disease; Emergency Provider Emergency Medicine; PCP Family Medicine; Visit Provider Internal Medicine
DX: I21.4 Non-ST elevation (NSTEMI) myocardial infarction (principal); I50.32 Chronic diastolic (congestive) heart failure; I11.0 Hypertensive heart disease with heart failure; I25.2 Old myocardial infarction; E03.9 Hypothyroidism, unspecified; C43.71 Malignant melanoma of right lower limb, including hip; C00.9 Malignant neoplasm of lip, unspecified; C44.42 Squamous cell carcinoma of skin of scalp and neck; E78.5 Hyperlipidemia, unspecified; I65.21 Occlusion and stenosis of right carotid artery; I25.700 Atherosclerosis of coronary artery bypass graft(s), unspecified, with unstable angina pectoris; I25.110 Atherosclerotic heart disease of native coronary artery with unstable angina pectoris; Z95.1 Presence of aortocoronary bypass graft; Z95.5 Presence of coronary angioplasty implant and graft; Z23 Encounter for immunization; Z79.899 Other long term (current) drug therapy
CPT/HCPCS: 36415; 71045; 80048; 80061; 83735; 83880; 84443; 84484; 85025; 85610; 85730; 87426; 93005; 93306; 93459; 99152; 99153; 99285; G0008; J7030; Q9957; Q9967; 90686; A4216; C1769; C1894; C8929; J3490

== ENCOUNTER 2021-07-25 08:47 | Outpatient (CLI) | payer MEDICARE, OTHER, SELFPAY ==
[2016-08-18 10:52] VITALS: BMI 33.5
[2021-07-25 10:52] LABS: AST(SGOT) 22 U/L (15-37); Alanine Aminotransfer ALT/SGPT 18 U/L (13-56); Albumin, Serum 3.3 g/dL (3.2-5.0); Alkaline Phosphatase 123 U/L (45-117); Bilirubin, Direct 0.16 mg/dL (0.00-0.30); Cholesterol 179 mg/dL (200); Globulin 4.1 g/dL (2.2-4.2); High Density Lipoprotein 79 mg/dL; Protein, Total 7.4 g/dL (6.4-8.2); Triglycerides 74 mg/dL; Very Low Density Lipoprotein 15 mg/dL (5-40)
== END 2021-07-25 23:59 | disposition home or self-care (01) ==
LOC: MTLAB 08:49
PROVIDERS: PCP Family Medicine; Referring Provider Nurse Practitioner Gerontology; Visit Provider Nurse Practitioner Gerontology
DX: E78.00 Pure hypercholesterolemia, unspecified (principal); E78.5 Hyperlipidemia, unspecified
CPT/HCPCS: 36415; 80061; 80076

== ENCOUNTER → 2021-11-20 | Outpatient (CLI) | payer MEDICARE, OTHER, SELFPAY ==
[2016-08-18 10:52] VITALS: BMI 33.5
--- NOTE | 2021-11-20 09:54 | CDU_ITS ---
Reason For Study: carotid stenosis Rt. Velocities/BP Lt. Velocities/BP Prox CCA 76.0/12.1 cm/sec. Prox CCA 60.7/9.7 cm/sec. Mid CCA 70.8/12.1 cm/sec. Mid CCA 63.6/13.5 cm/sec. Dist CCA 55.2/9.5 cm/sec. Dist CCA 83.4/16.3 cm/sec. Prox ICA 244.3/55.2 cm/sec. Prox ICA 172.2/37.1 cm/sec. Mid ICA 179.5/34.5 cm/sec. Mid ICA 128.4/24.3 cm/sec. Dist ICA 148.5/27.9 cm/sec. Dist ICA 115.6/24.3 cm/sec. Rt. ICA/CCA = 3.4. Lt. ICA/CCA = 2.7. Prox ECA 113.9 cm/sec. Prox ECA 139.4 cm/sec. Rt. Vert. 52.2/13.5 cm/sec. Lt. Vert. 69.5/12.4 cm/sec. Right Extracranial There is heterogeneous, irregular atherosclerotic plaque noted in the right common carotid artery. There is heterogeneous, irregular atherosclerotic plaque noted in the right internal carotid artery. There is heterogeneous, irregular atherosclerotic plaque noted in the right external carotid artery. Antegrade flow is noted in the right vertebral artery. Left Extracranial There is homogeneous, smooth atherosclerotic plaque noted in the left common carotid artery. There is heterogeneous, irregular atherosclerotic plaque noted in the left internal carotid artery. There is heterogeneous, smooth atherosclerotic plaque noted in the left external carotid artery. Antegrade flow is noted in the left vertebral artery. Procedure Carotid Duplex 41452. This is a Carotid Duplex examination using B-mode, color flow and specral Doppler. The exam was diagnostic. Exam performed in department. VL/Carotid Duplex Ultrasound Interpretation Summary Calcific plaque with shadowing at the distal right common carotid and proximal right internal carotid arteries Greater than 70% stenosis right proximal internal carotid artery Less than 50% stenosis right external carotid artery Irregular calcific plaque with shadowing at the proximal left internal carotid artery with 50 to 69% stenosis. Less than 50% stenosis left external carotid artery Patent and antegrade vertebral arteries bilaterally Findings appear to be very similar to the previous examination of November 13, 2020 Ordering Physician: Norm Root Performed By: Ernst Dodd RVT
== END | disposition home or self-care (01) ==
LOC: CVS 09:54
PROVIDERS: PCP Family Medicine; Referring Provider Surgery; Visit Provider Surgery
DX: I65.23 Occlusion and stenosis of bilateral carotid arteries (principal)
CPT/HCPCS: 93880

== ENCOUNTER → 2022-02-07 | Outpatient (CLI) | payer MEDICARE, OTHER, SELFPAY ==
[2016-08-18 10:52] VITALS: BMI 33.5
[2022-02-07 12:26] LABS: Microalbumin,Random Urine 20.7 mg/L (NO RANGE EST.); Microalbumin:Creatinine Ratio 23.3 mg/g CRE (<30 mg/g CRE)
[2022-02-07 12:50] LABS: AST(SGOT) 24 U/L (15-37); Alanine Aminotransfer ALT/SGPT 19 U/L (13-56); Albumin, Serum 3.2 g/dL (3.2-5.0); Alkaline Phosphatase 81 U/L (45-117); Anion Gap 7 (5-15); BUN 14 mg/dL (7-18); BUN/Creat Ratio 16.3 RATIO (10-20); Bilirubin, Direct 0.19 mg/dL (0.00-0.30); Calcium,Total 9.3 mg/dL (8.5-10.1); Chloride 105 mmol/L (98-107); Cholesterol 174 mg/dL (200); Creatinine, Serum 0.86 mg/dL (0.55-1.02); EST Glomerular Filtration Rate 67 mL/min (>60); Est Glom Filt Rate - Afr Amer 81 mL/min (>60); Globulin 4.2 g/dL (2.2-4.2); Glucose 88 mg/dL (74-106); High Density Lipoprotein 79 mg/dL; Potassium 4.2 mmol/L (3.5-5.1); Protein, Total 7.4 g/dL (6.4-8.2); Sodium Level 138 mmol/L (136-145); Thyroid Stim Hormone (TSH) 0.72 uIU/mL (0.358-3.74); Triglycerides 64 mg/dL; Very Low Density Lipoprotein 13 mg/dL (5-40)
== END | disposition home or self-care (01) ==
LOC: MFPLAB 10:26
PROVIDERS: PCP Family Medicine; Referring Provider Family Medicine; Visit Provider Family Medicine
DX: I10 Essential (primary) hypertension (principal); E03.9 Hypothyroidism, unspecified; Z95.5 Presence of coronary angioplasty implant and graft
CPT/HCPCS: 36415; 80048; 80061; 80076; 82043; 82570; 84443

== ENCOUNTER → 2022-10-30 | Outpatient (CLI) | payer MEDICARE, OTHER, SELFPAY ==
[2016-08-18 10:52] VITALS: BMI 33.5
[2022-10-30 12:24] LABS: Absolute Lymphocyte Count 1.12 X10^3/uL (0.83-4.51); Absolute Neutrophil Count 4.1 X10^3/uL (2.0-7.7); Basophil# 0.06 X10^3/uL; Eosinophil# 0.29 X10^3/uL; Eosinophils% 4.6 % (0-5); Hematocrit 37.6 % (37-47); Hemoglobin 12.3 g/dL (12.0-15.0); Lymphocyte # 1.12 X10^3/ul (0.83-4.51); Lymphocyte % 17.9 % (19-41); Mean Corp Hgb Conc 32.7 g/dL (32-36); Mean Corpuscular Hgb 29.8 pg (27.0-32.0); Mean Platelet Vol. 9.9 fl (6.2-12.0); Monocyte# 0.69 X10^3/uL; NRBC Flagged by Analyzer 0 % (0-5); Neutrophil % 65.3 % (47-70); Platelet Count 348 K/mm3 (150-450); RBC Distribution Width CV 13.8 % (11.6-14.6); RBC Distribution Width SD 46.5 fl (35.1-43.9); Red Blood Count 4.13 M/mm3 (4.2-5.4); White Blood Count 6.3 K/mm3 (4.4-11.0)
[2022-10-30 12:52] LABS: Vitamin B12 668 pg/mL (211-911); Vitamin D,25 Hydroxy 46.8 ng/mL
[2022-10-30 13:03] LABS: Hemoglobin A1c 5.4 % (3.8-5.6)
[2022-10-30 13:07] LABS: ALB/GLOB Ratio 0.8 RATIO (0.9-2.4); AST(SGOT) 19 U/L (15-37); Alanine Aminotransfer ALT/SGPT 15 U/L (13-56); Albumin, Serum 3.2 g/dL (3.2-5.0); Alkaline Phosphatase 74 U/L (45-117); Anion Gap 6 (5-15); BUN 14 mg/dL (7-18); Calcium,Total 9.3 mg/dL (8.5-10.1); Chloride 99 mmol/L (98-107); Creatinine, Serum 0.93 mg/dL (0.55-1.02); EST Glomerular Filtration Rate 60 mL/min (>60); Est Glom Filt Rate - Afr Amer 73 mL/min (>60); Ferritin 39 ng/mL (8-252); Globulin 4.2 g/dL (2.2-4.2); Glucose 77 mg/dL (74-106); Magnesium 2.3 mg/dL (1.6-2.6); Potassium 4.1 mmol/L (3.5-5.1); Protein, Total 7.4 g/dL (6.4-8.2); Sodium Level 134 mmol/L (136-145); Thyroid Stim Hormone (TSH) 0.67 uIU/mL (0.358-3.74)
== END | disposition home or self-care (01) ==
LOC: MFPLAB 11:08
PROVIDERS: Family Medicine; PCP Family Medicine; Visit Provider Family Medicine
DX: R53.83 Other fatigue (principal); I25.10 Atherosclerotic heart disease of native coronary artery without angina pectoris; R73.09 Other abnormal glucose
CPT/HCPCS: 36415; 80053; 82306; 82607; 82728; 82746; 83036; 83735; 84443; 85025

== ENCOUNTER → 2023-01-14 | Outpatient (CLI) | payer MEDICARE, OTHER, SELFPAY ==
[2016-08-18 10:52] VITALS: BMI 33.5
--- NOTE | 2023-01-14 10:15 | RAD_ITS ---
STUDY: X-RAY - RIGHT SHOULDER REASON FOR EXAM: Female, 87 years old. pain TECHNIQUE: 4 view(s) of the shoulder. COMPARISON: None. FINDINGS: Narrowed glenohumeral articulation. acromioclavicular joint. Normal acromion. Normal humeral head and visualized proximal humerus. The soft tissue structures are unremarkable. Normal visualized pulmonary apex. RAD/Shoulder min 2 Views IMPRESSION: Degenerative changes. No acute fracture or dislocation Electronically Signed: Yaniv Goncalves MD at 16:50 EDT ,
== END | disposition home or self-care (01) ==
PROVIDERS: PCP Family Medicine; Referring Provider Family Medicine; Visit Provider Family Medicine
DX: S46.911A Strain of unspecified muscle, fascia and tendon at shoulder and upper arm level, right arm, initial encounter (principal); X58.XXXA Exposure to other specified factors, initial encounter
CPT/HCPCS: 73030

== ENCOUNTER 2023-01-30 08:26 | Inpatient (IN) | payer MEDICARE, OTHER, SELFPAY ==
[2016-08-18 10:52] VITALS: BMI 33.5
[2023-01-30] VITALS (10 sets, daily range): BP systolic 133–170; BP diastolic 57–84; PULSE 80–116; RESP 16–24; TEMP 36–36.8; O2SAT 66–100; BMI 32.8; BMI 33.0
--- NOTE | 2023-01-30 08:49 | EDS_ITS ---
HPI HPI - GI History of Present Illness Chief Complaint: GI Bleed Detail of Chief Complaint: Black tarry sticky stool Informant: patient Abdominal Pain/Flank Pain Onset: Today and Yesterday Context: Sudden Onset Timing: Intermittent Quality: - (No complaint of pain) Current Severity: 0/10 Maximum Severity: 0/10 Worsened by: Nothing Relieved by: Nothing Nausea/Vomiting/Emesis GI Symptom: Negative for Nausea or Vomiting Diarrhea/Melena/Hematochezia GI Symptom: Positive for Melena (1 episode last evening and 1 episode this morning); Negative for Diarrhea or Hematochezia Onset: Today and Yesterday Associated Symptoms Associated Symptoms: Negative for Dysuria, Frequency, Hematuria or Urgency Narrative Narrative: Patient is a 87-year-old woman who was started on meloxicam by Dr. Nick Friend 1 week ago. Patient is presently on baby aspirin and and Plavix. She does bruise easily. She sustained a bruise to her anterior distal right and left leg due to blunt trauma and has a contusion hairline forehead due to fall 1 week ago. She denies headache. She had no loss of conscious. She denies neurologic symptoms. Patient states last evening she had 1 black tarry bowel movement and this morning she had an additional black tarry bowel movement. She did report lightheadedness with standing this morning. She did not have lightheadedness with standing yesterday. She denies dyspnea, dyspnea on exertion. She denies chest discomfort of any type. Prior similar symptoms: No Recent Illness/Hospitalization: No PFSH PFSH Medical History Acute non-ST elevation myocardial infarction (NSTEMI) (03/11/21) Arthritis Atherosclerosis of coronary artery bypass graft without angina pectoris Atherosclerotic heart disease of [place] coronary artery without angina pectoris Cancer Carotid bruit Change in vision Chronic diastolic (congestive) heart failure Dysphasia Essential hypertension Fatigue Hyperlipidemia Hypothyroid Squamous cell skin cancer Stenosis of right carotid artery Home Medications aspirin 81 mg chewable tablet 81 mg PO DAILY@0800 12/30/13 [History Last Taken 06/15/17] cholecalciferol (vitamin D3) 25 mcg (1,000 unit) capsule 1,000 unit PO DAILY 01/11/14 [History Last Taken Unknown] cyanocobalamin (vitamin B-12) 500 mcg tablet 250 mcg PO DAILY@0800 09/10/14 [History Last Taken Unknown] magnesium 250 mg tablet 500 mg PO DAILY 01/11/14 [History Last Taken Unknown] lecithin 1,200 mg capsule 1,200 mg PO DAILY 09/11/15 [History Last Taken Unknown] cinnamon bark 500 mg capsule 500 mg PO DAILY 08/16/16 [History Last Taken Unknown] coenzyme Q10 100 mg capsule (CoQ-10) 100 mg PO QDAY 06/02/17 [History Last Taken Unknown] flaxseed oil 1,000 mg capsule ([place]-3 Flaxseed Oil) 1,000 mg PO DAILY 06/15/18 [History Last Taken Unknown] famotidine 20 mg tablet (Pepcid AC) 20 mg PO BID #60 tabs 07/25/19 [Rx Last Taken Unknown] nitroglycerin 0.4 mg sublingual tablet 0.4 mg sublingual Q5-15M PRN chest pain #25 tabs 03/18/21 [Rx Last Taken Unknown] Handicap Parking Placard #1 ea 05/29/21 [Rx Last Taken Unknown] vitamin B complex 1 tab PO DAILY 01/17/22 [History Last Taken Unknown] clopidogrel 75 mg tablet 75 mg PO DAILY #90 tabs 04/17/22 [Rx Last Taken Unknown] pravastatin 40 mg tablet 40 mg PO QHS Discontinue Atorvastatin d/t myalgias #90 tabs 04/22/22 [Rx Last Taken Unknown] isosorbide mononitrate 60 mg tablet,extended release 24 hr 60 mg PO DAILY #90 tabs 08/22/22 [Rx Last Taken Unknown] docusate sodium 100 mg capsule 100 mg PO BID 08/29/22 [History Last Taken Unknown] levothyroxine 50 mcg tablet (Synthroid) 50 mcg PO .COMPLEX thyroid 08/29/22 [History Last Taken Unknown] omega-3 fatty acids-fish oil 684 mg-1,200 mg capsule,delayed release 1 cap PO BID 08/29/22 [History Last Taken Unknown] metoprolol tartrate 25 mg tablet See Rx Instructions PO BID #90 tabs 10/07/22 [Rx Last Taken Unknown] furosemide 20 mg tablet 20 mg PO DAILY #90 tabs 01/07/23 [Rx Last Taken Unknown] Allergy/AdvReac Type Severity Reaction Status Date / Time codeine Allergy Mild Rash Verified 08/29/22 14:26 ibuprofen Allergy Mild Rash Verified 08/29/22 14:26 rosuvastatin calcium Allergy Unknown Verified 08/29/22 14:26 [From Crestor] acetaminophen AdvReac Severe Unknown Verified 08/29/22 14:26 [From Darvocet-N] propoxyphene AdvReac Severe Unknown Verified 08/29/22 14:26 [From Darvocet-N] atorvastatin AdvReac Intermediate could not Verified 08/29/22 14:26 tolerate 40 or 80 mg meperidine HCl [From Demerol] AdvReac Mild Other Verified 08/29/22 14:26 propoxyphene HCl AdvReac Mild Other Verified 08/29/22 14:26 [From Darvon] lisinopril AdvReac cough Verified 08/29/22 14:26 Family History Father , age 72 of [place] Myocardial infarction total of 3 [place]'s CAD (coronary artery disease) Mother , age 69 of embolus CAD (coronary artery disease) Brother CAD (coronary artery disease) S/P CABG x 4 Hypertension Myocardial infarction Hx of heart valve replacement with mechanical valve Brother Hypertension Diabetes CAD (coronary artery disease) Hyperlipidemia History of coronary artery bypass graft Cancer Other Family history of coronary artery disease Family history of hyperlipidemia Family history of hypertension Surgical History H/O arthroscopy of knee H/O cataract extraction H/O coronary artery bypass surgery (06/03/04) H/O rectocele repair H/O tubal ligation H/O: hysterectomy History of appendectomy History of carpal tunnel release of both wrists History of coronary artery stent placement (03/14/21) History of excision of lesion History of left heart catheterization (03/11/21) Hx of cholecystectomy Scalp surgery 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 Social History household members: none housing: condominium current occupational status: retired pets and animals: Yes pets and animals: dog(s) Smoking Status: Never smoker second hand exposure: Yes (most of her life, not for the past 20+ years) alcohol intake: never substance use type: does not use caffeine: Yes Type: carbonated beverages Number of servings: 1 eating out: 1-3 times/week what type of physical activity do you participate in: none seatbelt use: always do you feel safe at home: Yes EXAM Physical Exam Const Vital Signs: 01/30/23 08:27 Temperature 97.2 F L Temperature Source Temporal Pulse Rate 98 Respiratory Rate 16 Blood Pressure 135/57 H Blood Pressure Mean 83 Pulse Ox 96 Oxygen Delivery Method Room Air Discharge Plan Triage Chief Complaint: GI Bleed ED Provider: Bonifacio Diaz Dx/Rx/DC Orders Prescriptions: No Action coenzyme Q10 [CoQ-10] 100 mg capsule 100 mg PO QDAY flaxseed oil [[place]-3 Flaxseed Oil] 1,000 mg capsule 1,000 mg PO DAILY vitamin B complex Tablet 1 tab PO DAILY aspirin 81 MG tablet,chewable 81 mg PO DAILY@0800 Patient Comments: Blood thinner for heart health docusate sodium 100 mg capsule 100 mg PO BID Patient Comments: Stool softener omega-3 fatty acids-fish oil 684-1,200 mg capsule,delayed release(DR/EC) 1 cap PO BID Patient Comments: Supplement magnesium 250 MG tablet 500 mg PO DAILY Patient Comments: SUPPLEMENT cyanocobalamin (vitamin B-12) 500 MCG tablet 250 mcg PO DAILY@0800 Patient Comments: SUPPLEMENT cholecalciferol (vitamin D3) 1,000 UNIT capsule 1,000 unit PO DAILY Patient Comments: bone health/supplement lecithin 1,200 MG capsule 1,200 mg PO DAILY Patient Comments: DIGESTION cinnamon bark 500 MG capsule 500 mg PO DAILY Patient Comments: supplement for blood sugar levothyroxine [Synthroid] 50 mcg tablet 50 mcg PO .COMPLEX Rx Instructions: 50 mcg orally 1 tab every other day, alternating with 1/2 tab.; every other day takes with 25mcg famotidine [Pepcid AC] 20 mg tablet 20 mg PO BID Qty: 60 2RF nitroglycerin 0.4 mg tablet, sublingual 0.4 mg sublingual Q5-15M PRN (Reason: chest pain) Qty: 25 3RF Rx Instructions: do not exceed 3 doses per episode (DME) Handicap Parking Placard See Rx Instructions .Route .MEDSUPPLY Qty: 1 0RF Rx Instructions: As directed clopidogrel 75 mg tablet 75 mg PO DAILY Qty: 90 3RF pravastatin 40 mg tablet 40 mg PO QHS Qty: 90 3RF isosorbide mononitrate 60 mg tablet extended release 24 hr 60 mg PO DAILY Qty: 90 3RF metoprolol tartrate 25 mg tablet See Rx Instructions PO BID Qty: 90 3RF Rx Instructions: Takes 25 mg AM, 12.5 mg PM furosemide 20 mg tablet 20 mg PO DAILY Qty: 90 3RF Primary Care Provider: Natalie Aragon Referrals: Natalie Aragon, [Primary Care Provider] -
--- NOTE | 2023-01-30 08:49 | ED.VIS.GI ---
HPI HPI - GI History of Present Illness Chief Complaint: GI Bleed Detail of Chief Complaint: Black tarry sticky stool Informant: patient Abdominal Pain/Flank Pain Onset: Today and Yesterday Context: Sudden Onset Timing: Intermittent Quality: - (No complaint of pain) Current Severity: 0/10 Maximum Severity: 0/10 Worsened by: Nothing Relieved by: Nothing Nausea/Vomiting/Emesis GI Symptom: Negative for Nausea or Vomiting Diarrhea/Melena/Hematochezia GI Symptom: Positive for Melena (1 episode last evening and 1 episode this morning); Negative for Diarrhea or Hematochezia Onset: Today and Yesterday Associated Symptoms Associated Symptoms: Negative for Dysuria, Frequency, Hematuria or Urgency Narrative Narrative: Patient is a 87-year-old woman who was started on meloxicam by Dr. Nick Friend 1 week ago. Patient is presently on baby aspirin and and Plavix. She does bruise easily. She sustained a bruise to her anterior distal right and left leg due to blunt trauma and has a contusion hairline forehead due to fall 1 week ago. She denies headache. She had no loss of conscious. She denies neurologic symptoms. Patient states last evening she had 1 black tarry bowel movement and this morning she had an additional black tarry bowel movement. She did report lightheadedness with standing this morning. She did not have lightheadedness with standing yesterday. She denies dyspnea, dyspnea on exertion. She denies chest discomfort of any type. Prior similar symptoms: No Recent Illness/Hospitalization: No PFSH PFSH Medical History Acute non-ST elevation myocardial infarction (NSTEMI) (03/11/21) Arthritis Atherosclerosis of coronary artery bypass graft without angina pectoris Atherosclerotic heart disease of [place] coronary artery without angina pectoris Cancer Carotid bruit Change in vision Chronic diastolic (congestive) heart failure Dysphasia Essential hypertension Fatigue Hyperlipidemia Hypothyroid Squamous cell skin cancer Stenosis of right carotid artery Home Medications aspirin 81 mg chewable tablet 81 mg PO DAILY@0800 12/30/13 [History Last Taken 06/15/17] cholecalciferol (vitamin D3) 25 mcg (1,000 unit) capsule 1,000 unit PO DAILY 01/11/14 [History Last Taken Unknown] cyanocobalamin (vitamin B-12) 500 mcg tablet 250 mcg PO DAILY@0800 09/10/14 [History Last Taken Unknown] magnesium 250 mg tablet 500 mg PO DAILY 01/11/14 [History Last Taken Unknown] lecithin 1,200 mg capsule 1,200 mg PO DAILY 09/11/15 [History Last Taken Unknown] cinnamon bark 500 mg capsule 500 mg PO DAILY 08/16/16 [History Last Taken Unknown] coenzyme Q10 100 mg capsule (CoQ-10) 100 mg PO QDAY 06/02/17 [History Last Taken Unknown] flaxseed oil 1,000 mg capsule ([place]-3 Flaxseed Oil) 1,000 mg PO DAILY 06/15/18 [History Last Taken Unknown] famotidine 20 mg tablet (Pepcid AC) 20 mg PO BID #60 tabs 07/25/19 [Rx Last Taken Unknown] nitroglycerin 0.4 mg sublingual tablet 0.4 mg sublingual Q5-15M PRN chest pain #25 tabs 03/18/21 [Rx Last Taken Unknown] Handicap Parking Placard #1 ea 05/29/21 [Rx Last Taken Unknown] vitamin B complex 1 tab PO DAILY 01/17/22 [History Last Taken Unknown] clopidogrel 75 mg tablet 75 mg PO DAILY #90 tabs 04/17/22 [Rx Last Taken Unknown] pravastatin 40 mg tablet 40 mg PO QHS Discontinue Atorvastatin d/t myalgias #90 tabs 04/22/22 [Rx Last Taken Unknown] isosorbide mononitrate 60 mg tablet,extended release 24 hr 60 mg PO DAILY #90 tabs 08/22/22 [Rx Last Taken Unknown] docusate sodium 100 mg capsule 100 mg PO BID 08/29/22 [History Last Taken Unknown] levothyroxine 50 mcg tablet (Synthroid) 50 mcg PO .COMPLEX thyroid 08/29/22 [History Last Taken Unknown] omega-3 fatty acids-fish oil 684 mg-1,200 mg capsule,delayed release 1 cap PO BID 08/29/22 [History Last Taken Unknown] metoprolol tartrate 25 mg tablet See Rx Instructions PO BID #90 tabs 10/07/22 [Rx Last Taken Unknown] furosemide 20 mg tablet 20 mg PO DAILY #90 tabs 01/07/23 [Rx Last Taken Unknown] Allergy/AdvReac Type Severity Reaction Status Date / Time codeine Allergy Mild Rash Verified 08/29/22 14:26 ibuprofen Allergy Mild Rash Verified 08/29/22 14:26 rosuvastatin calcium Allergy Unknown Verified 08/29/22 14:26 [From Crestor] acetaminophen AdvReac Severe Unknown Verified 08/29/22 14:26 [From Darvocet-N] propoxyphene AdvReac Severe Unknown Verified 08/29/22 14:26 [From Darvocet-N] atorvastatin AdvReac Intermediate could not Verified 08/29/22 14:26 tolerate 40 or 80 mg meperidine HCl [From Demerol] AdvReac Mild Other Verified 08/29/22 14:26 propoxyphene HCl AdvReac Mild Other Verified 08/29/22 14:26 [From Darvon] lisinopril AdvReac cough Verified 08/29/22 14:26 Family History Father , age 72 of [place] Myocardial infarction total of 3 [place]'s CAD (coronary artery disease) Mother , age 69 of [place] CAD (coronary artery disease) Brother CAD (coronary artery disease) S/P CABG x 4 Hypertension Myocardial infarction Hx of heart valve replacement with mechanical valve Brother Hypertension Diabetes CAD (coronary artery disease) Hyperlipidemia History of coronary artery bypass graft Cancer Other Family history of coronary artery disease Family history of hyperlipidemia Family history of hypertension Surgical History H/O arthroscopy of knee H/O cataract extraction H/O coronary artery bypass surgery (06/03/04) H/O rectocele repair H/O tubal ligation H/O: hysterectomy History of appendectomy History of carpal tunnel release of both wrists History of coronary artery stent placement (03/14/21) History of excision of lesion History of left heart catheterization (03/11/21) Hx of cholecystectomy Scalp surgery 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 Social History household members: none housing: condominium current occupational status: retired pets and animals: Yes pets and animals: dog(s) Smoking Status: Never smoker second hand exposure: Yes (most of her life, not for the past 20+ years) alcohol intake: never substance use type: does not use caffeine: Yes Type: carbonated beverages Number of servings: 1 eating out: 1-3 times/week what type of physical activity do you participate in: none seatbelt use: always do you feel safe at home: Yes ROS ROS ED Constitutional Constitutional ED: Denies chills, fever(s), sweats or weight loss ENT ENT ED: Denies rhinorrhea or sore throat Cardiovascular Cardiovascular: Reports other Details: Patient stated bruise between the anterior posterior axillary line left chest wall over ribs 667. ; Denies chest pain, orthopnea, palpitations, paroxysmal nocturnal dyspnea or racing heartbeat Respiratory/Chest Respiratory/Chest: Denies cough, dyspnea, dyspnea on exertion, orthopnea or paroxysmal nocturnal dyspnea Gastrointestinal Gastrointestinal: Reports melena; Denies abdominal pain, nausea or vomiting Genitourinary Genitourinary ED: Denies dysuria, hematuria or urinary frequency Musculoskeletal Musculoskeletal: Denies arthralgias, back pain, myalgias or neck pain Integumentary Reports other Details: Bruises as noted in the HPI narrative Neurologic Neurologic: Denies headache(s) Endocrine Endocrinology: Denies polydipsia, polyphagia or polyuria Hematologic/Lymphatic Hematologic/Lymphatic: Reports easy bleeding and easy bruising EXAM Physical Exam Const Vital Signs: 01/30/23 08:27 Temperature 97.2 F L Temperature Source Temporal Pulse Rate 98 Respiratory Rate 16 Blood Pressure 135/57 H Blood Pressure Mean 83 Pulse Ox 96 Oxygen Delivery Method Room Air Positive well nourished, well developed and obese General Appearance ED: well developed and NAD Nutritional Appearance: obese HEENT Reports TM's clear, moist mucous membranes and dry mucous membranes normocephalic and atraumatic Tympanic Membrane ED: Yes TM's clear Mouth ED: Yes dry mucous membranes Mouth: dry mucous membranes Eyes PERRL and EOMs intact bilaterally General Eye ED: Yes pale conjunctiva; Negative for scleral icterus Neck no lymphadenopathy, supple and no JVD Resp normal respiratory effort and clear to auscultation bilaterally Cardio regular rate, regular rhythm, S1 normal heart sound, S2 normal heart sound and no murmurs GI non-tender and non-distended GI Narrative: Patient has dark brown to black and-maroon sticky stool. Auscultation: normoactive bowel sounds Palpation: soft Back/Spine no CVA tenderness Extremity full ROM Extremity Narrative: Bruises as noted in the narrative General Extremety ED: Negative for edema or tenderness General Extremity: Negative for edema Neuro CN's II-XII intact bilaterally, moves all extremities and no sensory deficits noted Sensorium / Orientation: alert Motor Exam: strength 5/5 throughout Psych mental status grossly normal and thought process normal Skin no wounds Skin Narrative: Bruises forehead, left chest wall and right and left leg and due to fall 1 week ago MDM MDM MDM Narrative Medical decision making narrative: Patient presents with GI bleed suspect this is due to the fact he is on aspirin Plavix and meloxicam was added. Will review prior laboratory results. Clinically patient's hemoglobin is below 10. IV was established. Will obtain EKG to rule out cardiac ischemia since she has significant heart disease. CBC was obtained to assess H&H and platelet count. BMP to assess renal function, BUN to creatinine ratio. Presumption this is an upper GI bleed. Patient was given dose of Protonix. Type and screen was ordered. Patient has apparently 11 stents. Last stent was placed in 2019. 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 Freddie Hudson. The stent was placed at [facility] History & Record Review Additional record(s) reviewed:: Prior inpatient record, Prior ED visit and Prior labs Lab Data Labs: Laboratory Results - last 24 hr 01/30/23 09:08 WBC 10.9 RBC 3.08 L Hgb 9.3 L Hct 28.7 L MCV 93.2 MCH 30.2 MCHC 32.4 RDW Std Deviation 47.0 H RDW Coeff of Maddie 13.8 Plt Count 346 MPV 10.0 Sodium 134 L Potassium 3.8 Chloride 103 Carbon Dioxide 26.0 Anion Gap 5 BUN 82 H Creatinine 0.94 Estim Creat Clear Calc 32.42 Est GFR (MDRD) Af Amer 73 Est GFR (MDRD) Non-Af 60 BUN/Creatinine Ratio 87.2 H Glucose 122 H Calcium 8.4 L Rhythm Strip Rhythm Strip: Sinus Rhythm Rate: 92 Ectopy: None EKG Initial EKG: Attestation: I personally reviewed and interpreted this EKG as follows: Interpretation: Sinus Rhythm (Rate is 79. VT interval is 188 ms. QRS duration is 78 ms. QT duration 392 ms. [place] is normal. There is artifact noted. Suspect the artifact is missed interpreted as an ossific ST-T wave abnormalities. The EKG) Management Discussion w/another healthcare provider: Hospitalist (Hospitalist was paged. Spoke to Dr. Manuel. Plan is admission to PCU) and Ld Teacher (Case was discussed with Dr. Garza. He is made aware of patient's history, physical exam and laboratory studies. He agrees with the treatment that was started in the emergency department. He will see patient in consultation with the hospitalist for upper GI bleed) Discharge Plan Dx/Rx/DC Orders Clinical Impression: Acute gastrointestinal bleeding, Atherosclerotic heart disease of [place] coronary artery without angina pectoris, Essential hypertension, Hyperlipidemia, Stenosis of right carotid artery, Chronic diastolic (congestive) heart failure, Anemia due to acute blood loss, Orthostatic lightheadedness Disposition Disposition: Acute Care Hospital [facility]
[2023-01-30 09:23] LABS: Hematocrit 28.7 % (37-47); Hemoglobin 9.3 g/dL (12.0-15.0); Mean Corp Hgb Conc 32.4 g/dL (32-36); Mean Corpuscular Hgb 30.2 pg (27.0-32.0); Mean Corpuscular Volume 93.2 fL (81-99); Platelet Count 346 K/mm3 (150-450); RBC Distribution Width CV 13.8 % (11.6-14.6); Red Blood Count 3.08 M/mm3 (4.2-5.4); White Blood Count 10.9 K/mm3 (4.4-11.0)
[2023-01-30 09:39] LABS: Anion Gap 5 (5-15); BUN 82 mg/dL (7-18); BUN/Creat Ratio 87.2 RATIO (10-20); Calcium,Total 8.4 mg/dL (8.5-10.1); Chloride 103 mmol/L (98-107); Creatinine, Serum 0.94 mg/dL (0.55-1.02); EST Glomerular Filtration Rate 60 mL/min (>60); Est Glom Filt Rate - Afr Amer 73 mL/min (>60); Estimated Creatinine Clearance 32.42 ml/min; Glucose 122 mg/dL (74-106); Potassium 3.8 mmol/L (3.5-5.1); Sodium Level 134 mmol/L (136-145)
[2023-01-30] MEDS: 0.9% Normal Saline (1000mL) 1,000 ML 150 ML IV ×2 (09:57→16:09)
[2023-01-30] MEDS: Pantoprazole Sodium 80 MG in 0.9% Normal Saline (50mL Bag) 15 ML 420 MG IV BOLUS (09:57)
--- NOTE | 2023-01-30 11:51 | HP.PCM.HOS_ITS ---
HPI - General General Date of Admission: 01/30/23 Date of Service: 01/30/23 Chief Complaint: melena HPI Narrative SCARLET DELACRUZ, is a 87 F who presents with melena. Began last night, where it was dark and formed, today, this AM, was dark and tarry. Had some nausea. No vomiting. Never had this before. Presented to the ED and her Hg was 9.3. She received pantoprazole IV in the ED. [facility] Medical History Acute non-ST elevation myocardial infarction (NSTEMI) (03/11/21) Arthritis Atherosclerosis of coronary artery bypass graft without angina pectoris Atherosclerotic heart disease of [place] coronary artery without angina pectoris Cancer Carotid bruit Change in vision Chronic diastolic (congestive) heart failure Dysphasia Essential hypertension Fatigue Hyperlipidemia Hypothyroid Squamous cell skin cancer Stenosis of right carotid artery Home Medications aspirin 81 mg chewable tablet 81 mg PO DAILY@0800 12/30/13 [History Last Taken 01/29/23] cholecalciferol (vitamin D3) 25 mcg (1,000 unit) capsule 1,000 unit PO DAILY 01/11/14 [History Last Taken 01/29/23] cyanocobalamin (vitamin B-12) 500 mcg tablet 250 mcg PO DAILY@0800 01/11/14 [History Last Taken 01/29/23] magnesium 250 mg tablet 500 mg PO DAILY 01/11/14 [History Last Taken 01/29/23] lecithin 1,200 mg capsule 1,200 mg PO DAILY 09/11/15 [History Last Taken 01/29/23] cinnamon bark 500 mg capsule 500 mg PO DAILY 08/16/16 [History Last Taken 01/29/23] coenzyme Q10 100 mg capsule (CoQ-10) 100 mg PO QDAY 06/02/17 [History Last Taken 01/29/23] famotidine 20 mg tablet (Pepcid AC) 20 mg PO BID #60 tabs 07/25/19 [Rx Last Taken 01/29/23] nitroglycerin 0.4 mg sublingual tablet 0.4 mg sublingual Q5-15M PRN chest pain #25 tabs 03/18/21 [Rx Last Taken Unknown] Handicap Parking Placard #1 ea 01/26/22 [Rx Last Taken Unknown] clopidogrel 75 mg tablet 75 mg PO DAILY #90 tabs 04/17/22 [Rx Last Taken 01/29/23] pravastatin 40 mg tablet 40 mg PO QHS Discontinue Atorvastatin d/t myalgias #90 tabs 04/22/22 [Rx Last Taken 01/29/23] isosorbide mononitrate 60 mg tablet,extended release 24 hr 60 mg PO DAILY #90 tabs 08/22/22 [Rx Last Taken 01/29/23] docusate sodium 100 mg capsule 100 mg PO BID 08/29/22 [History Last Taken 01/29/23] levothyroxine 50 mcg tablet (Synthroid) 25 mcg PO QODAY thyroid 08/29/22 [History Last Taken 01/29/23] omega-3 fatty acids-fish oil 684 mg-1,200 mg capsule,delayed release 1 cap PO BID 08/29/22 [History Last Taken 01/29/23] metoprolol tartrate 25 mg tablet See Rx Instructions PO BID #90 tabs 10/07/22 [Rx Last Taken 01/29/23] furosemide 20 mg tablet 20 mg PO DAILY #90 tabs 01/07/23 [Rx Last Taken 01/29/23] flaxseed oil 1,000 mg capsule 1,000 mg PO DAILY 01/30/23 [History Last Taken ] glucosamine 750 [id number]-pfv no1 644 mg-C 30 mg-julieta 1 mg tablet (Osteo Bi-Flex Triple Strength) 1 tab PO BID 01/30/23 [History Last Taken 01/29/23] levothyroxine 50 mcg tablet 50 mcg PO DAILY 01/30/23 [History Last Taken Unknown] meloxicam 15 mg tablet 15 mg PO DAILY 01/30/23 [History Last Taken 01/29/23] Allergy/AdvReac Type Severity Reaction Status Date / Time codeine Allergy Mild Rash Verified 08/29/22 14:26 ibuprofen Allergy Mild Rash Verified 08/29/22 14:26 rosuvastatin calcium Allergy Unknown Verified 08/29/22 14:26 [From Crestor] acetaminophen AdvReac Severe Unknown Verified 08/29/22 14:26 [From Darvocet-N] propoxyphene AdvReac Severe Unknown Verified 08/29/22 14:26 [From Darvocet-N] atorvastatin AdvReac Intermediate could not Verified 08/29/22 14:26 tolerate 40 or 80 mg meperidine HCl [From Demerol] AdvReac Mild Other Verified 08/29/22 14:26 propoxyphene HCl AdvReac Mild Other Verified 08/29/22 14:26 [From Darvon] lisinopril AdvReac cough Verified 08/29/22 14:26 Family History Father , age 72 of [place] Myocardial infarction total of 3 NV's CAD (coronary artery disease) Mother , age 69 of embolus CAD (coronary artery disease) Brother CAD (coronary artery disease) S/P CABG x 4 Hypertension Myocardial infarction Hx of heart valve replacement with mechanical valve Brother Hypertension Diabetes CAD (coronary artery disease) Hyperlipidemia History of coronary artery bypass graft Cancer Other Family history of coronary artery disease Family history of hyperlipidemia Family history of hypertension Surgical History H/O arthroscopy of knee H/O cataract extraction H/O coronary artery bypass surgery (06/03/04) H/O rectocele repair H/O tubal ligation H/O: hysterectomy History of appendectomy History of carpal tunnel release of both wrists History of coronary artery stent placement (03/14/21) History of excision of lesion History of left heart catheterization (03/11/21) Hx of cholecystectomy Scalp surgery 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 Social History household members: none [facility] current occupational status: retired pets and animals: Yes pets and animals: dog(s) Smoking Status: Never smoker second hand exposure: Yes (most of her life, not for the past 20+ years) alcohol intake: never substance use type: does not use caffeine: Yes Type: carbonated beverages Number of servings: 1 eating out: 1-3 times/week what type of physical activity do you participate in: none seatbelt use: always do you feel safe at home: Yes ROS ROS Narrative All review of systems were negative except as mentioned above in the history of present illness and the other review of systems. Vital Signs Vital Signs Vital Signs: 01/30/23 08:27 01/30/23 09:30 01/30/23 11:00 Temperature 36.2 C L 36.6 C 36.8 C Temperature Source Temporal Temporal Oral Pulse Rate 98 80 104 H Respiratory Rate 16 18 16 Blood Pressure 135/57 H 148/68 H 144/71 H Blood Pressure Mean 83 94 95 Blood Pressure Source Monitor Blood Pressure Position Semi-Fowlers Blood Pressure Location Right Arm Pulse Ox 96 98 98 Oxygen Delivery Method Room Air Room Air Room Air Weight Weight: 79.3 kg Body Mass Index (BMI) 33.0 Physical Exam Narrative - Physical Exam General: Alert, Oriented x3, Cooperative HEENT: Atraumatic, PERRLA, EOMI, Normocephalic Oral: Moist Mucosa, No Gingival or Mucosal Lesions/ Ulcerations Neck: Supple, No JVD, Negative Carotid Bruits Lungs: Clear to auscultation, Normal air movement Cardiovascular: Regular rate, Normal S1, Normal S2, No murmurs Abdomen: Bowel Sounds Present, Soft, Non Tender, Non-Distended, No Hepato- splenomegaly Extremities: No clubbing, No cyanosis, No edema, Capillary Refill Less than 3 Seconds Skin: No rashes, No breakdown Musculoskeletal: No Tenderness to Palpation of Joints or Extremities Neurological: Neuro grossly intact Psych/Mental Status: Normal Affect, Appropriate Results Lab / Micro Data Attestation: I reviewed the patient's lab results. 01/30/23 09:08 01/30/23 09:08 Labs: Laboratory Results - last 24 hr 01/30/23 09:08: WBC 10.9, RBC 3.08 L, Hgb 9.3 L, Hct 28.7 L, MCV 93.2, MCH 30.2, MCHC 32.4, RDW Std Deviation 47.0 H, RDW Coeff of Maddie 13.8, Plt Count 346, MPV 10.0, Sodium 134 L, Potassium 3.8, Chloride 103, Carbon Dioxide 26.0, Anion Gap 5, BUN 82 H, Creatinine 0.94, Estim Creat Clear Calc 32.42, Est GFR (MDRD) Af Amer 73, Est GFR (MDRD) Non-Af 60, BUN/Creatinine Ratio 87.2 H, Glucose 122 H, Calcium 8.4 L, Blood Type O POSITIVE, Antibody Screen NEGATIVE Rhythm Strip Rhythm Strip: Sinus Rhythm Rate: 92 Ectopy: None Assessment & Plan Assessment/Plan (1) Acute gastrointestinal bleeding: PLAN: Unclear source Continue with Protonix Hold aspirin and clopidogrel GI consult Clear liquid diet for now (2) Anemia due to acute blood loss: PLAN: Hemoglobin dropped from 12.3 back in October 30 two 9.3. No indication of transfusion at this time Continue to monitor Secondary to GI bleed PLAN: Plan Chronic conditions * CAD: Status post bypass and stents. Last stent was 2018. Aspirin and clopidogrel to be held. * Hyperlipidemia: Statin when able. VTE prophylaxis with SCDs CODE STATUS: Just with the patient. Patient want CPR but no life support. Explained to her that those likely would not be conducive if she were to undergo CPR if she can be put on life support. I encouraged her to either be DNR Comfort Care arrest no intubation or full code. Patient gradually went with full CODE STATUS. Charges/Coding Visit Charges Inpatient E&M: 02884 Init Hosp L3
--- NOTE | 2023-01-30 13:45 | CHAPLAIN ---
Type of Pastoral Visit _x__ Initial Visit ___ Follow-up Visit ___ On-call Visit ___ General Patient Visit ___ Spiritual Assessment ___ Family Conference ___ Bereavement ___ Rapid Response ___ Code Blue ___ Other (describe below) Pastoral Care Referral From _x__ Patient ___ Family ___ Nurse ___ Physician ___ Senior Ui Developer ___ Cake Cutter Machine ___ Other (describe below) Sacrament/Intervention _x__ Active listening ___ Anointing ___ Mandaeism ___ Bereavement ___ Communion ___ Cindy exploration ___ ___ Life review _x__ Prayer ___ Reconciliation ___ Sacrament of Sick _x__ Supportive presence ___ Wedding ___ Other (describe below) Pastoral Comments met with patient and her daughter; pt explains some of her health history and states God has gotten me through a lot already; pt is anxious that she doesn't have anything real serious; pt requests prayer support;
[2023-01-30 15:10] LABS: Hematocrit 23.8 % (37-47); Hemoglobin 7.9 g/dL (12.0-15.0)
--- NOTE | 2023-01-30 16:53 | EX.PCM.CON.G ---
HPI Consult Data Date of Consult: 01/30/23 HPI Narrative Reason for Consultation: Gi bleed HPI Narrative: SCARLET DELACRUZ, is a 87 F who was started on meloxicam by Dr. Nick Friend 1 week ago. Patient is presently on baby aspirin and and Plavix. She does bruise easily. She sustained a bruise to her anterior distal right and left leg due to blunt trauma and has a contusion hairline forehead due to fall 1 week ago. She denies headache. She had no loss of conscious. She denies neurologic symptoms. Patient states last evening she had 1 black tarry bowel movement and this morning she had an additional black tarry bowel movement. She did report lightheadedness with standing this morning. She did not have lightheadedness with standing yesterday. She denies dyspnea, dyspnea on exertion. She denies chest discomfort of any type. She has a history of coronary artery disease with bypass surgery with an REID to the LAD, SVG to the RCA, sequential SVG to the obtuse marginal. She had angioplasty and stenting to her sequential SVG to the diagonal and circumflex and SVG to the RCA in 2013. In June 2017 she continued to complain of chest discomfort. She underwent a heart catheterization where she was noted to have a subtotally occluded SVG to the diagonal and obtuse marginal, high-grade stenosis of the SVG to the RCA, severe [place] vessel coronary artery disease nearly icteric REID to the LAD. There is discussion at that time whether or not to pursue redo bypass surgery versus PCI. The following day with her continued chest discomfort she underwent stenting to her SVG to the diagonal and obtuse marginal. She presented in March 2021 with a non-ST elevation myocardial infarction and underwent an echocardiographic evaluation demonstrating preserved ejection fraction of 65% and a cardiac catheterization demonstrating a patent saphenous vein graft to the first diagonal branch and obtuse marginal branch and then a saphenous vein graft to the posterior descending artery which had a 95% stenosis. She was transferred to [facility] where she underwent angioplasty and stenting of the distal posterior lateral ventricular branch and the saphenous vein graft to the right posterior ventricular branch of the right coronary artery. She did well post procedure and has had no further chest pain. She also had an echocardiogram performed there which demonstrated an ejection fraction of 65%. She has refused to do cardiac rehabilitation. As part of her work-up there she did have a CT scan of her abdomen and pelvics and it demonstrated no significant stenosis of the thoracic lumbar or iliac arterial vasculature. She did have moderate diffuse disease of the CELIA and SFA with calcification. [facility] Medical History Acute non-ST elevation myocardial infarction (NSTEMI) (03/11/21) Arthritis Atherosclerosis of coronary artery bypass graft without angina pectoris Atherosclerotic heart disease of [place] coronary artery without angina pectoris Cancer Carotid bruit Change in vision Chronic diastolic (congestive) heart failure Dysphasia Essential hypertension Fatigue Hyperlipidemia Hypothyroid Squamous cell skin cancer Stenosis of right carotid artery Home Medications aspirin 81 mg chewable tablet 81 mg PO DAILY@0800 12/30/13 [History Last Taken 01/29/23] cholecalciferol (vitamin D3) 25 mcg (1,000 unit) capsule 1,000 unit PO DAILY 01/11/14 [History Last Taken 01/29/23] cyanocobalamin (vitamin B-12) 500 mcg tablet 250 mcg PO DAILY@0800 01/11/14 [History Last Taken 01/29/23] magnesium 250 mg tablet 500 mg PO DAILY 01/11/14 [History Last Taken 01/29/23] lecithin 1,200 mg capsule 1,200 mg PO DAILY 09/11/15 [History Last Taken 01/29/23] cinnamon bark 500 mg capsule 500 mg PO DAILY 08/16/16 [History Last Taken 01/29/23] coenzyme Q10 100 mg capsule (CoQ-10) 100 mg PO QDAY 06/02/17 [History Last Taken 01/29/23] famotidine 20 mg tablet (Pepcid AC) 20 mg PO BID #60 tabs 07/25/19 [Rx Last Taken 01/29/23] nitroglycerin 0.4 mg sublingual tablet 0.4 mg sublingual Q5-15M PRN chest pain #25 tabs 03/18/21 [Rx Last Taken Unknown] Handicap Parking Placard #1 ea 05/29/21 [Rx Last Taken Unknown] clopidogrel 75 mg tablet 75 mg PO DAILY #90 tabs 04/17/22 [Rx Last Taken 01/29/23] pravastatin 40 mg tablet 40 mg PO QHS Discontinue Atorvastatin d/t myalgias #90 tabs 04/22/22 [Rx Last Taken 01/29/23] isosorbide mononitrate 60 mg tablet,extended release 24 hr 60 mg PO DAILY #90 tabs 08/22/22 [Rx Last Taken 01/29/23] docusate sodium 100 mg capsule 100 mg PO BID 08/29/22 [History Last Taken 01/29/23] levothyroxine 50 mcg tablet (Synthroid) 25 mcg PO QODAY thyroid 08/29/22 [History Last Taken 01/29/23] omega-3 fatty acids-fish oil 684 mg-1,200 mg capsule,delayed release 1 cap PO BID 08/29/22 [History Last Taken 01/29/23] metoprolol tartrate 25 mg tablet See Rx Instructions PO BID #90 tabs 10/07/22 [Rx Last Taken 01/29/23] furosemide 20 mg tablet 20 mg PO DAILY #90 tabs 01/07/23 [Rx Last Taken 01/29/23] flaxseed oil 1,000 mg capsule 1,000 mg PO DAILY 01/30/23 [History Last Taken 01/29/23] glucosamine 750 [id number]-[id number] no1 644 mg-C 30 mg-julieta 1 mg tablet (Osteo Bi-Flex Triple Strength) 1 tab PO BID 01/30/23 [History Last Taken 01/29/23] levothyroxine 50 mcg tablet 50 mcg PO DAILY 01/30/23 [History Last Taken Unknown] meloxicam 15 mg tablet 15 mg PO DAILY 01/30/23 [History Last Taken 01/29/23] Allergy/AdvReac Type Severity Reaction Status Date / Time codeine Allergy Mild Rash Verified 08/29/22 14:26 ibuprofen Allergy Mild Rash Verified 08/29/22 14:26 rosuvastatin calcium Allergy Unknown Verified 08/29/22 14:26 [From Crestor] acetaminophen AdvReac Severe Unknown Verified 08/29/22 14:26 [From Darvocet-N] propoxyphene AdvReac Severe Unknown Verified 08/29/22 14:26 [From Darvocet-N] atorvastatin AdvReac Intermediate could not Verified 08/29/22 14:26 tolerate 40 or 80 mg meperidine HCl [From Demerol] AdvReac Mild Other Verified 08/29/22 14:26 propoxyphene HCl AdvReac Mild Other Verified 08/29/22 14:26 [From Darvon] lisinopril AdvReac cough Verified 08/29/22 14:26 Family History Father , age 72 of [place] Myocardial infarction total of 3 IA's CAD (coronary artery disease) Mother , age 69 of embolus CAD (coronary artery disease) Brother CAD (coronary artery disease) S/P CABG x 4 Hypertension Myocardial infarction Hx of heart valve replacement with mechanical valve Brother Hypertension Diabetes CAD (coronary artery disease) Hyperlipidemia History of coronary artery bypass graft Cancer Other Family history of coronary artery disease Family history of hyperlipidemia Family history of hypertension Surgical History H/O arthroscopy of knee H/O cataract extraction H/O coronary artery bypass surgery (06/03/04) H/O rectocele repair H/O tubal ligation H/O: hysterectomy History of appendectomy History of carpal tunnel release of both wrists History of coronary artery stent placement (03/14/21) History of excision of lesion History of left heart catheterization (03/11/21) Hx of cholecystectomy Scalp surgery 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 Social History household members: none housing: condominium current occupational status: retired pets and animals: Yes pets and animals: dog(s) Smoking Status: Never smoker second hand exposure: Yes (most of her life, not for the past 20+ years) alcohol intake: never substance use type: does not use caffeine: Yes Type: carbonated beverages Number of servings: 1 eating out: 1-3 times/week what type of physical activity do you participate in: none seatbelt use: always do you feel safe at home: Yes ROS ROS Narrative All review of systems were negative except as mentioned above in the history of present illness and the other review of systems. Physical Exam Narrative - Physical Exam General: Alert, Oriented x3, Cooperative HEENT: Atraumatic, PERRLA, EOMI, Normocephalic Oral: Moist Mucosa, No Gingival or Mucosal Lesions/ Ulcerations Neck: Supple, No JVD, Negative Carotid Bruits Lungs: Clear to auscultation, Normal air movement Cardiovascular: Regular rate, Normal S1, Normal S2, No murmurs Abdomen: Bowel Sounds Present, Soft, Non Tender, Non-Distended, No Hepato-splenomegaly Extremities: No clubbing, No cyanosis, No edema, Capillary Refill Less than 3 Seconds Skin: No rashes, No breakdown Musculoskeletal: No Tenderness to Palpation of Joints or Extremities Neurological: Neuro grossly intact Psych/Mental Status: Normal Affect, Appropriate Lab / Micro Data 01/30/23 14:55 01/30/23 09:08 Labs: Laboratory Results - last 24 hr 01/30/23 09:08: WBC 10.9, RBC 3.08 L, Hgb 9.3 L, Hct 28.7 L, MCV 93.2, MCH 30.2, MCHC 32.4, RDW Std Deviation 47.0 H, RDW Coeff of Maddie 13.8, Plt Count 346, MPV 10.0, Sodium 134 L, Potassium 3.8, Chloride 103, Carbon Dioxide 26.0, Anion Gap 5, BUN 82 H, Creatinine 0.94, Estim Creat Clear Calc 32.42, Est GFR (MDRD) Af Amer 73, Est GFR (MDRD) Non-Af 60, BUN/Creatinine Ratio 87.2 H, Glucose 122 H, Calcium 8.4 L, Blood Type O POSITIVE, Antibody Screen NEGATIVE 01/30/23 14:55: Hgb 7.9 L, Hct 23.8 L Rhythm Strip Rhythm Strip: Sinus Rhythm Rate: 92 Ectopy: None Assessment & Plan Assessment/Plan (1) Anemia due to acute blood loss: (2) Acute gastrointestinal bleeding: PLAN: Plan Oh 87-year-old with coronary artery disease status post CABG and status post stenting in her abdominal vessels on aspirin and Plavix and recently started on meloxicam who presents with melanotic stools. She was determined to have an acute anemia. Differential diagnosis is an upper GI bleed secondary to peptic ulcer disease secondary to NSAIDs, angiodysplastic lesions, malignancy, DeilaFoy lesion. Patient should undergo an upper endoscopy to evaluate upper GI tract. She was explained alternatives, risk, benefits including not withstanding bleeding, infection, sepsis, perforation, need for emergent surgery . She will have an ASA of 3. Charges/Coding Visit Charges Inpatient E&M: 26038 Init Hosp L3
[2023-01-30] MEDS: Lactated Ringers 1,000 ML 15 ML IV (17:00)
--- NOTE | 2023-01-30 17:55 | OP.CCLET_ITS ---
01/30/2023 Natalie Aragon Do Re : Upper GI endoscopy procedure for Kristine Perla Dear Mahesh This procedure was performed on Monday, January 30, 2023. My impressions and recommendations are as follows: Impressions : - Tortuous esophagus. - Moderate Schatzki ring. - Large hiatal hernia. - Normal second portion of the duodenum. - No specimens collected. Recommendations : - [facility]. - Resume previous diet. - Continue present medications. My findings are described in the full procedure note, which is enclosed. If I can be of further assistance, please feel free to contact me at . Sincerely, Celestino Garza, 01/30/2023 5:54:30 PM This report has been signed electronically.
--- NOTE | 2023-01-30 17:55 | OP.EGD_ITS ---
Patient Name: Kristine Perla Procedure Date: 01/30/2023 5:31 PM Date of : 1935 Age: 87 Procedure: Upper GI endoscopy Indications: Epigastric abdominal pain, Iron deficiency anemia Providers: Celestino Garza DO Medicines: Monitored Anesthesia Care Patient Profile: This is an 87 year old female. Refer to note in patient chart for documentation of history and physical. Patient has symptoms. Complications: No immediate complications. Procedure: Pre-Anesthesia Assessment: - Prior to the procedure, a History and Physical was performed, and patient medications and allergies were reviewed. The patient is competent. The risks and benefits of the procedure and the sedation options and risks were discussed with the patient. All questions were answered and informed consent was obtained. Patient identification and proposed procedure were verified by the physician in the pre-procedure area. Mental Status Examination: alert and oriented. Airway Examination: normal oropharyngeal airway and neck mobility. Respiratory Examination: clear to auscultation. CV Examination: normal. Prophylactic Antibiotics: The patient does not require prophylactic antibiotics. Prior Anticoagulants: The patient has taken no previous anticoagulant or antiplatelet agents. ASA Grade Assessment: II - A patient with mild systemic disease. After reviewing the risks and benefits, the patient was deemed in satisfactory condition to undergo the procedure. The anesthesia plan was to use moderate sedation / analgesia (conscious sedation). Immediately prior to administration of medications, the patient was re-assessed for adequacy to receive sedatives. The heart rate, respiratory rate, oxygen saturations, blood pressure, adequacy of pulmonary ventilation, and response to care were monitored throughout the procedure. The physical status of the patient was re-assessed after the procedure. After obtaining informed consent, the endoscope was passed under direct vision. Throughout the procedure, the patient's blood pressure, pulse, and oxygen saturations were monitored continuously. The Endoscope was introduced through the mouth, and advanced to the second part of duodenum. The upper GI endoscopy was accomplished without difficulty. The patient tolerated the procedure well. Scope In: 5:39:23 PM Scope Out: 5:48:56 PM Total Procedure Duration Time 0 hours 9 minutes 33 seconds Findings: The examined esophagus was significantly tortuous. A moderate Schatzki ring was found in the lower third of the esophagus. A large hiatal hernia was present. The second portion of the duodenum was normal. Impression: - Tortuous esophagus. - Moderate Schatzki ring. - Large hiatal hernia. - Normal second portion of the duodenum. - No specimens collected. Recommendation: - [facility]. - Resume previous diet. - Continue present medications. Procedure Code(s): --- Professional --- 17518, Esophagogastroduodenoscopy, flexible, transoral; diagnostic, including collection of specimen(s) by brushing or washing, when performed (separate procedure) CPT copyright 2021 [employer]. All rights reserved. The codes documented in this report are preliminary and upon data coder operator review may be revised to meet current compliance requirements. Celestino Garza DO 01/30/2023 5:54:30 PM This report has been signed electronically. Number of Addenda: 0 Note Initiated On: 01/30/2023 5:31 PM
--- NOTE | 2023-01-30 17:59 | CT_ITS ---
STUDY: CT ABDOMEN AND PELVIS WITH CONTRAST REASON FOR EXAM: Female, 87 years old. GI bleeding RADIATION DOSAGE (If Supplied By Facility): CTDIvol = ( 16.48 ) mGy, DLP = ( 1044.28 ) mGycm TECHNIQUE: Transaxial images were obtained from the dome of the diaphragm to the symphysis pubis without oral contrast. IV 100mL Isovue-370 was administered. Sagittal and coronal images were reconstructed. Individualized dose optimization techniques were used for this CT. COMPARISON: None. FINDINGS: Nonspecific chronic interstitial thickening in the lower lobe. The visualized portions of the heart are within normal limits. Large hiatal hernia noted Liver is normal in size. There are tiny granulomatous calcifications. No mass or bile duct dilatation. Gallbladder has been removed surgically.. Spleen is normal size and contains tiny granulomatous calcifications. Normal pancreas. Normal bilateral adrenal glands. Kidneys are atrophic and there is multifocal scarring of the right likely due to prior inflammatory disease. No evidence for renal obstruction. 2 small cortical cysts noted in the left kidney which will not require additional imaging Normal visualized stomach. Normal small intestine. Minor diverticular disease of the distal descending and sigmoid colon without evidence for acute diverticulitis. Appendix not visualized status post appendectomy. Atherosclerotic changes of the aorta without evidence for aneurysm. Normal inferior vena cava. Normal retroperitoneum. Nonspecific bladder distention.. Uterus not visualized status post hysterectomy. Normal abdominal wall. Lumbar spine demonstrates degenerative change CT/Abdomen/Pelvis W IV Cont ONLY IMPRESSION: Diverticular disease of sigmoid colon without evidence for acute diverticulitis. No acute abnormalities identified. No obvious sites of acute intraluminal hemorrhage within the bowel. Radionuclide tagged red blood cell study recommended for further assessment Electronically Signed: Yaniv Goncalves MD at 21:37 EDT ,
[2023-01-30] MEDS: Metoprolol Tartrate 25 MG Tablet 12.5 MG PO (20:03)
[2023-01-30] MEDS: Pantoprazole Sodium 40 MG in 0.9% Normal Saline (100mL MB+) 100 ML 330 MG IV (20:03)
[2023-01-30 20:58] LABS: Hematocrit 23.6 % (37-47); Hemoglobin 7.9 g/dL (12.0-15.0)
[2023-01-31] VITALS (12 sets, daily range): BP systolic 108–159; BP diastolic 37–59; PULSE 73–97; RESP 16–18; TEMP 36.3–36.8; O2SAT 98–100
[2023-01-31] MEDS: Acetaminophen 325 MG Tablet 650 MG PO ×3 (02:18→20:44)
[2023-01-31 02:51] LABS: Absolute Lymphocyte Count 1.82 X10^3/uL (0.83-4.51); Absolute Neutrophil Count 9.5 X10^3/uL (2.0-7.7); Basophil# 0.06 X10^3/uL; Basophil% 0.5 % (0-1); Eosinophil# 0.04 X10^3/uL; Eosinophils% 0.3 % (0-5); Hematocrit 21.2 % (37-47); Hemoglobin 7.1 g/dL (12.0-15.0); Lymphocyte # 1.82 X10^3/ul (0.83-4.51); Lymphocyte % 14.7 % (19-41); Mean Corp Hgb Conc 33.5 g/dL (32-36); Mean Corpuscular Hgb 30.3 pg (27.0-32.0); Mean Corpuscular Volume 90.6 fL (81-99); Mean Platelet Vol. 9.7 fl (6.2-12.0); Monocyte# 0.88 X10^3/uL; Monocyte% 7.1 % (0-10); NRBC Flagged by Analyzer 0 % (0-5); Neutrophil % 76.8 % (47-70); Platelet Count 274 K/mm3 (150-450); RBC Distribution Width CV 14.1 % (11.6-14.6); RBC Distribution Width SD 45.9 fl (35.1-43.9); Red Blood Count 2.34 M/mm3 (4.2-5.4); White Blood Count 12.4 K/mm3 (4.4-11.0)
[2023-01-31 03:17] LABS: Anion Gap 5 (5-15); BUN 46 mg/dL (7-18); BUN/Creat Ratio 56.2 RATIO (10-20); Calcium,Total 8.2 mg/dL (8.5-10.1); Chloride 110 mmol/L (98-107); Creatinine, Serum 0.82 mg/dL (0.55-1.02); EST Glomerular Filtration Rate 70 mL/min (>60); Est Glom Filt Rate - Afr Amer 85 mL/min (>60); Estimated Creatinine Clearance 37.16 ml/min; Glucose 110 mg/dL (74-106); Potassium 4.1 mmol/L (3.5-5.1); Sodium Level 140 mmol/L (136-145)
[2023-01-31] MEDS: Levothyroxine 25 MCG TABLET PO (04:38)
--- NOTE | 2023-01-31 07:47 | PN.HOSP_ITS ---
Reason for Visit Reason for Visit: Diagnoses Acute posthemorrhagic anemia (01/30/23) Gastrointestinal hemorrhage, unspecified (01/30/23) Subjective Subjective Midsternal chest pain after eating. Objective Data Objective Data Vital Signs: Vital Signs Temp Pulse Resp BP Pulse Ox O2 Del Method O2 Flow Rate 36.5 C L 76 16 135/59 H 100 Room Air 2 01/31/23 02:33 01/31/23 02:33 01/31/23 02:33 01/31/23 02:33 01/31/23 02:33 01/31/23 02:34 01/30/23 18:24 Oxygen Flow Rate (L/min) 2 Oxygen Delivery Method Room Air Weight: 79.3 kg Body Mass Index (BMI) 33.0 Intake & Output: Intake and Output for Last 24 Hours 01/29/23 01/30/23 01/31/23 23:59 23:59 23:59 Intake Total 1160.75 / 1160.75 Output Total 300 / 300 Balance 860.75 / 860.75 Lab / Micro Data 01/31/23 02:44 01/31/23 02:44 Labs: Laboratory Results - last 24 hr 01/30/23 09:08: WBC 10.9, RBC 3.08 L, Hgb 9.3 L, Hct 28.7 L, MCV 93.2, MCH 30.2, MCHC 32.4, RDW Std Deviation 47.0 H, RDW Coeff of Maddie 13.8, Plt Count 346, MPV 10.0, Sodium 134 L, Potassium 3.8, Chloride 103, Carbon Dioxide 26.0, Anion Gap 5, BUN 82 H, Creatinine 0.94, Estim Creat Clear Calc 32.42, Est GFR (MDRD) Af Amer 73, Est GFR (MDRD) Non-Af 60, BUN/Creatinine Ratio 87.2 H, Glucose 122 H, Calcium 8.4 L, Blood Type O POSITIVE, Antibody Screen NEGATIVE 01/30/23 14:55: Hgb 7.9 L, Hct 23.8 L 01/30/23 20:53: Hgb 7.9 L, Hct 23.6 L 01/31/23 02:44: WBC 12.4 H, RBC 2.34 L, Hgb 7.1 L, Hct 21.2 L, MCV 90.6, MCH 30.3, MCHC 33.5, RDW Std Deviation 45.9 H, RDW Coeff of Maddie 14.1, Plt Count 274, MPV 9.7, Immature Gran % (Auto) 0.600, Neut % (Auto) 76.8 H, Lymph % (Auto) 14.7 L, Routt % (Auto) 7.1, Eos % (Auto) 0.3, Baso % (Auto) 0.5, Absolute Neuts (auto) 9.5 H, Absolute Lymphs (auto) 1.82, Nucleated RBC % 0, Sodium 140, Potassium 4.1, Chloride 110 H, Carbon Dioxide 25.0, Anion Gap 5, BUN 46 H, Creatinine 0.82, Estim Creat Clear Calc 37.16, Est GFR (MDRD) Af Amer 85, Est GFR (MDRD) Non-Af 70, BUN/Creatinine Ratio 56.2 H, Glucose 110 H, Calcium 8.2 L Radiography Diagnostic Testing: Radiology Impression Abdomen/Pelvis CT 01/30/23 17:59 IMPRESSION: Diverticular disease of sigmoid colon without evidence for acute diverticulitis. No acute abnormalities identified. No obvious sites of acute intraluminal hemorrhage within the bowel. Radionuclide tagged red blood cell study recommended for further assessment Electronically Signed: Yaniv Goncalves MD at 21:37 EDT , Rhythm Strip Rhythm Strip: Sinus Rhythm Rate: 92 Ectopy: None Physical Exam Const alert Constitutional Narrative: Uncomfortable but nontoxic. Resp normal respiratory effort, no retractions, no use of accessory muscles and clear to auscultation bilaterally Cardio regular rate, regular rhythm, S1 normal heart sound and S2 normal heart sound GI normal to inspection, nondistended, normoactive bowel sounds, soft to palpation, non-tender and non-distended Extremity normal to inspection and no clubbing, cyanosis or edema Neuro Sensorium / Orientation: awake and alert Assessment & Plan Assessment/Plan (1) Acute gastrointestinal bleeding: PLAN: Unclear source Continue with Protonix Hold aspirin and clopidogrel GI consult EGD showed tortuous esophagus. Moderate Schatzki ring. Large HH. Normal duodenum. (2) Anemia due to acute blood loss: PLAN: Hemoglobin dropped from 12.3 back in October 30 now 7.1 No indication of transfusion at this time Continue to monitor Secondary to GI bleed We will transfuse to keep hemoglobin around 8 or more. This is because of the patient's known coronary artery disease. (3) Chest pain: QUALIFIERS: Chest pain type: unspecified Qualified Code(s): R07.9 - Chest pain, unspecified PLAN: Atypical as it developed after she ate. Is possible this could be related with reflux but EKG was reviewed and showed some lateral ST depressions. Troponins were minimally elevated at and went from 57-59. We will cycle additional troponins We will check an echocardiogram PLAN: Plan Chronic conditions * CAD: Status post bypass and stents. Last stent was 2018. Aspirin and clopidogrel to be held. * Hyperlipidemia: Statin when able. VTE prophylaxis with SCDs CODE STATUS: Just with the patient. Patient want CPR but no life support. Explained to her that those likely would not be conducive if she were to undergo CPR if she can be put on life support. I encouraged her to either be DNR Comfort Care arrest no intubation or full code. Patient gradually went with full CODE STATUS. Charges/Coding Visit Charges Inpatient E&M: 97849 Subs Hosp L2
[2023-01-31] MEDS: Metoprolol Tartrate 25 MG Tablet PO (09:11)
[2023-01-31] MEDS: Pantoprazole Sodium 40 MG in 0.9% Normal Saline (100mL MB+) 100 ML 330 MG IV ×2 (09:28→20:43)
[2023-01-31 10:30] LABS: Troponin-I HS 54 pg/mL (3.0-54.0)
[2023-01-31] MEDS: Lidocaine 5% Patch 2 PATCH TOPICAL (10:54)
[2023-01-31] MEDS: Flu Vacc QS2023-24(65YR UP)/PF 240 MCG/0.7 ML Syringe IM (10:56)
[2023-01-31 11:23] LABS: Troponin-I HS 59 pg/mL (3.0-54.0)
--- NOTE | 2023-01-31 12:11 | ECHOD_ITS ---
Reason For Study: CHEST PAIN Procedure This was a 2D Doppler, Color Flow transthoracic echocardiogram. Exam performed portable in patient room. Left Ventricle Normal LV size. Moderate concentric left ventricular hypertrophy. Left ventricular systolic function is normal. The estimated ejection fraction is 65 %. No regional wall motion abnormalities noted. Right Ventricle Normal RV size. Normal systolic function. Atria The left atrium is moderately enlarged. Normal right atrium. Mitral Valve Normal mitral valve. Tricuspid Valve Normal tricuspid valve. Moderate (2+) tricuspid valve insufficiency. Pulmonary artery systolic pressure is 50 mmHg. Aortic Valve Trisinus/trileaflet aortic valve. Mild focal aortic valve calcification. Pulmonic Valve Normal pulmonic valve. Great Vessels Normal aortic root. The pulmonary artery is normal size. Normal inferior vena cava. Pericardium/Pleural No pericardial effusion. MMode/2D Measurements & Calculations LVIDd: 4.9 cm IVSd: 1.4 cm Ao root diam: 3.3 cm LVIDs: 3.7 cm LVPWd: 1.7 cm FS: 23.9 % LAV(MOD-bp): 90.8 ml LVAd ap4: 22.5 cm2 SV(MOD-sp4): 43.2 ml LAV(MOD-bp) Indexed: 51.0 ml/m2 LVLd ap4: 6.9 cm LAV(MOD-sp2): 94.4 ml EDV(MOD-sp4): 61.5 ml LAV(MOD-sp4): 80.8 ml EDV(sp4-el): 62.0 ml LVAs ap4: 10.4 cm2 LVLs ap4: 5.4 cm ESV(MOD-sp4): 18.3 ml ESV(sp4-el): 17.3 ml EF(MOD-sp4): 70.2 % EF(sp4-el): 72.1 % SV(sp4-el): 44.7 ml LA A4 area: 25.6 cm2 LA dimension(2D): 4.1 cm RA A4 area: 13.3 cm2 TAPSE: 1.6 cm Time Measurements MV dec time: 0.05 sec Doppler Measurements & Calculations MV E max manny: 126.9 cm/sec Lat Peak E' Manny: 7.9 cm/sec Med Peak E' Manny: 7.5 cm/sec MV A max manny: 151.5 cm/sec E/E' lat: 16.2 E/E' med: 16.8 MV E/A: 0.84 MV V2 max: 171.9 cm/sec Ao V2 max: 153.6 cm/sec MV max P.8 mmHg MV dec slope: 2608 cm/sec2 Ao max P.5 mmHg MV V2 mean: 110.2 cm/sec Ao V2 mean: 111.6 cm/sec MV mean P.6 mmHg Ao mean P.6 mmHg MV V2 VTI: 37.5 cm Ao V2 VTI: 29.3 cm AV (velocity ratio): 0.88 LV V1 max: 129.0 cm/sec PA V2 max: 138.8 cm/sec TR max manny: 342.3 cm/sec LV V1 max P.7 mmHg PA V2 mean: 92.8 cm/sec TR max P.9 mmHg LV V1 mean P.1 mmHg LV V1 mean: 95.4 cm/sec LV V1 VTI: 25.7 cm ECHO/Echo Complete Interpretation Summary Normal LV size. Moderate concentric left ventricular hypertrophy. Left ventricular systolic function is normal. The estimated ejection fraction is 65 %. Pulmonary artery systolic pressure is 50 mmHg. Ordering Physician: Ced Manuel Referring Physician: DEVIN HERNANDEZ Performed By: Renee Johns RCS
--- NOTE | 2023-01-31 12:45 | CASEMGMT ---
RONI RODAS Face to Face with patient for initial transition planning/care coordination assessment. RN CM introduced self and role at [facility]. Patient lying in bed, alert and oriented, daughter at bedside. Patient willing to participate in assessment and is able to answer all questions appropriately. Care providers, pharmacy, and demographics verified. Patient wishes to discharge home with resumption of outpatient therapy. Patient states she has no further needs or concerns at this time. CM to follow for discharge planning needs that may arise. PCP: Mahesh Specialists: mick Friend; Becca, director diversity; Josh rasheed dermatology Preferred Pharmacy: [facility] Health Insurance: [employer] Prescription Benefit: yes Living Will/HPOA: yes, son Sampson Merchant LNOK: son, daughter Living Arrangements: Patient lives alone in a 1st floor condo, 1 step to enter the home. Patient is independent at home. Transportation: [facility]/HHC: Jayson has shower chair, raised toilet, grab bars, and rollator at home. No previous HHC or SNF. Patient is attending outpatient therapy at [facility]. Disposition Plan: Patient to discharge home with resumption outpatient therapy, family support, and follow-up plans in place. Sarah STANTON, RN, CM
[2023-01-31 15:25] LABS: Troponin-I HS 56 pg/mL (3.0-54.0)
[2023-01-31 16:19] LABS: Hematocrit 26.1 % (37-47); Hemoglobin 8.7 g/dL (12.0-15.0)
[2023-01-31] MEDS: Metoprolol Tartrate 25 MG Tablet 12.5 MG PO (20:44)
[2023-02-01] VITALS (8 sets, daily range): BP systolic 144–160; BP diastolic 51–68; PULSE 69–89; RESP 16–18; TEMP 36.3–36.8; O2SAT 98–100
[2023-02-01] MEDS: Levothyroxine 50 MCG Tablet PO (03:06)
[2023-02-01 07:06] LABS: Absolute Lymphocyte Count 1.16 X10^3/uL (0.83-4.51); Absolute Neutrophil Count 6.1 X10^3/uL (2.0-7.7); Basophil# 0.05 X10^3/uL; Basophil% 0.6 % (0-1); Eosinophil# 0.34 X10^3/uL; Eosinophils% 4.1 % (0-5); Hematocrit 25.9 % (37-47); Hemoglobin 8.3 g/dL (12.0-15.0); Lymphocyte # 1.16 X10^3/ul (0.83-4.51); Mean Corpuscular Hgb 29.9 pg (27.0-32.0); Mean Corpuscular Volume 93.2 fL (81-99); Mean Platelet Vol. 9.9 fl (6.2-12.0); Monocyte# 0.59 X10^3/uL; Monocyte% 7.1 % (0-10); NRBC Flagged by Analyzer 0 % (0-5); Neutrophil # 6.14 X10^3/uL (2.7-7.7); Neutrophil % 73.8 % (47-70); Platelet Count 251 K/mm3 (150-450); RBC Distribution Width CV 14.9 % (11.6-14.6); RBC Distribution Width SD 50.1 fl (35.1-43.9); Red Blood Count 2.78 M/mm3 (4.2-5.4); White Blood Count 8.3 K/mm3 (4.4-11.0)
--- NOTE | 2023-02-01 08:05 | PN.HOSP_ITS ---
Reason for Visit Reason for Visit: Diagnoses Acute posthemorrhagic anemia (01/30/23) Gastrointestinal hemorrhage, unspecified (01/30/23) Chest pain, unspecified (01/30/23) Subjective Subjective Feels well. No further melena. No further chest pain. Objective Data Objective Data Vital Signs: Vital Signs Temp Pulse Resp BP Pulse Ox O2 Del Method O2 Flow Rate 36.6 C 69 18 160/60 H 99 Room Air 2 02/01/23 03:30 02/01/23 03:30 02/01/23 03:30 02/01/23 03:30 02/01/23 03:30 02/01/23 03:30 01/31/23 11:20 Oxygen Flow Rate (L/min) 2 Oxygen Delivery Method Room Air Weight: 79.3 kg Body Mass Index (BMI) 33.0 Intake & Output: Intake and Output for Last 24 Hours 01/30/23 01/31/23 02/01/23 23:59 23:59 23:59 Intake Total 1160.75 / 1160.75 1120 / 1120 Output Total 300 / 300 400 / 900 500 / 500 Balance 860.75 / 860.75 720 / 220 -500 / -500 Lab / Micro Data 02/01/23 05:55 01/31/23 02:44 Labs: Laboratory Results - last 24 hr 01/30/23 09:08: Crossmatch See Detail 01/31/23 09:50: Troponin I High Sens 54 01/31/23 10:56: Troponin I High Sens 59 H 01/31/23 14:56: Hgb 8.7 L, Hct 26.1 L, Troponin I High Sens 56 H 02/01/23 05:55: WBC 8.3, RBC 2.78 L, Hgb 8.3 L, Hct 25.9 L, MCV 93.2, MCH 29.9, MCHC 32.0, RDW Std Deviation 50.1 H, RDW Coeff of Maddie 14.9 H, Plt Count 251, MPV 9.9, Immature Gran % (Auto) 0.400, Neut % (Auto) 73.8 H, Lymph % (Auto) 14.0 L, Ray % (Auto) 7.1, Eos % (Auto) 4.1, Baso % (Auto) 0.6, Absolute Neuts (auto) 6.1, Absolute Lymphs (auto) 1.16, Nucleated RBC % 0 Rhythm Strip Rhythm Strip: Sinus Rhythm Rate: 92 Ectopy: None Physical Exam Const alert and no apparent distress HEENT head/scalp atraumatic Resp normal respiratory effort, no retractions, no use of accessory muscles and clear to auscultation bilaterally Cardio regular rate, regular rhythm, S1 normal heart sound and S2 normal heart sound GI normal to inspection, nondistended, normoactive bowel sounds, soft to palpation, non-tender and non-distended Extremity normal to inspection Assessment & Plan Assessment/Plan (1) Acute gastrointestinal bleeding: PLAN: Unclear source Continue with Protonix Hold aspirin and clopidogrel GI consult EGD showed tortuous esophagus. Moderate Schatzki ring. Large HH. Normal duodenum. (2) Anemia due to acute blood loss: PLAN: Hemoglobin dropped from 12.3 back in October 30 now 7.1 No indication of transfusion at this time Continue to monitor Secondary to GI bleed We will transfuse to keep hemoglobin around 8 or more. This is because of the patient's known coronary artery disease. (3) Chest pain: QUALIFIERS: Chest pain type: unspecified Qualified Code(s): R07.9 - Chest pain, unspecified PLAN: Atypical as it developed after she ate. Is possible this could be related with reflux but EKG was reviewed and showed some lateral ST depressions. Troponins were minimally elevated at and went from 57-59-56 We will check an echocardiogram (last echo from 03/13/2021 showed an EF 65%. LA E.) PLAN: Plan Chronic conditions * CAD: Status post bypass and stents. Last stent was 2018. Aspirin and clopidogrel to be held. * Hyperlipidemia: Statin when able. VTE prophylaxis with SCDs CODE STATUS: Just with the patient. Patient want CPR but no life support. Explained to her that those likely would not be conducive if she were to undergo CPR if she can be put on life support. I encouraged her to either be DNR Comfort Care arrest no intubation or full code. Patient gradually went with full CODE STATUS. Disposition: home pending echocardiogram and no further events. Charges/Coding Visit Charges Inpatient E&M: 01485 Subs Hosp L2
[2023-02-01] MEDS: Pantoprazole Sodium 40 MG in 0.9% Normal Saline (100mL MB+) 100 ML 330 MG IV ×2 (09:58→21:46)
[2023-02-01] MEDS: Metoprolol Tartrate 25 MG Tablet PO (10:00)
[2023-02-01] MEDS: Lidocaine 5% Patch 2 PATCH TOPICAL (10:00)
[2023-02-01] MEDS: 0.9% Saline Lock 10 ML Syringe IV (10:45)
--- NOTE | 2023-02-01 19:34 | EKG12_ITS ---
Test Reason : CP Blood Pressure : / mmHG Vent. Rate : 087 BPM Atrial Rate : 087 BPM P-R Int : 178 ms QRS Dur : 082 ms QT Int : 370 ms P-R-T Axes : 051 -12 058 degrees QTc Int : 445 ms Normal sinus rhythm Minimal voltage criteria for LVH, may be normal variant ( R in aVL ) Nonspecific ST and T wave abnormality Abnormal ECG When compared with ECG of 31-JAN-2023 09:13, MANUAL COMPARISON REQUIRED, DATA IS UNCONFIRMED Confirmed by CRISTO EPPS, CRYSTAL ([id number]), editor greeting card ALISSA GOMEZ ([id number]) on 02/26/2023 11:39:46 AM Referred By: Confirmed By:CRYSTAL LEMONS MD
[2023-02-01 21:06] LABS: Troponin-I HS 39 pg/mL (3.0-54.0)
[2023-02-01] MEDS: Metoprolol Tartrate 25 MG Tablet 12.5 MG PO (21:48)
[2023-02-02 03:45] VITALS: BP 160/65; PULSE 75; RESP 18; TEMP 36.5; O2SAT 100
[2023-02-02] MEDS: Levothyroxine 25 MCG TABLET PO (03:50)
[2023-02-02 08:42] VITALS: O2SAT 97
[2023-02-02 09:20] VITALS: BP 142/79; PULSE 65; RESP 15; TEMP 37.4; O2SAT 100
[2023-02-02 09:56] VITALS: BP 142/79; PULSE 65
[2023-02-02] MEDS: Metoprolol Tartrate 25 MG Tablet PO (09:56)
[2023-02-02] MEDS: Lidocaine 5% Patch 2 PATCH TOPICAL (09:57)
[2023-02-02] MEDS: 0.9% Saline Lock 10 ML Syringe IV (10:06)
[2023-02-02] MEDS: Pantoprazole Sodium 40 MG in 0.9% Normal Saline (100mL MB+) 100 ML 330 MG IV (10:06)
--- NOTE | 2023-02-02 10:55 | PCM.PN.HOSP ---
Reason for Visit Reason for Visit: Diagnoses Acute posthemorrhagic anemia (01/30/23) Gastrointestinal hemorrhage, unspecified (01/30/23) Chest pain, unspecified (01/30/23) Subjective Subjective Patient is an 87-year-old lady admitted with black tarry stools Objective Data Objective Data Vital Signs: Vital Signs Temp Pulse Resp BP Pulse Ox O2 Del Method O2 Flow Rate 99.4 F H 65 15 142/79 H 100 Room Air 2 02/02/23 09:20 02/02/23 09:56 02/02/23 09:20 02/02/23 09:56 02/02/23 09:20 02/02/23 09:20 01/31/23 11:20 Oxygen Flow Rate (L/min) 2 Oxygen Delivery Method Room Air Weight: 79.3 kg Body Mass Index (BMI) 33.0 Intake & Output: Intake and Output for Last 24 Hours 01/31/23 02/01/23 02/02/23 23:59 23:59 23:59 Intake Total 1120 / 1120 960 / 960 120 / 120 Output Total 400 / 900 900 / 900 400 / 400 Balance 720 / 220 60 / 60 -280 / -280 Lab / Micro Data 02/01/23 05:55 01/31/23 02:44 Labs: Laboratory Results - last 24 hr 02/01/23 20:15: Troponin I High Sens 39 Rhythm Strip Rhythm Strip: Sinus Rhythm Rate: 92 Ectopy: None Physical Exam Narrative GENERAL: cooperative HEENT: Atraumatic; normocephalic EYES; Anicteric, Normal Conjunctiva NECK; supple, normal thyroid, RESPIRATORY: Diminished to auscultation CARDIOVASCULAR: Regular S1 S2, GI: soft, normoactive bowel sounds, : No Renal angle tenderness; EXTREMITIES: No edema, no clubbing, MUSCULOSKELETAL: no muscle wasting NEURO: Awake; no lateralizing signs. SKIN: No Rash PSYCH; Flat affect Assessment & Plan Assessment/Plan (1) Anemia due to acute blood loss: PLAN: Plan Patient is an 87-year-old lady admitted with black tarry stools 1. Acute GI bleed ? Patient underwent EGD on 19 November 2022 which demonstrated tortuous esophagus. Moderate Schatzki ring. Large large hiatal hernia with a normal duodenum. Patient was on aspirin and Plavix held. 2. Acute blood loss anemia ? Hemoglobin on admission was 12.3 dropped to 7.1 patient transfused with 1 unit PRBC posttransfusion H&H ordered for subsequent monitoring ? Repeat H&H ordered for reeval 3. Elevated troponin ? Secondary to demand ischemia 4. Coronary artery disease ? With previous bypass and stents. Patient is on aspirin and Plavix held plan is to resume on discharge 5. Dyslipidemia -Patient is on statin therapy, continued at home dose 6. Hypothyroidism - Patient is on levothyroxine home dose continued 7. Hypertension - Blood pressure controlled, home medications continued with dose adjustment as needed 8. DVT prophylaxis ? Bilateral SCDs Time spent in the patient's overall evaluation,decision-making process, review of diagnostic data, adjustment of management, discussion with other providers, nursing nursing and ancillary staff involved in patient's care documentation, 50 Minutes Charges/Coding Visit Charges Inpatient E&M: 04198 [facility] Hosp L3
[2023-02-02 12:40] LABS: Absolute Lymphocyte Count 0.76 X10^3/uL (0.83-4.51); Absolute Neutrophil Count 7.4 X10^3/uL (2.0-7.7); Basophil# 0.06 X10^3/uL; Basophil% 0.6 % (0-1); Eosinophil# 0.29 X10^3/uL; Eosinophils% 3.1 % (0-5); Hematocrit 25.6 % (37-47); Hemoglobin 8.3 g/dL (12.0-15.0); Lymphocyte # 0.76 X10^3/ul (0.83-4.51); Lymphocyte % 8.1 % (19-41); Mean Corp Hgb Conc 32.4 g/dL (32-36); Mean Corpuscular Hgb 30.5 pg (27.0-32.0); Mean Corpuscular Volume 94.1 fL (81-99); Mean Platelet Vol. 9.8 fl (6.2-12.0); Monocyte# 0.78 X10^3/uL; Monocyte% 8.3 % (0-10); NRBC Flagged by Analyzer 0 % (0-5); Neutrophil # 7.42 X10^3/uL (2.7-7.7); Neutrophil % 79.2 % (47-70); Platelet Count 261 K/mm3 (150-450); RBC Distribution Width CV 14.9 % (11.6-14.6); RBC Distribution Width SD 49.3 fl (35.1-43.9); Red Blood Count 2.72 M/mm3 (4.2-5.4); White Blood Count 9.4 K/mm3 (4.4-11.0)
--- NOTE | 2023-02-02 13:41 | DS.PCM_ITS ---
Providers Date of Admission: 01/30/23 Date of Discharge: 02/02/23 Primary Care Physician: Natalie Aragon, Consultations 01/30/23 11:05 Consult: Gastroenterology Routine Consulting Provider: [facility] Reason for Consult: GI bleed EMERGENT Consult: No MD Notified: Yes Date Notified: 01/30/23 Time Notified: 10:08 Method of Notification: ED Physician Initiated Reason For Visit: GI BLEED Diagnosis Discharge Diagnosis (1) Anemia due to acute blood loss: Status: Acute Code(s): D62 - Acute posthemorrhagic anemia Plan Patient is an 87-year-old lady admitted with black tarry stools 1. Acute GI bleed ? Patient underwent EGD on 19 November 2022 which demonstrated tortuous esophagus. Moderate Schatzki ring. Large large hiatal hernia with a normal duodenum. Patient was on aspirin and Plavix held. 2. Acute blood loss anemia ? Hemoglobin on admission was 12.3 dropped to 7.1 patient transfused with 1 unit PRBC posttransfusion H&H ordered for subsequent monitoring ? Repeat H&H ordered for reeval; demonstrated stable hemoglobin. Patient was discharged on aspirin Plavix and Meloxicam discontinued on discharge 3. Elevated troponin ? Secondary to demand ischemia 4. Coronary artery disease ? With previous bypass and stents. Patient is on aspirin and Plavix held plan is to resume on discharge 5. Dyslipidemia -Patient is on statin therapy, continued at home dose 6. Hypothyroidism - Patient is on levothyroxine home dose continued 7. Hypertension - Blood pressure controlled, home medications continued with dose adjustment as needed 8. DVT prophylaxis ? Bilateral SCDs Time spent in the patient's overall evaluation,decision-making process, review of diagnostic data, adjustment of management, discussion with other providers, nursing nursing and ancillary staff involved in patient's care documentation, 50 Minutes Medications at Discharge Home Medications aspirin 81 mg chewable tablet 81 mg PO DAILY@0800 12/30/13 cholecalciferol (vitamin D3) 25 mcg (1,000 unit) capsule 1,000 unit PO DAILY 01/11/14 cyanocobalamin (vitamin B-12) 500 mcg tablet 250 mcg PO DAILY@0800 01/11/14 magnesium 250 mg tablet 500 mg PO DAILY 01/11/14 lecithin 1,200 mg capsule 1,200 mg PO DAILY 09/11/15 cinnamon bark 500 mg capsule 500 mg PO DAILY 08/16/16 coenzyme Q10 100 mg capsule (CoQ-10) 100 mg PO QDAY 06/02/17 nitroglycerin 0.4 mg sublingual tablet 0.4 mg sublingual Q5-15M PRN chest pain #25 tabs 03/18/21 Handicap Parking Placard #1 ea 05/29/21 pravastatin 40 mg tablet 40 mg PO QHS Discontinue Atorvastatin d/t myalgias #90 tabs 04/22/22 isosorbide mononitrate 60 mg tablet,extended release 24 hr 60 mg PO DAILY #90 tabs 08/22/22 docusate sodium 100 mg capsule 100 mg PO BID 08/29/22 levothyroxine 50 mcg tablet (Synthroid) 25 mcg PO QODAY thyroid 08/29/22 omega-3 fatty acids-fish oil 684 mg-1,200 mg capsule,delayed release 1 cap PO BID 08/29/22 metoprolol tartrate 25 mg tablet See Rx Instructions PO BID #90 tabs 10/07/22 furosemide 20 mg tablet 20 mg PO DAILY #90 tabs 01/07/23 flaxseed oil 1,000 mg capsule 1,000 mg PO DAILY 01/30/23 glucosamine 750 av-[id number]-hfi no1 644 mg-C 30 mg-julieta 1 mg tablet (Osteo Bi-Flex Triple Strength) 1 tab PO BID 01/30/23 levothyroxine 50 mcg tablet 50 mcg PO DAILY 01/30/23 pantoprazole 40 mg tablet,delayed release (Protonix) 40 mg PO DAILY #90 tabs 02/02/23 Hospital Course Summary of Care Provided Minutes Spent on Discharge: 50 Physical Exam Narrative GENERAL: cooperative HEENT: Atraumatic; normocephalic EYES; Anicteric, Normal Conjunctiva NECK; supple, normal thyroid, RESPIRATORY: Diminished to auscultation CARDIOVASCULAR: Regular S1 S2, GI: soft, normoactive bowel sounds, : No Renal angle tenderness; EXTREMITIES: No edema, no clubbing, MUSCULOSKELETAL: no muscle wasting NEURO: Awake; no lateralizing signs. SKIN: No Rash PSYCH; Flat affect Weight / BMI Weight Weight: 79.3 kg Body Mass Index (BMI) 33.0 ABG / Lab / Microbiology Data 02/02/23 12:29 01/31/23 02:44 Laboratory: Laboratory Results - last 24 hr 02/01/23 20:15: Troponin I High Sens 39 02/02/23 12:29: WBC 9.4, RBC 2.72 L, Hgb 8.3 L, Hct 25.6 L, MCV 94.1, MCH 30.5, MCHC 32.4, RDW Std Deviation 49.3 H, RDW Coeff of Maddie 14.9 H, Plt Count 261, MPV 9.8, Immature Gran % (Auto) 0.700, Neut % (Auto) 79.2 H, Lymph % (Auto) 8.1 L, [place] % (Auto) 8.3, Eos % (Auto) 3.1, Baso % (Auto) 0.6, Absolute Neuts (auto) 7.4, Absolute Lymphs (auto) 0.76 L, Nucleated RBC % 0 Radiography Diagnostic Testing: Radiology Impression Echocardiogram 01/31/23 12:11 Interpretation Summary Normal LV size. Moderate concentric left ventricular hypertrophy. Left ventricular systolic function is normal. The estimated ejection fraction is 65 %. Pulmonary artery systolic pressure is 50 mmHg. Ordering Physician: Ced Manuel Referring Physician: DEVIN ARAGON Performed By: Renee Johns RCS D/C Instructions Discharge Diet: No restrictions Discharge Activity: Return to Normal Activity Call your doctor if you observe: Fever of 101 or Higher, Shortness of breath, Fainting spells and Chest pain Meaningful Use Info Meaningful Use Diagnoses (Choose all that apply): None applicable Discharge Plan Admission Admit Date/Time: 01/30/23 10:05 Attending Provider: Basil Ly Primary Care Provider: Natalie Aragon Consulting Providers: eCd Manuel Discharge Orders/Prescriptions Prescriptions: New pantoprazole [Protonix] 40 mg tablet,delayed release (DR/EC) 40 mg PO DAILY Qty: 90 0RF Continued coenzyme Q10 [CoQ-10] 100 mg capsule 100 mg PO QDAY aspirin 81 MG tablet,chewable 81 mg PO DAILY@0800 Patient Comments: Blood thinner for heart health docusate sodium 100 mg capsule 100 mg PO BID Patient Comments: Stool softener omega-3 fatty acids-fish oil 684-1,200 mg capsule,delayed release(/EC) 1 cap PO BID Patient Comments: Supplement magnesium 250 MG tablet 500 mg PO DAILY Patient Comments: SUPPLEMENT cyanocobalamin (vitamin B-12) 500 MCG tablet 250 mcg PO DAILY@0800 Patient Comments: USES SUBLINGUAL TAB cholecalciferol (vitamin D3) 1,000 UNIT capsule 1,000 unit PO DAILY Patient Comments: bone health/supplement lecithin 1,200 MG capsule 1,200 mg PO DAILY Patient Comments: DIGESTION cinnamon bark 500 MG capsule 500 mg PO DAILY Patient Comments: supplement for blood sugar levothyroxine [Synthroid] 50 mcg tablet 25 mcg PO QODAY Rx Instructions: TAKES 1 TAB (50 MCG) QODAY ALTERNATING WITH 1/2 TAB (25 MCG) flaxseed oil 1,000 mg capsule 1,000 mg PO DAILY levothyroxine 50 mcg tablet 50 mcg PO DAILY Osteo Bi-Flex Triple Strength 750 mg-644 mg- 30 mg-1 mg tablet 1 tab PO BID nitroglycerin 0.4 mg tablet, sublingual 0.4 mg sublingual Q5-15M PRN (Reason: chest pain) Qty: 25 3RF Rx Instructions: do not exceed 3 doses per episode (DME) Handicap Parking Placard See Rx Instructions .Route .MEDSUPPLY Qty: 1 0RF Rx Instructions: As directed pravastatin 40 mg tablet 40 mg PO QHS Qty: 90 3RF isosorbide mononitrate 60 mg tablet extended release 24 hr 60 mg PO DAILY Qty: 90 3RF metoprolol tartrate 25 mg tablet See Rx Instructions PO BID Qty: 90 3RF Rx Instructions: Takes 25 mg AM, 12.5 mg PM furosemide 20 mg tablet 20 mg PO DAILY Qty: 90 3RF Discontinued meloxicam 15 mg tablet 15 mg PO DAILY Patient Comments: PER PT AND FAMILY MELOXICAM WAS STOPPED BY DR CRABTREE 01/30/23. famotidine [Pepcid AC] 20 mg tablet 20 mg PO BID Qty: 60 2RF clopidogrel 75 mg tablet 75 mg PO DAILY Qty: 90 3RF Referrals / Follow Up: Natalie Aragon DO [Primary Care Provider] - Disposition Disposition (needs filled in before D/C Order can be placed): Home, Self Care Charges/Coding Visit Charges Inpatient E&M: 02915 Disch Hosp >30min
--- NOTE | 2023-02-02 14:28 | PHA.DC_ITS ---
Pharmacy [facility] has performed discharge medication reconciliation and counseling for this patient. The patient's discharge medication list was reviewed for discrepancies and discrepancies were resolved. The patient was counseled on the following discharge medications and changes in medications for homegoing were reviewed. The Reason for Use, instructions for use, and potential side effects were reviewed for all new medications. The patient's questions regarding all of their medications were answered. 1. Pantoprazole 40 mg PO BID The patient was able to verbally demonstrate an understanding of their discharge medications. Medications at Discharge Home Medications aspirin 81 mg chewable tablet 81 mg PO DAILY@0800 12/30/13 cholecalciferol (vitamin D3) 25 mcg (1,000 unit) capsule 1,000 unit PO DAILY 01/11/14 cyanocobalamin (vitamin B-12) 500 mcg tablet 250 mcg PO DAILY@0800 01/11/14 magnesium 250 mg tablet 500 mg PO DAILY 01/11/14 lecithin 1,200 mg capsule 1,200 mg PO DAILY 09/11/15 cinnamon bark 500 mg capsule 500 mg PO DAILY 08/16/16 coenzyme Q10 100 mg capsule (CoQ-10) 100 mg PO QDAY 06/02/17 nitroglycerin 0.4 mg sublingual tablet 0.4 mg sublingual Q5-15M PRN chest pain #25 tabs 03/18/21 Handicap Parking Placard #1 ea 05/29/21 pravastatin 40 mg tablet 40 mg PO QHS Discontinue Atorvastatin d/t myalgias #90 tabs 04/22/22 isosorbide mononitrate 60 mg tablet,extended release 24 hr 60 mg PO DAILY #90 tabs 08/22/22 docusate sodium 100 mg capsule 100 mg PO BID 08/29/22 levothyroxine 50 mcg tablet (Synthroid) 25 mcg PO QODAY thyroid 08/29/22 omega-3 fatty acids-fish oil 684 mg-1,200 mg capsule,delayed release 1 cap PO BID 08/29/22 metoprolol tartrate 25 mg tablet See Rx Instructions PO BID #90 tabs 10/07/22 furosemide 20 mg tablet 20 mg PO DAILY #90 tabs 01/07/23 flaxseed oil 1,000 mg capsule 1,000 mg PO DAILY 01/30/23 glucosamine 750 ag-ysizvfakcyl-zxi no1 644 mg-C 30 mg-julieta 1 mg tablet (Osteo Bi-Flex Triple Strength) 1 tab PO BID 01/30/23 levothyroxine 50 mcg tablet 50 mcg PO DAILY 01/30/23 pantoprazole 40 mg tablet,delayed release (Protonix) 40 mg PO DAILY #90 tabs 02/02/23
--- NOTE | 2023-02-02 14:50 | CASEMGMT ---
RONI RODAS Follow-up: This RONI CM to pt's chairside. Pt states she plans to return home with the support of her family and to continue outpt tx in [place] as prior. Pt asked about Dr. Hudson's notification of medication changes. Notified pt that Dr. Hudson has read her echocardiogram. Reviewed medication changes including change to protonix and plavix stopped due to bleeding. Pt with appointment with Dr. Hudson later this month and encouraged pt to discuss Plavix at this appointment. Pt agree with this plan. Pt denies any additional discharge needs at this time. Plan: Home with resumption of outpt tx. Callie Marques RN CM
[2023-02-02 15:43] VITALS: BP 142/42; PULSE 89; RESP 14; TEMP 36.6
== END 2023-02-02 16:06 | disposition home or self-care (01) | DRG 378 ==
LOC: ED 09:56 → PCU 10:43
PROVIDERS: Internal Medicine Gastroenterology; Internal Medicine Nephrology; Emergency Provider Emergency Medicine; PCP Family Medicine; Visit Provider Internal Medicine
PROC: 0DJ08ZZ Inspection of Upper Intestinal Tract, Via Natural or Artificial Opening Endoscopic (ICD-10-PCS; CPT 43235; principal; 2023-01-30 16:10)
DX: K92.2 Gastrointestinal hemorrhage, unspecified (principal); D62 Acute posthemorrhagic anemia; I24.89 Other forms of acute ischemic heart disease; I50.32 Chronic diastolic (congestive) heart failure; I11.0 Hypertensive heart disease with heart failure; D50.9 Iron deficiency anemia, unspecified; E03.9 Hypothyroidism, unspecified; I25.10 Atherosclerotic heart disease of native coronary artery without angina pectoris; K44.9 Diaphragmatic hernia without obstruction or gangrene; E78.5 Hyperlipidemia, unspecified; K22.2 Esophageal obstruction; W19.XXXD Unspecified fall, subsequent encounter; I25.2 Old myocardial infarction; Z79.82 Long term (current) use of aspirin; Z95.1 Presence of aortocoronary bypass graft; Z79.02 Long term (current) use of antithrombotics/antiplatelets; S00.83XD Contusion of other part of head, subsequent encounter; S80.11XD Contusion of right lower leg, subsequent encounter; S80.12XD Contusion of left lower leg, subsequent encounter; Z79.899 Other long term (current) drug therapy; Z79.890 Hormone replacement therapy
CPT/HCPCS: 36415; 74177; 80048; 84484; 85014; 85018; 85025; 85027; 86850; 86900; 86901; 86920; 93005; 93306; 97162; 97165; 97530; 97535; 99285; J7030; J7040; J7120; P9016; Q9967; 90662; A4216; J3490

== ENCOUNTER → 2023-02-11 | Outpatient (CLI) | payer MEDICARE, OTHER, SELFPAY ==
[2016-08-18 10:52] VITALS: BMI 33.5
[2023-02-11 15:20] LABS: Hemoglobin 8.5 g/dL (12.0-15.0); Mean Corp Hgb Conc 31.5 g/dL (32-36); Mean Corpuscular Hgb 29.3 pg (27.0-32.0); Mean Corpuscular Volume 93.1 fL (81-99); Mean Platelet Vol. 10.5 fl (6.2-12.0); Platelet Count 353 K/mm3 (150-450); RBC Distribution Width CV 14.2 % (11.6-14.6); RBC Distribution Width SD 47.8 fl (35.1-43.9); White Blood Count 8.1 K/mm3 (4.4-11.0)
== END | disposition home or self-care (01) ==
PROVIDERS: PCP Family Medicine; Visit Provider Nurse Practitioner Family
DX: D64.9 Anemia, unspecified (principal)
CPT/HCPCS: 36415; 85027

== ENCOUNTER → 2023-02-25 | Outpatient (CLI) | payer MEDICARE, OTHER, SELFPAY ==
[2016-08-18 10:52] VITALS: BMI 33.5
[2023-02-25 16:02] LABS: Hemoglobin 8.3 g/dL (12.0-15.0); Mean Corp Hgb Conc 30.7 g/dL (32-36); Mean Corpuscular Hgb 30.1 pg (27.0-32.0); Mean Corpuscular Volume 97.8 fL (81-99); Mean Platelet Vol. 9.3 fl (6.2-12.0); Platelet Count 519 K/mm3 (150-450); RBC Distribution Width CV 17.4 % (11.6-14.6); RBC Distribution Width SD 62.9 fl (35.1-43.9); Red Blood Count 2.76 M/mm3 (4.2-5.4); White Blood Count 6.5 K/mm3 (4.4-11.0)
== END | disposition home or self-care (01) ==
LOC: MFPLAB 12:31
PROVIDERS: PCP Family Medicine; Visit Provider Nurse Practitioner Family
DX: D64.9 Anemia, unspecified (principal)
CPT/HCPCS: 36415; 85027

== ENCOUNTER → 2023-02-27 | Outpatient (CLI) | payer MEDICARE, OTHER, SELFPAY ==
[2016-08-18 10:52] VITALS: BMI 33.5
[2023-02-27 16:13] LABS: AST(SGOT) 25 U/L (15-37); Alanine Aminotransfer ALT/SGPT 25 U/L (13-56); Albumin, Serum 3.2 g/dL (3.2-5.0); Alkaline Phosphatase 83 U/L (45-117); Bilirubin, Direct 0.22 mg/dL (0.00-0.30); Cholesterol 156 mg/dL (200); Globulin 4.4 g/dL (2.2-4.2); High Density Lipoprotein 72 mg/dL; Protein, Total 7.6 g/dL (6.4-8.2); Triglycerides 59 mg/dL; Very Low Density Lipoprotein 12 mg/dL (5-40)
== END | disposition home or self-care (01) ==
LOC: MFPLAB 11:28
PROVIDERS: Nurse Practitioner Gerontology; PCP Family Medicine; Visit Provider Family Medicine
DX: I25.10 Atherosclerotic heart disease of native coronary artery without angina pectoris (principal); E78.5 Hyperlipidemia, unspecified
CPT/HCPCS: 36415; 80061; 80076

== ENCOUNTER → 2023-03-06 | Outpatient (CLI) | payer MEDICARE, OTHER, SELFPAY ==
[2016-08-18 10:52] VITALS: BMI 33.5
--- NOTE | 2023-03-06 13:56 | CDU_ITS ---
Reason For Study: Carotid stenosis Rt. Velocities/BP Lt. Velocities/BP Prox CCA 71.1/10.7 cm/sec. Prox CCA 70.7/13.5 cm/sec. Mid CCA 69.2/12.6 cm/sec. Mid CCA 60.8/12.4 cm/sec. Dist CCA 57/11.6 cm/sec. Dist CCA 77.3/15.7 cm/sec. Prox ICA 288.7/78.5 cm/sec. Prox ICA 171.8/39.7 cm/sec. Mid ICA 133/26.7 cm/sec. Mid ICA 139/20.4 cm/sec. Dist ICA 74/16.3 cm/sec. Dist ICA 93.7/16.3 cm/sec. Rt. ICA/CCA = 4.17. Lt. ICA/CCA = 2.43. Prox ECA 98.6 cm/sec. Prox ECA 103.5/5.3 cm/sec. Rt. Vert. 64.2/17.6 cm/sec. Lt. Vert. 47.6/11.3 cm/sec. Right Extracranial There is heterogeneous, irregular atherosclerotic plaque noted in the right common carotid artery. There is heterogeneous, irregular atherosclerotic plaque noted in the right internal carotid artery. There is heterogeneous, irregular atherosclerotic plaque noted in the right external carotid artery. Antegrade flow is noted in the right vertebral artery. Left Extracranial There is homogeneous, smooth atherosclerotic plaque noted in the left common carotid artery. There is heterogeneous, irregular atherosclerotic plaque noted in the left internal carotid artery. There is homogeneous, smooth atherosclerotic plaque noted in the left external carotid artery. Antegrade flow is noted in the left vertebral artery. Procedure Carotid Duplex 19502. This is a Carotid Duplex examination using B-mode, color flow and specral Doppler. Exam performed in department. VL/Carotid Duplex Ultrasound Interpretation Summary Irregular calcific plaque with shadowing at the proximal right internal carotid artery with greater than 70% stenosis Less than 50% stenosis right external carotid artery Irregular calcific plaque at the proximal left internal carotid artery with 50 to 69% stenosis Less than 50% stenosis left external carotid artery Patent and antegrade vertebral arteries bilaterally Findings appear to be similar to the previous examination of November 20, 2021 Ordering Physician: Tiana Carroll Referring Physician: Flo Hogue Performed By: Sarah Melendez RVT
== END | disposition home or self-care (01) ==
LOC: CVS 13:55
PROVIDERS: PCP Family Medicine; Referring Provider Nurse Practitioner Gerontology; Visit Provider Nurse Practitioner Gerontology
DX: I65.21 Occlusion and stenosis of right carotid artery (principal)
CPT/HCPCS: 93880

== ENCOUNTER → 2023-03-09 | Outpatient (CLI) | payer MEDICARE, OTHER, SELFPAY ==
[2016-08-18 10:52] VITALS: BMI 33.5
[2023-03-09 15:07] LABS: Absolute Lymphocyte Count 1.35 X10^3/uL (0.83-4.51); Absolute Neutrophil Count 4.5 X10^3/uL (2.0-7.7); Basophil# 0.06 X10^3/uL; Basophil% 0.9 % (0-1); Eosinophil# 0.22 X10^3/uL; Eosinophils% 3.2 % (0-5); Hematocrit 31.1 % (37-47); Hemoglobin 9.6 g/dL (12.0-15.0); Lymphocyte # 1.35 X10^3/ul (0.83-4.51); Lymphocyte % 19.9 % (19-41); Mean Corp Hgb Conc 30.9 g/dL (32-36); Mean Corpuscular Hgb 29.7 pg (27.0-32.0); Mean Corpuscular Volume 96.3 fL (81-99); Mean Platelet Vol. 9.6 fl (6.2-12.0); Monocyte# 0.58 X10^3/uL; Monocyte% 8.6 % (0-10); NRBC Flagged by Analyzer 0 % (0-5); Neutrophil # 4.54 X10^3/uL (2.7-7.7); Neutrophil % 67.1 % (47-70); Platelet Count 463 K/mm3 (150-450); RBC Distribution Width CV 15.4 % (11.6-14.6); RBC Distribution Width SD 54.4 fl (35.1-43.9); RET-HE 30.8 pg (30-35); Red Blood Count 3.23 M/mm3 (4.2-5.4); Reticulocyte Count 2.58 % (0.5-1.5); White Blood Count 6.8 K/mm3 (4.4-11.0)
[2023-03-09 16:03] LABS: Vitamin B12 436 pg/mL (211-911)
[2023-03-09 16:11] LABS: Ferritin 40 ng/mL (8-252); Iron 221 ug/dL (50-170)
== END | disposition home or self-care (01) ==
LOC: MFPLAB 13:36
PROVIDERS: PCP Family Medicine; Visit Provider Family Medicine
DX: D64.9 Anemia, unspecified (principal)
CPT/HCPCS: 36415; 82607; 82728; 83540; 85025; 85045

== ENCOUNTER → 2023-03-25 | Outpatient (CLI) | payer MEDICARE, OTHER, SELFPAY ==
[2016-08-18 10:52] VITALS: BMI 33.5
[2023-03-25 17:40] LABS: Absolute Lymphocyte Count 1.55 X10^3/uL (0.83-4.51); Basophil# 0.07 X10^3/uL; Basophil% 0.9 % (0-1); Eosinophil# 0.28 X10^3/uL; Eosinophils% 3.7 % (0-5); Hematocrit 34.7 % (37-47); Hemoglobin 10.8 g/dL (12.0-15.0); Lymphocyte # 1.55 X10^3/ul (0.83-4.51); Lymphocyte % 20.4 % (19-41); Mean Corp Hgb Conc 31.1 g/dL (32-36); Mean Corpuscular Hgb 29.6 pg (27.0-32.0); Mean Corpuscular Volume 95.1 fL (81-99); Mean Platelet Vol. 9.9 fl (6.2-12.0); Monocyte# 0.66 X10^3/uL; Monocyte% 8.7 % (0-10); NRBC Flagged by Analyzer 0 % (0-5); Neutrophil # 5.02 X10^3/uL (2.7-7.7); Platelet Count 458 K/mm3 (150-450); RBC Distribution Width CV 14.1 % (11.6-14.6); RBC Distribution Width SD 49.5 fl (35.1-43.9); Red Blood Count 3.65 M/mm3 (4.2-5.4); White Blood Count 7.6 K/mm3 (4.4-11.0)
== END | disposition home or self-care (01) ==
LOC: MFPLAB 16:05
PROVIDERS: PCP Family Medicine; Visit Provider Family Medicine
DX: D64.9 Anemia, unspecified (principal)
CPT/HCPCS: 36415; 85025

== ENCOUNTER → 2023-04-30 | Outpatient (CLI) | payer MEDICARE, OTHER, SELFPAY ==
[2016-08-18 10:52] VITALS: BMI 33.5
--- OUTSIDE RECORDS SUMMARY | 2023-04-30 14:51 | XMS RPT_ITS | CCD ---
Author Name Unknown Address [address] [place] [address] Organization [facility] Results Test Name Value Interpretation Reference Range Facil ity Plan of care note 03-15-2021 Note Date & Type Note Facility 03-15-2021 Note HNO ID: [id number] Author: America Reyes RPh Service: ? Author Type: Pharmacist Type: Plan of Care Filed: 03/15/2021 1:53 PM Note Text: DISCHARGE MEDICATION REVIEW BY PHARMACY Patient Name: Kristine Delacruz Account #: Data Unavailable Admission Date: 03/13/2021 Date of Contact: March 15, 2021 Time of Contact: 1:50 PM Medication list was reviewed by a Pharmacist for drug interactions or drug related problems:Yes Below is a summary of pharmacist recommendations discussed with LIP: No Recommendations at this time from Discharge Medication List. Patient declined education about Brilinta, as she has been on this in the past. Filled free 30 days of Brilinta through counter top maker card; per [facility] outpatient pharmacy, copay will be $234 until $445 deductible is met (and will reset on 05/04/2021). Discussed this with the patient, who expressed concern about this griggs. She states she may not be able to afford this. I called and talked to a nurse at Dr. Hudson/ Dr. Hector's office to let them know about the potential cost issue once her first 30 days of Brilinta is done. She confirmed next appointment was 04/11/21 but they would likely move this closer to follow up with her post-discharge. America Reyes RPh March 15, 2021 1:50 PM Pager: [phone] 03/15/2021 1:50 PM Medication List START taking these medications atorvastatin 80 mg tablet Commonly known as: LIPITOR Take 1 tablet by mouth daily at bedtime. BRILINTA 90 mg tablet Generic drug: ticagrelor Take 1 tablet by mouth twice daily. famotidine 20 mg tablet Commonly known as: PEPCID Take 1 tablet by mouth once daily. isosorbide mononitrate ER 60 mg 24 hr tablet Commonly known as: IMDUR Take 1 tablet by mouth once daily. Start taking on: March 16, 2021 CHANGE how you take these medications metoprolol tartrate (short acting) 25 mg tablet Commonly known as: LOPRESSOR Take 1 tablet by mouth every 12 hours. What changed: ? how much to take ? when to take this CONTINUE taking these medications Aspirin 81 mg Tab CINNAMON 500 mg Cap Generic drug: Cinnamon Bark COLESTID 1 gram tablet Generic drug: colestipol flaxseed 1,000 mg Cap furosemide 20 mg tablet Commonly known as: LASIX GLUCOSAMINE CHONDROITIN PLUS ORAL Lecithin 1,200 mg Cap levothyroxine 50 mcg tablet Commonly known as: SYNTHROID lisinopril 10 mg tablet Commonly known as: ZESTRIL, PRINIVIL Magnesium Oxide 500 mg Tab NITROSTAT 0.4 mg SL tablet Generic drug: nitroglycerin sublingual OMEGA 3 FISH OIL ORAL promethazine 12.5 mg tablet Commonly known as: PHENERGAN STOOL SOFTENER 100 mg capsule Generic drug: docusate sodium VITAMIN B-12 1,000 mcg Tab Generic drug: cyanocobalamin Vitamin D 25 mcg (1,000 unit) Cap Generic drug: Cholecalciferol (Vitamin D3) STOP taking these medications DYAZIDE 37.5-25 mg per capsule Generic drug: triamterene-hydroCHLOROthiazide PLAVIX 75 mg tablet Generic drug: clopidogrel Where to Get Your Medications These medications were sent to [facility] [address] [place] [address] Hours: Thursday-Thursday, 8am-6:30pm ? atorvastatin 80 mg tablet ? BRILINTA 90 mg tablet ? famotidine 20 mg tablet ? isosorbide mononitrate ER 60 mg 24 hr tablet ? metoprolol tartrate (short acting) [address] [facility] Progress note 03-15-2021 Note Date & Type Note Facility 03-15-2021 Note HNO ID: [id number] Author: Mia Cooper DO Service: Cardiovascular Medicine Author Type: Resident Type: Progress Notes Filed: 03/15/2021 10:26 AM Note Text: -- Attestation signed by Basil Buchanan MD at 03/18/2021 4:32 PM Attending Note I evaluated the patient on 03/15/2021 and personally participated in the meza components. I agree with the resident's findings and plan as documented and have discussed the case and management of the patient's care with the resident. Plan of care discussed with: Provider, RN, Patient. Signature: Basil Buchanan MD Date: March 18, 2021 Time: 4:12 PM -- [facility] CVICU PROGRESS NOTE Service Date: 03/14/2021 Service Time: 8:24 AM SUBJECTIVE Brief HPI: This is a 86 year old female PMHx CABGx5 [multiple stent placements since then, including within the vein graft to the RCA and OM], HTN, HLD, and hypothyroidism who presented to the [place] ED with chest pressure on 03/11. She also endorsed bilateral arm pain and pain between her shoulder blades, as well as SOB. States she took her nitroglycerin at home without relief. Because her pain was persistent, she presented to the ED. HsTNT uptrended from 1825 to 297. 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 It was recommended that she be transferred to [facility] for high-risk PCI. Interval History: Underwent PCI yesterday with Dr. Buchanan: SVG--RCA in-stent restenosis treated with balloon angioplasty and re-stented, distal RCA treated with balloon angioplasty and stent. Following procedure, patient continued to endorse some pain in her shoulders. Nitroglycerin drip was stopped secondary to hypotension and bradycardia. Patient was demonstrating atrial bigeminy on telemetry with rate around 40. This morning, the patient is doing very well. Her arrhythmia has resolved and she has had no further pain since 7 PM last night. She denies any new chest or shoulder pain, nausea, vomiting, diaphoresis, or shortness of breath. Her access sites are looking well. Patient stable for discharge home this morning. Review of Systems Constitutional: Negative for chills, diaphoresis, fever and malaise/fatigue. Respiratory: Negative for cough, shortness of breath and wheezing. Cardiovascular: Negative for chest pain, palpitations and PND. Shoulder pain has resolved. Gastrointestinal: Negative for abdominal pain, diarrhea, heartburn, nausea and vomiting. Genitourinary: Negative for dysuria. Neurological: Negative for dizziness, weakness and headaches. OBJECTIVE Telemetry: NSR, few PVCs; exhibited atrial bigeminy with HR 40s yesterday evening [resolved] Vital Signs: 03/15/21 0300 03/15/21 0400 03/15/21 0500 03/15/21 0600 BP: 125/56 125/52 136/67 118/58 Pulse: 79 74 81 78 Resp: 23 26 20 22 Temp: 37.1 ?C (98.8 ?F) TempSrc: SpO2: 95% 96% 98% 97% Weight: Height: Intake/Output: Intake/Output Summary (Last 24 hours) at 03/15/2021 0707 Last data filed at 03/15/2021 0600 Gross per 24 hour Intake 150 ml Output 1300 ml Net -1150 ml Physical Exam Constitutional: General: She is not in acute distress. Appearance: She is obese. She is not ill-appearing or diaphoretic. Comments: Very pleasant, sitting up in chair, comfortable. HENT: Head: Normocephalic and atraumatic. Mouth/Throat: Mouth: Mucous membranes are moist. Cardiovascular: Rate and Rhythm: Normal rate and regular rhythm. Pulses: Normal pulses. Heart sounds: Normal heart sounds. Pulmonary: Effort: Pulmonary effort is normal. No respiratory distress. Breath sounds: Normal breath sounds. No wheezing. Abdominal: General: Bowel sounds are normal. There is no distension. Palpations: Abdomen is soft. Tenderness: There is no abdominal tenderness. Musculoskeletal: General: No swelling. Comments: Right radial access site and right groin site looking well without excess bleeding. Lymphadenopathy: Cervical: No cervical adenopathy. Skin: General: Skin is warm and dry. Capillary Refill: Capillary refill takes less than 2 seconds. Neurological: General: No focal deficit present. Mental Status: She is alert and oriented to person, place, and time. Psychiatric: Mood and Affect: Mood normal. Thought Content: Thought content normal. Lab Data: Recent Labs 03/15/21 0456 03/14/21 0440 03/13/21 1007 03/13/21 0602 WBC 11.74* -- < > 7.82 RBC 2.88* -- < > 4.01 HB 8.6* -- < > 12.0 HCT 26.8* -- < > 36.5 MCV 93.1 -- < > 91.0 MCH 29.9 -- < > 29.9 MCHC 32.1 -- < > 32.9 RDWCV 14.0 -- < > 13.3 PLT 273 -- < > 347 MPV 10.1 -- < > 9.8 GLUC 93 -- < > 101* BUN 37* -- < > 12 CREAT 0.88 -- < > 0.86 NA 138 -- < (more content not included)... [facility] Progress note 03-14-2021 Note Date & Type Note Facility 03-14-2021 Note HNO ID: [id number] Author: Mia Cooper DO Service: Cardiovascular Medicine Author Type: Resident Type: Progress Notes Filed: 03/14/2021 8:43 AM Note Text: -- Attestation signed by Basil Buchanan MD at 03/14/2021 5:24 PM Attending Note I evaluated the patient and personally participated in the meza components. I agree with the resident's findings and plan as documented and have discussed the case and management of the patient's care with the resident. Plan of care discussed with: Provider, RN, Patient. Signature: Basil Buchanan MD Date: March 14, 2021 Time: 5:24 PM -- [facility] CVICU PROGRESS NOTE Service Date: 03/14/2021 Service Time: 8:24 AM SUBJECTIVE Brief HPI: This is a 86 year old female PMHx CABGx5 [multiple stent placements since then, including within the vein graft to the RCA and OM], HTN, HLD, and hypothyroidism who presented to the [place] ED with chest pressure on 03/11. She also endorsed bilateral arm pain and pain between her shoulder blades, as well as SOB. States she took her nitroglycerin at home without relief. Because her pain was persistent, she presented to the ED. HsTNT uptrended from 1825 to 2971. 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 It was recommended that she be transferred to [facility] for high-risk PCI. Interval History: No acute events overnight. Metoprolol was increased to 25mg BID due to elevated BP. IV fluid hydration was initiated at 6 PM last night in preparation for catheterization today. This morning on exam, the patient denied any chest pain or shortness of breath. She had no new complaints. Labs were largely unremarkable, Cr 0.83. HsTNT 385 > 349 > 391 at 4 AM. She remains vitally stable. Plan for LHC this morning. Review of Systems Constitutional: Negative for chills, diaphoresis, fever and malaise/fatigue. Respiratory: Negative for cough, shortness of breath and wheezing. Cardiovascular: Negative for chest pain, palpitations and PND. Gastrointestinal: Positive for nausea (Endorsed some waves of nausea last night.). Negative for abdominal pain, diarrhea, heartburn and vomiting. Genitourinary: Negative for dysuria. Neurological: Negative for dizziness, weakness and headaches. OBJECTIVE Telemetry: NSR, few PVCs Vital Signs: 03/14/21 0400 03/14/21 0600 03/14/21 0700 03/14/21 0800 BP: 121/57 153/66 113/56 Pulse: 62 75 74 81 Resp: Temp: 36.8 ?C (98.2 ?F) 36.5 ?C (97.7 ?F) TempSrc: Temporal SpO2: 98% 98% 96% 100% Weight: 84.3 kg (185 lb 13.6 oz) Height: Intake/Output: Intake/Output Summary (Last 24 hours) at 03/14/2021 0824 Last data filed at 03/14/2021 0700 Gross per 24 hour Intake 1200 ml Output 2100 ml Net -900 ml Physical Exam Constitutional: General: She is not in acute distress. Appearance: She is obese. She is not ill-appearing or diaphoretic. Comments: Very pleasant, sitting up in bed, comfortable. HENT: Head: Normocephalic and atraumatic. Mouth/Throat: Mouth: Mucous membranes are moist. Cardiovascular: Rate and Rhythm: Normal rate and regular rhythm. Pulses: Normal pulses. Heart sounds: Normal heart sounds. Pulmonary: Effort: Pulmonary effort is normal. No respiratory distress. Breath sounds: Normal breath sounds. No wheezing. Abdominal: General: Bowel sounds are normal. There is no distension. Palpations: Abdomen is soft. Tenderness: There is no abdominal tenderness. Musculoskeletal: General: No swelling. Lymphadenopathy: Cervical: No cervical adenopathy. Skin: General: Skin is warm and dry. Capillary Refill: Capillary refill takes less than 2 seconds. Neurological: General: No focal deficit present. Mental Status: She is alert and oriented to person, place, and time. Psychiatric: Mood and Affect: Mood normal. Thought Content: Thought content normal. Lab Data: Recent Labs 03/14/21 0440 03/14/21 0439 03/13/21 1007 03/13/21 0602 WBC -- 10.24 < > 7.82 RBC -- 3.53* < > 4.01 HB -- 10.5* < > 12.0 HCT -- 32.3* < > 36.5 MCV -- 91.5 < > 91.0 MCH -- 29.7 < > 29.9 MCHC -- 32.5 < > 32.9 RDWCV -- 13.5 < > 13.3 PLT -- 305 < > 347 MPV -- 9.9 < > 9.8 GLUC -- 91 -- 101* BUN -- 24* -- 12 CREAT -- 0.83 -- 0.86 NA -- 138 -- 140 K -- 4.3 -- 3.3* CHLOR -- 104 -- 102 CO2 -- 24 -- 25 TPROT -- 6.1* -- 7.0 ALB -- 3.5* -- 4.1 CA -- 9.0 -- 9.4 ALKPHOS -- 57 -- 67 TBILI -- 0.6 -- 0.8 AST -- 21 -- 26 ALT -- 13 -- 11 PTSEC -- -- -- 10.8 APTT 62.3* -- < > 41.5* INR -- -- -- 1.0 < > = values in this interval not displayed. Triglyceride 196 01/27/2014 HDL Cholesterol 48 01/27/2014 LDL Calculated 130 01/27/2014 Last 12 En (more content not included)... [facility] Progress note 03-13-2021 Note Date & Type Note Facility 03-13-2021 Note HNO ID: [id number] Author: America Reyes RPh Service: ? Author Type: Pharmacist Type: Progress Notes Filed: 03/13/2021 1:27 PM Note Text: Pharmacy Consult Agreement: Renal Dose Adjustment Patient Name: Kristine Delacruz Service Date: 03/13/2021 Service Time: 1:26 PM The following changes have been made to the patient's medication therapy as part of the pharmacy consult agreement. Estimated CrCl: Estimated Creatinine Clearance: 47.4 mL/min (based on SCr of 0.86 mg/dL). Current Therapy: Famotidine 20 mg oral tablet BID New Therapy: Famotidine 20 mg oral tablet once daily Thank you for allowing me to participate in the care for this patient. Signature: America Reyes RPh Pager/Extension: [phone] [facility] Clinical Note 03-13-2021 Note Date & Type Note Facility 03-13-2021 Note HNO ID: [id number] Author: Jazmin Ware RN Service: Nursing Author Type: Registered Nurse Type: Nursing Progress Note Filed: 03/13/2021 10:22 AM Note Text: 2-D-Echo in progress at bedside [facility] Summary Purpose Family History No Family History Records FoundNo Family History Records Found Advance Directives No Advanced Directives Records FoundNo Advanced Directives Records Found Additional Source Comments INFORMATION SOURCE (unrecogn ized section and content) DATE CREATED AUTHOR AUTHOR'S ORGANIZ ATION 06/02/2021 [facility] FOR RECORDS PERTAINING TO PATIENTS WHO ARE OR HAVE BEEN ENROLLED IN A CHEMICAL DEPENDENCY/SUBSTANCEABUSE PROGRAM, SOME INFORMATION MAY BE OMITTED. This clinical summary was aggregated from multiple sources. Caution should be exercised in using it in the provision of clinical care. This summary normalizes information from multiple sources, and as a consequence, information in this document may materially change the coding, format and clinical context of patient data. In addition, data may be omitted in some cases. CLINICAL DECISIONS SHOULD BE BASED ON THE PRIMARY CLINICAL RECORDS. [facility] [employer] [facility]. provides no warranty or guarantee of the accuracy or completeness of information in this document.
[2023-04-30 16:01] LABS: Absolute Lymphocyte Count 1.61 X10^3/uL (0.83-4.51); Absolute Neutrophil Count 5.6 X10^3/uL (2.0-7.7); Basophil# 0.09 X10^3/uL; Basophil% 1.1 % (0-1); Eosinophil# 0.27 X10^3/uL; Eosinophils% 3.3 % (0-5); Hematocrit 39.3 % (37-47); Hemoglobin 12.5 g/dL (12.0-15.0); Lymphocyte # 1.61 X10^3/ul (0.83-4.51); Lymphocyte % 19.5 % (19-41); Mean Corp Hgb Conc 31.8 g/dL (32-36); Mean Corpuscular Volume 91.2 fL (81-99); Mean Platelet Vol. 10.4 fl (6.2-12.0); Monocyte# 0.63 X10^3/uL; Monocyte% 7.6 % (0-10); NRBC Flagged by Analyzer 0 % (0-5); Neutrophil # 5.64 X10^3/uL (2.7-7.7); Neutrophil % 68.1 % (47-70); Platelet Count 434 K/mm3 (150-450); RBC Distribution Width CV 13.3 % (11.6-14.6); RBC Distribution Width SD 45.1 fl (35.1-43.9); Red Blood Count 4.31 M/mm3 (4.2-5.4); White Blood Count 8.3 K/mm3 (4.4-11.0)
== END | disposition home or self-care (01) ==
LOC: LAB 14:19
PROVIDERS: PCP Family Medicine; Referring Provider Surgery; Visit Provider Surgery
DX: I25.10 Atherosclerotic heart disease of native coronary artery without angina pectoris (principal)
CPT/HCPCS: 36415; 85025

== ENCOUNTER 2023-05-19 11:25 | Outpatient (CLI) | payer MEDICARE, OTHER, SELFPAY ==
[2016-08-18 10:52] VITALS: BMI 33.5
--- OUTSIDE RECORDS SUMMARY | 2023-05-19 12:12 | XMS RPT_ITS | CCD ---
Author Name Unknown Address [facility] [place] [address] Organization [facility] Care Team Providers Care Director Of Epidemiology Name Role Phone SYLVESTER VALDES, DR HASMUKH Carrasquillo MD, DR SHIRLENE [facility] Unavailable Results Test Name Value Interpretation Reference Range Facil ity Encounters Encounter Date Encounter Type Care Provider Facility Start: 01-29-2023 End: 05-03-[address] HASMUKH PHAN DO Facility:B Payers Date Payer Category Payer Medicare [id number] 2023 Private Health Insurance [id number] 1935 Unknown [id number] Plan of care note 03-15-2021 Note Date & Type Note Facility 03-15-2021 Note HNO ID: [id number] Author: America Reyes dudley Service: ? Author Type: Pharmacist Type: Plan [...] Filled free 30 days of Brilinta through refining still operator card; per [facility] outpatient pharmacy, copay will be $234 [...] to follow up with her post-discharge. America Reyes, [facility] March 15, 2021 1:50 PM Pager: [phone] 03/15/2021 1:50 PM Medication List START taking [...] Your Medications These medications were sent to [facility] [address] [place] [id number] Hours: Thursday-Thursday, 8am-6:30pm ? atorvastatin 80 mg tablet ? BRILINTA 90 mg tablet ? famotidine 20 mg tablet ? isosorbide mononitrate ER 60 mg 24 hr tablet ? metoprolol tartrate (short acting) 25 mg tablet [facility] Progress note 03-15-2021 Note Date & Type Note Facility 03-15-2021 Note HNO ID: [id number] Author: Mia Cooper DO Service: Cardiovascular Medicine [...] March 18, 2021 Time: 4:12 PM -- [facility] CVICU PROGRESS NOTE Service Date: 03/14/2021 Service Time: 8:24 AM SUBJECTIVE Brief HPI: This is a 86 year old female PMHx CABGx5 [multiple stent placements since then, including within the vein graft to the RCA and OM], HTN, HLD, and hypothyroidism who presented to the [place] ED with chest pressure on 03/11. She [...] was recommended that she be transferred to [facility] for high-risk PCI. Interval History: Underwent [...] Pulse: 79 74 81 78 Resp: 23 20 22 Temp: 37.1 ?C (98.8 ?F) [...] 138 -- < (more content not included)... [facility] Progress note 03-14-2021 Note Date & Type Note Facility 03-14-2021 Note HNO ID: [id number] Author: Mia Cooper DO Service: Cardiovascular Medicine [...] March 14, 2021 Time: 5:24 PM -- [facility] CVICU PROGRESS NOTE Service Date: 03/14/2021 Service Time: 8:24 AM SUBJECTIVE Brief HPI: This is a 86 year old female PMHx CABGx5 [multiple stent placements since then, including within the vein graft to the RCA and OM], HTN, HLD, and hypothyroidism who presented to the [place] ED with chest pressure on 03/11. She [...] was recommended that she be transferred to [facility] for high-risk PCI. Interval History: No [...] AM. She remains vitally stable. Plan for [facility] this morning. Review of Systems Constitutional: Negative [...] 113/56 Pulse: 62 75 74 81 Resp: 24 21 25 Temp: 36.8 ?C (98.2 ?F) 36.5 ?C [...] Last 12 En (more content not included)... [facility] Progress note 03-13-2021 Note Date & Type Note Facility 03-13-2021 Note HNO ID: [id number] Author: America Reyes RPh Service: ? Author [...] care for this patient. Signature: America Reyes [facility] Pager/Extension: [phone] [facility] Clinical Note 03-13-2021 Note Date & Type Note Facility 03-13-2021 Note HNO ID: [id number] Author: Jazmin Ware RN Service: Nursing Author Type: Registered Nurse Type: Nursing Progress Note Filed: 03/13/2021 10:22 AM Note Text: 2-D-Echo in progress at bedside [facility] Summary Purpose Family History No Family History Records FoundNo Family History Records FoundNo Family History Records Found Advance Directives No Advanced Directives Records FoundNo Advanced Directives Records FoundNo Advanced Directives Records Found Additional Source Comments INFORMATION SOURCE (unrecogn ized section and content) DATE CREATED AUTHOR AUTHOR'S ORGANIZ ATION 06/02/2021 [facility] DATE CREATED AUTHOR AUTHOR'S ORGANIZ ATION 05/06/2023 [facility] ([place] FOR RECORDS PERTAINING TO PATIENTS WHO ARE [...] BE BASED ON THE PRIMARY CLINICAL RECORDS. [employer] [facility]. provides no warranty or guarantee of the accuracy or completeness of information in this document.
[2023-05-19 13:07] LABS: ALB/GLOB Ratio 0.8 RATIO (0.9-2.4); AST(SGOT) 23 U/L (15-37); Alanine Aminotransfer ALT/SGPT 15 U/L (13-56); Albumin, Serum 3.1 g/dL (3.2-5.0); Alkaline Phosphatase 78 U/L (45-117); Anion Gap 5 (5-15); BUN 17 mg/dL (7-18); BUN/Creat Ratio 19.1 RATIO (10-20); Calcium,Total 9.1 mg/dL (8.5-10.1); Chloride 109 mmol/L (98-107); Cholesterol 177 mg/dL (200); Creatinine, Serum 0.89 mg/dL (0.55-1.02); EST Glomerular Filtration Rate 64 mL/min (>60); Est Glom Filt Rate - Afr Amer 77 mL/min (>60); Globulin 4.1 g/dL (2.2-4.2); Glucose 60 mg/dL (74-106); High Density Lipoprotein 70 mg/dL; Potassium 3.8 mmol/L (3.5-5.1); Protein, Total 7.2 g/dL (6.4-8.2); Sodium Level 140 mmol/L (136-145); Thyroid Stim Hormone (TSH) 0.64 uIU/mL (0.358-3.74); Triglycerides 91 mg/dL; Very Low Density Lipoprotein 18 mg/dL (5-40)
[2023-05-19 13:35] LABS: Hemoglobin A1c 5.2 % (3.8-5.6)
== END 2023-05-19 23:59 | disposition home or self-care (01) ==
LOC: MFPLAB 11:26
PROVIDERS: PCP Family Medicine; Visit Provider Family Medicine
DX: E78.5 Hyperlipidemia, unspecified (principal); E03.9 Hypothyroidism, unspecified; R73.09 Other abnormal glucose
CPT/HCPCS: 36415; 80053; 80061; 83036; 84443

== ENCOUNTER → 2023-10-02 | Outpatient (CLI) | payer MEDICARE, OTHER, SELFPAY ==
[2016-08-18 10:52] VITALS: BMI 33.5
[2023-10-02 12:20] LABS: Absolute Neutrophil Count 4.6 X10^3/uL (2.0-7.7); Basophil# 0.08 X10^3/uL; Basophil% 1.1 % (0-1); Eosinophils% 8.2 % (0-5); Hematocrit 38.9 % (37-47); Hemoglobin 12.4 g/dL (12.0-15.0); Lymphocyte % 17.7 % (19-41); Mean Corp Hgb Conc 31.9 g/dL (32-36); Mean Corpuscular Hgb 29.7 pg (27.0-32.0); Mean Corpuscular Volume 93.1 fL (81-99); Mean Platelet Vol. 10.2 fl (6.2-12.0); Monocyte# 0.72 X10^3/uL; Monocyte% 9.8 % (0-10); NRBC Flagged by Analyzer 0 % (0-5); Neutrophil # 4.61 X10^3/uL (2.7-7.7); Neutrophil % 62.8 % (47-70); Platelet Count 398 K/mm3 (150-450); RBC Distribution Width CV 13.6 % (11.6-14.6); RBC Distribution Width SD 46.6 fl (35.1-43.9); Red Blood Count 4.18 M/mm3 (4.2-5.4); White Blood Count 7.3 K/mm3 (4.4-11.0)
[2023-10-02 12:52] LABS: BNP,B-Type NATRIURETIC PEPTIDE 173.9 pg/mL (0-100)
[2023-10-02 13:10] LABS: Anion Gap 6 (5-15); BUN 16 mg/dL (7-18); BUN/Creat Ratio 16.7 RATIO (10-20); Calcium,Total 9.8 mg/dL (8.5-10.1); Chloride 102 mmol/L (98-107); Creatinine, Serum 0.96 mg/dL (0.55-1.02); EST Glomerular Filtration Rate 58 mL/min (>60); Est Glom Filt Rate - Afr Amer 71 mL/min (>60); Glucose 85 mg/dL (74-106); Potassium 4.2 mmol/L (3.5-5.1); Sodium Level 136 mmol/L (136-145); Thyroid Stim Hormone (TSH) 0.81 uIU/mL (0.358-3.74)
== END | disposition home or self-care (01) ==
LOC: MFPLAB 09:33
PROVIDERS: Nurse Practitioner Family; PCP Family Medicine; Visit Provider Family Medicine
DX: R06.02 Shortness of breath (principal); I50.32 Chronic diastolic (congestive) heart failure; Z51.81 Encounter for therapeutic drug level monitoring; Z79.899 Other long term (current) drug therapy; R53.83 Other fatigue; E03.9 Hypothyroidism, unspecified; D64.9 Anemia, unspecified
CPT/HCPCS: 36415; 80048; 83880; 84443; 85025

== ENCOUNTER → 2024-02-09 | Outpatient (CLI) | payer MEDICARE, OTHER, SELFPAY ==
[2016-08-18 10:52] VITALS: BMI 33.5
--- NOTE | 2024-02-09 16:30 | RAD_ITS ---
STUDY: X-RAY - RIGHT SHOULDER REASON FOR EXAM: Female, 88 years old. RIGHT SHOULDER PAIN TECHNIQUE: 4 view(s) of the shoulder. COMPARISON: None. FINDINGS: Narrowed glenohumeral articulation and subacromial space impingement by large spur likely creating rotator cuff tendon pathology.. Narrowed acromioclavicular joint. Normal acromion. Normal humeral head and visualized proximal humerus. The soft tissue structures are unremarkable. Normal visualized pulmonary apex. 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 MRI would be useful for further evaluation if clinically warranted Electronically Signed: Yaniv Goncalves MD at 16:44 EDT ,
== END | disposition home or self-care (01) ==
PROVIDERS: PCP Family Medicine; Referring Provider Anesthesiology; Visit Provider Anesthesiology
DX: M25.511 Pain in right shoulder (principal)
CPT/HCPCS: 73030

== ENCOUNTER → 2024-02-25 | Outpatient (CLI) | payer MEDICARE, OTHER, SELFPAY ==
[2016-08-18 10:52] VITALS: BMI 33.5
[2024-02-25 14:05] LABS: Absolute Lymphocyte Count 1.75 X10^3/uL (0.83-4.51); Absolute Neutrophil Count 6.3 X10^3/uL (2.0-7.7); Basophil# 0.06 X10^3/uL; Basophil% 0.6 % (0-1); Eosinophils% 4.1 % (0-5); Hematocrit 38.6 % (37-47); Hemoglobin 12.9 g/dL (12.0-15.0); Lymphocyte # 1.75 X10^3/ul (0.83-4.51); Lymphocyte % 18.1 % (19-41); Mean Corp Hgb Conc 33.4 g/dL (32-36); Mean Corpuscular Hgb 30.5 pg (27.0-32.0); Mean Corpuscular Volume 91.3 fL (81-99); Mean Platelet Vol. 9.4 fl (6.2-12.0); Monocyte# 1.06 X10^3/uL; NRBC Flagged by Analyzer 0 % (0-5); Neutrophil # 6.34 X10^3/uL (2.7-7.7); Neutrophil % 65.8 % (47-70); Platelet Count 375 K/mm3 (150-450); RBC Distribution Width CV 13.1 % (11.6-14.6); RBC Distribution Width SD 43.9 fl (35.1-43.9); Red Blood Count 4.23 M/mm3 (4.2-5.4); White Blood Count 9.7 K/mm3 (4.4-11.0)
[2024-02-25 14:27] LABS: Anion Gap 5 (5-15); BUN 19 mg/dL (7-18); BUN/Creat Ratio 18.8 RATIO (10-20); Calcium,Total 9.4 mg/dL (8.5-10.1); Chloride 105 mmol/L (98-107); Creatinine, Serum 1.01 mg/dL (0.55-1.02); EST Glomerular Filtration Rate 55 mL/min (>60); Est Glom Filt Rate - Afr Amer 67 mL/min (>60); Glucose 96 mg/dL (74-106); Potassium 4.4 mmol/L (3.5-5.1); Sodium Level 136 mmol/L (136-145)
[2024-02-25 14:29] LABS: BNP,B-Type NATRIURETIC PEPTIDE 203.3 pg/mL (0-100)
--- OUTSIDE RECORDS SUMMARY | 2024-02-25 16:24 | XMS RPT_ITS | CCD ---
Author Organization [facility] CliniSyid Care Team Providers Care Psychosocial Rehabilitation Counselor Name Role Phone SYLVESTER VALDES, DR NOE Attending Brent CARO MD, DR SHIRLENE Engle Primary [facility] Unavailable Results Test Name Value Interpretation Reference Range Facility [facility] 03-20-2021 CNPN Telephone ([facility]) -------- KRISTINE DELACRUZ ([id number]) 1935 F Date Time Provider Department 03/20/21 SHIRLENE CARO [facility] During your visit today, we recorded the following information about you: Laine Soares 03/20/2021 12:32 PM Signed PATIENT INFORMATION Record ID: [id number] Patient Name: Kristine Delacruz Hospital: [facility] [place]: [facility] Attending: Basil Buchanan Center: Cardiovascular Medicine [facility] INSTRUCTIONS All Clear SN to remind patient of next upcoming appointment date, time, location All Clear All Clear All Clear SURVEY INFORMATION Medical/Nurse E Merchant: Laine Mixon 1. Your discharge instructions are important in guiding you through the recovery process. Is there anything I could help you clarify on your discharge instructions? (Standard Question) No 2. Do you have your follow up appointment related to your hospital stay scheduled within the next 30 days? (Standard Question) Yes 3. Do you have all the necessary equipment and supplies at home? (Standard Question) Yes 4. Many patients have concerns about their medications once they are home. Do you have any questions about getting or taking your medications? (Standard Question) No 5. Do you have any new or different symptoms? (Standard Question) No Allergies As of Date: 03/20/2021 Noted Allergy Reaction CODEINE 03/25/2016 2 - Rash CRESTOR (ROSUVASTATIN CALCIUM) 03/25/2016 5 - Intolerance Comments: Leg cramps DARVOCET A500 (PROPOXYPHENE N-SHILOH*03/25/2016 2 - Rash DEMEROL (MEPERIDINE (PF)) 01/15/2006 MOTRIN (IBUPROFEN) 01/15/2006 Date Reviewed: 03/14/2021 Reviewed by: Nita Joe RN - Fully Assessed Reason for Visit: Follow Up Phone Call [[phone]] Cmt: All clear. Prescriptions as of 03/20/2021 - ticagrelor (BRILINTA) 90 mg tablet Take 1 tablet by mouth twice daily. - isosorbide mononitrate ER (IMDUR) 60 mg 24 hr tablet Take 1 tablet by mouth once daily. - famotidine (PEPCID) 20 mg tablet Take 1 tablet by mouth once daily. - atorvastatin (LIPITOR) 80 mg tablet Take 1 tablet by mouth daily at bedtime. - metoprolol tartrate, short acting, (LOPRESSOR) 25 mg tablet Take 1 tablet by mouth every 12 hours. - levothyroxine (SYNTHROID) 50 mcg tablet Take 50 mcg by mouth daily before breakfast. - furosemide (LASIX) 20 mg tablet Take 20 mg by mouth once daily. - promethazine (PHENERGAN) 12.5 mg tablet Take 12.5 mg by mouth every 6 hours as needed. - nitroglycerin sublingual (NITROSTAT) 0.4 mg SL tablet Dissolve 0.4 mg under the tongue every 5 minutes as needed. - cyanocobalamin (VITAMIN B-12) 1,000 mcg tab Take 1,000 mcg by mouth once daily. - OMEGA-3 FATTY ACIDS/FISH OIL (OMEGA 3 FISH OIL ORAL) Take by mouth. - Lecithin 1,200 mg cap Take by mouth. - Magnesium Oxide 500 mg tab Take by mouth. - docusate sodium (STOOL SOFTENER) 100 mg capsule Take 100 mg by mouth twice daily. - GLUC/CHND/OM3/DHA/EPA/FI SH/STR (GLUCOSAMINE CHONDROITIN PLUS ORAL) Take by mouth. - flaxseed 1,000 mg cap Take by mouth. - Cholecalciferol, Vitamin D3, (VITAMIN D) 1,000 unit cap Take 1,000 Units by mouth once daily. - Cinnamon Bark (CINNAMON) 500 mg cap Take by mouth. - colestipol (COLESTID) 1 gram tablet Take 1 g by mouth twice daily. - lisinopril (ZESTRIL, PRINIVIL) 10 mg tablet Take 10 mg by mouth once daily. - ASPIRIN 81 MG TAB Take one(1) tablet daily. Problem List As Of Date 03/20/2021 Noted Resolved UNSP ABNORMAL MAMMOGRAM [R92.8] 01/15/2006 Stenosis of right carotid artery [I65.21] 03/25/2016 NSTEMI (non-ST elevated myocardial infarction) *03/12/2021 03/15/2021 Coronary artery disease of autologous vein bypa*03/15/2021 Primary hypertension [I10] 03/15/2021 Mixed hyperlipidemia [E78.2] 03/15/2021 Acquired hypothyroidism [E03.9] 03/15/2021 Encounter Status:Closed by LAINE SOARES on 03/20/21 Normal [facility] CBC panel Auto (Bld)on 03-15 Erythrocyte distribution width (RBC) [Ratio] 14.0 % Normal 11.5-15.0 [facility] Comment on above: Order Comment: Speci men Type: BLOOD SPECIMEN Performed By: #### 5 8410-2 #### [facility] CLIA [id number] [address] OF [facility] Hematocrit (Bld) [Volume fraction] 26.8 % Low 36.0-46.0 [facility] Comment on above: Order Comment: Speci men Type: BLOOD SPECIMEN Performed By: #### 5 8410-2 #### [facility] CLIA [id number] [address] STATES OF [facility] Hemoglobin (Bld) [Mass/Vol] 8.6 g/dL Low 11.5-15.5 [facility] Comment on above: Order Comment: Speci men Type: BLOOD SPECIMEN Performed By: #### 5 8410-2 #### [facility] CLIA [id number] [address] MCH (RBC) [Entitic mass] 29.9 pg Normal 26.0-34.0 [facility] Comment on above: Order Comment: Speci men Type: BLOOD SPECIMEN Performed By: #### 5 8410-2 #### [facility] CLIA [id number] [address] MCHC (RBC) [Mass/Vol] 32.1 g/dL Normal 30.5-36.0 [facility] Comment on above: Order Comment: Speci men Type: BLOOD SPECIMEN Performed By: #### 5 8410-2 #### [facility] CLIA [id number] [address] MCV (RBC) [Entitic vol] 93.1 fL Normal 80.0-100.0 [facility] Comment on above: Order Comment: Speci men Type: BLOOD SPECIMEN Performed By: #### 5 8410-2 #### [facility] CLIA [id number] [address] Nucleated RBC (Bld) [#/Vol] 10*3/uL Normal <0.01 [facility] Comment on above: Order Comment: Speci men Type: BLOOD SPECIMEN Performed By: #### 5 8410-2 #### [facility] CLIA [id number] [address] Platelet mean volume (Bld) [Entitic vol] 10.1 fL Normal 9.0-12.7 [facility] Comment on above: Order Comment: Speci men Type: BLOOD SPECIMEN Performed By: #### 5 8410-2 #### [facility] CLIA [id number] [address] Platelets (Bld) [#/Vol] 273 10*3/uL Normal 150-400 [facility] Comment on above: Order Comment: Speci men Type: BLOOD SPECIMEN Performed By: #### 5 8410-2 #### [facility] CLIA [id number] [address] RBC (Bld) [#/Vol] 2.88 10*6/uL Low 3.90-5.20 [facility] Comment on above: Order Comment: Speci men Type: BLOOD SPECIMEN Performed By: #### 5 8410-2 #### [facility] CLIA [id number] [address] WBC (Bld) [#/Vol] 11.74 10*3/uL High 3.70-11.00 [facility] Comment on above: Order Comment: Speci men Type: BLOOD SPECIMEN Performed By: #### 5 8410-2 #### [facility] CLIA [id number] [address] CNDSon 03-15-2021 CNDS HNO ID: [id number] Author: Mia Cooper DO Service: Cardiovascular Medicine Author Type: Resident Type: Discharge Summary Filed: 03/15/2021 10:37 AM Note Text: -------- Attestation signed by Basil Buchanan MD at 03/18/2021 4:34 PM Attending Note I evaluated the patient on 03/15/2021 and personally participated in the meza components. I agree with the resident's findings and plan as documented and have discussed the case and management of the patient's care with the resident. Plan of care discussed with: Provider, RN, Patient. Assessment and plan 86-year-old woman with a history of remote coronary bypass grafting. She was referred for high risk percutaneous coronary intervention of the SVG graft to the RCA. Procedure was complicated by development of slow flow resulting in significant chest pain. Patient did well post procedure. She had no evidence of arrhythmia overnight. Physical exam was unremarkable. Plan was to discharge patient home on appropriate medical therapy including ticagrelor and low-dose aspirin. Signature: Basil Buchanan MD Date: March 18, 2021 Time: 4:32 PM -------- DISCHARGE SUMMARY PATIENT NAME: Kristine Delacruz ADMISSION DATE: 03/13/2021 DISCHARGE DATE: 03/15/2021 ATTENDING PHYSICIAN: Basil Buchanan MD Code Status: Not on file Highest Readmission Risk Score: 14 The 30 day readmissions risk score is derived from an internally validated risk model which evaluates patient level characteristics, utilization history, medication orders and lab results up until the day of discharge. Patients with a score of 40 or above are considered highest risk for readmission. Specific patient level drivers will be listed at the bottom of the summary. 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 SVG?RCA: Focal 99% proximal in-stent restenosis was treated with balloon angioplasty and placement of a 3.5 x 48 mm Synergy stent. Intravascular ultrasound demonstrated diffuse in-stent restenosis of the proximal stent. Segment was postdilated using a 3.5 x 20 mm NC balloon inflated to 22 la. ? Distal posterior ventricular branch of the right coronary artery: Tandem 80% stenosis in the proximal and mid vessel were treated with balloon angioplasty and placement of a 2.5 x 48 mm Synergy stent postdilated 2.75 mm proximally and mid segment. HOSPITAL COURSE: This is a 86 year old female PMHx CABGx5 [multiple stent placements since then, including within the vein graft to the RCA and OM], HTN, HLD, and hypothyroidism?who?prese nted to the [facility] with chest pressure on 03/11. She [...] was recommended that she be transferred to [facility] for high-risk PCI. ? The patient nderwent PCI on 03/14/[address] Buchanan: SVG--RCA in-stent restenosis treated [...] well. Patient stable for discharge home this morning [03/15]. Transitions of Care Critical Issues: SPECIALIST FOLLOW-UP: Cardiology with Dr. Hector LABS AND PROCEDURES PENDING AT DISCHARGE: No pending results. PATIENT CONDITION AT DISCHARGE: Stable DISCHARGE DISPOSITION: Home/Self Care Physical Exam Constitutional: General: She is not in acute distress. Debra (more content not included)... Normal [facility] Comprehensive metabolic 2000 panelon 03-15-2021 Albumin [Mass/Vol] 3.2 g/dL Low 3.9-4.9 [facility] Comment on above: Order Comment: Speci men Type: BLOOD SPECIMEN Performed By: #### 2 4323-8 #### [facility] CLIA [id number] 1 [place] [address] [place] ALP [Catalytic activity/Vol] 48 U/L Normal 34-123 [facility] Comment on above: Order Comment: Speci men Type: BLOOD SPECIMEN Performed By: #### 2 4323-8 #### [facility] CLIA [id number] [address] ALT With P-5'-P [Catalytic activity/Vol] 25 U/L Normal 7-38 [facility] Comment on above: Order Comment: Speci men Type: BLOOD SPECIMEN Performed By: #### 2 4323-8 #### [facility] CLIA [id number] [address] Anion gap [Moles/Vol] 11 mmol/L Normal 9-18 [facility] Comment on above: Order Comment: Speci men Type: BLOOD SPECIMEN Performed By: #### 2 4323-8 #### [facility] CLIA [id number] [address] AST With P-5'-P [Catalytic activity/Vol] 88 U/L High 13-35 [facility] Comment on above: Order Comment: Speci men Type: BLOOD SPECIMEN Performed By: #### 2 4323-8 #### [facility] CLIA [id number] [address] OF [facility] Bilirubin [Mass/Vol] 0.6 mg/dL Normal 0.2-1.3 [facility] Comment on above: Order Comment: Speci men Type: BLOOD SPECIMEN Performed By: #### 2 4323-8 #### [facility] CLIA [id number] [address] Calcium [Mass/Vol] 8.7 mg/dL Normal 8.5-10.2 [facility] Comment on above: Order Comment: Speci men Type: BLOOD SPECIMEN Performed By: #### 2 4323-8 #### [facility] CLIA [id number] [address] Chloride [Moles/Vol] 107 mmol/L High 97-105 [facility] Comment on above: Order Comment: Speci men Type: BLOOD SPECIMEN Performed By: #### 2 4323-8 #### [facility] CLIA [id number] [address] [place] CO2 [Moles/Vol] 20 mmol/L Low 22-30 [facility] Comment on above: Order Comment: Speci men Type: BLOOD SPECIMEN Performed By: #### 2 4323-8 #### [facility] CLIA [id number] [address] [place] Creatinine [Mass/Vol] 0.88 mg/dL Normal 0.58-0.96 [facility] Comment on above: Order Comment: Speci men Type: BLOOD SPECIMEN Performed By: #### 2 4323-8 #### [facility] CLIA [id number] [address] [place] GFR/1.73 sq M.predicted MDRD (S/P/Bld) [Vol rate/Area] mL/min/{1.73_m2} Normal [facility] Comment on above: Order Comment: Speci men Type: BLOOD SPECIMEN Result Comment: >60 eGFR (Estimated GFR) Units of measure: mL/min/1.73 meters squared eGFR is derived from the reexpressed MDRD Study equation using the following parameters: serum creatinine, age, gender and race. The creatinine assay has been calibrated to be traceable to IDMS. An eGFR <60 mL/min/1.73m2 for >3 months is consistent with chronic kidney disease. Refer to KDOQI guidelines for clinical interpretation. In patients with unstable renal function, e.g. those with acute kidney injury, the eGFR may not accurately reflect actual GFR. Performed By: #### 2 4323-8 #### [facility] CLIA [id number] [address] [place] Glucose [Mass/Vol] 93 mg/dL Normal 74-99 [facility] Comment on above: Order Comment: Speci men Type: BLOOD SPECIMEN Result Comment: The [place] Diabetes Association (ADA) provides guidance for cutoff values for fasting glucose and random glucose. The ADA defines fasting as no caloric intake for at least 8 hours. Fasting plasma glucose results between 100 to 125 mg/dL indicate increased risk for diabetes (prediabetes). Fasting plasma glucose results greater than or equal to 126 mg/dL meet the criteria for diagnosis of diabetes. In the absence of unequivocal hyperglycemia, results should be confirmed by repeat testing. In a patient with classic symptoms of hyperglycemia or hyperglycemic crisis, random plasma glucose results greater than or equal to 200 mg/dL meet the criteria for diagnosis of diabetes. Reference: Standards of Medical Care in Diabetes 2016, [place] Diabetes Association. Diabetes Care. 2016.39(Suppl 1). Performed By: #### 2 4323-8 #### [facility] CLIA [id number] [address] Potassium [Moles/Vol] 3.9 mmol/L Normal 3.7-5.1 [facility] Comment on above: Order Comment: Speci men Type: BLOOD SPECIMEN Performed By: #### 2 4323-8 #### [facility] CLIA [id number] [address] STATES OF [facility] Protein [Mass/Vol] 5.6 g/dL Low 6.3-8.0 [facility] Comment on above: Order Comment: Speci men Type: BLOOD SPECIMEN Performed By: #### 2 4323-8 #### [facility] CLIA [id number] [address] STATES [facility] Sodium [Moles/Vol] 138 mmol/L Normal 136-144 [facility] Comment on above: Order Comment: Speci men Type: BLOOD SPECIMEN Performed By: #### 2 4323-8 #### [facility] CLIA [id number] [address] STATES OF [facility] Urea nitrogen [Mass/Vol] 37 mg/dL High 7-21 [facility] Comment on above: Order Comment: Speci men Type: BLOOD SPECIMEN Performed By: #### 2 4323-8 #### [facility] CLIA [id number] [address] HIGH SENSITIVITY TROPONIN To n 03-15-2021 HIGH SENSITIVITY PARAM 662 ng/L High <12 [facility] Comment on above: Order Comment: Speci men Type: BLOOD SPECIMEN Result Comment: When assessing risk for acute coronary syndromes: In patients undergoing blood draw greater than or equal to 2 hours from symptom onset, with history of very low to moderate risk and non-ischemic ECG, an initial hs-Troponin T less than 12 ng/L AND a 1 hour delta hs-Troponin T less than 3 ng/L should be considered very low risk for 30 day MACE. Performed By: #### 1 4979-9 #### [facility] CLIA [id number] [address] NUTRITIONon 03-15-2021 NUTRITION HNO ID: [id number] Author: Marianela Ocasio RD Service: Nutrition Therapy Author Type: Registered Dietitian Type: Nutrition Filed: 03/15/2021 1:51 PM Note Text: NUTRITION THERAPY INITIAL ASSESSMENT SERVICE DATE: 03/15/2021 SERVICE TIME: 11:10 REASON FOR VISIT: [facility] Nutrition Assessment: Recommended Malnutrition Diagnosis: No Malnutrition Identified Nutrition Diagnosis: PES Statement: No diagnosis at this time Estimated kilocalorie needs: 2363-1619 Calorie Calculation Method: 25-30 kcals/kg Estimated protein needs (grams): 60-75 Grams protein determined by: 1.2 - 1.5 g/kg;[place] body weight Care Plan: Continue current diet No nutritional need for MedPass Monitor and Evaluation: Meet greater than 75% of estimated needs;Monitor fluid/electrolyte balance;Monitor labs, I/Os, vital signs, weight;Monitor bowel function Discharge Recommendations: Diet Diet: Heart Healthy HPI: Patient transferred to [facility] for high risk PCI. Underwent PCI on 03/14. Discharged 03/15 Intake History: Nutrition Intake Prior to Admission: Greater than 75% estimated energy needs greater than or equal to 3 months Over: 1 day LOS. No recorded intakes per EMR. Patient reports having a good appetite and intake. Denies any recent changes as she was doing well prior to admission. Diet Orders (From admission, onward) None Anthropometrics: Height: 157.5 cm (5' 2 ) Weight: 84.3 kg (185 lb 13.6 oz) Dosing Weight: 50 kg (110 lb 3.7 oz) Usual Weight: 84.3 kg (185 lb 13.6 oz) Body mass index is 33.99 kg/m?. Obese Last Wt 03/14/21 : 84.3 kg (185 lb 13.6 oz) 11/22/16 : 82.6 kg (182 lb) Weight change percentage over time: No recent weight history available per EMR. Appearts to be be stable since 2016. Patient reports UBW to be 155-160 lbs. Denies any recent weight changes Physical Exam: Subcutaneous fat loss: No fat loss Muscle loss: No muscle loss Potential micronutrient deficiency: No deficiency identified Edema/Ascites: No edema GI Symptoms: None Functional Status: Not related to malnutrition status Potential Signs of Inflammation: Imaging studies;Hypoalbuminemia; Leukocytosis MNT Billing Type: Initial Assess/15 min 1 unit SIGNATURE: Marianela Ocasio RD PATIENT NAME: Kristine Delacruz DATE: March 15, 2021 TIME: 1:49 PM PAGER: [phone] Normal [facility] BRIEF OP NOTon 03-14-2021 BRIEF OP NOT HNO ID: [id number] Author: Basil Buchanan MD Service: Interventional Cardiology Author Type: Physician Type: Brief Op Note Filed: 03/14/2021 10:28 AM Note Text: CARDIAC CATHETERIZATION REPORT PATIENT NAME: Kristine Delacruz SERVICE DATE: 03/14/2021 SERVICE TIME: 10:13 AM General Cleaner: Deuce Hector MD Attending: Basil Buchanan MD RECOMMENDATIONS: Patient will be continued on dual antiplatelet therapy. If patient has recurrent in-stent restenosis of the SVG graft may need to consider referral to [facility] for brachytherapy Pre-Procedure Diagnosis: 86-year-old woman with a history of remote coronary bypass grafting. She is referred for high risk percutaneous groin intervention of the SVG graft to the RCA. She had presented with chest pain non-ST elevation myocardial infarction and underwent for diagnostic catheterization at [facility]. In addition, she has a known atretic REID graft to the LAD. She is referred for possible intervention of the left main coronary artery and the SVG graft to the RCA with provisional stenting of the distal posterior ventricular branch of the RCA Post- Procedure Diagnosis: Nonselective injections of the REID graft to the LAD were completed. Although small, the graft is patent to the LAD. The decision was made to proceed with intervention of the SVG graft to the RCA only. Focal 99% in-stent restenosis was treated with balloon angioplasty and drug-eluting stent placement. Intravascular ultrasound guidance was performed for vessel sizing and complexity of disease. The distal posterior ventricular branch was treated with balloon angioplasty and drug-eluting stent placement. Procedure: REID graft angiography, percutaneous coronary intervention of the distal PLV Branch and the SVG-RVA Access: LFA Under Local anesthesia the LFA was entered by Modified Seldinger's technique using a micro puncture needle. A 7F sheath was introduced into the Right Femoral Artery and LFA . An CELIA diagnostic catheter was used to perform angiography of the REID graft to the LAD. A 7 Moroccan AR-2 guide was seated into the SVG graft RCA. A PT 2 wire was passed into the distal vessel. Initial balloon inflations were done in the proximal graft for focal 99% in-stent restenosis using a 1.5 x 15 mmTekaru balloon. He was then treated using a 3.0 x 20 mm NC balloon inflated to 12 la. Attempts at passing an IVUS catheter were unsuccessful. At this point the guide was removed and replaced with a 7 Moroccan JR4 guide, A Sc[place] Blue wire was passed into the distal vessel. Intravascular ultrasound was performed of the SVG graft. At this point a guide extension catheter was placed in the middle of the graft. Balloon inflations were done in the distal posterior ventricular branch of the right coronary artery using a 2.0 x 20 mm balloon. A 2.5 x 48 mm Synergy stent was deployed and postdilated to 2.75 mm in the proximal to mid segment. Next a 3.5 x 48 mm Synergy stent was deployed in the graft to the ostium of the vessel. It was postdilated using a 3.5 x 20 mm NC balloon inflated to 22 la. All catheters and wires were removed and the patient intact post procedure. The sheath was removed and hemostatsis was established using Angioseal closure device. There was no bleeding at the end of the procedure. The pt was returned to the recovery room in a stable condition. FINDINGS: REID-LAD: Graft is small and patent. Less than FRANCIE I flow is noted. Percutaneous groin intervention: SVG?RCA: Focal 99% proximal in-stent restenosis was treated with balloon angioplasty and placement of a 3.5 x 48 mm Synergy stent. Intravascular ultrasound demonstrated diffuse in-stent restenosis of the proximal stent. Segment was postdilated using a 3.5 x 20 mm NC balloon inflated to 22 la. Distal posterior ventricular branch of the right coronary artery: Tandem 80% stenosis in the proximal and mid vessel were treated with balloon angioplasty and placement of a 2.5 x 48 mm Synergy stent postdilated 2.75 mm proximally and mid segment. Complications: None SIGNATURE: Basil Buchanan MD DATE: March 14, 2021 TIME: 10:13 AM Normal [facility] CBC panel Auto (Bld)on 03-14 Erythrocyte distribution width (RBC) [Ratio] 13.5 % Normal 11.5-15.0 [facility] Comment on above: Order Comment: Speci men Type: BLOOD SPECIMEN Performed By: #### 5 8410-2 #### [facility] CLIA [id number] [address] Hematocrit (Bld) [Volume fraction] 32.3 % Low 36.0-46.0 [facility] Comment on above: Order Comment: Speci men Type: BLOOD SPECIMEN Performed By: #### 5 8410-2 #### [facility] CLIA [id number] [address] Hemoglobin (Bld) [Mass/Vol] 10.5 g/dL Low 11.5-15.5 [facility] Comment on above: Order Comment: Speci men Type: BLOOD SPECIMEN Performed By: #### 5 8410-2 #### [facility] CLIA [id number] [address] MCH (RBC) [Entitic mass] 29.7 pg Normal 26.0-34.0 [facility] Comment on above: Order Comment: Speci men Type: BLOOD SPECIMEN Performed By: #### 5 8410-2 #### [facility] CLIA [id number] [address] MCHC (RBC) [Mass/Vol] 32.5 g/dL Normal 30.5-36.0 [facility] Comment on above: Order Comment: Speci men Type: BLOOD SPECIMEN Performed By: #### 5 8410-2 #### [facility] CLIA [id number] [address] MCV (RBC) [Entitic vol] 91.5 fL Normal 80.0-100.0 [facility] Comment on above: Order Comment: Speci men Type: BLOOD SPECIMEN Performed By: #### 5 8410-2 #### [facility] CLIA [id number] [address] Nucleated RBC (Bld) [#/Vol] 10*3/uL Normal <0.01 [facility] Comment on above: Order Comment: Speci men Type: BLOOD SPECIMEN Performed By: #### 5 8410-2 #### [facility] CLIA [id number] [address] Platelet mean volume (Bld) [Entitic vol] 9.9 fL Normal 9.0-12.7 [facility] Comment on above: Order Comment: Speci men Type: BLOOD SPECIMEN Performed By: #### 5 8410-2 #### [facility] CLIA [id number] [address] Platelets (Bld) [#/Vol] 305 10*3/uL Normal 150-400 [facility] Comment on above: Order Comment: Speci men Type: BLOOD SPECIMEN Performed By: #### 5 8410-2 #### [facility] CLIA [id number] [address] RBC (Bld) [#/Vol] 3.53 10*6/uL Low 3.90-5.20 [facility] Comment on above: Order Comment: Speci men Type: BLOOD SPECIMEN Performed By: #### 5 8410-2 #### [facility] CLIA [id number] [address] WBC (Bld) [#/Vol] 10.24 10*3/uL Normal 3.70-11.00 [facility] Comment on above: Order Comment: Speci men Type: BLOOD SPECIMEN Performed By: #### 5 8410-2 #### [facility] CLIA [id number] [address] Comprehensive metabolic 2000 panelon 11-11-2021 Albumin [Mass/Vol] 3.5 g/dL Low 3.9-4.9 [facility] Comment on above: Order Comment: Speci men Type: BLOOD SPECIMEN Performed By: #### 2 4323-8, HSTNT #### [facility] CLIA [id number] [address] ALP [Catalytic activity/Vol] 57 U/L Normal 34-123 [facility] Comment on above: Order Comment: Speci men Type: BLOOD SPECIMEN Performed By: #### 2 4323-8, HSTNT #### [facility] CLIA [id number] [address] ALT With P-5'-P [Catalytic activity/Vol] 13 U/L Normal 7-38 [facility] Comment on above: Order Comment: Speci men Type: BLOOD SPECIMEN Performed By: #### 2 4323-8, HSTNT #### [facility] CLIA [id number] [address] Anion gap [Moles/Vol] 10 mmol/L Normal 9-18 [facility] Comment on above: Order Comment: Speci men Type: BLOOD SPECIMEN Performed By: #### 2 4323-8, HSTNT #### [facility] CLIA [id number] [address] AST With P-5'-P [Catalytic activity/Vol] 21 U/L Normal 13-35 [facility] Comment on above: Order Comment: Speci men Type: BLOOD SPECIMEN Performed By: #### 2 4323-8, HSTNT #### [facility] CLIA [id number] [address] Bilirubin [Mass/Vol] 0.6 mg/dL Normal 0.2-1.3 [facility] Comment on above: Order Comment: Speci men Type: BLOOD SPECIMEN Performed By: #### 2 4323-8, HSTNT #### [facility] CLIA [id number] [address] Calcium [Mass/Vol] 9.0 mg/dL Normal 8.5-10.2 [facility] Comment on above: Order Comment: Speci men Type: BLOOD SPECIMEN Performed By: #### 2 4323-8, HSTNT #### [facility] CLIA [id number] [address] [place] Chloride [Moles/Vol] 104 mmol/L Normal 97-105 [facility] Comment on above: Order Comment: Speci men Type: BLOOD SPECIMEN Performed By: #### 2 4323-8, HSTNT #### [facility] CLIA [id number] [address] [place] CO2 [Moles/Vol] 24 mmol/L Normal 22-30 [facility] Comment on above: Order Comment: Speci men Type: BLOOD SPECIMEN Performed By: #### 2 4323-8, HSTNT #### [facility] CLIA [id number] [address] [place] Creatinine [Mass/Vol] 0.83 mg/dL Normal 0.58-0.96 [facility] Comment on above: Order Comment: Speci men Type: BLOOD SPECIMEN Performed By: #### 2 4323-8, HSTNT #### [facility] CLIA [id number] [address] [place] GFR/1.73 sq M.predicted MDRD (S/P/Bld) [Vol rate/Area] mL/min/{1.73_m2} Normal [facility] Comment on above: Order Comment: Speci men Type: BLOOD SPECIMEN Result Comment: >60 eGFR (Estimated GFR) Units of measure: mL/min/1.73 meters squared eGFR is derived from the reexpressed MDRD Study equation using the following parameters: serum creatinine, age, gender and race. The creatinine assay has been calibrated to be traceable to IDMS. An eGFR <60 mL/min/1.73m2 for >3 months is consistent with chronic kidney disease. Refer to KDOQI guidelines for clinical interpretation. In patients with unstable renal function, e.g. those with acute kidney injury, the eGFR may not accurately reflect actual GFR. Performed By: #### 2 4323-8, HSTNT #### [facility] CLIA [id number] [address] STATES OF [facility] Glucose [Mass/Vol] 91 mg/dL Normal 74-99 [facility] Comment on above: Order Comment: Speci men Type: BLOOD SPECIMEN Result Comment: The [place] Diabetes Association (ADA) provides guidance for cutoff values for fasting glucose and random glucose. The ADA defines fasting as no caloric intake for at least 8 hours. Fasting plasma glucose results between 100 to 125 mg/dL indicate increased risk for diabetes (prediabetes). Fasting plasma glucose results greater than or equal to 126 mg/dL meet the criteria for diagnosis of diabetes. In the absence of unequivocal hyperglycemia, results should be confirmed by repeat testing. In a patient with classic symptoms of hyperglycemia or hyperglycemic crisis, random plasma glucose results greater than or equal to 200 mg/dL meet the criteria for diagnosis of diabetes. Reference: Standards of Medical Care in Diabetes 2016, [place] Diabetes Association. Diabetes Care. 2016.39(Suppl 1). Performed By: #### 2 4323-8, HSTNT #### [facility] CLIA [id number] [address] STATES OF [facility] Potassium [Moles/Vol] 4.3 mmol/L Normal 3.7-5.1 [facility] Comment on above: Order Comment: Speci men Type: BLOOD SPECIMEN Performed By: #### 2 4323-8, HSTNT #### [facility] CLIA [id number] [address] OF [facility] Protein [Mass/Vol] 6.1 g/dL Low 6.3-8.0 [facility] Comment on above: Order Comment: Speci men Type: BLOOD SPECIMEN Performed By: #### 2 4323-8, HSTNT #### [facility] CLIA [id number] [address] [place] Sodium [Moles/Vol] 138 mmol/L Normal 136-144 [facility] Comment on above: Order Comment: Speci men Type: BLOOD SPECIMEN Performed By: #### 2 4323-8, HSTNT #### [facility] CLIA [id number] [address] Urea nitrogen [Mass/Vol] 24 mg/dL High 7- [facility] Comment on above: Order Comment: Speci men Type: BLOOD SPECIMEN Performed By: #### 2 4323-8, HSTNT #### [facility] CLIA [id number] [address] HIGH SENSITIVITY TROPONIN To n 03-14-2021 HIGH SENSITIVITY PARAM 536 ng/L High <12 [facility] Comment on above: Order Comment: Speci men Type: BLOOD SPECIMEN Result Comment: When assessing risk for acute coronary syndromes: In patients undergoing blood draw greater than or equal to 2 hours from symptom onset, with history of very low to moderate risk and non-ischemic ECG, an initial hs-Troponin T less than 12 ng/L AND a 1 hour delta hs-Troponin T less than 3 ng/L should be considered very low risk for 30 day MACE. Performed By: #### H STNT #### [facility] CLIA [id number] [address] HIGH SENSITIVITY PARAM 420 ng/L High <12 [facility] Comment on above: Order Comment: Speci men Type: BLOOD SPECIMEN Result Comment: When assessing risk for acute coronary syndromes: In patients undergoing blood draw greater than or equal to 2 hours from symptom onset, with history of very low to moderate risk and non-ischemic ECG, an initial hs-Troponin T less than 12 ng/L AND a 1 hour delta hs-Troponin T less than 3 ng/L should be considered very low risk for 30 day MACE. Performed By: #### H STNT #### [facility] CLIA [id number] [address] HIGH SENSITIVITY PARAM 334 ng/L High <12 [facility] Comment on above: Order Comment: Speci men Type: BLOOD SPECIMEN Result Comment: When assessing risk for acute coronary syndromes: In patients undergoing blood draw greater than or equal to 2 hours from symptom onset, with history of very low to moderate risk and non-ischemic ECG, an initial hs-Troponin T less than 12 ng/L AND a 1 hour delta hs-Troponin T less than 3 ng/L should be considered very low risk for 30 day MACE. Performed By: #### H STNT #### [facility] CLIA [id number] [address] HIGH SENSITIVITY PARAM 279 ng/L High <12 [facility] Comment on above: Order Comment: Speci men Type: BLOOD SPECIMEN Result Comment: When assessing risk for acute coronary syndromes: In patients undergoing blood draw greater than or equal to 2 hours from symptom onset, with history of very low to moderate risk and non-ischemic ECG, an initial hs-Troponin T less than 12 ng/L AND a 1 hour delta hs-Troponin T less than 3 ng/L should be considered very low risk for 30 day MACE. Performed By: #### H STNT #### [facility] CLIA [id number] [address] HIGH SENSITIVITY PARAM 391 ng/L High <12 [facility] Comment on above: Order Comment: Speci men Type: BLOOD SPECIMEN Result Comment: When assessing risk for acute coronary syndromes: In patients undergoing blood draw greater than or equal to 2 hours from symptom onset, with history of very low to moderate risk and non-ischemic ECG, an initial hs-Troponin T less than 12 ng/L AND a 1 hour delta hs-Troponin T less than 3 ng/L should be considered very low risk for 30 day MACE. Performed By: #### 2 4323-8, HSTNT ####[facility] [id number] [address] aPTT PPPon 03-14-2021 aPTT Coag (PPP) [Time] 62.3 s High 23.0-32.4 [facility] Comment on above: Order Comment: Speci men Type: BLOOD SPECIMEN Performed By: #### 1 4979-9 #### [facility] CLIA [id number] [address] ALLIED HEALTHon 03-13-2021 ALLIED HEALTH HNO ID: [id number] Author: KRISTEN Crouch) Service: Radiology Author Type: Technologist Type: Allied Health Filed: 03/13/2021 2:34 PM Note Text: Radiology Service Progress Note DATE OF SERVICE: March 13, 2021 TIME: 2:34 PM PATIENT IDENTITY VERIFICATION COMPLETED USING TWO (2) STANDARD IDENTIFIERS: Name and Date of confirmed by patient verbally and Name and Date of confirmed by identification band. FALL SCREENING: Has the patient had 2 falls in the last year or 1 fall with injury or currently using an Ambulatory Assistive Device (Walker, Cane, Wheelchair, Crutches, etc.)? Inpatient: Screened on floor PATIENT GENDER DATA: Female. status: : No status: NO. PATIENT RELEVANT IMPLANT DATA REVIEWED: Not Applicable ALLERGIES: Reviewed and unchanged CONTRAST ALLERGY: NO. EXAM: CT -CONTRAST INDUCED NEPHROPATHY RISK FACTORS: Patient age > 60 years CREATININE: Creatinine Date Value Ref Range Status 03/13/2021 0.86 0.58 - 0.96 mg/dL Final 01/27/2014 1.09 (H) 0.51 - 0.95 mg/dL Final 01/14/2014 1.17 (H) 0.51 - 0.95 mg/dL Final eGFR-All Other Races Date Value Ref Range Status 03/13/2021 >60 Final Comment: eGFR (Estimated GFR) Units of measure: mL/min/1.73 meters squared eGFR is derived from the reexpressed MDRD Study equation using the following parameters: serum creatinine, age, gender and race. The creatinine assay has been calibrated to be traceable to IDMS. An eGFR <60 mL/min/1.73m2 for >3 months is consistent with chronic kidney disease. Refer to KDOQI guidelines for clinical interpretation. In patients with unstable renal function, e.g. those with acute kidney injury, the eGFR may not accurately reflect actual GFR. eGFR- Date Value Ref Range Status 03/13/2021 >60 Final P.O.C.T. RESULTS: POC done: Yes, See Lab Tab March 13, 2021 TREATMENT: N/A and No Hydration needed. PERIPHERAL IV DATA: Inpatient - refer to LDA documentation RADIOLOGY DEPARTMENT: CT; Exam(s) Completed: CTA Abdomen Pelvis SIGNATURE: RT Miko(Janes) PATIENT NAME: Kristine Delacruz DATE: March 13, 2021 TIME: 2:[address] 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 Type: Allied Health Filed: 03/13/2021 2:04 PM Note Text: CARDIAC REHABILITATION PATIENT EDUCATION PROGRESS NOTE Name: Kristine Delacruz Date of Service: 03/13/2021 Time of Service: 1350 ASSESSMENT: Risk Factors Identified: Age Hyperlipidemia Obesity RECOMMENDATIONS: Patient interested in Phase II Outpatient Cardiac Rehab: No DIAGNOSIS: Acute Myocardial Infarction/Acute Coronary Syndrome: AMI AMI/ACS Teaching Points: -Personal Modifiable Risk Factor Identification -Activity/Physical Exercise Recommendations -Outpatient Cardiac Rehabilitation READINESS TO LEARN: Cognitive Ability: Alert and Oriented Motivation to Learn: Reluctant Family Support: High - Very involved in pt care Instruction Provided To: Patient and family member Patient Learns Best By: Written Instruction - Hand-outs and Verbal Instruction Factors Affecting Learning: None Physical Limitations Affecting Learning: None LEARNING RESPONSE: Method Of Instruction: Written instruction - handouts Verbal instruction Patient/Family Response: Verbalizes understanding of: Cardiac Rehab Follow-up Plan: No further educational needs identified at this time. Instructional Aids Used: Cardiac Rehabilitation Brochure Signature: Casi Ornelas Physiologist Pager: [phone] Date: March 13, 2021 Time: 2:[address] [facility] CASE MGT INTYREE Perry 2020 [facility]: [id number] Author: Neli Mansfield RN Service: ? Author Type: Registered Nurse Type: Care Mgt Initial Assessment Filed: 03/13/2021 12:13 PM Note Text: CARE MANAGEMENT: ASSESSMENT AND DISCHARGE PLAN SERVICE DATE: March 13, 2021 SERVICE TIME: 12:08 PM PRIMARY CARE PHYSICIAN: Shirlene Caro MD ADMISSION STATUS: Inpatient Needs Prior to Discharge: To Be Determined;Discharge Prescriptions MEDICAL: MEDICARE A AND B Patient/Transportation Aide Stated Goals: To have reduction in pain;To have reduction in symptoms;To improve my functional status;To return home to life as it was;To be cured/healed Health Insurance: Medicare;[employer] Medicare Health Issues Impacting Discharge Plan: Newly diagnosed;Chronic Newly Diagnosed: Chest pain, NSTEMI Chronic: HTN, CABG Last Discharge Date: N/A Is this Within the Past 30 days? Last discharge within 30 days: No Advance Directive: Current Advance Directive: Health Care Power of Switch Cleaner In Chart: Yes Up To Date and Valid: Yes Health LiteracyHow often do you need to have someone help you when you read instructions, pamphlets, or other written material from your doctor or pharmacy? : 1 - Never How confident are you filling out medical forms by yourself?: 1 - Extremely If Patient scores > 3 on either question, the following interventions were put into place:: Patient did not score > 3 on either question. Baseline Mental Status Prior to this Illness what was the patient's Baseline Mental Status?: Alert AND Oriented Prior to this illness, has anyone described the patient having any of the following behaviors?: Not Applicable Relationship of the informant to the patient:: Self Functional Status: Independent Does Patient Currently Receive Any Community Services or Home Care?: None Equipment Prior to Admission: Cane;Walker Has the Patient Been in a Care Home Facility in the Past 30 days?: No SOCIAL: Living Arrangements: Home Lives With: Alone Financial Resources: Retired Primary Contact: Extended Emergency Contact Information Primary Emergency Contact: MERLYN GARCIAS Relation: Son Supportive Patient Contact:: Yes Contact Resources: Family Family Name/Phone: son merlyn and ederr Jyotsna Caregiver AssessmentCaregiver is ready, willing and able to meet the patient's needs as recommended by the inter-professional team:: Yes Does the patient have an acute stroke diagnosis, or has the patient had a stroke during this admission?: No Patient's transition needs and plan for meeting these needs: Home. Treatment plan pending. Patient's perception of need for this admission: chest pain Medication Adherance I am convinced of the importance of my prescription medication: 0 - Agree Completely I worry that my prescription medication will do more harm than good to me : 0 - Disagree Completely I feel financially burdened by my [id number] expenses for my prescription medication:: 0 - Disagree Completely Risk Score: 0 Patient is categorized as: Low risk < 2 Are you interested in bedside delivery of your medications? No Is Patient Psychosocially Complex?: No ASSESSMENT AND PLAN: Medical Needs: Medical Needs: Two or more chronic diseases Psychosocial Needs: Psychosocial Needs: None FREEDOM OF CHOICE EXPLAINED: [place] of Choice Given: No Reason Not Given: Unable to complete with this assessment - revisit POTENTIAL TRANSITION PLANS Home;To Be Determined Met with pt, explained CM role. From home alone, lives in a handicap accessible condo. 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 Ambulates with a cane or walker. Waiting on decision re high risk PCI, some talk of poss transfer to main campus. Will follow for transitional care needs. Hope is to return home. [facility] [place] SIGNATURE: Neli Mansfield RN PATIENT NAME: Kristine Delacruz DATE: March 13, 2021 TIME: 12:08 PM PAGER/CONTACT #: [phone] Normal [facility] CBC panel Auto (Bld)on 03-13 Erythrocyte distribution width (RBC) [Ratio] 13.4 % Normal 11.5-15.0 [facility] Comment on above: Order Comment: Speci men Type: BLOOD SPECIMEN Performed By: #### H STNT #### [facility] CLIA [id number] [address] Hematocrit (Bld) [Volume fraction] 35.2 % Low 36.0-46.0 [facility] Comment on above: Order Comment: Speci men Type: BLOOD SPECIMEN Performed By: #### H STNT #### [facility] CLIA [id number] [address] OF [facility] Hemoglobin (Bld) [Mass/Vol] 11.3 g/dL Low 11.5-15.5 [facility] Comment on above: Order Comment: Speci men Type: BLOOD SPECIMEN Performed By: #### H STNT #### [facility] CLIA [id number] [address] MCH (RBC) [Entitic mass] 29.5 pg Normal 26.0-34.0 [facility] Comment on above: Order Comment: Speci men Type: BLOOD SPECIMEN Performed By: #### H STNT #### [facility] CLIA [id number] [address] MCHC (RBC) [Mass/Vol] 32.1 g/dL Normal 30.5-36.0 [facility] Comment on above: Order Comment: Speci men Type: BLOOD SPECIMEN Performed By: #### H STNT #### [facility] CLIA [id number] [address] MCV (RBC) [Entitic vol] 91.9 fL Normal 80.0-100.0 [facility] Comment on above: Order Comment: Speci men Type: BLOOD SPECIMEN Performed By: #### H STNT #### [facility] CLIA [id number] [address] Nucleated RBC (Bld) [#/Vol] 10*3/uL Normal <0.01 [facility] Comment on above: Order Comment: Speci men Type: BLOOD SPECIMEN Performed By: #### H STNT #### [facility] CLIA [id number] [address] Platelet mean volume (Bld) [Entitic vol] 9.9 fL Normal 9.0-12.7 [facility] Comment on above: Order Comment: Speci men Type: BLOOD SPECIMEN Performed By: #### H STNT #### [facility] CLIA [id number] [address] Platelets (Bld) [#/Vol] 325 10*3/uL Normal 150-400 [facility] Comment on above: Order Comment: Speci men Type: BLOOD SPECIMEN Performed By: #### H STNT #### [facility] CLIA [id number] [address] OF [facility] RBC (Bld) [#/Vol] 3.83 10*6/uL Low 3.90-5.20 [facility] Comment on above: Order Comment: Speci men Type: BLOOD SPECIMEN Performed By: #### H STNT #### [facility] CLIA [id number] [address] WBC (Bld) [#/Vol] 7.69 10*3/uL Normal 3.70-11.00 [facility] Comment on above: Order Comment: Speci men Type: BLOOD SPECIMEN Performed By: #### H STNT #### [facility] CLIA [id number] [address] Erythrocyte distribution width (RBC) [Ratio] 13.3 % Normal 11.5-15.0 [facility] Comment on above: Order Comment: Speci men Type: BLOOD SPECIMEN Performed By: #### H STNT #### [facility] CLIA [id number] [address] Hematocrit (Bld) [Volume fraction] 36.5 % Normal 36.0-46.0 [facility] Comment on above: Order Comment: Speci men Type: BLOOD SPECIMEN Performed By: #### H STNT #### [facility] CLIA [id number] [address] Hemoglobin (Bld) [Mass/Vol] 12.0 g/dL Normal 11.5-15.5 [facility] Comment on above: Order Comment: Speci men Type: BLOOD SPECIMEN Performed By: #### H STNT #### [facility] CLIA [id number] [address] MCH (RBC) [Entitic mass] 29.9 pg Normal 26.0-34.0 [facility] Comment on above: Order Comment: Speci men Type: BLOOD SPECIMEN Performed By: #### H STNT #### [facility] CLIA [id number] [address] MCHC (RBC) [Mass/Vol] 32.9 g/dL Normal 30.5-36.0 [facility] Comment on above: Order Comment: Speci men Type: BLOOD SPECIMEN Performed By: #### H STNT #### [facility] CLIA [id number] [address] MCV (RBC) [Entitic vol] 91.0 fL Normal 80.0-100.0 [facility] Comment on above: Order Comment: Speci men Type: BLOOD SPECIMEN Performed By: #### H STNT #### [facility] CLIA [id number] [address] Nucleated RBC (Bld) [#/Vol] 10*3/uL Normal <0.01 [facility] Comment on above: Order Comment: Speci men Type: BLOOD SPECIMEN Performed By: #### H STNT #### [facility] CLIA [id number] [address] Platelet mean volume (Bld) [Entitic vol] 9.8 fL Normal 9.0-12.7 [facility] Comment on above: Order Comment: Speci men Type: BLOOD SPECIMEN Performed By: #### H STNT #### [facility] CLIA [id number] [address] Platelets (Bld) [#/Vol] 347 10*3/uL Normal 150-400 [facility] Comment on above: Order Comment: Speci men Type: BLOOD SPECIMEN Performed By: #### H STNT #### [facility] CLIA [id number] [address] RBC (Bld) [#/Vol] 4.01 10*6/uL Normal 3.90-5.20 [facility] Comment on above: Order Comment: Speci men Type: BLOOD SPECIMEN Performed By: #### H STNT #### [facility] CLIA [id number] [address] WBC (Bld) [#/Vol] 7.82 10*3/uL Normal 3.70-11.00 [facility] Comment on above: Order Comment: Speci men Type: BLOOD SPECIMEN Performed By: #### H STNT #### [facility] CLIA [id number] [address] [facility]A ABD/PELV W IVCONon 03-13 CTA ABD/PELV W IVCON * * *Final Report* * * DATE OF EXAM: Mar 13 2021 2:35PM [facility] 0311 - CTA ABD/PELV W IVCON / PROCEDURE REASON: Arterial occlusion, aorta, branches * * * * Physician Interpretation * * * * EXAM TITLE: CT ANGIOGRAM OF THORACIC AND LUMBAR AORTA W/WO CONTRAST DATE: March 13, 2021 at 2:31 PM COMPARISON: None. CLINICAL INDICATION/HISTORY: The patient is an 86-year-old female with known coronary artery disease and history of previous coronary artery bypass grafting to the right coronary and obtuse marginal branches. The patient is a high risk percutaneous coronary intervention and interventional cardiology plans to use the Impella device and leads evaluation of the arterial access system TECHNIQUE: Helical axial slices were obtained from the thoracic outlet to the upper thighs before and during the bolus intravenous administration of contrast. Bolus images were sent to a separate workstation and 3-D multiplanar reconstruction CT angiogram with MIP and shaded surface display imaging was obtained. CT Radiation dose: Integrated dose-length product (DLP) for this visit = 1572 mGy*cm. CT Dose Reduction Employed: Automated exposure control (AEC) was used. CONTRAST: IV: 150 ml of Omnipaque 350 FINDINGS: CT THORACIC ANGIOGRAM: The aortic valve is tricuspid. The aortic root measures 36 mm. The ascending aorta, aortic arch, and descending aorta taper normally without aneurysm formation, significant vascular stenosis, or dissection. There are 2 patent bypass grafts off the patent ascending aorta with one passing to the right coronary artery and the other to the left coronary artery. The left common carotid artery is extrinsically compressed by an enlarged left lobe of the thyroid and the vessel angulates severely off the aortic arch with a kink and has a 70% diameter origin stenosis. The origins of the right brachiocephalic and left subclavian artery are patent without significant stenosis. CT LUMBAR ANGIOGRAM: There is scattered dystrophic wall calcification involving the lumbar aorta. The lumbar aorta tapers normally without significant stenosis or aneurysm formation. Dystrophic calcification at the origin of the celiac axis contributes to a 80% diameter stenosis. There is a less than 50% stenosis of the origin of the SMA. There are 2 renal arteries bilaterally. There is mixed calcific and noncalcific plaque at the origin of the larger posterior left renal artery causing approximate 50% diameter stenosis. The other 3 renal arteries are widely patent. The CELIA has a less than 50% diameter stenosis.. CT ILIAC ANGIOGRAM: There is dystrophic wall calcification of the common iliac arteries and internal iliac arteries. The common iliac, external iliac, and internal iliac vessels on either side show no significant stenosis or aneurysm formation. CT FEMORAL RUNOFF ANGIOGRAM: The common femoral and upper portions of the profundus femoral and superficial femoral arteries on either side show no significant stenosis. CT OF THE CHEST: There is extensive peripheral interstitial septal thickening with lower lobe involvement greater than upper lobe involvement. The rest of the lungs are clear with no additional infiltrates or nodules. The mediastinum shows no mass but there is scattered reactive-type lymphadenopathy involving the mediastinum. [place] coronary artery calcifications are scattered. The right thyroid gland is normal. The left thyroid gland is markedly enlarged and has a substernal extension compressing and deviating the left common carotid artery. There are no pleural effusions. Sternal wires are present. No other chest wall abnormalities are noted. CT OF THE ABDOMEN: The gallbladder is contracted. There is a large fixed hiatus hernia. There is focal loss of cortex of the anterior inferior pole of the right kidney. There is a large superior medial left renal cyst measuring 43 mm and an additional anterior mid left renal cyst measuring 21 mm. The rest of the remaining renal cortex in each kidney is thin. There are no focal lesions of the liver, rest of the biliary system, pancreas, spleen, adrenals, rest of the kidneys, periaortic region, or rest of the visualized bowel. There is no effusion, ascites, or mesenteric inflammation. CT OF THE PELVIS: The uterus is absent. There is some proximal sigmoid diverticula without surrounding inflammation or focal wall thickening. There are no abnormalities of the bladder, rectum, sigmoid or small bowel loops in the pelvis. There is no fluid in the cul-d-sac. Muscular symmetry is maintained in the pelvis. IMPRESSION: There are no significant stenoses of the thoracic aorta, lumbar aorta, or iliac arterial vasculature to impede placement of the Impella device. 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 (more content not included)... Normal [facility] CTA CHEST (GATED) WO/W IVCON on 03-13-2021 CTA CHEST (GATED) WO/W IVCON * * *Final Report* * * DATE OF EXAM: Mar 13 2021 2:35PM [facility] 0126 - CTA CHEST (GATED) WO/W IVCON / PROCEDURE REASON: AV replace, percutaneous planning, aorta/iliofemoral * * * * Physician Interpretation * * * * EXAM TITLE: CT ANGIOGRAM OF THORACIC AND LUMBAR AORTA W/WO CONTRAST DATE: March 13, 2021 at 2:31 PM COMPARISON: None. CLINICAL INDICATION/HISTORY: The patient is an 86-year-old female with known coronary artery disease and history of previous coronary artery bypass grafting to the right coronary and obtuse marginal branches. The patient is a high risk percutaneous coronary intervention and interventional cardiology plans to use the Impella device and leads evaluation of the arterial access system TECHNIQUE: Helical axial slices were obtained from the thoracic outlet to the upper thighs before and during the bolus intravenous administration of contrast. Bolus images were sent to a separate workstation and 3-D multiplanar reconstruction CT angiogram with MIP and shaded surface display imaging was obtained. CT Radiation dose: Integrated dose-length product (DLP) for this visit = 1572 mGy*cm. CT Dose Reduction Employed: Automated exposure control (AEC) was used. CONTRAST: IV: 150 ml of Omnipaque 350 FINDINGS: CT THORACIC ANGIOGRAM: The aortic valve is tricuspid. The aortic root measures 36 mm. The ascending aorta, aortic arch, and descending aorta taper normally without aneurysm formation, significant vascular stenosis, or dissection. There are 2 patent bypass grafts off the patent ascending aorta with one passing to the right coronary artery and the other to the left coronary artery. The left common carotid artery is extrinsically compressed by an enlarged left lobe of the thyroid and the vessel angulates severely off the aortic arch with a kink and has a 70% diameter origin stenosis. The origins of the right brachiocephalic and left subclavian artery are patent without significant stenosis. CT LUMBAR ANGIOGRAM: There is scattered dystrophic wall calcification involving the lumbar aorta. The lumbar aorta tapers normally without significant stenosis or aneurysm formation. Dystrophic calcification at the origin of the celiac axis contributes to a 80% diameter stenosis. There is a less than 50% stenosis of the origin of the SMA. There are 2 renal arteries bilaterally. There is mixed calcific and noncalcific plaque at the origin of the larger posterior left renal artery causing approximate 50% diameter stenosis. The other 3 renal arteries are widely patent. The CELIA has a less than 50% diameter stenosis.. CT ILIAC ANGIOGRAM: There is dystrophic wall calcification of the common iliac arteries and internal iliac arteries. The common iliac, external iliac, and internal iliac vessels on either side show no significant stenosis or aneurysm formation. CT FEMORAL RUNOFF ANGIOGRAM: The common femoral and upper portions of the profundus femoral and superficial femoral arteries on either side show no significant stenosis. CT OF THE CHEST: There is extensive peripheral interstitial septal thickening with lower lobe involvement greater than upper lobe involvement. The rest of the lungs are clear with no additional infiltrates or nodules. The mediastinum shows no mass but there is scattered reactive-type lymphadenopathy involving the mediastinum. [place] coronary artery calcifications are scattered. The right thyroid gland is normal. The left thyroid gland is markedly enlarged and has a substernal extension compressing and deviating the left common carotid artery. There are no pleural effusions. Sternal wires are present. No other chest wall abnormalities are noted. CT OF THE ABDOMEN: The gallbladder is contracted. There is a large fixed hiatus hernia. There is focal loss of cortex of the anterior inferior pole of the right kidney. There is a large superior medial left renal cyst measuring 43 mm and an additional anterior mid left renal cyst measuring 21 mm. The rest of the remaining renal cortex in each kidney is thin. There are no focal lesions of the liver, rest of the biliary system, pancreas, spleen, adrenals, rest of the kidneys, periaortic region, or rest of the visualized bowel. There is no effusion, ascites, or mesenteric inflammation. CT OF THE PELVIS: The uterus is absent. There is some proximal sigmoid diverticula without surrounding inflammation or focal wall thickening. There are no abnormalities of the bladder, rectum, sigmoid or small bowel loops in the pelvis. There is no fluid in the cul-d-sac. Muscular symmetry is maintained in the pelvis. IMPRESSION: There are no significant stenoses of the thoracic aorta, lumbar aorta, or iliac arterial vasculature to impede placement of the Impella device. There is a 70% origin stenosis of the left common carotid artery due to kinking of the vessel by extrinsic compression from the left t (more content not included)... Normal [facility] Comprehensive metabolic 2000 panelon 03-13-2021 Albumin [Mass/Vol] 4.1 g/dL Normal 3.9-4.9 [facility] Comment on above: Order Comment: Speci men Type: BLOOD SPECIMEN Performed By: #### 1 4979-9 #### [facility] CLIA [id number] [address] ALP [Catalytic activity/Vol] 67 U/L Normal 34-123 [facility] Comment on above: Order Comment: Speci men Type: BLOOD SPECIMEN Performed By: #### 1 4979-9 #### [facility] CLIA [id number] [address] ALT With P-5'-P [Catalytic activity/Vol] 11 U/L Normal 7-38 [facility] Comment on above: Order Comment: Speci men Type: BLOOD SPECIMEN Performed By: #### 1 4979-9 #### [facility] CLIA [id number] [address] Anion gap [Moles/Vol] 13 mmol/L Normal 9-18 [facility] Comment on above: Order Comment: Speci men Type: BLOOD SPECIMEN Performed By: #### 1 4979-9 #### [facility] CLIA [id number] [address] AST With P-5'-P [Catalytic activity/Vol] 26 U/L Normal 13-35 [facility] Comment on above: Order Comment: Speci men Type: BLOOD SPECIMEN Performed By: #### 1 4979-9 #### [facility] CLIA [id number] [address] OF [facility] Bilirubin [Mass/Vol] 0.8 mg/dL Normal 0.2-1.3 [facility] Comment on above: Order Comment: Speci men Type: BLOOD SPECIMEN Performed By: #### 1 4979-9 #### [facility] CLIA [id number] [address] OF [facility] Calcium [Mass/Vol] 9.4 mg/dL Normal 8.5-10.2 [facility] Comment on above: Order Comment: Speci men Type: BLOOD SPECIMEN Performed By: #### 1 4979-9 #### [facility] CLIA [id number] [address] Chloride [Moles/Vol] 102 mmol/L Normal 97-105 [facility] Comment on above: Order Comment: Speci men Type: BLOOD SPECIMEN Performed By: #### 1 4979-9 #### [facility] CLIA [id number] [address] [place] CO2 [Moles/Vol] 25 mmol/L Normal 22-30 [facility] Comment on above: Order Comment: Speci men Type: BLOOD SPECIMEN Performed By: #### 1 4979-9 #### [facility] CLIA [id number] [address] Creatinine [Mass/Vol] 0.86 mg/dL Normal 0.58-0.96 [facility] Comment on above: Order Comment: Speci men Type: BLOOD SPECIMEN Performed By: #### 1 4979-9 #### [facility] CLIA [id number] [address] [place] GFR/1.73 sq M.predicted MDRD (S/P/Bld) [Vol rate/Area] mL/min/{1.73_m2} Normal [facility] Comment on above: Order Comment: Speci men Type: BLOOD SPECIMEN Result Comment: >60 eGFR (Estimated GFR) Units of measure: mL/min/1.73 meters squared eGFR is derived from the reexpressed MDRD Study equation using the following parameters: serum creatinine, age, gender and race. The creatinine assay has been calibrated to be traceable to IDMS. An eGFR <60 mL/min/1.73m2 for >3 months is consistent with chronic kidney disease. Refer to KDOQI guidelines for clinical interpretation. In patients with unstable renal function, e.g. those with acute kidney injury, the eGFR may not accurately reflect actual GFR. Performed By: #### 1 4979-9 #### [facility] CLIA [id number] [address] [place] Glucose [Mass/Vol] 101 mg/dL High 74-99 [facility] Comment on above: Order Comment: Speci men Type: BLOOD SPECIMEN Result Comment: The [place] Diabetes Association (ADA) provides guidance for cutoff values for fasting glucose and random glucose. The ADA defines fasting as no caloric intake for at least 8 hours. Fasting plasma glucose results between 100 to 125 mg/dL indicate increased risk for diabetes (prediabetes). Fasting plasma glucose results greater than or equal to 126 mg/dL meet the criteria for diagnosis of diabetes. In the absence of unequivocal hyperglycemia, results should be confirmed by repeat testing. In a patient with classic symptoms of hyperglycemia or hyperglycemic crisis, random plasma glucose results greater than or equal to 200 mg/dL meet the criteria for diagnosis of diabetes. Reference: Standards of Medical Care in Diabetes 2016, [place] Diabetes Association. Diabetes Care. 2016.39(Suppl 1). Performed By: #### 1 4979-9 #### [facility] CLIA [id number] [address] OF [facility] Potassium [Moles/Vol] 3.3 mmol/L Low 3.7-5.1 [facility] Comment on above: Order Comment: Speci men Type: BLOOD SPECIMEN Performed By: #### 1 4979-9 #### [facility] CLIA [id number] [address] [place] [address] [place] Protein [Mass/Vol] 7.0 g/dL Normal 6.3-8.0 [facility] Comment on above: Order Comment: Speci men Type: BLOOD SPECIMEN Performed By: #### 1 4979-9 #### [facility] CLIA [id number] [address] [place] Sodium [Moles/Vol] 140 mmol/L Normal 136-144 [facility] Comment on above: Order Comment: Speci men Type: BLOOD SPECIMEN Performed By: #### 1 4979-9 #### [facility] CLIA [id number] [address] [place] Urea nitrogen [Mass/Vol] 12 mg/dL Normal 7-21 [facility] Comment on above: Order Comment: Speci men Type: BLOOD SPECIMEN Performed By: #### 1 4979-9 #### [facility] CLIA [id number] [address] HIGH SENSITIVITY TROPONIN To n 03-13-2021 HIGH SENSITIVITY PARAM 349 ng/L High <12 [facility] Comment on above: Order Comment: Speci men Type: BLOOD SPECIMEN Result Comment: When assessing risk for acute coronary syndromes: In patients undergoing blood draw greater than or equal to 2 hours from symptom onset, with history of very low to moderate risk and non-ischemic ECG, an initial hs-Troponin T less than 12 ng/L AND a 1 hour delta hs-Troponin T less than 3 ng/L should be considered very low risk for 30 day MACE. Performed By: #### 1 4979-9 #### [facility] CLIA [id number] [address] HIGH SENSITIVITY PARAM 385 ng/L High <12 [facility] Comment on above: Order Comment: Speci men Type: BLOOD SPECIMEN Result Comment: When assessing risk for acute coronary syndromes: In patients undergoing blood draw greater than or equal to 2 hours from symptom onset, with history of very low to moderate risk and non-ischemic ECG, an initial hs-Troponin T less than 12 ng/L AND a 1 hour delta hs-Troponin T less than 3 ng/L should be considered very low risk for 30 day MACE. Performed By: #### H STNT #### [facility] CLIA [id number] [address] HISTORY PHYSICALon HISTORY PHYSICAL HNO ID: [id number] Author: Nuzhat Ball MD Service: Cardiovascular Medicine Author Type: Resident Type: HANDP Filed: 03/13/2021 5:22 AM Note Text: -------- Attestation signed by Basil Buchanan MD at 03/13/2021 4:47 PM Attending Note I evaluated the patient and personally participated in the meza components. I agree with the resident's findings and plan as documented and have discussed the case and management of the patient's care with the resident. Plan of care discussed with: Provider, RN, Patient. Assessment and plan 86-year-old woman with known coronary artery disease prior coronary bypass grafting and prior high risk stenting of the vein graft to the right coronary artery as well as a vein graft to the obtuse marginal diagonal system. She presented to the hospital with complaints of chest pain. She underwent repeat catheterization was found to have a severe focal in-stent restenosis in the vein graft to the distal right coronary artery. There is also disease noted in the distal posterior ventricular branch. By report, the REID graft to the LAD was atretic. The stents in the vein graft to the left circumflex diagonal system were patent. Patient was referred by Dr. Deuce Hector for consideration of high risk coronary intervention to the vein graft to the RCA and possibly left main coronary artery due to history of atretic REID graft to the LAD. Her cardiac catheterization films were reviewed in detail during her heart team meeting Thursday. There is retrograde flow into the REID graft noted on [facility] left coronary artery injections. We did not have films for evaluation of the REID graft. The collective decision at the group was to consider angiograms of the REID graft to the LAD. If truly atretic consider high risk percutaneous coronary intervention of the left main coronary artery as well as the vein graft to the right coronary artery using hemodynamic support (Impella). As part of her preprocedure assessment she underwent a CT scan of the chest abdomen pelvis today. Although the thoracic aorta appears tortuous. There seems to be no obstructive lesions in the aorta or bilateral iliac femoral system. Coronary artery disease: Plan for cardiac catheterization in the a.m. We will start the procedure with an injection of the REID graft to the LAD. After patent will consider focal intervention of the SVG graft to the RCA. If the REID graft is truly atretic will consider Impella support and high risk PCI to the left main coronary artery as well as the SVG graft to the RCA. I discussed the plan in detail with the patient's son. The patient was present for the discussion. The risk, benefits, and alternatives were reviewed in detail. They understand the risks and are willing to proceed. IV hydration overnight Cardiac catheterization in the a.m. Continue dual antiplatelet therapy Will review 2D echocardiogram results. Signature: Basil Buchanan MD Date: March 13, 2021 Time: 4:42 PM -------- Cardiovascular Intensive Care Unit Consult SERVICE DATE: 03/13/2021 SERVICE TIME: 5:12 AM CC: chest pain HPI: This is a 86 year old female PMHx CABGx5, multiple stent placements since then, HTN/HLD, hypothyroidism who presented to the [place] ED with chest pressure on 03/11. Also endorsed bilateral arm pain and pain between her shoulder blades, as well as SOB. States she took her nitroglycerin at home without relief. Because her pain was persistent, she presented to the ED. hsTNT uptrended from 1825 to 2971. She was taken to [facility] that morning and it was recommended that she be transferred to [facility] for high-risk PCI. On my evaluation, patient states that her chest pain has since resolved since the night she first came into the ED. Denies SOB, headaches, blurry vision, diaphoresis, nausea or vomiting or other symptoms at this time. No other issues at this time. 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 Normal [facility] PT EDon 03-13-2021 PT ED HNO ID: [id number] Author: Sissy Kosa, DTR Service: Nutrition Therapy Author Type: Skip Locator Type: Patient Education Filed: 03/13/2021 1:58 PM Note Text: NUTRITION THERAPY PATIENT EDUCATION SERVICE DATE: 03/13/2021 SERVICE TIME: 105 TOPIC: Diet: Mediterranean and low sodium diet LEARNING ASSESSMENT Individuals Assessed: Patient Preferred Learning Method: : No Preference Barriers to Learning: : None Evident LEARNING RESPONSE Instruction Provided to: Patient Patient / Family Response: Verbalizes Understanding Method of Instruction: Teach Back . Individual instruction Written instruction - handouts Verbal instruction Material(s) Provided to Patient: Mediterranean Diet Guidelines and Nutrition Therapy instruction material: Your Sodium-Controlled Diet Follow-Up Plan: Complete - No need for follow-up Referral (Recommendation): NA MNT Billing: Routine Care/15 min 2 units SIGNATURE: Sissy Napoles DTR PATIENT NAME: Kristine Delacruz DATE: March 13, 2021 TIME: 1:57 PM PAGER: [phone] Normal [facility] PT panel Coag (PPP)on 2020 INR Coag (PPP) [Relative time] 1.0 {INR} Normal 0.9-1.3 [facility] Comment on above: Order Comment: Speci men Type: BLOOD SPECIMEN Result Comment: Agnieszka min K Antagonist (VKA) Therapeutic Range: INR 2 to 3 (Target INR of 2.5) Note: For patients treated with VKA drugs, such as warfarin, the [place] [employer] 2012 Guideline recommends a therapeutic INR range of 2 to 3 (target INR of 2.5). This recommendation includes high-risk patients with antiphospholipid syndrome with previous arterial or venous thromboembolism, current-generation mechanical or bioprosthetic aortic heart valve replacement. Note: Patients with mechanical aortic valve replacement and additional risk factors for thromboembolic events (atrial fibrillation, previous thromboembolism, LV dysfunction, hypercoagulable conditions) or an older generation mechanical AVR (i.e., ball in-Cage) or any mechanical MVR should have a INR therapeutic range of 2.5 to 3.5 (target INR of 3). Sen GARCIA, et al. Chest 2012, 141:7S-47S Vera CARBONE et al. [facility] 2017, 70: 252-289 Performed By: #### 3 4528-0, 68975-5 #### [facility] CLIA [id number] [address] PT Coag (PPP) [Time] 10.8 s Normal 9.7-13.0 [facility] Comment on above: Order Comment: Speci men Type: BLOOD SPECIMEN Performed By: #### 3 4528-0, 29352-3 #### [facility] CLIA [id number] [address] [employer] [facility] [facility]. aureus and MRSA panel MARLENY+probe (Nose) Normal Negative [facility] Comment on above: Order Comment: Speci men Type: BLOOD SPECIMEN Result Comment: Nega tive for Staphylococcus aureus by PCR. Negative for MRSA by PCR Performed By: #### 1 4979-9 #### [facility] CLIA [id number] [address] aPTT PPPon 03-13-2021 aPTT Coag (PPP) [Time] 62.4 s High 23.0-32.4 [facility] Comment on above: Order Comment: Speci men Type: BLOOD SPECIMEN Performed By: #### H STNT #### [facility] CLIA [id number] [address] aPTT Coag (PPP) [Time] 65.5 s High 23.0-32.4 [facility] Comment on above: Order Comment: Speci men Type: BLOOD SPECIMEN Performed By: #### 1 4979-9 #### [facility] CLIA [id number] [address] aPTT Coag (PPP) [Time] 41.5 s High 23.0-32.4 [facility] Comment on above: Order Comment: Speci men Type: BLOOD SPECIMEN Performed By: #### 3 4528-0, 08296-0 #### [facility] CLIA [id number] [address] [place] Encounters Encounter Date Encounter Type Care Provider Facility Start: 01-29-2023 End: 05-03-[address] HASMUKH PHAN DO Facility:B Payers Date Payer Category Payer Medicare [id number] 2023 Private Health Insurance [id number] 1935 Unknown [id number] Plan of care note 03-15-2021 Note Date & Type Note Facility 03-15-2021 Note HNO ID: [id number] Author: America Reyes RPh Service: ? Author [...] Filled free 30 days of Brilinta through chef assistant card; per [facility] outpatient pharmacy, copay will be $234 until [...] RPh March 15, 2021 1:50 PM Pager: [phone] 03/15/2021 1:50 PM Medication List START taking [...] Your Medications These medications were sent to [facility] [address] [place] [address] Hours: Thursday-Thursday, 8am-6:30pm ? atorvastatin 80 mg tablet ? BRILINTA 90 mg tablet ? famotidine 20 mg tablet ? isosorbide mononitrate ER 60 mg 24 hr tablet ? metoprolol tartrate (short acting) 25 mg tablet [facility] Progress note 03-15-2021 Note Date & Type Note Facility 03-15-2021 Note HNO ID: [id number] Author: Mia Cooper DO Service: Cardiovascular Medicine [...] March 18, 2021 Time: 4:12 PM -- [facility] CVICU PROGRESS NOTE Service Date: 03/14/2021 Service Time: 8:24 AM SUBJECTIVE Brief HPI: This is a 86 year old female PMHx CABGx5 [multiple stent placements since then, including within the vein graft to the RCA and OM], HTN, HLD, and hypothyroidism who presented to the [place] ED with chest pressure on 03/11. She [...] was recommended that she be transferred to [facility] for high-risk PCI. Interval History: Underwent PCI [...] 138 -- < (more content not included)... [facility] Progress note 03-14-2021 Note Date & Type Note Facility 03-14-2021 Note HNO ID: [id number] Author: Mia Cooper DO Service: Cardiovascular Medicine [...] March 14, 2021 Time: 5:24 PM -- [facility] CVICU PROGRESS NOTE Service Date: 03/14/2021 Service Time: 8:24 AM SUBJECTIVE Brief HPI: This is a 86 year old female PMHx CABGx5 [multiple stent placements since then, including within the vein graft to the RCA and OM], HTN, HLD, and hypothyroidism who presented to the [place] ED with chest pressure on 03/11. She [...] was recommended that she be transferred to [facility] for high-risk PCI. Interval History: No acute [...] Last 12 En (more content not included)... [facility] Progress note 03-13-2021 Note Date & Type Note Facility 03-13-2021 Note HNO ID: [id number] Author: America Reyes RPh Service: ? Author [...] this patient. Signature: America Reyes RPh Pager/Extension: [phone] [facility] Clinical Note 03-13-2021 Note Date & Type Note Facility 03-13-2021 Note HNO ID: [id number] Author: Jazmin Ware RN Service: Nursing Author Type: Registered Nurse Type: Nursing Progress Note Filed: 03/13/2021 10:22 AM Note Text: 2-D-Echo in progress at bedside [facility] Summary Purpose Family History No Family History Records FoundNo Family History Records FoundNo Family History Records Found Advance Directives No Advanced Directives Records FoundNo Advanced Directives Records FoundNo Advanced Directives Records Found Additional Source Comments INFORMATION SOURCE (unrecogn ized section and content) DATE CREATED AUTHOR 03/29/2021 [facility] DATE CREATED AUTHOR AUTHOR'S ORGANIZ ATION 06/02/2021 [facility] DATE CREATED AUTHOR AUTHOR'S ORGANIZ ATION 05/06/2023 [facility] ([place]) FOR RECORDS PERTAINING TO PATIENTS WHO ARE [...] BE BASED ON THE PRIMARY CLINICAL RECORDS. [facility] [employer] [facility]. provides no warranty or guarantee of the accuracy or completeness of information in this document.
== END | disposition home or self-care (01) ==
LOC: LAB 13:47
PROVIDERS: PCP Family Medicine; Referring Provider Nurse Practitioner Gerontology; Visit Provider Nurse Practitioner Gerontology
DX: R06.09 Other forms of dyspnea (principal)
CPT/HCPCS: 36415; 80048; 83880; 85025

== ENCOUNTER → 2024-03-01 | Outpatient (CLI) | payer MEDICARE, OTHER, SELFPAY ==
[2016-08-18 10:52] VITALS: BMI 33.5
[2024-03-01 15:50] LABS: Anion Gap 5 (5-15); BUN 20 mg/dL (7-18); BUN/Creat Ratio 17.5 RATIO (10-20); Calcium,Total 9.6 mg/dL (8.5-10.1); Chloride 99 mmol/L (98-107); Creatinine, Serum 1.14 mg/dL (0.55-1.02); EST Glomerular Filtration Rate 48 mL/min (>60); Est Glom Filt Rate - Afr Amer 58 mL/min (>60); Glucose 91 mg/dL (74-106); Potassium 4.2 mmol/L (3.5-5.1); Sodium Level 134 mmol/L (136-145)
--- OUTSIDE RECORDS SUMMARY | 2024-03-01 18:05 | XMS RPT_ITS | CCD ---
Author Organization [facility] Care Team Providers Care Oncology Rep Name Role Phone SYLVESTER VALDES, DR NOE Attending Brent CARO MD, DR SHIRLENE [facility] Unavailable Results Test Name Value Interpretation Reference Range Facility [facility] 03-20-2021 CNPN Telephone ([facility]) -------- KRISTINE DELACRUZ ([id number]) 1935 F Date Time Provider Department 03/20/21 SHIRLENE CARO [facility] During your visit today, we recorded the following information about you: Laine Soares 03/20/2021 12:32 PM Signed PATIENT INFORMATION Record ID: [id number] Patient Name: Kristine Delacruz Hospital: [facility] [place]: [facility] Attending: Basil Buchanan Center: Cardiovascular Medicine [facility] INSTRUCTIONS All Clear SN to remind patient of next upcoming appointment date, time, location All Clear All Clear All Clear SURVEY INFORMATION Medical/Nurse Hunting Guide: Laine Mixon 1. Your discharge instructions are [...] Reason for Visit: Follow Up Phone Call [[phone]] Cmt: All clear. Prescriptions as of 03/20/2021 [...] Status:Closed by LAINE SOARES on 03/20/21 Normal [facility] CBC panel Auto (Bld)on 03-15 Erythrocyte distribution width (RBC) [Ratio] 14.0 % Normal 11.5-15.0 [facility] Comment on above: Order Comment: Speci men Type: BLOOD SPECIMEN Performed By: #### 5 8410-2 #### [facility] CLIA [id number] [address] OF [facility] Hematocrit (Bld) [Volume fraction] 26.8 % Low 36.0-46.0 [facility] Comment on above: Order Comment: Speci men Type: BLOOD SPECIMEN Performed By: #### 5 8410-2 #### [facility] CLIA [id number] [address] STATES OF [facility] Hemoglobin (Bld) [Mass/Vol] 8.6 g/dL Low 11.5-15.5 [facility] Comment on above: Order Comment: Speci men Type: BLOOD SPECIMEN Performed By: #### 5 8410-2 #### [facility] CLIA [id number] [address] MCH (RBC) [Entitic mass] 29.9 pg Normal 26.0-34.0 [facility] Comment on above: Order Comment: Speci men Type: BLOOD SPECIMEN Performed By: #### 5 8410-2 #### [facility] CLIA [id number] [address] MCHC (RBC) [Mass/Vol] 32.1 g/dL Normal 30.5-36.0 [facility] Comment on above: Order Comment: Speci men Type: BLOOD SPECIMEN Performed By: #### 5 8410-2 #### [facility] CLIA [id number] [address] MCV (RBC) [Entitic vol] 93.1 fL Normal 80.0-100.0 [facility] Comment on above: Order Comment: Speci men Type: BLOOD SPECIMEN Performed By: #### 5 8410-2 #### [facility] CLIA [id number] [address] Nucleated RBC (Bld) [#/Vol] 10*3/uL Normal <0.01 [facility] Comment on above: Order Comment: Speci men Type: BLOOD SPECIMEN Performed By: #### 5 8410-2 #### [facility] CLIA [id number] [address] Platelet mean volume (Bld) [Entitic vol] 10.1 fL Normal 9.0-12.7 [facility] Comment on above: Order Comment: Speci men Type: BLOOD SPECIMEN Performed By: #### 5 8410-2 #### [facility] CLIA [id number] [address] Platelets (Bld) [#/Vol] 273 10*3/uL Normal 150-400 [facility] Comment on above: Order Comment: Speci men Type: BLOOD SPECIMEN Performed By: #### 5 8410-2 #### [facility] CLIA [id number] [address] RBC (Bld) [#/Vol] 2.88 10*6/uL Low 3.90-5.20 [facility] Comment on above: Order Comment: Speci men Type: BLOOD SPECIMEN Performed By: #### 5 8410-2 #### [facility] CLIA [id number] [address] WBC (Bld) [#/Vol] 11.74 10*3/uL High 3.70-11.00 [facility] Comment on above: Order Comment: Speci men Type: BLOOD SPECIMEN Performed By: #### 5 8410-2 #### [facility] CLIA [id number] [address] CNDSon 03-15-2021 CNDS HNO ID: [id number] Author: Mia Cooper DO Service: Cardiovascular Medicine [...] HTN, HLD, and hypothyroidism?who?prese nted to the [place] [facility] with chest pressure on 03/11. She [...] was recommended that she be transferred to [facility] for high-risk PCI. ? The patient nderwent [...] distress. Debra (more content not included)... Normal [facility] Comprehensive metabolic 2000 panelon 03-15-2021 Albumin [Mass/Vol] 3.2 g/dL Low 3.9-4.9 [facility] Comment on above: Order Comment: Speci men Type: BLOOD SPECIMEN Performed By: #### 2 4323-8 #### [facility] CLIA [id number] [address] [place] [address] [place] ALP [Catalytic activity/Vol] 48 U/L Normal 34-123 [facility] Comment on above: Order Comment: Speci men Type: BLOOD SPECIMEN Performed By: #### 2 4323-8 #### [facility] CLIA [id number] [address] ALT With P-5'-P [Catalytic activity/Vol] 25 U/L Normal 7-38 [facility] Comment on above: Order Comment: Speci men Type: BLOOD SPECIMEN Performed By: #### 2 4323-8 #### [facility] CLIA [id number] [address] Anion gap [Moles/Vol] 11 mmol/L Normal 9-18 [facility] Comment on above: Order Comment: Speci men Type: BLOOD SPECIMEN Performed By: #### 2 4323-8 #### [facility] CLIA [id number] [address] AST With P-5'-P [Catalytic activity/Vol] 88 U/L High 13-35 [facility] Comment on above: Order Comment: Speci men Type: BLOOD SPECIMEN Performed By: #### 2 4323-8 #### [facility] CLIA [id number] [address] OF [facility] Bilirubin [Mass/Vol] 0.6 mg/dL Normal 0.2-1.3 [facility] Comment on above: Order Comment: Speci men Type: BLOOD SPECIMEN Performed By: #### 2 4323-8 #### [facility] CLIA [id number] [address] Calcium [Mass/Vol] 8.7 mg/dL Normal 8.5-10.2 [facility] Comment on above: Order Comment: Speci men Type: BLOOD SPECIMEN Performed By: #### 2 4323-8 #### [facility] CLIA [id number] [address] Chloride [Moles/Vol] 107 mmol/L High 97-105 [facility] Comment on above: Order Comment: Speci men Type: BLOOD SPECIMEN Performed By: #### 2 4323-8 #### [facility] CLIA [id number] [address] [place] CO2 [Moles/Vol] 20 mmol/L Low 22-30 [facility] Comment on above: Order Comment: Speci men Type: BLOOD SPECIMEN Performed By: #### 2 4323-8 #### [facility] CLIA [id number] [address] [place] Creatinine [Mass/Vol] 0.88 mg/dL Normal 0.58-0.96 [facility] Comment on above: Order Comment: Speci men Type: BLOOD SPECIMEN Performed By: #### 2 4323-8 #### [facility] CLIA [id number] [address] [place] GFR/1.73 sq M.predicted MDRD (S/P/Bld) [Vol rate/Area] mL/min/{1.73_m2} Normal [facility] Comment on above: Order Comment: Speci men [...] GFR. Performed By: #### 2 4323-8 #### [facility] CLIA [id number] [address] [place] Glucose [Mass/Vol] 93 mg/dL Normal 74-99 [facility] Comment on above: Order Comment: Speci men Type: BLOOD SPECIMEN Result Comment: The [place] Diabetes Association (ADA) provides guidance for cutoff [...] Standards of Medical Care in Diabetes 2016, [place] [employer]. Diabetes Care. 2016.39(Suppl 1). Performed By: #### 2 4323-8 #### [facility] CLIA [id number] [address] Potassium [Moles/Vol] 3.9 mmol/L Normal 3.7-5.1 [facility] Comment on above: Order Comment: Speci men Type: BLOOD SPECIMEN Performed By: #### 2 4323-8 #### [facility] CLIA [id number] [address] STATES OF [facility] Protein [Mass/Vol] 5.6 g/dL Low 6.3-8.0 [facility] Comment on above: Order Comment: Speci men Type: BLOOD SPECIMEN Performed By: #### 2 4323-8 #### [facility] CLIA [id number] [address] STATES [facility] Sodium [Moles/Vol] 138 mmol/L Normal 136-144 [facility] Comment on above: Order Comment: Speci men Type: BLOOD SPECIMEN Performed By: #### 2 4323-8 #### [facility] CLIA [id number] [address] STATES OF [facility] Urea nitrogen [Mass/Vol] 37 mg/dL High 7-21 [facility] Comment on above: Order Comment: Speci men Type: BLOOD SPECIMEN Performed By: #### 2 4323-8 #### [facility] CLIA [id number] [address] HIGH SENSITIVITY TROPONIN To n 03-15-2021 HIGH SENSITIVITY PARAM 662 ng/L High <12 [facility] Comment on above: Order Comment: Speci men [...] MACE. Performed By: #### 1 4979-9 #### [facility] CLIA [id number] [address] NUTRITIONon 03-15-2021 NUTRITION HNO ID: [id number] Author: Marianela Ocasio RD Service: Nutrition Therapy Author Type: Registered Dietitian Type: Nutrition Filed: 03/15/2021 1:51 PM Note Text: NUTRITION THERAPY INITIAL ASSESSMENT SERVICE DATE: 03/15/2021 SERVICE TIME: 11:10 REASON FOR VISIT: Med[employer] Nutrition Assessment: Recommended Malnutrition Diagnosis: No Malnutrition Identified Nutrition Diagnosis: PES Statement: No diagnosis at this time Estimated kilocalorie needs: 8437-3160 Calorie Calculation Method: 25-30 kcals/kg Estimated protein needs (grams): 60-75 Grams protein determined by: 1.2 - 1.5 g/kg;Leblanc body weight Care Plan: Continue current diet No nutritional need for MedPass Monitor and Evaluation: Meet greater than 75% of estimated needs;Monitor fluid/electrolyte balance;Monitor labs, I/Os, vital signs, weight;Monitor bowel function Discharge Recommendations: Diet Diet: Heart Healthy HPI: Patient transferred to [facility] for high risk PCI. Underwent PCI on [...] March 15, 2021 TIME: 1:49 PM PAGER: [phone] Normal [facility] BRIEF OP NOTon 03-14-2021 BRIEF OP NOT HNO ID: [id number] Author: Basil Buchanan MD Service: Interventional Cardiology Author Type: Physician Type: Brief Op Note Filed: 03/14/2021 10:28 AM Note Text: CARDIAC CATHETERIZATION REPORT PATIENT NAME: Kristine Delacruz SERVICE DATE: 03/14/2021 SERVICE TIME: 10:13 AM Cattle Dealer: Deuce Hector MD Attending: Basil Buchanan MD RECOMMENDATIONS: Patient will be continued on dual antiplatelet therapy. 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 She is referred for high risk percutaneous groin intervention of the SVG graft to the RCA. She had presented with chest pain non-ST elevation myocardial infarction and underwent for diagnostic catheterization at [facility]. In addition, she has a known atretic [...] REID graft to the LAD. A 7 Swiss AR-2 guide was seated into the SVG [...] was removed and replaced with a 7 Swiss JR4 guide, A Scion Blue wire was [...] March 14, 2021 TIME: 10:13 AM Normal [facility] CBC panel Auto (Bld)on 03-14 Erythrocyte distribution width (RBC) [Ratio] 13.5 % Normal 11.5-15.0 [facility] Comment on above: Order Comment: Speci men Type: BLOOD SPECIMEN Performed By: #### 5 8410-2 #### [facility] CLIA [id number] [address] Hematocrit (Bld) [Volume fraction] 32.3 % Low 36.0-46.0 [facility] Comment on above: Order Comment: Speci men Type: BLOOD SPECIMEN Performed By: #### 5 8410-2 #### [facility] CLIA [id number] [address] Hemoglobin (Bld) [Mass/Vol] 10.5 g/dL Low 11.5-15.5 [facility] Comment on above: Order Comment: Speci men Type: BLOOD SPECIMEN Performed By: #### 5 8410-2 #### [facility] CLIA [id number] [address] MCH (RBC) [Entitic mass] 29.7 pg Normal 26.0-34.0 [facility] Comment on above: Order Comment: Speci men Type: BLOOD SPECIMEN Performed By: #### 5 8410-2 #### [facility] CLIA [id number] [address] MCHC (RBC) [Mass/Vol] 32.5 g/dL Normal 30.5-36.0 [facility] Comment on above: Order Comment: Speci men Type: BLOOD SPECIMEN Performed By: #### 5 8410-2 #### [facility] CLIA [id number] [address] MCV (RBC) [Entitic vol] 91.5 fL Normal 80.0-100.0 [facility] Comment on above: Order Comment: Speci men Type: BLOOD SPECIMEN Performed By: #### 5 8410-2 #### [facility] CLIA [id number] [address] Nucleated RBC (Bld) [#/Vol] 10*3/uL Normal <0.01 [facility] Comment on above: Order Comment: Speci men Type: BLOOD SPECIMEN Performed By: #### 5 8410-2 #### [facility] CLIA [id number] [address] Platelet mean volume (Bld) [Entitic vol] 9.9 fL Normal 9.0-12.7 [facility] Comment on above: Order Comment: Speci men Type: BLOOD SPECIMEN Performed By: #### 5 8410-2 #### [facility] CLIA [id number] [address] Platelets (Bld) [#/Vol] 305 10*3/uL Normal 150-400 [facility] Comment on above: Order Comment: Speci men Type: BLOOD SPECIMEN Performed By: #### 5 8410-2 #### [facility] CLIA [id number] [address] RBC (Bld) [#/Vol] 3.53 10*6/uL Low 3.90-5.20 [facility] Comment on above: Order Comment: Speci men Type: BLOOD SPECIMEN Performed By: #### 5 8410-2 #### [facility] CLIA [id number] [address] WBC (Bld) [#/Vol] 10.24 10*3/uL Normal 3.70-11.00 [facility] Comment on above: Order Comment: Speci men Type: BLOOD SPECIMEN Performed By: #### 5 8410-2 #### [facility] CLIA [id number] [address] Comprehensive metabolic 2000 panelon 11-11-2021 Albumin [Mass/Vol] 3.5 g/dL Low 3.9-4.9 [facility] Comment on above: Order Comment: Speci men Type: BLOOD SPECIMEN Performed By: #### 2 4323-8, HSTNT #### [facility] CLIA [id number] [address] ALP [Catalytic activity/Vol] 57 U/L Normal 34-123 [facility] Comment on above: Order Comment: Speci men Type: BLOOD SPECIMEN Performed By: #### 2 4323-8, HSTNT #### [facility] CLIA [id number] [address] ALT With P-5'-P [Catalytic activity/Vol] 13 U/L Normal 7-38 [facility] Comment on above: Order Comment: Speci men Type: BLOOD SPECIMEN Performed By: #### 2 4323-8, HSTNT #### [facility] CLIA [id number] [address] Anion gap [Moles/Vol] 10 mmol/L Normal 9-18 [facility] Comment on above: Order Comment: Speci men Type: BLOOD SPECIMEN Performed By: #### 2 4323-8, HSTNT #### [facility] CLIA [id number] [address] AST With P-5'-P [Catalytic activity/Vol] 21 U/L Normal 13-35 [facility] Comment on above: Order Comment: Speci men Type: BLOOD SPECIMEN Performed By: #### 2 4323-8, HSTNT #### [facility] CLIA [id number] [address] Bilirubin [Mass/Vol] 0.6 mg/dL Normal 0.2-1.3 [facility] Comment on above: Order Comment: Speci men Type: BLOOD SPECIMEN Performed By: #### 2 4323-8, HSTNT #### [facility] CLIA [id number] [address] Calcium [Mass/Vol] 9.0 mg/dL Normal 8.5-10.2 [facility] Comment on above: Order Comment: Speci men Type: BLOOD SPECIMEN Performed By: #### 2 4323-8, HSTNT #### [facility] CLIA [id number] [address] [place] Chloride [Moles/Vol] 104 mmol/L Normal 97-105 [facility] Comment on above: Order Comment: Speci men Type: BLOOD SPECIMEN Performed By: #### 2 4323-8, HSTNT #### [facility] CLIA [id number] [address] OF [place] CO2 [Moles/Vol] 24 mmol/L Normal 22-30 [facility] Comment on above: Order Comment: Speci men Type: BLOOD SPECIMEN Performed By: #### 2 4323-8, HSTNT #### [facility] CLIA [id number] [address] [place] Creatinine [Mass/Vol] 0.83 mg/dL Normal 0.58-0.96 [facility] Comment on above: Order Comment: Speci men Type: BLOOD SPECIMEN Performed By: #### 2 4323-8, HSTNT #### [facility] CLIA [id number] [address] [place] GFR/1.73 sq M.predicted MDRD (S/P/Bld) [Vol rate/Area] mL/min/{1.73_m2} Normal [facility] Comment on above: Order Comment: Speci men [...] Performed By: #### 2 4323-8, HSTNT #### [facility] CLIA [id number] [address] STATES OF [facility] Glucose [Mass/Vol] 91 mg/dL Normal 74-99 [facility] Comment on above: Order Comment: Speci men Type: BLOOD SPECIMEN Result Comment: The [place] Diabetes Association (ADA) provides guidance for cutoff [...] Standards of Medical Care in Diabetes 2016, [place] [employer]. Diabetes Care. 2016.39(Suppl 1). Performed By: #### 2 4323-8, HSTNT #### [facility] CLIA [id number] [address] STATES OF [facility] Potassium [Moles/Vol] 4.3 mmol/L Normal 3.7-5.1 [facility] Comment on above: Order Comment: Speci men Type: BLOOD SPECIMEN Performed By: #### 2 4323-8, HSTNT #### [facility] CLIA [id number] [address] OF [facility] Protein [Mass/Vol] 6.1 g/dL Low 6.3-8.0 [facility] Comment on above: Order Comment: Speci men Type: BLOOD SPECIMEN Performed By: #### 2 4323-8, HSTNT #### [facility] CLIA [id number] [address] [place] Sodium [Moles/Vol] 138 mmol/L Normal 136-144 [facility] Comment on above: Order Comment: Speci men Type: BLOOD SPECIMEN Performed By: #### 2 4323-8, HSTNT #### [facility] CLIA [id number] [address] Urea nitrogen [Mass/Vol] 24 mg/dL High 7- [facility] Comment on above: Order Comment: Speci men Type: BLOOD SPECIMEN Performed By: #### 2 4323-8, HSTNT #### [facility] CLIA [id number] [address] HIGH SENSITIVITY TROPONIN To n 03-14-2021 HIGH SENSITIVITY PARAM 536 ng/L High <12 [facility] Comment on above: Order Comment: Speci men [...] MACE. Performed By: #### H STNT #### [facility] CLIA [id number] [address] HIGH SENSITIVITY PARAM 420 ng/L High <12 [facility] Comment on above: Order Comment: Speci men [...] MACE. Performed By: #### H STNT #### [facility] CLIA [id number] [address] HIGH SENSITIVITY PARAM 334 ng/L High <12 [facility] Comment on above: Order Comment: Speci men [...] MACE. Performed By: #### H STNT #### [facility] CLIA [id number] [address] HIGH SENSITIVITY PARAM 279 ng/L High <12 [facility] Comment on above: Order Comment: Speci men [...] MACE. Performed By: #### H STNT #### [facility] CLIA [id number] [address] HIGH SENSITIVITY PARAM 391 ng/L High <12 [facility] Comment on above: Order Comment: Speci men [...] MACE. Performed By: #### 2 4323-8, HSTNT [facility] [id number] [address] aPTT PPPon 03-14-2021 aPTT Coag (PPP) [Time] 62.3 s High 23.0-32.4 [facility] Comment on above: Order Comment: Speci men Type: BLOOD SPECIMEN Performed By: #### 1 4979-9 #### [facility] CLIA [id number] [address] ALLIED HEALTHon 03-13-2021 ALLIED HEALTH HNO ID: [id number] Author: KRISTEN Crouch) Service: Radiology Author Type: [...] DATE: March 13, 2021 TIME: 2:34 PM [facility] ALLIED HEALTH HNO ID: [id number] Author: Casi Ornelas Physiologist Service: Cardiac Rehab Author Type: Job Cost Estimator Type: Allied Health Filed: 03/13/2021 2:04 PM [...] Rehabilitation Brochure Signature: Casi Ornelas Physiologist Pager: [phone] Date: March 13, 2021 Time: 2:01 PM [facility] CASE MGT INTYREE Perry [facility]: [id number] Author: Neli Mansfield RN Service: ? 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 No Is Patient Psychosocially Complex?: No ASSESSMENT AND PLAN: Medical Needs: Medical Needs: Two or more chronic diseases Psychosocial Needs: Psychosocial Needs: None FREEDOM OF CHOICE EXPLAINED: [place] of Choice Given: No Reason Not Given: Unable to complete with this assessment - revisit POTENTIAL TRANSITION PLANS Home;To Be Determined Met with pt, explained CM role. From home alone, lives in a handicap accessible condo. 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 Ambulates with a cane or walker. Waiting on decision re high risk PCI, some talk of poss transfer to main campus. Will follow for transitional care needs. Hope is to return home. [facility] [place] SIGNATURE: Neli Mansfield RN PATIENT NAME: Kristine Delacruz DATE: March 13, 2021 TIME: 12:08 PM PAGER/CONTACT #: [phone] Normal [facility] CBC panel Auto (Bld)on 03-13 Erythrocyte distribution width (RBC) [Ratio] 13.4 % Normal 11.5-15.0 [facility] Comment on above: Order Comment: Speci men Type: BLOOD SPECIMEN Performed By: #### H STNT #### [facility] CLIA [id number] [address] Hematocrit (Bld) [Volume fraction] 35.2 % Low 36.0-46.0 [facility] Comment on above: Order Comment: Speci men Type: BLOOD SPECIMEN Performed By: #### H STNT #### [facility] CLIA [id number] [address] OF [facility] Hemoglobin (Bld) [Mass/Vol] 11.3 g/dL Low 11.5-15.5 [facility] Comment on above: Order Comment: Speci men Type: BLOOD SPECIMEN Performed By: #### H STNT #### [facility] CLIA [id number] [address] MCH (RBC) [Entitic mass] 29.5 pg Normal 26.0-34.0 [facility] Comment on above: Order Comment: Speci men Type: BLOOD SPECIMEN Performed By: #### H STNT #### [facility] CLIA [id number] [address] MCHC (RBC) [Mass/Vol] 32.1 g/dL Normal 30.5-36.0 [facility] Comment on above: Order Comment: Speci men Type: BLOOD SPECIMEN Performed By: #### H STNT #### [facility] CLIA [id number] 1 [address] MCV (RBC) [Entitic vol] 91.9 fL Normal 80.0-100.0 [facility] Comment on above: Order Comment: Speci men Type: BLOOD SPECIMEN Performed By: #### H STNT #### [facility] CLIA [id number] [address] Nucleated RBC (Bld) [#/Vol] 10*3/uL Normal <0.01 [facility] Comment on above: Order Comment: Speci men Type: BLOOD SPECIMEN Performed By: #### H STNT #### [facility] CLIA [id number] [address] Platelet mean volume (Bld) [Entitic vol] 9.9 fL Normal 9.0-12.7 [facility] Comment on above: Order Comment: Speci men Type: BLOOD SPECIMEN Performed By: #### H STNT #### [facility] CLIA [id number] [address] Platelets (Bld) [#/Vol] 325 10*3/uL Normal 150-400 [facility] Comment on above: Order Comment: Speci men Type: BLOOD SPECIMEN Performed By: #### H STNT #### [facility] CLIA [id number] [address] OF [facility] RBC (Bld) [#/Vol] 3.83 10*6/uL Low 3.90-5.20 [facility] Comment on above: Order Comment: Speci men Type: BLOOD SPECIMEN Performed By: #### H STNT #### [facility] CLIA [id number] [address] WBC (Bld) [#/Vol] 7.69 10*3/uL Normal 3.70-11.00 [facility] Comment on above: Order Comment: Speci men Type: BLOOD SPECIMEN Performed By: #### H STNT #### [facility] CLIA [id number] [address] Erythrocyte distribution width (RBC) [Ratio] 13.3 % Normal 11.5-15.0 [facility] Comment on above: Order Comment: Speci men Type: BLOOD SPECIMEN Performed By: #### H STNT #### [facility] CLIA [id number] [address] Hematocrit (Bld) [Volume fraction] 36.5 % Normal 36.0-46.0 [facility] Comment on above: Order Comment: Speci men Type: BLOOD SPECIMEN Performed By: #### H STNT #### [facility] CLIA [id number] [address] Hemoglobin (Bld) [Mass/Vol] 12.0 g/dL Normal 11.5-15.5 [facility] Comment on above: Order Comment: Speci men Type: BLOOD SPECIMEN Performed By: #### H STNT #### [facility] CLIA [id number] [address] MCH (RBC) [Entitic mass] 29.9 pg Normal 26.0-34.0 [facility] Comment on above: Order Comment: Speci men Type: BLOOD SPECIMEN Performed By: #### H STNT #### [facility] CLIA [id number] [address] MCHC (RBC) [Mass/Vol] 32.9 g/dL Normal 30.5-36.0 [facility] Comment on above: Order Comment: Speci men Type: BLOOD SPECIMEN Performed By: #### H STNT #### [facility] CLIA [id number] [address] MCV (RBC) [Entitic vol] 91.0 fL Normal 80.0-100.0 [facility] Comment on above: Order Comment: Speci men Type: BLOOD SPECIMEN Performed By: #### H STNT #### [facility] CLIA [id number] [address] Nucleated RBC (Bld) [#/Vol] 10*3/uL Normal <0.01 [facility] Comment on above: Order Comment: Speci men Type: BLOOD SPECIMEN Performed By: #### H STNT #### [facility] CLIA [id number] [address] Platelet mean volume (Bld) [Entitic vol] 9.8 fL Normal 9.0-12.7 [facility] Comment on above: Order Comment: Speci men Type: BLOOD SPECIMEN Performed By: #### H STNT #### [facility] CLIA [id number] [address] Platelets (Bld) [#/Vol] 347 10*3/uL Normal 150-400 [facility] Comment on above: Order Comment: Speci men Type: BLOOD SPECIMEN Performed By: #### H STNT #### [facility] CLIA [id number] [address] RBC (Bld) [#/Vol] 4.01 10*6/uL Normal 3.90-5.20 [facility] Comment on above: Order Comment: Speci men Type: BLOOD SPECIMEN Performed By: #### H STNT #### [facility] CLIA [id number] [address] WBC (Bld) [#/Vol] 7.82 10*3/uL Normal 3.70-11.00 [facility] Comment on above: Order Comment: Speci men Type: BLOOD SPECIMEN Performed By: #### H STNT #### [facility] CLIA [id number] [address] CTA ABD/PELV W IVCONon 03-13 CTA ABD/PELV W IVCON * * *Final Report* * * DATE OF EXAM: Mar 13 2021 2:35PM [facility] 0311 - CTA ABD/PELV W IVCON / [...] is scattered reactive-type lymphadenopathy involving the mediastinum. [place] coronary artery calcifications are scattered. The right [...] substernal goiter. (more content not included)... Normal [facility] CTA CHEST (GATED) WO/W IVCON on 03-13-2021 CTA CHEST (GATED) WO/W IVCON * * *Final Report* * * DATE OF EXAM: Mar 13 2021 2:35PM [facility] 0126 - CTA CHEST (GATED) WO/W IVCON [...] is scattered reactive-type lymphadenopathy involving the mediastinum. [place] coronary artery calcifications are scattered. The right [...] left t (more content not included)... Normal [facility] Comprehensive metabolic 2000 panelon 03-13-2021 Albumin [Mass/Vol] 4.1 g/dL Normal 3.9-4.9 [facility] Comment on above: Order Comment: Speci men Type: BLOOD SPECIMEN Performed By: #### 1 4979-9 #### [facility] CLIA [id number] [address] ALP [Catalytic activity/Vol] 67 U/L Normal 34-123 [facility] Comment on above: Order Comment: Speci men Type: BLOOD SPECIMEN Performed By: #### 1 4979-9 #### [facility] CLIA [id number] [address] ALT With P-5'-P [Catalytic activity/Vol] 11 U/L Normal 7-38 [facility] Comment on above: Order Comment: Speci men Type: BLOOD SPECIMEN Performed By: #### 1 4979-9 #### [facility] CLIA [id number] [address] Anion gap [Moles/Vol] 13 mmol/L Normal 9-18 [facility] Comment on above: Order Comment: Speci men Type: BLOOD SPECIMEN Performed By: #### 1 4979-9 #### [facility] CLIA [id number] [address] AST With P-5'-P [Catalytic activity/Vol] 26 U/L Normal 13-35 [facility] Comment on above: Order Comment: Speci men Type: BLOOD SPECIMEN Performed By: #### 1 4979-9 #### [facility] CLIA [id number] [address] OF [facility] Bilirubin [Mass/Vol] 0.8 mg/dL Normal 0.2-1.3 [facility] Comment on above: Order Comment: Speci men Type: BLOOD SPECIMEN Performed By: #### 1 4979-9 #### [facility] CLIA [id number] [address] OF [facility] Calcium [Mass/Vol] 9.4 mg/dL Normal 8.5-10.2 [facility] Comment on above: Order Comment: Speci men Type: BLOOD SPECIMEN Performed By: #### 1 4979-9 #### [facility] CLIA [id number] [address] Chloride [Moles/Vol] 102 mmol/L Normal 97-105 [facility] Comment on above: Order Comment: Speci men Type: BLOOD SPECIMEN Performed By: #### 1 4979-9 #### [facility] CLIA [id number] [address] [place] CO2 [Moles/Vol] 25 mmol/L Normal 22-30 [facility] Comment on above: Order Comment: Speci men Type: BLOOD SPECIMEN Performed By: #### 1 4979-9 #### [facility] CLIA [id number] [address] Creatinine [Mass/Vol] 0.86 mg/dL Normal 0.58-0.96 [facility] Comment on above: Order Comment: Speci men Type: BLOOD SPECIMEN Performed By: #### 1 4979-9 #### [facility] CLIA [id number] [address] [place] GFR/1.73 sq M.predicted MDRD (S/P/Bld) [Vol rate/Area] mL/min/{1.73_m2} Normal [facility] Comment on above: Order Comment: Speci men [...] GFR. Performed By: #### 1 4979-9 #### [facility] CLIA [id number] [address] [place] Glucose [Mass/Vol] 101 mg/dL High 74-99 [facility] Comment on above: Order Comment: Speci men Type: BLOOD SPECIMEN Result Comment: The [place] [employer] Association (ADA) provides guidance for cutoff [...] Standards of Medical Care in Diabetes 2016, [place] [employer]. Diabetes Care. 2016.39(Suppl 1). Performed By: #### 1 4979-9 #### [facility] CLIA [id number] [address] OF [facility] Potassium [Moles/Vol] 3.3 mmol/L Low 3.7-5.1 [facility] Comment on above: Order Comment: Speci men Type: BLOOD SPECIMEN Performed By: #### 1 4979-9 #### [facility] CLIA [id number] [address] [place] [address] [place] Protein [Mass/Vol] 7.0 g/dL Normal 6.3-8.0 [facility] Comment on above: Order Comment: Speci men Type: BLOOD SPECIMEN Performed By: #### 1 4979-9 #### [facility] CLIA [id number] [address] [place] Sodium [Moles/Vol] 140 mmol/L Normal 136-144 [facility] Comment on above: Order Comment: Speci men Type: BLOOD SPECIMEN Performed By: #### 1 4979-9 #### [facility] CLIA [id number] [address] [place] Urea nitrogen [Mass/Vol] 12 mg/dL Normal 7-21 [facility] Comment on above: Order Comment: Speci men Type: BLOOD SPECIMEN Performed By: #### 1 4979-9 #### [facility] CLIA [id number] [address] HIGH SENSITIVITY TROPONIN To n 03-13-2021 HIGH SENSITIVITY PARAM 349 ng/L High <12 [facility] Comment on above: Order Comment: Speci men [...] MACE. Performed By: #### 1 4979-9 #### [facility] CLIA [id number] [address] HIGH SENSITIVITY PARAM 385 ng/L High <12 [facility] Comment on above: Order Comment: Speci men [...] MACE. Performed By: #### H STNT #### [facility] CLIA [id number] [address] HISTORY PHYSICALon HISTORY PHYSICAL HNO ID: [id number] Author: Nuzhat Ball MD Service: Cardiovascular Medicine [...] flow into the REID graft noted on nulato left coronary artery injections. We did not [...] then, HTN/HLD, hypothyroidism who presented to the [place] ED with chest pressure on 03/11. Also endorsed bilateral arm pain and pain between her shoulder blades, as well as SOB. States she took her nitroglycerin at home without relief. Because her pain was persistent, she presented to the ED. hsTNT uptrended from 1825 to 2971. [facility] and it was recommended that she be transferred to [facility] for high-risk PCI. On my evaluation, patient states that her chest pain has since resolved since the night she first came into the ED. Denies SOB, headaches, blurry vision, diaphoresis, nausea or vomiting or other symptoms at this time. No other issues at this time. Past Medical History: PAST MEDICAL HISTORY Diagnosis Date - Abnormal stress test - Hypercholesteremia - [place] (myocardial infarction) (HCC) 2013 Past Surgical History: PAST SURGICAL HISTORY Procedure Laterality Date - APPENDECTOMY 195 - CARPAL TUNNEL left 2011, right 2010 - CATARACT EXTRACTION HX left eye - EXPLORATORY OF ABDOMEN EXPLORATORY LAP - HEART CATHETERIZATION - PAST SURGICAL HISTORY OF Coronary bypass x5- [facility] - PAST SURGICAL HISTORY OF Cardiac stent [...] FAMILY HISTORY (more content not included)... Normal [facility] PT EDon 03-13-2021 PT ED HNO ID: [id number] Author: Sissy Kosa, DTR Service: Nutrition Therapy Author Type: Electorate Officer Type: Patient Education Filed: 03/13/2021 1:58 PM [...] 2021 TIME: 1:57 PM PAGER: [phone] Normal [facility] PT panel Coag (PPP)on 2020 INR Coag (PPP) [Relative time] 1.0 {INR} Normal 0.9-1.3 [facility] Comment on above: Order Comment: Speci men Type: BLOOD SPECIMEN Result Comment: Agnieszka min K Antagonist (VKA) Therapeutic Range: INR 2 to 3 (Target INR of 2.5) Note: For patients treated with VKA drugs, such as warfarin, the [place] [employer] 2012 Guideline recommends [...] Chest 2012, 141:7S-47S Vera CARBONE et al. [facility] 2017, 70: 252-289 Performed By: #### 3 4528-0, 80988-1 #### [facility] CLIA [id number] [address] PT Coag (PPP) [Time] 10.8 s Normal 9.7-13.0 [facility] Comment on above: Order Comment: Speci men Type: BLOOD SPECIMEN Performed By: #### 3 4528-0, 82780-1 #### [facility] CLIA [id number] [address] STAPH AUREUS PCRon S. aureus and MRSA panel MARLENY+probe (Nose) Normal Negative [facility] Comment on above: Order Comment: Speci men Type: BLOOD SPECIMEN Result Comment: Nega tive for Staphylococcus aureus by PCR. Negative for MRSA by PCR Performed By: #### 1 4979-9 #### [facility] CLIA [id number] [address] aPTT PPPon 03-13-2021 aPTT Coag (PPP) [Time] 62.4 s High 23.0-32.4 [facility] Comment on above: Order Comment: Speci men Type: BLOOD SPECIMEN Performed By: #### H STNT #### [facility] CLIA [id number] [address] aPTT Coag (PPP) [Time] 65.5 s High 23.0-32.4 [facility] Comment on above: Order Comment: Speci men Type: BLOOD SPECIMEN Performed By: #### 1 4979-9 #### [facility] CLIA [id number] [address] aPTT Coag (PPP) [Time] 41.5 s High 23.0-32.4 [facility] Comment on above: Order Comment: Speci men Type: BLOOD SPECIMEN Performed By: #### 3 4528-0, 73211-5 #### [facility] CLIA [id number] [address] [place] Encounters Encounter Date Encounter Type Care Provider Facility Start: 01-29-2023 End: 05-03-[address] HASMUKH PHAN DO Facility:B Payers Date Payer Category Payer Medicare [id number] 2023 Private Health Insurance [id number] Unknown [id number] Plan of care note 03-15-2021 Note Date & Type Note Facility 03-15-2021 Note HNO ID: [id number] Author: America Reyes RPh Service: ? Author [...] Filled free 30 days of Brilinta through medical office representative card; per [facility] outpatient pharmacy, copay will be $234 [...] RPh March 15, 2021 1:50 PM Pager: [phone] 03/15/2021 1:50 PM Medication List START taking [...] Your Medications These medications were sent to [facility] [address] [place] [address] Hours: Thursday-Thursday, 8am-6:30pm ? atorvastatin 80 mg tablet ? BRILINTA 90 mg tablet ? famotidine 20 mg tablet ? isosorbide mononitrate ER 60 mg 24 hr tablet ? metoprolol tartrate (short acting) 25 mg tablet [facility] Progress note 03-15-2021 Note Date & Type Note Facility 03-15-2021 Note HNO ID: [id number] Author: Mia Cooper DO Service: Cardiovascular Medicine [...] March 18, 2021 Time: 4:12 PM -- [facility] CVICU PROGRESS NOTE Service Date: 03/14/2021 Service Time: 8:24 AM SUBJECTIVE Brief HPI: This is a 86 year old female PMHx CABGx5 [multiple stent placements since then, including within the vein graft to the RCA and OM], HTN, HLD, and hypothyroidism who presented to the [place] ED with chest pressure on 03/11. She [...] was recommended that she be transferred to [facility] for high-risk PCI. Interval History: Underwent [...] 138 -- < (more content not included)... [facility] Progress note 03-14-2021 Note Date & Type Note Facility 03-14-2021 Note HNO ID: [id number] Author: Mia Cooper DO Service: Cardiovascular Medicine [...] 14, 2021 Time: 5:24 PM -- [facility] CVICU PROGRESS NOTE Service Date: 03/14/2021 Service Time: 8:24 AM SUBJECTIVE Brief HPI: This is a 86 year old female PMHx CABGx5 [multiple stent placements since then, including within the vein graft to the RCA and OM], HTN, HLD, and hypothyroidism who presented to the [place] ED with chest pressure on 03/11. She [...] was recommended that she be transferred to [facility] for high-risk PCI. Interval History: No [...] Last 12 En (more content not included)... [facility] Progress note 03-13-2021 Note Date & Type Note Facility 03-13-2021 Note HNO ID: [id number] Author: America Reyes RPh Service: ? Author [...] this patient. Signature: America Reyes RPh Pager/Extension: [phone] [facility] Clinical Note 03-13-2021 Note Date & Type Note Facility 03-13-2021 Note HNO ID: [id number] Author: Jazmin Ware RN Service: Nursing Author Type: Registered Nurse Type: Nursing Progress Note Filed: 03/13/2021 10:22 AM Note Text: 2-D-Echo in progress at bedside [facility] Summary Purpose Family History No Family History Records FoundNo Family History Records FoundNo Family History Records Found Advance Directives No Advanced Directives Records FoundNo Advanced Directives Records FoundNo Advanced Directives Records Found Additional Source Comments INFORMATION SOURCE (unrecogn ized section and content) DATE CREATED AUTHOR 03/29/2021 [facility] DATE CREATED AUTHOR AUTHOR'S ORGANIZ ATION 06/02/2021 [facility] DATE CREATED AUTHOR AUTHOR'S ORGANIZ ATION 05/06/2023 [facility] [employer] ([place]) FOR RECORDS PERTAINING TO PATIENTS [...] BE BASED ON THE PRIMARY CLINICAL RECORDS. [facility] That [facility]. provides no warranty or guarantee of the accuracy or completeness of information in this document.
== END | disposition home or self-care (01) ==
LOC: MFPLAB 12:23
PROVIDERS: Nurse Practitioner Gerontology; PCP Family Medicine; Referring Provider Family Medicine; Visit Provider Family Medicine
DX: Z51.81 Encounter for therapeutic drug level monitoring (principal); Z79.899 Other long term (current) drug therapy
CPT/HCPCS: 36415; 80048

== ENCOUNTER → 2024-03-11 | Outpatient (CLI) | payer MEDICARE, OTHER, SELFPAY ==
[2016-08-18 10:52] VITALS: BMI 33.5
[2024-03-11 13:15] LABS: Anion Gap 7 (5-15); BUN 18 mg/dL (7-18); BUN/Creat Ratio 19.1 RATIO (10-20); Calcium,Total 9.1 mg/dL (8.5-10.1); Chloride 102 mmol/L (98-107); Creatinine, Serum 0.94 mg/dL (0.55-1.02); EST Glomerular Filtration Rate 60 mL/min (>60); Est Glom Filt Rate - Afr Amer 72 mL/min (>60); Glucose 87 mg/dL (74-106); Potassium 4.1 mmol/L (3.5-5.1); Sodium Level 136 mmol/L (136-145)
== END | disposition home or self-care (01) ==
LOC: LAB 12:26
PROVIDERS: PCP Family Medicine; Referring Provider Nurse Practitioner Gerontology; Visit Provider Nurse Practitioner Gerontology
DX: R06.02 Shortness of breath (principal); R63.5 Abnormal weight gain
CPT/HCPCS: 36415; 80048

== ENCOUNTER 2024-03-13 11:47 | Emergency (ER) | payer MEDICARE, OTHER, SELFPAY ==
[2016-08-18 10:52] VITALS: BMI 33.5
[2024-03-13 11:48] VITALS: BP 135/57; PULSE 58; RESP 16; TEMP 36.6; O2SAT 95; BMI 34.7
[2024-03-13 12:19] LABS: Absolute Lymphocyte Count 1.39 X10^3/uL (0.83-4.51); Absolute Neutrophil Count 6.6 X10^3/uL (2.0-7.7); Basophil# 0.06 X10^3/uL; Basophil% 0.7 % (0-1); Eosinophil# 0.42 X10^3/uL; Eosinophils% 4.6 % (0-5); Hematocrit 34.9 % (37-47); Hemoglobin 11.9 g/dL (12.0-15.0); Lymphocyte # 1.39 X10^3/ul (0.83-4.51); Lymphocyte % 15.1 % (19-41); Mean Corp Hgb Conc 34.1 g/dL (32-36); Mean Corpuscular Hgb 31.7 pg (27.0-32.0); Mean Corpuscular Volume 93.1 fL (81-99); Mean Platelet Vol. 9.6 fl (6.2-12.0); Monocyte# 0.74 X10^3/uL; NRBC Flagged by Analyzer 0 % (0-5); Neutrophil # 6.56 X10^3/uL (2.7-7.7); Neutrophil % 71.2 % (47-70); Platelet Count 386 K/mm3 (150-450); RBC Distribution Width CV 13.1 % (11.6-14.6); RBC Distribution Width SD 44.4 fl (35.1-43.9); Red Blood Count 3.75 M/mm3 (4.2-5.4); White Blood Count 9.2 K/mm3 (4.4-11.0)
[2024-03-13 12:28] LABS: Anion Gap 4 (5-15); BUN 19 mg/dL (7-18); BUN/Creat Ratio 19.1 RATIO (10-20); Chloride 99 mmol/L (98-107); Creatinine, Serum 0.99 mg/dL (0.55-1.02); EST Glomerular Filtration Rate 56 mL/min (>60); Est Glom Filt Rate - Afr Amer 68 mL/min (>60); Glucose 91 mg/dL (74-106); Sodium Level 135 mmol/L (136-145); Troponin-I HS (w/2H Reflex) 20 pg/mL (3.0-54.0)
[2024-03-13 12:45] VITALS: BP 124/58; PULSE 66; RESP 11; O2SAT 98
[2024-03-13 13:00] VITALS: BP 124/65; PULSE 67; RESP 14; O2SAT 98
[2024-03-13 14:00] VITALS: BP 135/66; PULSE 68; RESP 17; O2SAT 98
[2024-03-13 14:08] LABS: Reflex Troponin-HS? (from REC) Y
[2024-03-13 14:42] LABS: Troponin-I HS 18 pg/mL (3.0-54.0)
== END 2024-03-13 15:10 | disposition home or self-care (01) ==
PROVIDERS: Emergency Provider Emergency Medicine; PCP Family Medicine; Visit Provider Emergency Medicine
DX: R55 Syncope and collapse (principal); I50.32 Chronic diastolic (congestive) heart failure; I11.0 Hypertensive heart disease with heart failure; I25.2 Old myocardial infarction; I25.10 Atherosclerotic heart disease of native coronary artery without angina pectoris; R00.1 Bradycardia, unspecified; E03.9 Hypothyroidism, unspecified; E78.5 Hyperlipidemia, unspecified; M19.90 Unspecified osteoarthritis, unspecified site; M75.100 Unspecified rotator cuff tear or rupture of unspecified shoulder, not specified as traumatic; S46.219A Strain of muscle, fascia and tendon of other parts of biceps, unspecified arm, initial encounter; X58.XXXA Exposure to other specified factors, initial encounter; Z95.1 Presence of aortocoronary bypass graft; Z79.82 Long term (current) use of aspirin; Z85.828 Personal history of other malignant neoplasm of skin; Z79.899 Other long term (current) drug therapy; Z79.890 Hormone replacement therapy; Z90.49 Acquired absence of other specified parts of digestive tract
CPT/HCPCS: 71045; 80048; 84484; 85025; 93005; 99285; A4216

== ENCOUNTER → 2024-03-23 | Outpatient (CLI) | payer MEDICARE, OTHER, SELFPAY ==
[2016-08-18 10:52] VITALS: BMI 33.5
--- NOTE | 2024-03-23 14:06 | ECHOD_ITS ---
Reason For Study: CHF Procedure This was a 2D Doppler, Color Flow transthoracic echocardiogram. Exam performed in department. Left Ventricle Normal LV size. Left ventricular systolic function is normal. The left ventricular ejection fraction is 65 %. Stage 1 diastolic dysfunction. No regional wall motion abnormalities noted. Right Ventricle Normal RV size. Normal systolic function. Atria The left atrium is mildly enlarged. Normal right atrium. Mitral Valve Normal mitral valve. Mild (1+) eccentric mitral valve insufficiency. Tricuspid Valve Normal tricuspid valve. Mild (1+) tricuspid valve insufficiency. Pulmonary artery systolic pressure is 28 mmHg. Aortic Valve Trisinus/trileaflet aortic valve. Mild focal aortic valve thickening. Pulmonic Valve Normal pulmonic valve. Great Vessels Normal aortic root. The pulmonary artery is normal size. Inferior vena cava collapse with respiration. Pericardium/Pleural No pericardial effusion. MMode/2D Measurements & Calculations LVIDd: 6.0 cm IVSd: 1.2 cm LVOT diam: 2.0 cm LVIDs: 3.8 cm LVPWd: 1.1 cm LVOT area: 3.1 cm2 RVDd: 3.1 cm FS: 37.8 % Ao root diam: 3.3 cm LAV(MOD-bp): 69.5 ml LA A4 area: 24.1 cm2 LA dimension: 4.8 cm LAV(MOD-bp) Indexed: 39.1 ml/m2 LAV(MOD-sp2): 67.7 ml LAV(MOD-sp4): 70.5 ml TAPSE: 1.5 cm RA A4 area: 13.7 cm2 Time Measurements MV dec time: 0.27 sec Doppler Measurements & Calculations MV E max manny: 72.9 cm/sec Lat Peak E' Manny: 8.2 cm/sec Med Peak E' Manny: 5.3 cm/sec MV A max manny: 96.5 cm/sec E/E' lat: 8.8 E/E' med: 13.6 MV E/A: 0.76 MV V2 max: 118.2 cm/sec MV P1/2t max manny: 102.2 cm/sec Ao V2 max: 120.8 cm/sec MV max P.6 mmHg MV P1/2t: 104.0 msec Ao max P.8 mmHg MV V2 mean: 62.0 cm/sec MV dec slope: 287.7 cm/sec2 Ao V2 mean: 85.0 cm/sec MV mean P.8 mmHg Ao mean P.4 mmHg MV V2 VTI: 34.4 cm MVA(P1/2t): 2.1 cm2 Ao V2 VTI: 29.5 cm MVA(VTI): 1.9 cm2 AV (velocity ratio): 0.72 JOELLE(I,D): 2.2 cm2 JOELLE(V,D): 2.3 cm2 LV V1 max: 89.4 cm/sec SV(LVOT): 66.4 ml PA V2 max: 107.7 cm/sec LV V1 max P.2 mmHg LV V1 mean P.7 mmHg LV V1 mean: 61.0 cm/sec LV V1 VTI: 21.1 cm TR max manny: 247.5 cm/sec TR max P.5 mmHg ECHO/Echo Complete Interpretation Summary Normal LV size. Left ventricular systolic function is normal. The left ventricular ejection fraction is 65 %. Stage 1 diastolic dysfunction. Mild (1+) eccentric mitral valve insufficiency. Pulmonary artery systolic pressure is 28 mmHg. Ordering Physician: Freddie Hudson Referring Physician: Freddie Hudson Performed By: Jason Villatoro RCS
== END | disposition home or self-care (01) ==
LOC: CVS 14:02
PROVIDERS: PCP Family Medicine; Referring Provider Internal Medicine Cardiovascular Disease; Visit Provider Internal Medicine Cardiovascular Disease
DX: I50.32 Chronic diastolic (congestive) heart failure (principal); R06.09 Other forms of dyspnea; R06.02 Shortness of breath
CPT/HCPCS: 93306

== ENCOUNTER → 2024-05-31 | Outpatient (CLI) | payer MEDICARE, OTHER, SELFPAY ==
[2016-08-18 10:52] VITALS: BMI 33.5
[2024-05-31 19:47] LABS: Cholesterol 196 mg/dL (200); High Density Lipoprotein 76 mg/dL; Thyroid Stim Hormone (TSH) 0.773 uIU/mL (0.358-3.740); Triglycerides 105 mg/dL; Very Low Density Lipoprotein 21 mg/dL (5-40)
== END | disposition home or self-care (01) ==
LOC: MFPLAB 16:17
PROVIDERS: PCP Family Medicine; Referring Provider Family Medicine; Visit Provider Family Medicine
DX: I25.10 Atherosclerotic heart disease of native coronary artery without angina pectoris (principal); E03.9 Hypothyroidism, unspecified
CPT/HCPCS: 36415; 80061; 84443

== ENCOUNTER → 2025-02-28 | Outpatient (CLI) | payer MEDICARE, OTHER, SELFPAY ==
[2016-08-18 10:52] VITALS: BMI 33.5
[2025-02-28 17:54] LABS: Hematocrit 36.7 % (37-47); Hemoglobin 12.1 g/dL (12.0-15.0); Mean Corp Hgb Conc 33.0 g/dL (32-36); Mean Corpuscular Volume 91.8 fL (81-99); Mean Platelet Vol. 10.3 fl (6.2-12.0); Platelet Count 408 K/mm3 (150-450); RBC Distribution Width CV 13.6 % (11.6-14.6); RBC Distribution Width SD 46.3 fl (35.1-43.9); Red Blood Count 4.00 M/mm3 (4.2-5.4); White Blood Count 7.6 K/mm3 (4.4-11.0)
[2025-02-28 18:32] LABS: AST(SGOT) 24 U/L (<=31); Alanine Aminotransfer ALT/SGPT 10 U/L (<=34); Albumin, Serum 4.0 g/dL (3.4-4.8); Alkaline Phosphatase 70 U/L (35-104); Anion Gap 12 (5-15); BUN 25 mg/dL (4-19); BUN/Creat Ratio 22.9 RATIO (10-20); Calcium,Total 9.9 mg/dL (7.6-11.0); Carbon Dioxide 25.7 mmol/L (21.0-32.0); Chloride 101 mmol/L (98-108); Cholesterol 245 mg/dL (<=200); Globulin 3.4 g/dL (2.2-4.2); Glucose 84 mg/dL (70-99); Low Density Lipoprotein Calc. 154 mg/dL; Potassium 4.6 mmol/L (3.3-5.1); Triglycerides 169 mg/dL; Very Low Density Lipoprotein 34 mg/dL (5-40); Vitamin D,25 Hydroxy 47.7 ng/mL (30-100); cholesterol:hdl ratio screen 4.06
== END | disposition home or self-care (01) ==
LOC: MFPLAB 14:17
PROVIDERS: PCP Family Medicine; Visit Provider Family Medicine
DX: E03.9 Hypothyroidism, unspecified (principal); I10 Essential (primary) hypertension; I25.10 Atherosclerotic heart disease of native coronary artery without angina pectoris; R73.09 Other abnormal glucose
CPT/HCPCS: 36415; 80053; 80061; 82306; 83036; 84443; 85027